=== PATIENT | female | born 1960 | race African-American/Black ===

== ENCOUNTER 2017-01-07 05:44 | Day surgery (SDC) | payer OTHER ==
[2017-01-05 14:04] LABS: BASOPHILS 0.7 % (0-2); EOSINOPHILS 10.2 % (0-7); HEMATOCRIT 36.6 % (36.0-48.0); HEMOGLOBIN 11.8 g/dL (12-16); LYMPHOCYTES 47.2 % (15-50); MCH 31.4 pg (26.0-34.0); MCHC 32.2 g/dL (31.0-37.0); MCV 97.3 fL (80.0-100.0); MONOCYTES 7.9 % (2-11); PLATELET COUNT 184 10x3/uL (130-400); RBC 3.76 10x6/uL (4.00-5.40); RDW 14.1 % (11.5-14.5); WBC 4.4 10x3/uL (4.8-10.8)
[2017-01-05 14:34] LABS: CALC OSMOLALITY 292 mosm/kg (275-300); CALCIUM 8.6 mg/dL (8.5-10.1); CARBON DIOXIDE 31.5 mmol/L (21.0-32.0); CHLORIDE - SERUM 109 mmol/L (98-107); CREATININE - SERUM 0.8 mg/dL (0.6-1.3); GLUCOSE 112 mg/dL (74-106); POTASSIUM - SERUM 4.8 mmol/L (3.5-5.1); SODIUM 146 mmol/L (136-145); UREA NITROGEN 16 mg/dL (7-18); eGFR NON AFRICAN AMERICAN 79 mL/min (90-120)
[~2017-01-07] VITALS: Ht 172.7 cm; Wt 163.3 kg
--- NOTE | ~2017-01-07 | OP ---
PATIENT NAME: DON CARPENTER MEDICAL RECORD: [id number] :62 LOCATION:D.[facility] ADMISSION DATE: SURGEON: MELISSA GAGE MD DATE OF OPERATION: 01/07/2017 PREOPERATIVE DIAGNOSES: 1. Endometrial thickening. 2. Endometrial polyp. POSTOPERATIVE DIAGNOSES: 1. Endometrial thickening. 2. Endometrial polyp. PROCEDURE: Hysteroscopy, D&C. SURGEON: Melissa Gage MD ESTIMATED BLOOD LOSS: Minimal. INTRAVENOUS FLUIDS: Per anesthesia records. HYSTEROSCOPIC FLUID LOSS: Approximately 100 cc of 0.9 normal saline. COMPLICATIONS: None apparent. SPECIMENS: Scant endometrial curettings. DESCRIPTION OF PROCEDURE: The patient was taken to the operating room where general anesthesia was achieved without difficulty. The patient prepped and draped in normal sterile fashion in the dorsal lithotomy position in the [facility] due to the patient's size. At this point, the vagina had been prepped and the bladder was drained of approximately 100 cc of clear urine using a red rubber catheter. At this point, a Graves speculum was placed into the vagina and the very small cervix was identified and grasped on its anterior lip with a single tooth tenaculum. Very careful dilation was performed for approximately 6 mm, at which point the hysteroscope was introduced into the uterus. The patient was noted a very long and somewhat stenotic cervix. Visualization was made into the endometrial cavity which revealed a relatively atrophic-appearing endometrium with a lower uterine segment flat polypoid-appearing lesion. At this point, a Kevorkian curette was used to perform D&C with attention played to the area of the suspected polyp. Due to the patient's stenotic cervix, we were unable to place a regular curette. Following D&C, the tenaculum was removed. The patient tolerated the procedure well and was transferred to postanesthesia recovery stable without incident. TRANSINT:[id number] Voice Confirmation ID: [id number] DOCUMENT ID: [id number] OPERATIVE REPORT [id number] DON CARPENTER MELISSA GAGE MD CC: [id number] DICTATION DATE: 01/08/17 1417 PLASTICS FABRICATOR AND ASSEMBLER: 01/09/17 0205 [facility] 01/07/17 [address] [place] [address]
[~2017-01-07 05:44] MED LIST: BREO ELLIPTA 11 EACH; BREO ELLIPTA 11 EACH INH; COMBIVENT RESPIM4 GM INH; CRESTOR20 MG PO; CYMBALTA30 MG PO; EPITOL200 MG PO; GLUCOPHAGE500 MG PO; HYDROCHLOROTHIA50 MG PO; HYDROCODONE-APA1 TAB PO; IBUPROFEN800 MG PO; KLOR-CON 1010 MEQ PO; LASIX40 MG PO; LEVOXYL112 MC1 PO; LIPITOR80 MG PO; LISINOPRIL2.5 MG PO; PEPCID20 MG PO; PHENOBARBITAL PO; PHENOBARBITAL97.2 MG PO; SINGULAIR10 MG PO
[2017-01-07 05:54] LABS: HCG URINE NEGATIVE (NEGATIVE)
[2017-01-07 05:58] VITALS: BP 112/63; Ht 172.7 cm; Wt 163.3 kg
[2017-01-07 07:15] LABS: POTASSIUM - SERUM 3.6 mmol/L (3.5-5.1)
--- NOTE | 2017-01-07 13:26 | NUR ---
1150--PT VOIDS, IV DC'D. KRISTOPHER HENRIQUEZ 1200--DISCHARGE INSTRUCTIONS GIVEN, PT VERBALIZES UNDERSTANDING. PT OFF UNIT VIA WC. KRISTOPHER HENRIQUEZ
== END 2017-01-07 12:05 | disposition home or self-care (01) ==
LOC: D.OPS 05:44 → D.PAN 07:30 → D.OPS 12:05
PROVIDERS: Anesthesiology; Obstetrics & Gynecology
DX: R93.8 Abnormal findings on diagnostic imaging of other specified body structures (principal); N84.0 Polyp of corpus uteri; G40.909 Epilepsy, unspecified, not intractable, without status epilepticus; E11.9 Type 2 diabetes mellitus without complications; I10 Essential (primary) hypertension; E78.5 Hyperlipidemia, unspecified; G47.30 Sleep apnea, unspecified; J42 Unspecified chronic bronchitis; Z99.81 Dependence on supplemental oxygen; Z79.84 Long term (current) use of oral hypoglycemic drugs; Z79.1 Long term (current) use of non-steroidal anti-inflammatories (NSAID); Z79.899 Other long term (current) drug therapy; Z91.010 Allergy to peanuts; Z91.013 Allergy to seafood; Z91.018 Allergy to other foods

== ENCOUNTER → 2017-02-24 09:58 | Day surgery (SDC) | payer OTHER ==
[~2017-02-24] VITALS: Ht 172.7 cm; Wt 163.3 kg
[2017-02-24 11:38] VITALS: BP 150/78; Ht 172.7 cm; Wt 163.3 kg
[2017-02-24 11:39] LABS: HEMATOCRIT 37.3 % (36.0-48.0); HEMOGLOBIN 12.6 g/dL (12-16); MCH 32.4 pg (26.0-34.0); MCHC 33.8 g/dL (31.0-37.0); MCV 95.9 fL (80.0-100.0); MEAN PLATELET VOLUME 10.7 fL (7.4-10.4); RBC 3.89 10x6/uL (4.00-5.40); RDW 12.6 % (11.5-14.5); WBC 3.8 10x3/uL (4.8-10.8)
[2017-02-24 11:43] LABS: CALC OSMOLALITY 279 mosm/kg (275-300); CALCIUM 8.7 mg/dL (8.5-10.1); CARBON DIOXIDE 25.9 mmol/L (21.0-32.0); CHLORIDE - SERUM 106 mmol/L (98-107); CREATININE - SERUM 0.8 mg/dL (0.6-1.3); GLUCOSE 120 mg/dL (74-106); POTASSIUM - SERUM 3.9 mmol/L (3.5-5.1); SODIUM 141 mmol/L (136-145); UREA NITROGEN 8 mg/dL (7-18); eGFR NON AFRICAN AMERICAN 79 mL/min (90-120)
--- NOTE | 2017-02-24 16:05 | NUR ---
1500 PT ESCORTED OUT BY VOLUNTEER AND ACCOMPANIED BY HER DAUGHTER
== END | disposition home or self-care (01) ==
LOC: D.OPS 09:45
PROVIDERS: Surgery
DX: Z12.11 Encounter for screening for malignant neoplasm of colon (principal); K64.8 Other hemorrhoids; J45.909 Unspecified asthma, uncomplicated; I10 Essential (primary) hypertension; E11.9 Type 2 diabetes mellitus without complications; E03.9 Hypothyroidism, unspecified; J44.9 Chronic obstructive pulmonary disease, unspecified; G47.30 Sleep apnea, unspecified; Z01.812 Encounter for preprocedural laboratory examination; Z91.010 Allergy to peanuts; Z91.013 Allergy to seafood; Z91.018 Allergy to other foods

== ENCOUNTER → 2017-03-24 10:41 | Outpatient (CLI) | payer OTHER ==
[2017-02-24 11:38] VITALS: BMI 54.8
== END | disposition home or self-care (01) ==
LOC: D.US 10:41
DX: R60.0 Localized edema (principal)

== ENCOUNTER → 2017-05-28 08:02 | Outpatient (CLI) | payer OTHER ==
[2017-02-24 11:38] VITALS: BMI 54.8
== END | disposition home or self-care (01) ==
LOC: D.RT 08:00
DX: J45.909 Unspecified asthma, uncomplicated (principal)

== ENCOUNTER → 2018-07-12 09:34 | Outpatient (CLI) | payer OTHER ==
[2017-02-24 11:38] VITALS: BMI 54.8
== END | disposition home or self-care (01) ==
LOC: D.RAD 09:00
DX: J45.909 Unspecified asthma, uncomplicated (principal)

== ENCOUNTER → 2018-09-29 14:10 | Outpatient (CLI) | payer OTHER ==
[2017-02-24 11:38] VITALS: BMI 54.8
== END | disposition home or self-care (01) ==
LOC: D.MRI 14:10
DX: M62.81 Muscle weakness (generalized) (principal)

== ENCOUNTER 2020-02-23 05:54 | Inpatient (IN) | payer OTHER ==
[~2020-02-23] VITALS: Ht 172.7 cm; Wt 154.2 kg
[~2020-02-23 05:54] MED LIST changes: +ELIQUIS5 MG PO; +GLUCOTROL 5 MG T5 MG PO; -PHENOBARBITAL PO; +PHENOBARBITAL64.8 MG PO; +TOPROL XL50 MG PO
[2020-02-23 06:29] LABS: CALC OSMOLALITY 281 mosm/kg (275-300); CALCIUM 8.5 mg/dL (8.5-10.1); CARBON DIOXIDE 29.1 mmol/L (21.0-32.0); CHLORIDE - SERUM 105 mmol/L (98-107); CREATININE - SERUM 0.6 mg/dL (0.6-1.3); GLUCOSE 157 mg/dL (74-106); POTASSIUM - SERUM 4.1 mmol/L (3.5-5.1); SODIUM 140 mmol/L (136-145); UREA NITROGEN 13 mg/dL (7-18); eGFR NON AFRICAN AMERICAN > 90 mL/min (90-120)
[2020-02-23 06:30] LABS: BASOPHILS 0.2 % (0-2); EOSINOPHILS 3.4 % (0-7); HEMATOCRIT 40.5 % (36.0-48.0); HEMOGLOBIN 13.1 g/dL (12-16); MCH 30.5 pg (26.0-34.0); MCHC 32.3 g/dL (31.0-37.0); MCV 94.2 fL (80.0-100.0); MEAN PLATELET VOLUME 9.7 fL (7.4-10.4); MONOCYTES 5.5 % (2-11); NEUTROPHILS 46.9 % (40-80); PLATELET COUNT 255 10x3/uL (130-400); RDW 12.7 % (11.5-14.5)
[2020-02-23 07:47] VITALS: BP 125/78; BMI 53.0
--- NOTE | 2020-02-23 10:49 | NUR ---
10CC OF RED DRAINAGE REMOVED FROM SAULO DRAIN @8523
--- NOTE | 2020-02-23 17:52 | NUR ---
[address] GABRIEL VIA PHONE REGARDING PATIENTS WEAKNESS AND LACK OF IMMOBILTUY. PT LIVES ALONE AND DAUGHTER HAS NO OTHER HELP. PER DR. HARDEN, DR. ROTHMAN NOTIFIED. ORDER NOTED TO ADMIT PATIENT AND LOW VOLTAGE TECHNICIAN FROM PRACTICE WILL EVALUATE PATIENT. PATIENT AND DAUGHTER NOTIFIED
[2020-02-23 19:20] LABS: BASOPHILS 0.2 % (0-2); HEMATOCRIT 39.4 % (36.0-48.0); HEMOGLOBIN 12.8 g/dL (12-16); IMMATURE GRANULOCYTES 0.3 % (0-5); LYMPHOCYTES 26.7 % (15-50); MCH 30.9 pg (26.0-34.0); MCHC 32.5 g/dL (31.0-37.0); MCV 95.2 fL (80.0-100.0); MEAN PLATELET VOLUME 9.7 fL (7.4-10.4); MONOCYTES 8.1 % (2-11); NEUTROPHILS 61.7 % (40-80); PLATELET COUNT 215 10x3/uL (130-400); RBC 4.14 10x6/uL (4.00-5.40); RDW 12.7 % (11.5-14.5)
[2020-02-23 19:31] LABS: WBC 6.3 10x3/uL (4.8-10.8)
[2020-02-23 19:47] LABS: ALKALINE PHOSPHATASE 107 U/L (30-120); ALT (SGPT) 140 U/L (10-68); BILIRUBIN - TOTAL 0.31 mg/dL (0.2-1.3); CALC OSMOLALITY 277 mosm/kg (275-300); CALCIUM 8.3 mg/dL (8.5-10.1); CHLORIDE - SERUM 104 mmol/L (98-107); CREATININE - SERUM 0.6 mg/dL (0.6-1.3); GLUCOSE 115 mg/dL (74-106); POTASSIUM - SERUM 4.2 mmol/L (3.5-5.1); PROTEIN - SERUM 6.3 g/dL (6.4-8.2); SODIUM 139 mmol/L (136-145); UREA NITROGEN 10 mg/dL (7-18); eGFR NON AFRICAN AMERICAN > 90 mL/min (90-120)
--- NOTE | 2020-02-23 20:14 | NUR ---
182 TRANSFERRED TO FLOOR AFTER REPORT CALLED TO RN. PT STABLE AND REPORTS A DECREASE IN PAIN TO 7. RECEIVING UNIT AWARE THAT HIGH SCHOOL COORDINATOR WILL SEE PT TO WRITE ORDERS, MEAL NEEDED AND ASSISTANCE NEEDED WITH ALL MOBILITY. PT VOIDED 1804 CLEAR YELLOW URINE. R THIGH DRESSING WITH 3 ELIN OF DIME TO QUARTER SIZED SEROSAINGUINOUS DRAINAGE, UNCHANGED FROM PREVIOUS. 45 CC OF SANGUINOUS DRAINAGE EMPTIED FROM SAULO.
[2020-02-23 22:16] LABS: APTT 27.8 SECONDS (22.8-39.4); INR 1.06 (0.85-1.17); PROTIME 13.8 SECONDS (11.6-15.0)
[2020-02-23 22:42] LABS: MAGNESIUM - SERUM 1.8 mg/dL (1.8-2.4)
[2020-02-23 22:46] LABS: CKMB 187.3 U/L (0.0-3.6)
[2020-02-23 22:48] LABS: CREATINE KINASE 7159 UL (21-215); TROPONIN-I < 0.017 ng/mL (0.000-0.060)
[2020-02-24 00:38] VITALS: BMI 51.8
[2020-02-24 07:19] LABS: HEMATOCRIT 37.2 % (36.0-48.0); HEMOGLOBIN 12.4 g/dL (12-16); LYMPHOCYTES 28.1 % (15-50); MCH 31.2 pg (26.0-34.0); MCHC 33.3 g/dL (31.0-37.0); MCV 93.7 fL (80.0-100.0); MEAN PLATELET VOLUME 10.3 fL (7.4-10.4); NEUTROPHILS 62.8 % (40-80); PLATELET COUNT 237 10x3/uL (130-400); RBC 3.97 10x6/uL (4.00-5.40); RDW 12.2 % (11.5-14.5); WBC 5.6 10x3/uL (4.8-10.8)
[2020-02-24 07:41] LABS: ALBUMIN 2.7 g/dL (3.4-5.0); ALKALINE PHOSPHATASE 105 U/L (30-120); ALT (SGPT) 119 U/L (10-68); BILIRUBIN - TOTAL 0.54 mg/dL (0.2-1.3); CALC OSMOLALITY 271 mosm/kg (275-300); CALCIUM 7.9 mg/dL (8.5-10.1); CARBON DIOXIDE 28.5 mmol/L (21.0-32.0); CHLORIDE - SERUM 101 mmol/L (98-107); CKMB 77.7 U/L (0.0-3.6); CREATINE KINASE 4140 UL (21-215); CREATININE - SERUM 0.5 mg/dL (0.6-1.3); GLUCOSE 142 mg/dL (74-106); MAGNESIUM - SERUM 1.7 mg/dL (1.8-2.4); POTASSIUM - SERUM 3.9 mmol/L (3.5-5.1); PROTEIN - SERUM 6.4 g/dL (6.4-8.2); SODIUM 136 mmol/L (136-145); TROPONIN-I < 0.017 ng/mL (0.000-0.060); UREA NITROGEN 7 mg/dL (7-18); eGFR NON AFRICAN AMERICAN > 90 mL/min (90-120)
[2020-02-24 08:51] VITALS: BP 135/73
--- NOTE | 2020-02-24 09:54 | NUR ---
SHE IS OFF AND ON THE BED MOCK. THE RIGHT HIP HAS DRESSING AND A SAULO WITH CLEAN, DRY, DRESSING. SHE HAS PROBLEMS MOVING HER RIGHT LEG. THE LEFT LEG IS SWOLLEN. THE CALL LIGHT IS WITHIN REACH.
[2020-02-24 11:02] LABS: CKMB 73.9 U/L (0.0-3.6); TROPONIN-I < 0.017 ng/mL (0.000-0.060)
[2020-02-24 11:04] LABS: CREATINE KINASE 4142 UL (21-215)
[2020-02-24 14:02] VITALS: BP 111/72
[2020-02-24 17:09] VITALS: BP 122/65
[2020-02-24 20:00] VITALS: BP 119/73
[2020-02-25 04:00] VITALS: BP 117/69
--- NOTE | 2020-02-25 04:00 | NUR ---
I have reviewed this patient and I concur with the Shift Assessment completed by the Licensed Practical Nurse today this shift.
[2020-02-25 05:38] LABS: BASOPHILS 0.4 % (0-2); EOSINOPHILS 3.1 % (0-7); HEMATOCRIT 37.7 % (36.0-48.0); HEMOGLOBIN 12.3 g/dL (12-16); IMMATURE GRANULOCYTES 0.2 % (0-5); LYMPHOCYTES 34.1 % (15-50); MCH 30.9 pg (26.0-34.0); MCHC 32.6 g/dL (31.0-37.0); MCV 94.7 fL (80.0-100.0); MONOCYTES 8.4 % (2-11); NEUTROPHILS 53.8 % (40-80); PLATELET COUNT 235 10x3/uL (130-400); RBC 3.98 10x6/uL (4.00-5.40); RDW 12.8 % (11.5-14.5); WBC 5.5 10x3/uL (4.8-10.8)
[2020-02-25 06:16] LABS: ALBUMIN 2.6 g/dL (3.4-5.0); ALKALINE PHOSPHATASE 98 U/L (30-120); ALT (SGPT) 101 U/L (10-68); BILIRUBIN - TOTAL 0.32 mg/dL (0.2-1.3); CALC OSMOLALITY 277 mosm/kg (275-300); CALCIUM 8.3 mg/dL (8.5-10.1); CARBON DIOXIDE 30.9 mmol/L (21.0-32.0); CHLORIDE - SERUM 103 mmol/L (98-107); CKMB 71.9 U/L (0.0-3.6); CREATINE KINASE 4025 UL (21-215); CREATININE - SERUM 0.6 mg/dL (0.6-1.3); GLUCOSE 126 mg/dL (74-106); MAGNESIUM - SERUM 1.8 mg/dL (1.8-2.4); POTASSIUM - SERUM 3.7 mmol/L (3.5-5.1); PROTEIN - SERUM 6.4 g/dL (6.4-8.2); SODIUM 139 mmol/L (136-145); UREA NITROGEN 8 mg/dL (7-18); eGFR NON AFRICAN AMERICAN > 90 mL/min (90-120)
--- NOTE | 2020-02-25 08:27 | NUR ---
PT RESTING IN BED WITH EYES CLOSED, EASILY AROUSED TO SPEECH. ALERT AND ORIENTED. NO S/S OF DISTRESS AT THIS TIME, DENIES NEEDS, WILL CONT TO MONITOR.
[2020-02-25 08:59] VITALS: BP 122/71
--- NOTE | 2020-02-25 11:54 | NUR ---
REHAB PRESCREENING Rehab referral received and chart reviewed. This patient is a good candidate for acute inpatient rehab. She has [employer] as her insurance provider which requires a prior authorization. PT evaluation is complete OT evaluation is pending. Rehab will begin prior authorization when OT evaluation is completed. Thank you for this referral! Palak Moffett, METAL HARDENER Rehab PD
[2020-02-25 12:52] VITALS: BP 119/82
[2020-02-25 17:04] VITALS: BP 116/70
[2020-02-25 20:00] VITALS: BP 126/69
[2020-02-26 04:00] VITALS: BP 131/79
[2020-02-26 06:28] LABS: BASOPHILS 0.2 % (0-2); EOSINOPHILS 4.6 % (0-7); HEMATOCRIT 38.5 % (36.0-48.0); HEMOGLOBIN 12.6 g/dL (12-16); IMMATURE GRANULOCYTES 0.2 % (0-5); LYMPHOCYTES 40.6 % (15-50); MCH 30.9 pg (26.0-34.0); MCHC 32.7 g/dL (31.0-37.0); MCV 94.4 fL (80.0-100.0); MONOCYTES 10.1 % (2-11); NEUTROPHILS 44.3 % (40-80); PLATELET COUNT 239 10x3/uL (130-400); RBC 4.08 10x6/uL (4.00-5.40); RDW 12.6 % (11.5-14.5); WBC 5.2 10x3/uL (4.8-10.8)
[2020-02-26 06:54] LABS: ALBUMIN 2.7 g/dL (3.4-5.0); ALKALINE PHOSPHATASE 100 U/L (30-120); ALT (SGPT) 97 U/L (10-68); BILIRUBIN - TOTAL 0.28 mg/dL (0.2-1.3); CALCIUM 8.6 mg/dL (8.5-10.1); CARBON DIOXIDE 32.8 mmol/L (21.0-32.0); CHLORIDE - SERUM 103 mmol/L (98-107); CKMB 70.6 U/L (0.0-3.6); CREATININE - SERUM 0.6 mg/dL (0.6-1.3); GLUCOSE 130 mg/dL (74-106); MAGNESIUM - SERUM 1.8 mg/dL (1.8-2.4); POTASSIUM - SERUM 4.1 mmol/L (3.5-5.1); PROTEIN - SERUM 6.7 g/dL (6.4-8.2); SODIUM 139 mmol/L (136-145); eGFR NON AFRICAN AMERICAN > 90 mL/min (90-120)
[2020-02-26 07:10] LABS: CALC OSMOLALITY 278 mosm/kg (275-300); CREATINE KINASE 3638 UL (21-215); UREA NITROGEN 11 mg/dL (7-18)
[2020-02-26 09:05] VITALS: BP 128/77
--- NOTE | 2020-02-26 09:30 | NUR ---
PT A&O, SITTING UP IN BED. DENIES PAIN. RIGHT THIGH MUSCLE BX, DSG C/D/I. NO DRAINAGE IN SAULO DRAIN. PLACED SCDS ON PT. PUREWICK IN PLACE AND PATENT, 200 ML CLEAR, YELLOW URINE. EDUCATED PT ON CL AND ASKING FOR ASSISTANCE, PT VERBALIZED UNDERSTANDING. PT DENIES FURTHER NEEDS. BED LOW, RAILS X2. CL IN REACH.
--- NOTE | 2020-02-26 12:30 | NUR ---
PT C/O PUREWICK NOT PLACED CORRECTLY. RE POSITIONED PT AND CHANGED BED, REPLACED PUREWICK AND POSITIONED CORRECTLY. PT DENIES FURTHER NEEDS. CL IN REACH. BED LOW, RAILS X2. WILL CONTINUE TO MONITOR.
[2020-02-26 13:06] VITALS: BP 100/55
[2020-02-26 18:04] VITALS: BP 133/86
[2020-02-26 20:00] VITALS: BP 119/82
--- NOTE | 2020-02-26 20:00 | NUR ---
ASSESSMENT PER FLOW SHEET, VS OBTAINER PER MABEL STEELE, PUREWICK IN PLACE DRAINING TO SUCTION, PT REPORTS FLATUS AND SMALL BM, TELEMETRY IN PLACE, SCD'S ON AND WORKING PROPERLY, DENIES NEEDS OR PAIN AT THIS TIME, BED IN LOW POSITION, SIDE RAILS X 2, CALL LIGHT IN REACH
--- NOTE | 2020-02-26 20:58 | NUR ---
PT AWAKE, WATCHING TV, OBTAINED FSBS, ADM 2100 MEDS PO PER MD ORDERS, SEE EMAR, PT REFUSES INSULIN, SEE EMAR, PT REQUESTED AND SERVED DIET [place], DENIES FURTHER NEEDS, BED IN LOW POSITION, SIDE RAILS X 2, CALL LIGHT IN REACH
--- NOTE | 2020-02-26 22:23 | NUR ---
PT AROUSES TO OPENING OF DOOR, DENIES NEEDS OR PAIN AT THIS TIME
[2020-02-27] VITALS: BP 142/85
--- NOTE | 2020-02-27 | NUR ---
PT AWAKE, WATCHING TV, VS OBTAINED, DENIES NEEDS OR PAIN AT THIS TIME
--- NOTE | 2020-02-27 02:28 | NUR ---
PT AWAKE, WATCHING TV, DENIES NEEDS OR PAIN AT THIS TIME, BED IN LOW POSITION, SIDE RAILS X 2, CALL LIGHT IN REACH
[2020-02-27 04:00] VITALS: BP 125/81
--- NOTE | 2020-02-27 04:39 | NUR ---
PT AROUSES TO OPENING OF DOOR, CHANGED PUREWICK CONTAINER, 700 MLS OF DARK URINE NOTED, EMPTIED SAULO DRAIN, PT DENIES NEEDS OR PAIN AT THIS TIME, BED IN LOW POSITION, SIDE RAILS X 2, CALL LIGHT IN REACH
--- NOTE | 2020-02-27 05:38 | NUR ---
PT RESTING WITH EYES CLOSED, AROUSES TO SOFT VERBAL STIMULATION, ADM 0600 MED PER MD ORDERS, SEE EMAR, INFORMED PT THAT I WILL NOT DO A FINGER STICK THIS MORNING SINCE SHE HAD BLOOD DRAWN, PT VERBALIZES UNDERSTANDING, DENIES NEEDS OR PAIN AT THIS TIME
[2020-02-27 05:59] LABS: ALBUMIN 2.8 g/dL (3.4-5.0); ALKALINE PHOSPHATASE 106 U/L (30-120); ALT (SGPT) 112 U/L (10-68); BILIRUBIN - TOTAL 0.32 mg/dL (0.2-1.3); CALC OSMOLALITY 272 mosm/kg (275-300); CALCIUM 8.6 mg/dL (8.5-10.1); CARBON DIOXIDE 30.9 mmol/L (21.0-32.0); CHLORIDE - SERUM 99 mmol/L (98-107); CKMB 82.5 U/L (0.0-3.6); CREATININE - SERUM 0.6 mg/dL (0.6-1.3); GLUCOSE 131 mg/dL (74-106); MAGNESIUM - SERUM 1.7 mg/dL (1.8-2.4); PHOSPHOROUS 3.6 mg/dL (2.5-4.9); POTASSIUM - SERUM 3.7 mmol/L (3.5-5.1); SODIUM 136 mmol/L (136-145); THYROID STIMULATING HORMONE 1.54 uIU/mL (0.36-3.74); UREA NITROGEN 11 mg/dL (7-18); eGFR NON AFRICAN AMERICAN > 90 mL/min (90-120)
[2020-02-27 06:10] LABS: CREATINE KINASE 3674 UL (21-215)
[2020-02-27 06:28] LABS: HEMATOCRIT 39.8 % (36.0-48.0); HEMOGLOBIN 13.4 g/dL (12-16); LYMPHOCYTES 41.7 % (15-50); MCH 31.3 pg (26.0-34.0); MCHC 33.7 g/dL (31.0-37.0); MEAN PLATELET VOLUME 10.3 fL (7.4-10.4); NEUTROPHILS 46.2 % (40-80); PLATELET COUNT 252 10x3/uL (130-400); RBC 4.28 10x6/uL (4.00-5.40); RDW 12.2 % (11.5-14.5); WBC 5.4 10x3/uL (4.8-10.8)
--- NOTE | 2020-02-27 07:30 | NUR ---
PT SITTING IN BED A&O X4. DSG ON R THIGH, C/D/I, SAULO DRAIN PATENT. PT ON TELEMETRY, CONTROLLED AFIB 74 HR. PT HAS PUREWICK IN PLACE TO SUCTION, PATENT, 200ML CLR, YELLOW URINE. EDUCATED PT ON CL AND PT VERBALIZED UNDERSTANDING. BED LOW, RAILS X2. CL IN REACH. WILL CONTINUE TO MONITOR.
--- NOTE | 2020-02-27 08:25 | NUR ---
PT LAYING IN BED A&O X4. PT CRYING, SHE STATES THAT SHE IS HAVING TROUBLE HAVING A BM, PT NOT ABLE TO AMBULATE ONTO BEDSIDE COMMODE, SHE STATES SHE WILL GET "STUCK" ON IT. HELPED PT ONTO BEDPAN AND ENCOURAGED HER.
[2020-02-27 09:35] VITALS: BP 111/80
[2020-02-27 10:12] LABS: HEPATITIS C ANTIBODY 0.3 S/CO RAT (0.0-0.9)
--- NOTE | 2020-02-27 12:11 | NUR ---
PT SITING UP IN BED. PHYSICAN REMOVED DRESSING ON RIGHT THIGH. STERISTRIPS INTACT, NO DRAINAGE. SAULO DRAIN IN PLACE, PATENT. PT DENIES FURTHER NEEDS. BED LOW, CL IN REACH. WILL CONTINUE TO MONITOR.
--- NOTE | 2020-02-27 12:59 | NUR ---
OT NOTE: ASSISTED PT WITH BED MOB WITH MOD/MIN ASSIST; MOD ASSIST TO SCOOT TO EOB; CONT TO REQUIRE ASSIST WITH MOVING R UE DUE TO PAIN. SET UP FOR FEEDING AND SIMPLE GROOMING BUT EXT ASSIST FOR TOILET HYGIENE. SIT TO STAND WITH MIN/MOD ASSIST; ABLE TO AMB A FEW FEET WITH B CANES AND MIN ASSIST; MAX ASSIST FOR SIT TO SUPINE AND SCOOTING UP IN BED. MAX ASSIST TO REPOSITION FOR COMFORT. ROSALINO ORELLANA, OTR/L [phone]
[2020-02-27 13:17] VITALS: BP 130/86
[2020-02-27 14:52] VITALS: Ht 172.7 cm; Wt 154.2 kg
[2020-02-27 17:47] VITALS: BP 122/58
--- NOTE | 2020-02-27 18:40 | NUR ---
SAULO DRAIN DC AT THIS TIME WITH 30 ML NOTED TO BULB. C/L IN REACH AT BEDSIDE.
[2020-02-27 20:00] VITALS: BP 152/80
[2020-02-28 04:00] VITALS: BP 110/78
--- NOTE | 2020-02-28 06:00 | NUR ---
I have reviewed this patient and I concur with the Shift Assessment completed by the Licensed Practical Nurse today this shift.
[2020-02-28 07:45] LABS: HEMATOCRIT 39.7 % (36.0-48.0); HEMOGLOBIN 13.3 g/dL (12-16); LYMPHOCYTES 40.9 % (15-50); MCH 31.1 pg (26.0-34.0); MCHC 33.5 g/dL (31.0-37.0); MEAN PLATELET VOLUME 9.8 fL (7.4-10.4); NEUTROPHILS 47.9 % (40-80); PLATELET COUNT 276 10x3/uL (130-400); RBC 4.27 10x6/uL (4.00-5.40); RDW 12.1 % (11.5-14.5); WBC 4.8 10x3/uL (4.8-10.8)
[2020-02-28 08:13] LABS: ALBUMIN 2.7 g/dL (3.4-5.0); ALKALINE PHOSPHATASE 111 U/L (30-120); ALT (SGPT) 115 U/L (10-68); BILIRUBIN - TOTAL 0.32 mg/dL (0.2-1.3); C-REACTIVE PROTEIN 5.4 mg/dL (0.0-0.9); CALC OSMOLALITY 271 mosm/kg (275-300); CALCIUM 8.2 mg/dL (8.5-10.1); CARBON DIOXIDE 31.1 mmol/L (21.0-32.0); CHLORIDE - SERUM 101 mmol/L (98-107); CREATININE - SERUM 0.6 mg/dL (0.6-1.3); GLUCOSE 134 mg/dL (74-106); LDH 498 U/L (81-234); MAGNESIUM - SERUM 1.7 mg/dL (1.8-2.4); PHOSPHOROUS 3.6 mg/dL (2.5-4.9); POTASSIUM - SERUM 3.9 mmol/L (3.5-5.1); PROTEIN - SERUM 6.5 g/dL (6.4-8.2); SODIUM 135 mmol/L (136-145); UREA NITROGEN 13 mg/dL (7-18); eGFR NON AFRICAN AMERICAN > 90 mL/min (90-120)
[2020-02-28 08:14] LABS: CREATINE KINASE 3681 UL (21-215)
[2020-02-28 08:51] LABS: ERYTHROCYTE SEDIMENTATION RATE 26 mm/hr (0-30)
[2020-02-28 09:07] VITALS: BP 114/80
--- NOTE | 2020-02-28 09:21 | NUR ---
OT NOTE: (DOS 02/27/2020) PT COMPLETED BUE AROM TOLERATED SECONDARY TO SHOULER PAIN. PT COMPLETED SIDE ROLLING TO L SIDE WITH SBA. PT USED HANDLE OF CANE TO POSITION R FOOT. PT COMPLETED FACE HYGIENE WITH SETUP. [phone] THANK YOU,ANTONIETTA PATTON
--- NOTE | 2020-02-28 13:05 | NUR ---
I have reviewed this patient and I concur with the Shift Assessment completed by the Licensed Practical Nurse today this shift.
--- NOTE | 2020-02-28 14:41 | NUR ---
OT NOTE: REQUIRED ASSIST FROM MANE TO COMPLETE TMT TODAY. PT WAS LIEING ON HER SIDE..VERY LETHARGIC. MAX ASSIST FOR SUPINE TO SIT; SIT TO STAND WITH MOD/MAX ASSIST.. PT REPORTED THAT SHE FELT DIZZY WHILE STANDING. PT PULLING ON THERAPIST SHE WAS NOT ABLE TO USE HER CANES TODAY. PT HAD LIQUID BM AND REQUIRED MAX ASSIST FOR PERINEAL CARE; MAX ASSIST FOR CLEANING BACK AND LEGS; ABLE TO WASH FACE AND HANDS WITH SET UP. CALLED IN NURSING WHO HAS NOT HAD THIS PT BEFORE SO SHE COULD NOT COMPARE HER TO YESTERDAY, BUT STATED THAT SHE WOULD CHECK HER BLOOD SUGAR; MAX ASSIST X 2 TO GET PT POSITIONED IN BED ROSALINO ORELLANA, OTR/L [phone]
--- NOTE | 2020-02-28 16:01 | NUR ---
OT NOTE: (AM) PT LETHARGIC THIS MORINING. PT REQUIRED EXTENSIVE ASSIST. PT COMPLETED SUPINE TO SIT WITH MAX A X2. PT COMPLETED SIT TO STAND WITH MAX/MOD A X2. PT REQUIRED TOTAL A WITH LB HYGIENE TASKS. NOTIFIED NURSING. (PM) PT COMPLETED BUE AROM EXERCISES . PT COMPLETED REPOSITIONING IN BED WITH MOD A AND USE OF SIDE RAIL. PT COMPLETED FACE AND HAND HYGIENE WITH SETUP. PT MORE ALERT THIS PM. [phone] THANK YOU, ANTONIETTA PATTON
[2020-02-28 16:45] VITALS: BP 104/59
--- NOTE | 2020-02-28 17:57 | NUR ---
A&O RESTING IN BED WITH EYES OPEN. NO C/O PAIN. NO S/S OF ACUTE DISTRESS NOTED. DENIES ANY NEEDS AT THIS TIME. CALL LIGHT IN REACH. WILL CONTINUE TO MONITOR.
[2020-02-28 20:00] VITALS: BP 115/72
[2020-02-29 04:00] VITALS: BP 103/65
--- NOTE | 2020-02-29 06:43 | NUR ---
I have reviewed this patient and I concur with the Shift Assessment completed by the Licensed Practical Nurse today this shift.
[2020-02-29 06:45] LABS: ALBUMIN 2.6 g/dL (3.4-5.0); ALKALINE PHOSPHATASE 106 U/L (30-120); ALT (SGPT) 113 U/L (10-68); AMYLASE - SERUM 46 U/L (25-115); BILIRUBIN - TOTAL 0.29 mg/dL (0.2-1.3); CALC OSMOLALITY 274 mosm/kg (275-300); CALCIUM 8.2 mg/dL (8.5-10.1); CARBON DIOXIDE 29.8 mmol/L (21.0-32.0); CHLORIDE - SERUM 102 mmol/L (98-107); CKMB 81.1 U/L (0.0-3.6); CREATININE - SERUM 0.7 mg/dL (0.6-1.3); GLUCOSE 138 mg/dL (74-106); LDH 480 U/L (81-234); LIPASE 100 U/L (73-393); MAGNESIUM - SERUM 1.8 mg/dL (1.8-2.4); PHOSPHOROUS 3.4 mg/dL (2.5-4.9); POTASSIUM - SERUM 3.6 mmol/L (3.5-5.1); PROTEIN - SERUM 6.8 g/dL (6.4-8.2); SODIUM 136 mmol/L (136-145); UREA NITROGEN 15 mg/dL (7-18); eGFR NON AFRICAN AMERICAN > 90 mL/min (90-120)
[2020-02-29 06:50] LABS: CREATINE KINASE 3542 UL (21-215); HEMATOCRIT 39.2 % (36.0-48.0); LYMPHOCYTES 43.3 % (15-50); MCH 30.9 pg (26.0-34.0); MCHC 33.2 g/dL (31.0-37.0); MCV 93.1 fL (80.0-100.0); MEAN PLATELET VOLUME 9.8 fL (7.4-10.4); NEUTROPHILS 46.2 % (40-80); PLATELET COUNT 287 10x3/uL (130-400); RBC 4.21 10x6/uL (4.00-5.40); RDW 12.1 % (11.5-14.5); WBC 4.8 10x3/uL (4.8-10.8)
--- NOTE | 2020-02-29 08:00 | NUR ---
PT RESTING IN BED ON LEFT SIDE. AWAKE, ALERT AND ORIENTED. DOES NOT COMMUNICATE MUCH WITH STAFF, USES MOSTLY YES AND NO ANSWERS. DENIES PAIN AT THIS TIME. PUREWICK IN PLACE. DENIES FURTHER NEEDS AT THIS TIME. CL WITHIN REACH. ENCOURAGED TO CALL WITH NEEDS. CONTINUE POC
[2020-02-29 09:05] LABS: ERYTHROCYTE SEDIMENTATION RATE 27 mm/hr (0-30)
--- NOTE | 2020-02-29 09:45 | NUR ---
Rehab Note- Spoke with Anai newell/ Jackson/Karlene stated that the Auth is still pending for an inpatient acute rehab stay. Will continue to await determination. Thank you for this referral! Geovanna Jarvis RN Clinical Liaison, [facility] Rehab
[2020-02-29 10:31] VITALS: BP 114/69
--- NOTE | 2020-02-29 12:00 | NUR ---
OT NOTE: PT DOING MUCH BETTER THAN YESTERDAY AND REPORTS THAT SHE FEELS BETTER. PRACTICED SEVERAL TRIALS ON BED MOB INCLUDING ROLLING AND SUPINE TO SIT.. PT WAS FINALLY ABLE TO MOVE B LES OFF OF EOB WITHOUT ASSIST, AND ONLY MIN ASSIST FOR PUSHING UP TO SITTING POSITION. SITTING BALANCE ON EOB IS GOOD ON EOB. PRACTICED SIT TO STAND X 3 TRIALS WITH MOD ASSIST. ONCE PT IS UP TO STANDING POSITION, SHE IS ABLE TO USE B CANES TO AMB A FEW FT IN ROOM (APPROX 10-12 FT).. REQUIRED MOD/MAX ASSIST TO GET BACK TO BED AND POSITION UP IN BED. REQUIRES EXT ASSIST WITH TOILET HYGIENE AND LE DRESSING, BUT ABLE TO LUKASZ SLIP ON SHOES BY USING CANE TO PUSH THEM ON FEET. PT IS STILL WEAK, BUT NOT SO SURE SHES NOT CLOSE TO PRIOR LEVEL. ROSALINO ORELLANA, OTR/L [phone]
[2020-02-29 13:20] VITALS: BP 117/72
[2020-02-29 14:06] LABS: BILIRUBIN NEGATIVE (NEGATIVE); GLUCOSE NEGATIVE (NEGATIVE); KETONE NEGATIVE (NEGATIVE); NITRITE NEGATIVE (NEGATIVE); UROBILINOGEN NORMAL (NORMAL)
--- NOTE | 2020-02-29 15:50 | NUR ---
Rehab Note- Received call from November with Jackson/Karlene with auth approval. Notified DANYELL Alston. THank you for this referral! Geovanna Jarvis RN Clinical Liaison, [facility] Rehab
[2020-02-29] MEDS ORDERED: CARNITOR 11 GM/10 ML IV (17:50)
--- NOTE | 2020-02-29 19:27 | NUR ---
OT NOTE: PT COMPLETED BUE AROM EXERCISES TOLERATED. PT COMPLETED FACE HYGIENE WITH SETUP. [phone] THANK YOU,ANTONIETTA PATTON
[2020-02-29] MEDS ORDERED: PHENOBARBITAL64.8 MG PO (21:12)
--- NOTE | 2020-03-05 21:23 | OP ---
PATIENT NAME: DON CARPENTER MEDICAL RECORD: [id number] :62 LOCATION:D.MS [id number] ADMISSION DATE:02/23/20 SURGEON: RACQUEL GABRIEL MD DATE OF OPERATION: 02/23/2020 PREOPERATIVE DIAGNOSES: 1. Weakness, right greater than left. 2. Rule out myopathy. POSTOPERATIVE DIAGNOSES: 1. Weakness, right greater than left. 2. Rule out myopathy. PROCEDURE: Right quadriceps muscle biopsy. SURGEON: Racquel Gabriel MD BATH MIX OPERATOR: None. BLOOD LOSS: Less than 50 cc. ANESTHESIA: General. COMPLICATIONS: None. DRAINS: Times one 10-Belarusian round fully fluted closed suction drainage system. The risks, possible complications and alternatives to the procedure were explained to the patient. She elects to proceed. Discussion specifically included, but was not limited to, bleeding requiring an emergency reoperation, infection and worsening myopathy. OPERATIVE COURSE: The patient was conveyed the operating room electively on 02/23/2020. General anesthesia was induced by the anesthesia staff. The right thigh was sterilely prepped and draped. An axial incision was accomplished on the lateral aspect of the right thigh. Sharp dissection was carried down through skin and subcutaneous tissues to the fascia of the thigh. I incised the thigh fascia, which was likely the fascia of the vastus lateralis. I then sharply excised a rectangle of the fascia. I lifted up the fascia with a pair of muscle biopsy forceps and then, using Andrews scissors, I excised the muscle along with the overlying fascia. This was sent to pathology fresh for studies that will be done at [facility]. The fascia was closed with multiple interrupted horizontal mattress #1 Vicryls as well as a running #1 Vicryl. I irrigated with normal saline and aspirated. A 10-Belarusian round Renard drain was brought out through a stab incision proximally. The drain was sutured to skin with a 2-0 nylon. The drain was shortened. It was placed in the incision. The subdermis was approximated with interrupted 3-0 Vicryls. The skin was approximated with a running intracuticular 3-0 Vicryl. A sterile dressing was applied. The patient was then extubated and conveyed to post-anesthesia care unit where OPERATIVE REPORT [id number] DON CARPENTER she was in stable condition. She will be dismissed home on [place] as well as [place]. I will see her in the office in several weeks. She can follow up with my nurse in the office, next , for drain removal. TRANSINT:[id number] Voice Confirmation ID: [id number] DOCUMENT ID: [id number] 02/26/2020 Edited for tapeman error, dmm. RACQUEL GABRIEL MD at 2123 CC: ANJELICA LOVE MD, TATY WOODY MD, DEMETRIA RAWLS and [facility] MARK [id number] DICTATION DATE: 02/23/20 1030 TRANSFER AND LINE UP WORKER: 02/23/20 1250 DIS IN 02/29/20 [facility] [address] [place] [address]
== END 2020-02-29 18:49 | DRG 40 ==
LOC: D.OPS 05:54 → D.MS 05:54 → D.PAN 08:00 → D.OPS 08:00 → D.MS 16:31 → D.OPS 18:20 → D.MS 02-29 18:49
PROVIDERS: Emergency Medicine; Family Medicine; Internal Medicine Nephrology; Surgery; ADMIT Family Medicine Adult Medicine; ATTEND Family Medicine Adult Medicine
PROC: 0KBQ0ZX Excision of Right Upper Leg Muscle, Open Approach, Diagnostic (ICD-10-PCS; principal; 2020-02-23 08:00)
DX: G72.89 Other specified myopathies (principal); R53.2 Functional quadriplegia; I48.20 Chronic atrial fibrillation, unspecified; J96.12 Chronic respiratory failure with hypercapnia; J96.11 Chronic respiratory failure with hypoxia; N95.0 Postmenopausal bleeding; I10 Essential (primary) hypertension; E78.5 Hyperlipidemia, unspecified; E11.65 Type 2 diabetes mellitus with hyperglycemia; G40.909 Epilepsy, unspecified, not intractable, without status epilepticus; J42 Unspecified chronic bronchitis; E66.01 Morbid (severe) obesity due to excess calories

== ENCOUNTER 2020-02-29 18:53 | Inpatient (IN) | payer OTHER ==
[~2020-02-29] VITALS: Ht 172.7 cm; Wt 154.2 kg
[~2020-02-29 18:53] MED LIST changes: +CARNITOR 11 GM/10 ML IV
[2020-02-29 19:00] VITALS: BP 134/74
--- NOTE | 2020-02-29 19:30 | NUR ---
RECEIVED PT LYING IN BED WATCHING TV. ALERT AND ORIENTED X4. POSTERIOR SIDE OF RIGHT UPPER LEG INCISION WITH STERI STRIPS INTACT, OLD DRAIN SITE DRESSING INTACT. DENIES ANY NEEDS OR PAIN. ORIENTATED TO ROOM, BATHROOM, FUNCTIONS OF REMOTE, AND UNIT. IV LEFT FOREARM PATENT, NO REDNESS OR SWELLING. DRESSING INTACT. CALL LIGHT AND WATER WITHIN REACH. FALL PRECAUTIONS IN PLACE. CPOC
[2020-02-29] MEDS ORDERED: PHENOBARBITAL64.8 MG PO (21:12)
[2020-03-01 01:02] VITALS: BP 135/74; BMI 51.8
--- NOTE | 2020-03-01 02:15 | NUR ---
PT LYING IN BED SUPINE EYES CLOSED RESTING QUIETLY. HOB ELEVATED. RR EVEN AND UNLABORED. CALL LIGHT WITHIN REACH. FALL PRECAUTIONS IN PLACE. CPOC
--- NOTE | 2020-03-01 04:44 | NUR ---
PT LYING IN BED EYES CLOSED RESTING COMFORTABLY. RR EVEN AND UNLABORED. CALL LIGHT WITHIN REACH. FALL PRECAUTIONS IN PLACE. CPOC
--- NOTE | 2020-03-01 05:25 | NUR ---
ASSISTED PT TO RESTROOM WITH MOD ASSIST.
--- NOTE | 2020-03-01 05:41 | NUR ---
ASSISTED PT OFF TOILET WITH ASSISTANCE FROM MARTINEZ OCHOA. PT IS ABLE TO WALK WITH USE OF 2 CANES ONCE UP FROM TOILET WITH SBA. NO OTHER NEEDS VOICED. DENIES ANY PAIN. CALL LIGHT AND WATER WITHIN REACH. FALL PRECAUTIONS IN PLACE. CPOC
--- NOTE | 2020-03-01 07:34 | NUR ---
PT ASLEEP AROUSES EASILY TO VOICE, NO NEEDS NOTED, FALL PRECAUTIONS IN PLACE, FLUIDS/CALL LIGHT WITHIN REACH
[2020-03-01 07:52] LABS: CALC OSMOLALITY 275 mosm/kg (275-300); CALCIUM 8.2 mg/dL (8.5-10.1); CARBON DIOXIDE 29.6 mmol/L (21.0-32.0); CHLORIDE - SERUM 101 mmol/L (98-107); CREATININE - SERUM 0.7 mg/dL (0.6-1.3); GLUCOSE 150 mg/dL (74-106); MAGNESIUM - SERUM 1.8 mg/dL (1.8-2.4); PHOSPHOROUS 3.5 mg/dL (2.5-4.9); POTASSIUM - SERUM 3.6 mmol/L (3.5-5.1); SODIUM 136 mmol/L (136-145); UREA NITROGEN 16 mg/dL (7-18); eGFR NON AFRICAN AMERICAN > 90 mL/min (90-120)
[2020-03-01 08:30] LABS: HEMOGLOBIN 13.1 g/dL (12-16); LYMPHOCYTES 38.1 % (15-50); MCH 30.5 pg (26.0-34.0); MCHC 32.8 g/dL (31.0-37.0); MEAN PLATELET VOLUME 9.8 fL (7.4-10.4); NEUTROPHILS 51.4 % (40-80); PLATELET COUNT 285 10x3/uL (130-400); RDW 12.2 % (11.5-14.5)
--- NOTE | 2020-03-01 13:45 | NUR ---
PATIENT ADMITTED TO REHAB FROM ACUTE FLOOR. DR. RAWLS IS HER PCP. DISCHARGE PLANS ARE FOR PATIENT TO RETURN. WILL CONTINUE TO FOLLOW WITH PATIENT.
[2020-03-01 15:29] VITALS: BP 105/62
[2020-03-01 16:48] VITALS: Ht 172.7 cm; Wt 154.2 kg
--- NOTE | 2020-03-01 20:00 | NUR ---
PATIENT RECEIVED SITTING UP IN LOW BED. ASSESSMENT & VITAL SIGNS DONE. C/O PAIN TO LEFT UPPER BUTTOCKS. PAIN OCCURS DURING MOVEMENT. CALL LIGHT WITHIN REACH. WILL CONTINUE TO MONITOR.
[2020-03-01 20:08] VITALS: BP 109/80
--- NOTE | 2020-03-01 20:15 | NUR ---
PATIENT LIGHT ON. PATIENT RETURNED FROM BATHROOM. VOID ONLY. PATIENT ASSIST WITH LEGS INTO LOW BED. CALL LIGHT WITHIN REACH. WILL CONTINUE TO MONITOR.
--- NOTE | 2020-03-01 22:10 | NUR ---
PATIENT DRAIN DRESSING REMOVED. 1 CM DEEP 2 CM CIRCUMFERENCE. NO DRAINAGE. NEW BANDAGE APPLIED. CALL LIGHT WITHIN REACH. WILL CONTINUE TO MONITOR.
--- NOTE | 2020-03-01 22:39 | NUR ---
PATIENT TOILETED. VOID ONLY. PATIENT USED ROLLING WALKER IN & OUT OF BED. PATIENT ASSIST WITH LEGS ONTO BED. BED LOW. CALL LIGHT WITHIN REACH. WILL CONTINUE TO MONITOR.
--- NOTE | 2020-03-02 01:53 | NUR ---
PATIENT TOILETED. VOID ONLY. MAX ASSIST LIFTING LEGS ONTO LOW BED. CALL LIGHT WITHIN REACH. WILL CONTINUE TO MONITOR.
--- NOTE | 2020-03-02 03:46 | NUR ---
PATIENT EYES CLOSED. RESPIRATIONS 18 & EVEN. BED LOW. WALKER & CALL LIGHT WITHIN REACH. WILL CONTINUE TO MONITOR.
--- NOTE | 2020-03-02 07:23 | NUR ---
PT ASLEEP, AROUSES EASILY TO VOICE, NO NEEDS NOTED, FALL PRECAUTIONS IN PLACE, FLUIDS/CALL LIGHT WITHIN REACH
[2020-03-02 10:16] VITALS: BP 124/73
[2020-03-02 19:40] VITALS: BP 116/70
--- NOTE | 2020-03-02 19:45 | NUR ---
PATIENT RECEIVED SITTING UP IN BED. ASSESSMENT & VITAL SIGNS DONE. NO C/O PAIN OR DISTRESS. BED LOW. CALL LIGHT WITHIN REACH. WILL CONTINUE TO MONITOR.
--- NOTE | 2020-03-02 22:50 | NUR ---
PATIENT USED CALL LIGHT FOR ASSIST TO BATHROOM. PATIENT NO ASSIST OUT OF BED OR STANDING. PATIENT AMBULATED WITH ROLLING WALKER TO BATHROOM. VOID ONLY. NO ASSIST OFF TOILET RISER. PATIENT ADJUSTED BED LEVEL & SAT DOWN. ASSIST WITH LIFTING LEGS BACK IN LOW BED. CALL LIGHT WITHIN REACH. WILL CONTINUE TO MONITOR.
--- NOTE | 2020-03-03 00:05 | NUR ---
I have reviewed this patient and I concur with the Shift Assessment completed by the Licensed Practical Nurse today this shift.
--- NOTE | 2020-03-03 05:58 | NUR ---
PATIENT TOILETED. VOID ONLY. MINIMAL ASSIST WITH IN & OUT OF BED. LOW BED. CALL LIGHT WITHIN REACH. WILL CONTINUE TO MONITOR.
[2020-03-03 07:41] VITALS: BP 110/73
--- NOTE | 2020-03-03 08:43 | NUR ---
AM MEDS GIVEN AT THIS TIME. PT WANTS TO GET A BED BATH AFTER LUNCH, DENIES ANY NEEDS AT THIS TIME. CALL LIGHT IN REACH, NAD NOTED, WILL CONTINUE TO MONITOR.
--- NOTE | 2020-03-03 10:34 | NUR ---
PT RESTING COMFORTABLY WITH EYES CLOSED, NAD NOTED, CALL LIGHT IN REACH.
--- NOTE | 2020-03-03 14:40 | NUR ---
SHOWER AND COMPLETE LINEN CHANGE DONE AT THIS TIME.
[2020-03-03 19:24] VITALS: BP 104/67
--- NOTE | 2020-03-03 19:30 | NUR ---
PATIENT RECEIVED SITTING UP IN BED WATCHING TV. ASSESMENT & VITAL SIGNS DONE. BED LOW. CALL LIGHT WITHIN REACH. WILL CONTINUE TO MONITOR.
--- NOTE | 2020-03-04 03:01 | NUR ---
I have reviewed this patient and I concur with the Shift Assessment completed by the Licensed Practical Nurse today this shift.
[2020-03-04 05:47] LABS: BASOPHILS 0.3 % (0-2); EOSINOPHILS 3.2 % (0-7); HEMATOCRIT 39.5 % (36.0-48.0); HEMOGLOBIN 12.9 g/dL (12-16); IMMATURE GRANULOCYTES 0.2 % (0-5); LYMPHOCYTES 49.5 % (15-50); MCH 30.9 pg (26.0-34.0); MCHC 32.7 g/dL (31.0-37.0); MCV 94.5 fL (80.0-100.0); MEAN PLATELET VOLUME 9.7 fL (7.4-10.4); MONOCYTES 6.4 % (2-11); NEUTROPHILS 40.4 % (40-80); RBC 4.18 10x6/uL (4.00-5.40); RDW 12.7 % (11.5-14.5); WBC 6.2 10x3/uL (4.8-10.8)
[2020-03-04 05:53] LABS: PLATELET COUNT 347 10x3/uL (130-400)
[2020-03-04 05:58] LABS: CALC OSMOLALITY 278 mosm/kg (275-300); CALCIUM 8.3 mg/dL (8.5-10.1); CARBON DIOXIDE 30.6 mmol/L (21.0-32.0); CHLORIDE - SERUM 103 mmol/L (98-107); CREATININE - SERUM 0.7 mg/dL (0.6-1.3); GLUCOSE 139 mg/dL (74-106); PHENOBARBITAL 24.3 ug/mL (15.0-40.0); SODIUM 139 mmol/L (136-145); UREA NITROGEN 11 mg/dL (7-18); eGFR NON AFRICAN AMERICAN > 90 mL/min (90-120)
--- NOTE | 2020-03-04 07:48 | NUR ---
PT RESTING IN BED WITH EYES OPEN CALL LIGHT IN REACH WILL MONITER
--- NOTE | 2020-03-04 11:19 | NUR ---
Nutrition Follow-up: Diet: Diabetic PO intake: 100% x last 8 meals Last BM: 03/02/20. Wt: 340# (03/01/20) Meds noted: phenobarbitol, lasix, glipizide, micro-K. Labs noted: Glu 139(H) Skin: open area under breast Recommend continue current diet. RD following.
[2020-03-04 14:53] VITALS: BP 133/67
--- NOTE | 2020-03-04 16:52 | RHP ---
PATIENT: DON CARPENTER MEDICAL RECORD: [id number] ACCOUNT: [id number] LOCATION:[facility]1116 : 62 ADMISSION DATE: 02/29/20 REHABILITATION HISTORY AND PHYSICAL EXAMINATION POST ADMISSION PHYSICIAN EXAMINATION ADMITTING DIAGNOSIS: Disuse myopathy. HISTORY OF PRESENT ILLNESS: The patient is a 59-year-old morbidly obese patient who presents secondary to myositis, rhabdo and transaminitis. She was admitted for a right quadriceps muscle biopsy on 02/22, Dr. Deng performed this due to weakness. She had right greater than left to rule out myopathy and myositis. She was very weak and after surgery could not ambulate. She has got a history of seizure disorder, epilepsy, diabetes, hypertension, hyperlipidemia, bronchitis, chronic atrial fib and chronic hypoxia. The patient was noted to be very weak. She has got some lymphedema. Bilateral lower extremities are seema weak that she was barely able to wiggle her toes. Nephrology was consulted secondary to an elevated LDH, CPK of 3681 and a CRP of 5.4, most results are still pending at this time. Previously, she was living alone, was independent with ADLs and mobility prior to this, using a cane. Currently, she has had prolonged immobility, progressive generalized weakness, especially of her lower extremities and she has decreased tolerance to PT. She is very fatigued, has limited flexion and extension. She has got limited proximal muscle strength and she is mod to max assist for ADLs, mod to max assist for sit to stand and bed to chair. She wants to return home with her daughter. COMORBIDITIES: Include atrial fib, arthritis, decreased mobility, decrease in visual functioning, essential hypertension, fatigue, hyperglycemia and incontinence. She has also got chronic hypoxemia. She has got hypercapnic respiratory failure, transaminitis, diabetes, hyperglycemia, elevations of her CPK, CRP, LDH, hyperlipidemia, hypothyroidism, chronic bronchitis, obesity, spinal stenosis and osteoarthritis. PAST MEDICAL HISTORY: Significant for seizure disorder, diabetes, she has got a history of hyperlipidemia, atrial fib, chronic bronchitis, O2 dependence, morbid obesity, osteoarthritis, spinal stenosis. PAST SURGICAL HISTORY: Includes a tubal ligation, she has had a cyst removed from her vaginal region. She has got gallbladder surgery, times 3. She has had a total thyroidectomy and hysteroscopy. ALLERGIES: PEANUTS, KIWI, NOA AND SHELLFISH. CURRENT MEDICATIONS: Include Calmoseptine to apply b.i.d., she is on phenobarbital 64.8 mg in the morning, metoprolol 50 mg daily, she is on Carnitor injection at 1000 mg, she will get an injection for 4 doses, furosemide 40 mg daily, she is on glipizide 5 mg prior to meals, she is on Perforomist 20 mcg b.i.d., budesonide 0.5 mg b.i.d., Synthroid 112 mcg daily, she is on a phenobarbital 129.6 mg at bedtime, she is on potassium 10 mEq b.i.d., Singulair 10 mg at bedtime, Pepcid 20 mg b.i.d., Tegretol 600 mg b.i.d., Eliquis 5 mg b.i.d., DuoNeb updrafts. HABITS: No alcohol or tobacco use. FAMILY HISTORY: Noncontributory. HISTORY AND PHYSICAL [id number] DON CARPENTER SOCIAL HISTORY: The patient hopes to return back home and get back to her prior level of functioning. REVIEW OF SYSTEMS: GENERAL: Does complain of weakness and fatigue. HEENT: Denies cold, cough, or congestion. CARDIOVASCULAR: Denies any chest pain. PHYSICAL EXAMINATION: VITAL SIGNS: Stable, afebrile. GENERAL: A morbidly obese female who is in no acute distress, alert upon exam. HEENT: Normal, atraumatic. Mucosa moist. NECK: Supple. No lymphadenopathy. LUNGS: Clear in upper sexton. HEART: Irregular rate and rhythm. ABDOMEN: Soft, benign, obese, nontender and nondistended. EXTREMITIES: No clubbing, cyanosis or edema. NEUROLOGIC: She does have noted decreased strength in her lower extremities, left greater than right. LABORATORY DATA: White count is 5.0, H&H of 13 and 40, and platelet count is 285. Sodium 136, potassium 3.6, BUN and creatinine of 16 and 0.6 and blood sugar is noted to be 150. 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 The patient has potential to make improvement. We instituted the following multiple disciplinary therapies including, but not limited to physical, occupational, respiratory, speech therapy and orthotics. The patient has potential to make improvement and will need to stay here in the rehab to do so. ASSESSMENT: 1. Admit to [facility] for the following disciplines: A. Physical therapy to improve gait, all transfer skills and bed mobility to a modified independent level. B. Occupational therapy to improve activities of daily living. C. Case management to help with discharge planning and placement options. D. Nutrition to assist with nutritional needs. E. Rehabilitation nursing to assist in monitoring the patient's underlying medical conditions and to assist with any type of bowel or bladder management. 2. The patient's current medication and medical care will be continued. 3. The patient will be placed on standard fall precautions. 4. The patient's estimated length of stay is approximately 7-10 days. 5. We will discuss this patient during care team staff meeting this week. Continue on home medications where appropriate. We will continue on her Eliquis for DVT prophylaxis and also atrial fibrillation. We will wait on pending results from her muscle biopsy and I will see again in the a.m. TRANSINT:[id number] Voice Confirmation ID: [id number] DOCUMENT ID: [id number] CHRISTINE notes whether there has been none or any medical/functional change since admission: - No change since prescreen. HISTORY AND PHYSICAL [id number] DON CARPENTER attests patient continues to be appropriate for IRF: - Continues to be appropriate. ISAURA NAIK MD at 1652 CC: [id number] DICTATION DATE: 03/01/20919 TURNSTILE COLLECTOR: 03/01/20 1118 ADM IN [facility] [address] [id number]
--- NOTE | 2020-03-04 19:10 | NUR ---
PT UP IN SHOWER, COMPLETE BED CHANGE REQUIRED, RARE INCONTINENT EPISODE,
--- NOTE | 2020-03-05 03:17 | NUR ---
PT ASLEEP NO NEEDS NOTED, FLUIDS/CALL LIGHT WITHIN REACH
[2020-03-05 04:31] VITALS: BP 111/61
--- NOTE | 2020-03-05 08:00 | NUR ---
PT RESTING IN BED WITH EYES OPEN CALL LIGHT IN REACH WILL MONITER
[2020-03-05 08:22] VITALS: BP 123/76
--- NOTE | 2020-03-05 11:00 | NUR ---
I have reviewed this patient and I concur with the Shift Assessment completed by the Licensed Practical Nurse today this shift.
--- NOTE | 2020-03-05 17:50 | NUR ---
PT RESTING IN BED WITH EYES OPEN CALL LIGHT IN REACH WILL MONITER
--- NOTE | 2020-03-05 20:32 | NUR ---
PT IN BED WATCHING STORAGE WARS, NO NEEDS NOTED, UP AT EDDIE, FLUIDS/CALL LIGHT WITHIN REACH
[2020-03-06 01:37] VITALS: BP 100/64
--- NOTE | 2020-03-06 07:30 | NUR ---
A/A/0X4. DENIES ANY PAIN OR DISCOMFORT AND VOICES NO REQUESTS. RESP EVEN AND UNLABORED WITH NO DISTRESS NOTED ON RA. BREATH SOUNDS ARE DIMINISHED BILATERALLY BUT CLEAR. SIDERAILS UP X 2, CALL LIGHT AND FLUIDS IN REACH, BED IN LOW LOCKED POSITION.
[2020-03-06 08:39] LABS: BASOPHILS 0.5 % (0-2); EOSINOPHILS 5.3 % (0-7); HEMATOCRIT 37.6 % (36.0-48.0); HEMOGLOBIN 12.1 g/dL (12-16); IMMATURE GRANULOCYTES 0.5 % (0-5); LYMPHOCYTES 42.7 % (15-50); MCH 30.8 pg (26.0-34.0); MCHC 32.2 g/dL (31.0-37.0); MCV 95.7 fL (80.0-100.0); RBC 3.93 10x6/uL (4.00-5.40); RDW 12.7 % (11.5-14.5); WBC 4.2 10x3/uL (4.8-10.8)
[2020-03-06 08:42] LABS: PLATELET COUNT 244 10x3/uL (130-400)
[2020-03-06 09:12] LABS: CALC OSMOLALITY 273 mosm/kg (275-300); CALCIUM 8.5 mg/dL (8.5-10.1); CARBON DIOXIDE 29.2 mmol/L (21.0-32.0); CHLORIDE - SERUM 102 mmol/L (98-107); CREATININE - SERUM 0.5 mg/dL (0.6-1.3); GLUCOSE 134 mg/dL (74-106); POTASSIUM - SERUM 4.2 mmol/L (3.5-5.1); SODIUM 136 mmol/L (136-145); UREA NITROGEN 12 mg/dL (7-18); eGFR NON AFRICAN AMERICAN > 90 mL/min (90-120)
--- NOTE | 2020-03-06 10:40 | NUR ---
Nutrition Follow-up: Diet: Diabetic PO intake: 100% Last BM: 03/05/20. WT: 340# (03/01/20) Meds noted: phenobarbital, lasix, glipizide, micro-K. Labs noted: Glu 134(H) Skin: open area under L breast Recommend continue current diet. RD following.
[2020-03-06 10:45] VITALS: BP 129/85
--- NOTE | 2020-03-06 14:01 | NUR ---
CARE TEAM MEETING: PATIENT IS DOING WELL IN THERAPY.TENATIVE DISCHARGE DATE 03/14/20. WILL CONTINUE TO FOLLOW WITH PATIENT.
--- NOTE | 2020-03-06 17:22 | NUR ---
PT HAS BEEN UP AD EDDIE TO BATHROOM TODAY. NO C/O ANY PAIN OR DISCOMFORT AND NO REQUESTS VOICED. RESTING QUIETLY IN BED WATCHING TV.
--- NOTE | 2020-03-06 19:10 | NUR ---
PT IN BED, FAMILY AT BEDSIDE, NO NEEDS NOTED, UP AT EDDIE, FLUIDS/CALL LIGHT WITHIN REACH, BM TODAY
[2020-03-07 00:49] VITALS: BP 110/74
--- NOTE | 2020-03-07 07:08 | NUR ---
REMOVED PT IV, CATHETER TIP INTACT
[2020-03-07 07:30] VITALS: BP 115/69
--- NOTE | 2020-03-07 07:30 | NUR ---
RECEIVED RESTING QUIETLY IN BED WITH EYES CLOSED,AROUSES EASILY.DENIES PAIN AND NEEDS AT PRESENT TIME.SKIN FOLD BENEATH LEFT BREAST RED WITH SMALL OPEN AREA,CALMOSEPTINE UTILIZED.WILL CONTINUE WITH CURRENT PLAN OF CARE.CL IN EASY REACH,BED IN LOW POSITION.
--- NOTE | 2020-03-07 19:15 | NUR ---
PT SITTING UP IN BED WITH TV ON WORKING PUZZLE, NO NEEDS NOTED, 2 ON FALL SCALE NO ALARMS NECESSARY, FLUIDS/CALL LIGHT WITHIN REACH
[2020-03-07 21:17] VITALS: BP 114/64
--- NOTE | 2020-03-08 03:51 | NUR ---
PT ASLEEP, AROUSES EASILY TO VOICE, RESPIRATIONS EVEN AND UNLABORED, NO NEEDS NOTED, PT UP AT EDDIE, FLUIDS/CALL LIGHT WITHIN REACH
--- NOTE | 2020-03-08 07:20 | NUR ---
RESTING POSITIONED ON BACK WITH EYES CLOSED, RESP EVEN AND UNLABORED ON RA WITH NO DISTRESS NOTED. SIDERAILS UP X 2, CALL LIGHT AND FLUIDS IN REACH, BED IN LOW, LOCKED POSITION. NO APPARENT NEEDS AT THIS TIME.
[2020-03-08 11:26] VITALS: BP 108/52
--- NOTE | 2020-03-08 19:35 | NUR ---
PATIENT RECEIVED SITTING UP IN BED. ASSESSMENT & VITAL SIGNS DONE. MENU FILLED OUT. BED LOW. CALL LIGHT WITHIN REACH. WILL CONTINUE TO MONITOR.
[2020-03-08 20:08] VITALS: BP 118/67
--- NOTE | 2020-03-09 03:16 | NUR ---
I have reviewed this patient and I concur with the Shift Assessment completed by the Licensed Practical Nurse today this shift.
--- NOTE | 2020-03-09 04:30 | NUR ---
PATIENT EYES CLOSED. RESPIRATIONS 18 & EVEN. BED LOW. CALL LIGHT WITHIN REACH. WILL CONTINUE TO MONITOR.
--- NOTE | 2020-03-09 08:00 | NUR ---
PT RESTING IN BED WITH EYES OPEN CALL LIGHT IN REACH WILL MONITER
--- NOTE | 2020-03-09 10:00 | NUR ---
I have reviewed this patient and I concur with the Shift Assessment completed by the Licensed Practical Nurse today this shift.
--- NOTE | 2020-03-09 18:29 | NUR ---
PT RESTING IN BED WITH EYES OPEN CALL LIGHT IN REACH WILL MONITER
--- NOTE | 2020-03-09 18:30 | NUR ---
PT RESTING IN BED WATCHING TV CALL LIGHT IN REACH NO PROBLEMS WILL MONITER
--- NOTE | 2020-03-09 20:10 | NUR ---
PATIENT RECEIVED SITTING UP IN BED. ASSESSMENT & VITAL SIGNS DONE. NO C/O PAIN OR DISTRESS. BED LOW. CALL LIGHT WITHIN REACH. WILL CONTINUE TO MONITOR.
[2020-03-09 20:34] VITALS: BP 134/73
--- NOTE | 2020-03-10 01:33 | NUR ---
I have reviewed this patient and I concur with the Shift Assessment completed by the Licensed Practical Nurse today this shift.
[2020-03-10 08:21] VITALS: BP 114/74
--- NOTE | 2020-03-10 11:26 | NUR ---
PT RESTING IN BED WITH EYES OPEN CALL LIGHT IN REACH WILL MONITER
--- NOTE | 2020-03-10 12:00 | NUR ---
I have reviewed this patient and I concur with the Shift Assessment completed by the Licensed Practical Nurse today this shift.
--- NOTE | 2020-03-10 17:58 | NUR ---
PT RESTING IN BED WITH EYES OPEN CALL LIGHT IN REACH WILL MONITER
[2020-03-10 19:00] VITALS: BP 127/68
--- NOTE | 2020-03-10 19:32 | NUR ---
PATIENT RECEIVED SITTING UP IN BED. ASSESSMENT & VITAL SIGNS DONE. NO C/O PAIN OR DISTRESS. BED LOW. CALL LIGHT WITHIN REACH. WILL CONTINUE TO MONITOR.
--- NOTE | 2020-03-10 21:10 | NUR ---
PATIENT FOUND LYING ON HER BACK CROSSWAYS IN BED. PATIENT CRYING COULD NOT GET UP IN REST OF BED. THIS NURSE & CHARGE NURSE COMFORTED PATIENT. 2 PEOPLE ASSIST WITH LEGS INTO BED. PATIENT CALM. CALL LIGHT WITHIN REACH. WILL CONTINUE TO MONITOR.
--- NOTE | 2020-03-11 05:25 | NUR ---
I have reviewed this patient and I concur with the Shift Assessment completed by the Licensed Practical Nurse today this shift.
--- NOTE | 2020-03-11 07:30 | NUR ---
A/A/0X4. DENIES ANY PAIN OR PROBLEMS AT THIS TIME AND NO REQUESTS VOICED. SIDERAILS UP X 2, CALL LIGHT AND FLUIDS IN REACH, BED IN LOW LOCKED POSITION. NO APAPRENT PROBLEMS OR NEEDS.
[2020-03-11 07:52] VITALS: BP 109/68
--- NOTE | 2020-03-11 12:36 | NUR ---
I have reviewed this patient and I concur with the Shift Assessment completed by the Licensed Practical Nurse today this shift.
--- NOTE | 2020-03-11 13:29 | NUR ---
Nutrition Follow-up: Diet: Diabetic PO intake: 100% x all meals. She reports that her appetite is "okay", she denies having any needs from dietary at this time. Last BM: 03/10/20. Wt: 340# (03/01/20) Meds noted: phenobarbital, lasix, glipizide, micro-K. Labs noted: Glu 134(H) Skin: small open area under L breast Recommend continue current diet. RD following.
--- NOTE | 2020-03-11 19:57 | NUR ---
UP TO TOILET, NO NEEDS NOTED, FLUIDS/CALL LIGHT WITHIN REACH, PT UP AT EDDIE
[2020-03-12 03:19] VITALS: BP 123/71
--- NOTE | 2020-03-12 04:06 | NUR ---
PT ASLEEP AROUSES EASILY TO VOICE, NO NEEDS NOTED, FLUIDS/CALL LIGHT WITHIN REACH
[2020-03-12 07:41] VITALS: BP 116/68
--- NOTE | 2020-03-12 08:00 | NUR ---
PT RESTING IN BED WITH EYES OPEN CALL LIGHT IN REACH WILL MONITER
--- NOTE | 2020-03-12 18:47 | NUR ---
PT RESTING IN BED WITH EYES OPEN CALL LIGHT IN REACH WILL MONITER
[2020-03-12 21:24] VITALS: BP 124/69
[2020-03-13 06:47] LABS: BASOPHILS 0.4 % (0-2); HEMATOCRIT 36.2 % (36.0-48.0); HEMOGLOBIN 11.9 g/dL (12-16); IMMATURE GRANULOCYTES 0.2 % (0-5); LYMPHOCYTES 44.6 % (15-50); MCH 31.1 pg (26.0-34.0); MCHC 32.9 g/dL (31.0-37.0); MCV 94.5 fL (80.0-100.0); MEAN PLATELET VOLUME 9.8 fL (7.4-10.4); MONOCYTES 10.3 % (2-11); NEUTROPHILS 40.5 % (40-80); PLATELET COUNT 283 10x3/uL (130-400); RBC 3.83 10x6/uL (4.00-5.40); RDW 12.8 % (11.5-14.5); WBC 4.6 10x3/uL (4.8-10.8)
[2020-03-13 07:02] LABS: CALC OSMOLALITY 280 mosm/kg (275-300); CALCIUM 8.5 mg/dL (8.5-10.1); CARBON DIOXIDE 31.1 mmol/L (21.0-32.0); CHLORIDE - SERUM 105 mmol/L (98-107); CREATININE - SERUM 0.5 mg/dL (0.6-1.3); GLUCOSE 123 mg/dL (74-106); POTASSIUM - SERUM 3.7 mmol/L (3.5-5.1); SODIUM 141 mmol/L (136-145); UREA NITROGEN 11 mg/dL (7-18); eGFR NON AFRICAN AMERICAN > 90 mL/min (90-120)
--- NOTE | 2020-03-13 07:58 | NUR ---
SHIFT ASSMT COMPLETED
[2020-03-13 08:24] VITALS: BP 112/75
--- NOTE | 2020-03-13 14:51 | NUR ---
CARE TEAM MEETING: PATIENT HAS PROGRESSED WELL AND HER TENATIVE DISCHARGE DATE IS 03/15/20. WILL CONTINUE TO FOLLOW WITH PATIENT.
[2020-03-13 20:07] VITALS: BP 120/76
--- NOTE | 2020-03-13 20:39 | NUR ---
PT SITTING UP IN BED, TV ON, PLEASANT, NO IMMEDIATE NEEDS NOTED, FALL PRECAUTIONS IN PLACE, FLUIDS/CALL LIGHT WITHIN REACH
--- NOTE | 2020-03-14 04:58 | NUR ---
PT ASLEEP AROUSES EASILY TO VOICE, RESPIRATIONS EVEN, NO NEEDS NOTED, FALL PRECAUTIONS IN PLACE, FLUIDS/CALL LIGHT WITHIN REACH
[2020-03-14 08:00] VITALS: BP 114/57
--- NOTE | 2020-03-14 08:00 | NUR ---
SHIFT ASSMT COMPLETED.
--- NOTE | 2020-03-14 19:58 | NUR ---
PT IN BED WATCHING TV, RESPIRATIONS EVEN, NO NEEDS NOTED, FALL PRECAUTIONS IN PLACE, FLUIDS/CALL LIGHT WITHIN REACH
[2020-03-14 21:19] VITALS: BP 113/66
[2020-03-15 07:00] LABS: CALC OSMOLALITY 282 mosm/kg (275-300); CALCIUM 8.4 mg/dL (8.5-10.1); CARBON DIOXIDE 32.9 mmol/L (21.0-32.0); CHLORIDE - SERUM 107 mmol/L (98-107); CREATININE - SERUM 0.5 mg/dL (0.6-1.3); GLUCOSE 126 mg/dL (74-106); POTASSIUM - SERUM 3.6 mmol/L (3.5-5.1); SODIUM 141 mmol/L (136-145); UREA NITROGEN 13 mg/dL (7-18); eGFR NON AFRICAN AMERICAN > 90 mL/min (90-120)
[2020-03-15 07:34] LABS: BASOPHILS 0.4 % (0-2); EOSINOPHILS 4.5 % (0-7); HEMATOCRIT 35.5 % (36.0-48.0); HEMOGLOBIN 11.5 g/dL (12-16); IMMATURE GRANULOCYTES 0.2 % (0-5); LYMPHOCYTES 43.3 % (15-50); MCH 30.8 pg (26.0-34.0); MCHC 32.4 g/dL (31.0-37.0); MCV 95.2 fL (80.0-100.0); MEAN PLATELET VOLUME 10.2 fL (7.4-10.4); MONOCYTES 8.2 % (2-11); NEUTROPHILS 43.4 % (40-80); PLATELET COUNT 279 10x3/uL (130-400); RBC 3.73 10x6/uL (4.00-5.40); WBC 4.6 10x3/uL (4.8-10.8)
--- NOTE | 2020-03-15 07:45 | NUR ---
RESTING WITH EYES CLOSED AND RESPONDED TO NAME, ORIENTED X 4. DENIES ANY PAIN AND NO REQUESTS VOICED AT THIS TIME. PT IS UP AD EDDIE, SIDERAILS UP X 1, CALL LIGHT AND FLUIDS IN REACH, BED IN LOW LOCKED POSITION. NO APPARENT NEEDS AT THIS TIME.
[2020-03-15] MEDS ORDERED: HYDROCODON-ACE1 EA10 PO (09:01)
--- NOTE | 2020-03-15 09:34 | NUR ---
PATIENT DISCHARGING HOME TODAY WITH FAMILY. [facility] WILL PROVIDE THERAPY AT HOME. NO NEW DME NEEDED AT THIS TIME. DR. RAWLS 03/20/20 @ 2:15, DR. LANTIGUA 03/29/20 @ 2:00, HARVEY MILLER 03/25/20 @ 2:15, DR. ARRIAGA 05/23/20 @ 10:30. JAYSON SIGNED, IMM SERVED AND EXPLAINED, ONE GIVEN TO PATIENT AND ONE FILED IN CHART. DSICHARGE INSTRUCTIONS FAXED TO PCP, HOME HEALTH,TO PATIENT INSURANCE [employer] , AUTH. # [id number] AND REVIEWED WITH PATIENT PER PRIMARY NURSE.
--- NOTE | 2020-03-15 10:40 | NUR ---
WAS UNAWARE THAT PATIENT HAD A MANAGE CARE INSURANCE, UPDATES FAXED TODAY WITH DISCHARGE CLINICALS TO [employer] , AUTH # [id number] WITH CONFORMATION RECIEVED OF FAX.
--- NOTE | 2020-03-15 12:59 | NUR ---
DISCHARGE INSTRUCTIONS REVIEWED WITH PT AND VERBALIZES UNDERSTANDING WITH NO QUESTIONS. ALL PERSONAL BELONGINGS IN ROOM HAD NOTHING LOCKED IN SAFE.
--- NOTE | 2020-03-15 13:04 | NUR ---
Nutrition Follow-up: Diet: Diabetic PO intake: 100% x all meals Last BM: 03/12/20. Wt: 340# (03/01/20) Meds noted: phenobarbital, lasix, glipizide, micro-K. Labs noted: Glu 126(H) Skin: small open area under left breast Recommend continue current diet. RD following.
--- NOTE | 2020-03-15 13:45 | NUR ---
PT LEFT FLOOR VIA W/C WITH ALL PERSONAL BELONGINGS. LEFT FACILITLY VIA PRIVATE VEHICLE WITH FAMILY MEMBER.
[2020-03-15 17:28] VITALS: BP 129/88
== END 2020-03-15 13:45 | disposition home health service (06) | DRG 92 ==
LOC: D.REHAB 18:53
PROVIDERS: ADMIT Emergency Medicine; ATTEND Emergency Medicine
DX: G72.89 Other specified myopathies (principal); J96.12 Chronic respiratory failure with hypercapnia; J96.11 Chronic respiratory failure with hypoxia; I48.20 Chronic atrial fibrillation, unspecified; M19.90 Unspecified osteoarthritis, unspecified site; I10 Essential (primary) hypertension; R53.83 Other fatigue; E11.65 Type 2 diabetes mellitus with hyperglycemia; E78.5 Hyperlipidemia, unspecified; E03.9 Hypothyroidism, unspecified; J42 Unspecified chronic bronchitis; E66.01 Morbid (severe) obesity due to excess calories; R32 Unspecified urinary incontinence; G40.909 Epilepsy, unspecified, not intractable, without status epilepticus; G47.33 Obstructive sleep apnea (adult) (pediatric)

== ENCOUNTER → 2020-03-25 10:39 | Outpatient (CLI) | payer OTHER ==
[2020-03-01 16:48] VITALS: BMI 51.7
[~2020-03-25 10:39] MED LIST changes: +HYDROCODON-ACE1 EA10 PO
== END | disposition home or self-care (01) ==
LOC: D.US 10:30
PROVIDERS: ATTEND Emergency Medicine
DX: N95.0 Postmenopausal bleeding (principal)

== ENCOUNTER 2020-03-25 16:31 | Emergency (ER) | payer OTHER ==
[~2020-03-25] VITALS: Ht 172.7 cm; Wt 154.5 kg
[2020-03-25 16:35] VITALS: Ht 172.7 cm; Wt 154.5 kg
[2020-03-25] MEDS ORDERED: HYDROCODON-ACE1 EA10 PO (19:03)
[2020-03-25 20:44] VITALS: BP 160/92
== END 2020-03-25 20:44 | disposition home or self-care (01) ==
LOC: D.ER 16:31
DX: S39.012A Strain of muscle, fascia and tendon of lower back, initial encounter (principal); W05.0XXA Fall from non-moving wheelchair, initial encounter; Y93.9 Activity, unspecified; Y92.9 Unspecified place or not applicable; E11.9 Type 2 diabetes mellitus without complications; I10 Essential (primary) hypertension; E78.5 Hyperlipidemia, unspecified; J45.909 Unspecified asthma, uncomplicated; Z99.81 Dependence on supplemental oxygen; K21.9 Gastro-esophageal reflux disease without esophagitis; Z79.84 Long term (current) use of oral hypoglycemic drugs

== ENCOUNTER 2020-04-02 04:56 | Inpatient (IN) | payer OTHER ==
[~2020-04-02] VITALS: Ht 172.7 cm; Wt 158.8 kg
[2020-04-02] VITALS (8 sets, daily range): BP systolic 95–117; BP diastolic 53–74; BMI 53.3
--- NOTE | 2020-04-02 05:41 | NUR ---
NO CODE SEPSIS PER EDP.
[2020-04-02 06:14] LABS: BASOPHILS 0.1 % (0-2); EOSINOPHILS 0.5 % (0-7); HEMATOCRIT 38.1 % (36.0-48.0); HEMOGLOBIN 12.1 g/dL (12-16); IMMATURE GRANULOCYTES 0.2 % (0-5); LYMPHOCYTES 8.5 % (15-50); MCH 30.3 pg (26.0-34.0); MCHC 31.8 g/dL (31.0-37.0); MCV 95.3 fL (80.0-100.0); MEAN PLATELET VOLUME 10.2 fL (7.4-10.4); MONOCYTES 7.9 % (2-11); NEUTROPHILS 82.8 % (40-80); PLATELET COUNT 245 10x3/uL (130-400); RDW 13.4 % (11.5-14.5); WBC 8.5 10x3/uL (4.8-10.8)
[2020-04-02 06:16] LABS: BILIRUBIN NEGATIVE (NEGATIVE); GLUCOSE 50 mg/dL (NEGATIVE); KETONE MODERATE mg/dL (NEGATIVE); NITRITE NEGATIVE (NEGATIVE); UROBILINOGEN NORMAL (NORMAL)
[2020-04-02 06:17] LABS: EPITHELIAL CELLS 0-5 /hpf (0-5); RED CELLS - URINE 0-5 /hpf (0-5); WHITE CELLS - URINE 0-5 /hpf (NEGATIVE)
[2020-04-02 06:18] LABS: BACTERIA MODERATE /hpf (NEGATIVE); GRANULAR CAST 0-5 /lpf (NONE SEEN)
[2020-04-02 06:20] LABS: CALC OSMOLALITY 280 mosm/kg (275-300); CHLORIDE - SERUM 103 mmol/L (98-107); CREATININE - SERUM 0.8 mg/dL (0.6-1.3); POTASSIUM - SERUM 3.8 mmol/L (3.5-5.1); SODIUM 138 mmol/L (136-145); UREA NITROGEN 11 mg/dL (7-18); eGFR NON AFRICAN AMERICAN 78 mL/min (90-120)
[2020-04-02 06:21] LABS: APTT 32.3 SECONDS (22.8-39.4); GLUCOSE 202 mg/dL (74-106)
[2020-04-02 06:22] LABS: D-DIMER-QUANTITATIVE 0.98 ug/mLFEU (0.20-0.54); INR 1.25 (0.85-1.17); PROTIME 15.6 SECONDS (11.6-15.0)
[2020-04-02 06:34] LABS: ALKALINE PHOSPHATASE 87 U/L (30-120); ALT (SGPT) 145 U/L (10-68); BILIRUBIN - TOTAL 0.54 mg/dL (0.2-1.3); MAGNESIUM - SERUM 1.9 mg/dL (1.8-2.4); PRO BNP 1984 pg/mL (0-125); PROTEIN - SERUM 7.2 g/dL (6.4-8.2); THYROID STIMULATING HORMONE 0.43 uIU/mL (0.36-3.74)
[2020-04-02 06:36] LABS: LIPASE 39 U/L (73-393); TROPONIN-I < 0.017 ng/mL (0.000-0.060)
[2020-04-02 07:01] LABS: C-REACTIVE PROTEIN 23.3 mg/dL (0.0-0.9)
[2020-04-02 07:41] LABS: CARBAMAZEPINE (TEGRETOL) 6.4 ug/mL (4.0-12.0); PHENOBARBITAL 26.7 ug/mL (15.0-40.0); THYROID STIMULATING HORMONE 0.39 uIU/mL (0.36-3.74)
--- NOTE | 2020-04-02 16:08 | NUR ---
PATIENT ADMITTED TO ROOM 2207. ADMISSION COMPLETE. BED ALARM ON. CALL MANTILLA AND PERSONAL ITEMS IN REACH. WILL CONTINUE TO MONITOR.
[2020-04-03 04:00] VITALS: BP 99/55
[2020-04-03 06:11] LABS: BASOPHILS 0.2 % (0-2); EOSINOPHILS 5.3 % (0-7); HEMATOCRIT 34.7 % (36.0-48.0); HEMOGLOBIN 10.9 g/dL (12-16); IMMATURE GRANULOCYTES 0.2 % (0-5); LYMPHOCYTES 23.6 % (15-50); MCH 30.1 pg (26.0-34.0); MCHC 31.4 g/dL (31.0-37.0); MCV 95.9 fL (80.0-100.0); MEAN PLATELET VOLUME 10.8 fL (7.4-10.4); MONOCYTES 5.3 % (2-11); NEUTROPHILS 65.4 % (40-80); PLATELET COUNT 227 10x3/uL (130-400); RBC 3.62 10x6/uL (4.00-5.40); RDW 13.5 % (11.5-14.5)
[2020-04-03 06:46] LABS: WBC 6.3 10x3/uL (4.8-10.8)
[2020-04-03 06:48] LABS: CALCIUM 7.7 mg/dL (8.5-10.1); CARBON DIOXIDE 29.5 mmol/L (21.0-32.0); CHLORIDE - SERUM 107 mmol/L (98-107); CHOL - HDL RATIO 5.5 ratio (2.3-4.1); CHOLESTEROL, TOTAL 207 mg/dL (0-200); HDL CHOLESTEROL 38 mg/dL (32-96); LDL CHOLESTEROL 130 mg/dL (0-100); LDL-HDL RATIO 3.4 ratio (1.5-3.5); PHOSPHOROUS 2.5 mg/dL (2.5-4.9); POTASSIUM - SERUM 3.3 mmol/L (3.5-5.1); SODIUM 141 mmol/L (136-145); T4 THYROXIN - FREE 0.73 ng/dL (0.76-1.46); THYROID STIMULATING HORMONE 1.28 uIU/mL (0.36-3.74); TRIGLYCERIDE 195 mg/dL (30-200); UREA NITROGEN 9 mg/dL (7-18)
[2020-04-03 06:55] LABS: CALC OSMOLALITY 280 mosm/kg (275-300); CREATININE - SERUM 0.5 mg/dL (0.6-1.3); GLUCOSE 115 mg/dL (74-106); eGFR NON AFRICAN AMERICAN > 90 mL/min (90-120)
--- NOTE | 2020-04-03 07:45 | NUR ---
PT RESTING IN BED WATCHING TV. RESP EVEN AND UNLABORED. OCCASIONAL COUGH NOTED WITH WHITE THICK SPUTUM NOTED. IV TO LEFT AC WITH NS @ 50ML/HR INFUSING VIA PUMP. SITE WITHOUT REDNESS OR EDEMA. DENIES PAIN AT THIS TIME. CL WITHIN REACH. ENCOURAGED TO CALL WITH NEEDS. CONTINUE POC
[2020-04-03 08:46] VITALS: BP 91/50
--- NOTE | 2020-04-03 10:22 | NUR ---
Rehab Note- Acute Inpatient Rehab prescreen order received. The patient has [employer] insurance and will require a PreAuth. She has a pending PT Eval and will also need an OT Eval for PreAuth process. Will follow at this time. Thank you for this referral! Geovanna Jarvis RN Clinical Liaison, [facility] Rehab
[2020-04-03 10:56] VITALS: Ht 172.7 cm; Wt 158.8 kg
[2020-04-03 12:17] VITALS: BP 92/35
[2020-04-03 16:53] VITALS: BP 82/39
[2020-04-03 20:00] VITALS: BP 102/66
--- NOTE | 2020-04-04 02:19 | NUR ---
RESTING IN BED WITH NO S/S OF DISTRESS. NO NEEDS AT THIS TIME
[2020-04-04 04:00] VITALS: BP 93/57
[2020-04-04 06:52] LABS: CALC OSMOLALITY 277 mosm/kg (275-300); CALCIUM 7.6 mg/dL (8.5-10.1); CHLORIDE - SERUM 107 mmol/L (98-107); CREATININE - SERUM 0.6 mg/dL (0.6-1.3); GLUCOSE 127 mg/dL (74-106); PHOSPHOROUS 2.7 mg/dL (2.5-4.9); POTASSIUM - SERUM 3.7 mmol/L (3.5-5.1); SODIUM 139 mmol/L (136-145); eGFR NON AFRICAN AMERICAN > 90 mL/min (90-120)
[2020-04-04 06:55] LABS: UREA NITROGEN 6 mg/dL (7-18)
[2020-04-04 07:02] LABS: BASOPHILS 0.2 % (0-2); EOSINOPHILS 6.9 % (0-7); HEMATOCRIT 31.2 % (36.0-48.0); HEMOGLOBIN 9.9 g/dL (12-16); LYMPHOCYTES 27.6 % (15-50); MCH 30.6 pg (26.0-34.0); MCHC 31.7 g/dL (31.0-37.0); MCV 96.3 fL (80.0-100.0); MEAN PLATELET VOLUME 10.5 fL (7.4-10.4); MONOCYTES 5.7 % (2-11); NEUTROPHILS 59.6 % (40-80); PLATELET COUNT 244 10x3/uL (130-400); RBC 3.24 10x6/uL (4.00-5.40); RDW 13.6 % (11.5-14.5); WBC 5.2 10x3/uL (4.8-10.8)
--- NOTE | 2020-04-04 07:30 | NUR ---
PT RESTING WITH EYES CLOSED. AWAKENS UPON STAFF ENTERING ROOM. RESP EVEN AND UNLABORED. O2 @ 2L NC IN PLACE. DENIES PAIN AT THIS TIME. IV TO RIGHT FOREARM WITH NS @ 50ML/HR INFUSING VIA PUMP. SITE WITHOUT REDNESS OR EDEMA. PT ASSISTED WITH BED MOCK AT THIS TIME. PROVIDED ROMIE CARE. DENIES FURTHER NEEDS AT THIS TIME. CL WITHIN REACH. ENCOURAGED TO CALL WITH NEEDS. CONTINUE POC
[2020-04-04 09:48] VITALS: BP 98/65
[2020-04-04 12:58] VITALS: BP 112/59
[2020-04-04 17:23] VITALS: BP 102/63
[2020-04-04 20:00] VITALS: BP 120/62
[2020-04-05] VITALS: BP 123/64
[2020-04-05 04:00] VITALS: BP 110/58
[2020-04-05 04:40] LABS: BASOPHILS 0.2 % (0-2); EOSINOPHILS 6.2 % (0-7); HEMATOCRIT 31.9 % (36.0-48.0); HEMOGLOBIN 10.1 g/dL (12-16); IMMATURE GRANULOCYTES 0.2 % (0-5); LYMPHOCYTES 26.7 % (15-50); MCH 30.5 pg (26.0-34.0); MCHC 31.7 g/dL (31.0-37.0); MCV 96.4 fL (80.0-100.0); MEAN PLATELET VOLUME 9.8 fL (7.4-10.4); MONOCYTES 5.3 % (2-11); NEUTROPHILS 61.4 % (40-80); PLATELET COUNT 259 10x3/uL (130-400); RBC 3.31 10x6/uL (4.00-5.40); RDW 13.3 % (11.5-14.5); WBC 5.7 10x3/uL (4.8-10.8)
[2020-04-05 05:08] LABS: CALC OSMOLALITY 278 mosm/kg (275-300); CALCIUM 7.7 mg/dL (8.5-10.1); CHLORIDE - SERUM 106 mmol/L (98-107); CREATININE - SERUM 0.5 mg/dL (0.6-1.3); GLUCOSE 114 mg/dL (74-106); MAGNESIUM - SERUM 1.8 mg/dL (1.8-2.4); PHOSPHOROUS 2.9 mg/dL (2.5-4.9); POTASSIUM - SERUM 3.6 mmol/L (3.5-5.1); SODIUM 141 mmol/L (136-145); UREA NITROGEN 5 mg/dL (7-18); eGFR NON AFRICAN AMERICAN > 90 mL/min (90-120)
--- NOTE | 2020-04-05 06:45 | NUR ---
RESTING IN BED WITH EYES CLOSED. RESPIRATIONS EVEN AND UNLABORED. NO S/S OF ACUTE DISTRESS NOTED. SCDS ON. ON 2L O2, NC. ON TELEMETRY 92 CONTROLLED AFIB. IV TO RIGHT FOREARM, NS INFUSING @ 50ML/HR. SITE PATENT WITHOUT REDNESS OR SWELLING. CALL LIGHT IN REACH. CHRIS ALARM ON. WILL CONTINUE TO MONITOR.
--- NOTE | 2020-04-05 08:19 | EC ---
PATIENT:DON CARPENTER DATE OF SERVICE: 04/02/20 SEX: F MEDICAL RECORD: [id number] DATE OF : 62 LOCATION:D.MS [place] AGE OF PATIENT: 60 ADMISSION DATE: 04/02/20 REFERRING PHYSICIAN: INTERPRETING PHYSICIAN: SUJATA THOMAS MD ECHOCARDIOGRAM REPORT ECHO CHARGES 4 ECHO COMPLETE Date: 04/03/20 CLINICAL DIAGNOSIS: ELEVATED BNP, AFIB ECHOCARDIOGRAPHIC MEASUREMENTS (adult normal given) AC root (d.<3.7cm) 2.5 cm LV Septum d (<1.2 cm> 1.2 cm Valve Excursion 1.8 cm LV Septum (systole) 1.5 cm Left Atria (s.<4.0cm> 3.7 cm LVPW d(<1.2cm) 0.8 cm RV (d.<2.3cm) 3.6 cm LVPW (sytole) 1.1 cm LV diastole(<5.6CM) 6.5 cm MV E-F(>70mm/sec) cm LV systole 5.0 cm LVOT Diameter 1.9 cm MV exc.(>10mm) cm Est.ejection fraction (50-75%) % DOPPLER: LVIT cm/sec A 32 cm/sec E 93 cm/sec LA cm/sec RVSP 18.4 mmHg LVOT 102 cm/sec AOP1/2T m/s Asc. Ao 137 cm/sec RVOT 76 cm/sec RA cm/sec PA 78 cm/sec AV Gradient Peak 7.5 mmHg AV Mean 5.3 mmHg AV Area 2.1 cm MV Gradient Peak 4.7 mmHg MV Mean 1.8 mmHg MV Area cm COMMENTS: Registered Nurse Renal: Ajith CHACON Principal Java Developer: 3 Dr. Rodrigez TAPE# PACS Pericardial Effusion N DATE OF SERVICE: No LVH. LV internal dimension is normal. Wall motion is normal. EF is greater than or equal to 55%. Aortic valve is tricuspid. No evidence of stenosis by Doppler interrogation. The left atrium is normal. Mitral valve shows no prolapse. Trivial MR. Right-sided chambers are grossly normal. Trivial TR. TRANSINT:[id number] Voice Confirmation ID: [id number] DOCUMENT ID: [id number] ECHOCARDIOGRAM REPORT [id number] JAYDENDON SUJATA KHAN MD at 0819 CC: [id number] DICTATION DATE: 04/04/20 1308 HOSPICE/HOME HEALTH AIDE: 04/04/20 1353 ADM IN [facility] [address] [id number]
[2020-04-05 09:17] VITALS: BP 120/63
[2020-04-05 12:53] VITALS: BP 95/55
--- NOTE | 2020-04-05 14:01 | NUR ---
PATIENT IN BED TALKING ON THE CELL PHONE. DENIES PAIN OR NEEDS.
--- NOTE | 2020-04-05 14:57 | NUR ---
Rehab Note- Called [employer] insurance and her Acute Rehab PreAuth is still pending at this time. Will continue to follow at this time and await a determination from insurance. Thank you for this referral! Geovanna Jarvis RN CLinical Liaison, [facility] Rehab
[2020-04-05 17:11] VITALS: BP 106/61
--- NOTE | 2020-04-05 18:11 | NUR ---
SITTING UP IN BED EATING SUPPER. NO C/O PAIN. NO S/S OF ACUTE DISTRESS NOTED. DENIES ANY NEEDS AT THIS TIME. CALL LIGHT IN REACH. WILL CONTINUE TO MONITOR.
--- NOTE | 2020-04-06 03:00 | NUR ---
I have reviewed this patient and I concur with the Shift Assessment completed by the Licensed Practical Nurse today this shift.
[2020-04-06 04:00] VITALS: BP 117/61
[2020-04-06 06:22] LABS: BASOPHILS 0.2 % (0-2); EOSINOPHILS 7.1 % (0-7); HEMATOCRIT 32.3 % (36.0-48.0); HEMOGLOBIN 10.1 g/dL (12-16); IMMATURE GRANULOCYTES 0.3 % (0-5); LYMPHOCYTES 20.6 % (15-50); MCH 30.5 pg (26.0-34.0); MCHC 31.3 g/dL (31.0-37.0); MCV 97.6 fL (80.0-100.0); MEAN PLATELET VOLUME 9.6 fL (7.4-10.4); MONOCYTES 4.5 % (2-11); NEUTROPHILS 67.3 % (40-80); PLATELET COUNT 295 10x3/uL (130-400); RBC 3.31 10x6/uL (4.00-5.40); RDW 13.4 % (11.5-14.5); WBC 6.6 10x3/uL (4.8-10.8)
[2020-04-06 06:54] LABS: CALC OSMOLALITY 275 mosm/kg (275-300); CALCIUM 7.6 mg/dL (8.5-10.1); CARBON DIOXIDE 29.6 mmol/L (21.0-32.0); CHLORIDE - SERUM 105 mmol/L (98-107); CREATININE - SERUM 0.4 mg/dL (0.6-1.3); GLUCOSE 111 mg/dL (74-106); MAGNESIUM - SERUM 1.9 mg/dL (1.8-2.4); PHOSPHOROUS 2.8 mg/dL (2.5-4.9); POTASSIUM - SERUM 3.7 mmol/L (3.5-5.1); SODIUM 139 mmol/L (136-145); UREA NITROGEN 4 mg/dL (7-18); eGFR NON AFRICAN AMERICAN > 90 mL/min (90-120)
[2020-04-06 09:30] VITALS: BP 100/61
--- NOTE | 2020-04-06 10:43 | NUR ---
I have reviewed this patient and I concur with the Shift Assessment completed by the Licensed Practical Nurse today this shift.
[2020-04-06 16:23] VITALS: BP 107/61
[2020-04-06 20:00] VITALS: BP 109/59
[2020-04-07 00:10] VITALS: BP 110/61
--- NOTE | 2020-04-07 02:38 | NUR ---
I have reviewed this patient and I concur with the Shift Assessment completed by the Licensed Practical Nurse today this shift.
[2020-04-07 04:30] VITALS: BP 97/60
[2020-04-07 06:18] LABS: BASOPHILS 0.2 % (0-2); EOSINOPHILS 6.8 % (0-7); HEMATOCRIT 31.7 % (36.0-48.0); IMMATURE GRANULOCYTES 0.6 % (0-5); LYMPHOCYTES 21.8 % (15-50); MCH 30.3 pg (26.0-34.0); MCHC 31.5 g/dL (31.0-37.0); MCV 96.1 fL (80.0-100.0); MEAN PLATELET VOLUME 9.7 fL (7.4-10.4); MONOCYTES 6.2 % (2-11); NEUTROPHILS 64.4 % (40-80); PLATELET COUNT 327 10x3/uL (130-400); RDW 13.1 % (11.5-14.5); WBC 6.5 10x3/uL (4.8-10.8)
[2020-04-07 06:33] LABS: CALC OSMOLALITY 280 mosm/kg (275-300); CALCIUM 7.8 mg/dL (8.5-10.1); CARBON DIOXIDE 32.7 mmol/L (21.0-32.0); CHLORIDE - SERUM 106 mmol/L (98-107); CREATININE - SERUM 0.4 mg/dL (0.6-1.3); GLUCOSE 124 mg/dL (74-106); MAGNESIUM - SERUM 1.7 mg/dL (1.8-2.4); PHOSPHOROUS 2.8 mg/dL (2.5-4.9); POTASSIUM - SERUM 3.8 mmol/L (3.5-5.1); SODIUM 142 mmol/L (136-145); UREA NITROGEN 4 mg/dL (7-18); eGFR NON AFRICAN AMERICAN > 90 mL/min (90-120)
--- NOTE | 2020-04-07 07:58 | NUR ---
RESTING IN BED, EYES CLOSED, NO DISTRESS NOTED, CONT TO MONITOR
[2020-04-07 09:49] VITALS: BP 99/65
[2020-04-07 12:15] VITALS: BP 115/71
[2020-04-07 17:21] VITALS: BP 114/44
--- NOTE | 2020-04-07 18:32 | NUR ---
PT STATES THAT NO ONE FROM THERAPY CAME TO SEE HER TODAY, PT USING BEDPAN, CONT TO MONITOR
[2020-04-07 20:00] VITALS: BP 115/62
[2020-04-08 00:05] VITALS: BP 122/64
--- NOTE | 2020-04-08 05:08 | NUR ---
I have reviewed this patient and I concur with the Shift Assessment completed by the Licensed Practical Nurse today this shift.
[2020-04-08 05:22] LABS: BASOPHILS 0.2 % (0-2); EOSINOPHILS 6.8 % (0-7); HEMATOCRIT 31.9 % (36.0-48.0); IMMATURE GRANULOCYTES 0.5 % (0-5); LYMPHOCYTES 22.1 % (15-50); MCH 30.3 pg (26.0-34.0); MCHC 31.3 g/dL (31.0-37.0); MCV 96.7 fL (80.0-100.0); MEAN PLATELET VOLUME 9.4 fL (7.4-10.4); MONOCYTES 8.5 % (2-11); NEUTROPHILS 61.9 % (40-80); PLATELET COUNT 366 10x3/uL (130-400); RDW 13.1 % (11.5-14.5); WBC 5.9 10x3/uL (4.8-10.8)
[2020-04-08 05:56] LABS: ALBUMIN 2.1 g/dL (3.4-5.0); ALKALINE PHOSPHATASE 80 U/L (30-120); ALT (SGPT) 83 U/L (10-68); BILIRUBIN - TOTAL 0.14 mg/dL (0.2-1.3); CALC OSMOLALITY 275 mosm/kg (275-300); CALCIUM 7.9 mg/dL (8.5-10.1); CARBON DIOXIDE 32.4 mmol/L (21.0-32.0); CHLORIDE - SERUM 105 mmol/L (98-107); CREATININE - SERUM 0.5 mg/dL (0.6-1.3); GLUCOSE 120 mg/dL (74-106); POTASSIUM - SERUM 3.3 mmol/L (3.5-5.1); PROTEIN - SERUM 6.2 g/dL (6.4-8.2); SODIUM 139 mmol/L (136-145); UREA NITROGEN 5 mg/dL (7-18); eGFR NON AFRICAN AMERICAN > 90 mL/min (90-120)
--- NOTE | 2020-04-08 07:30 | NUR ---
AWAKE AND ALERT. ORIENTED X3. NO C/O AT THIS TIME. PATIENT IS VERY WITHDRAWN AT THIS TIME. LUNGS ARE CLEAR BILATERALLY, NO COUGH NOTED. PATIENT REPORTED AN OCCASSIONAL PRODUCTIVE COUGH. WILL MONITOR. SKIN IS INTACT WITHOUT REDNESS. IV TO RIGHT FOREARM IS PATENT WITHOUT REDNESS AT INSERTION SITE. DENIES NEEDS.
[2020-04-08 08:44] VITALS: BP 108/69
--- NOTE | 2020-04-08 10:00 | NUR ---
ATE ALL OF BREAKFAST. TOOK AM MEDS WITHOUT DIFFICULTY. DENIES NEEDS.
--- NOTE | 2020-04-08 10:30 | NUR ---
REQUESTED AND GIVEN ONE HYDROCODONE PO FOR C/O BACK PAIN LEVEL 7. WILL MONITOR.
--- NOTE | 2020-04-08 12:30 | NUR ---
ATE MOST OF LUNCH TRAY. DENIES NEEDS. PAIN IMPROVED AFTER HYDROCODONE. REFUSED OFFER OF BATH AT THIS TIME. MUCH MORE OPEN AND INVOLVED WITH STAFF AT THIS TIME.
--- NOTE | 2020-04-08 12:49 | MORECARE ---
CASE MANAGEMENT DISCHARGE SUMMARY PATIENT: DON CARPENTER BERTA UNIT: [id number] ADM DATE: 04/02/20 AGE: 60 : 62 SEX: F ROOM/BED: D.2207 AUTHOR: JIA GONZALEZ PHYSICIAN: REFERRING PHYSICIAN: JOSÉ ROTHMAN MD DATE OF SERVICE: 04/08/20 Discharge Plan Patient Name: DON CARPENTER [facility] [facility] 1960 Planned Disposition: Inpatient Rehab Anticipated Discharge Date: Discharge Date: Expected LOS: Initial Reviewer: [email or web address] Initial Review Date: 04/02/2020 Generated: 04/08/20 1:49 pm DCPIA - Discharge Planning Initial Assessment Updated by [email or web address]: Janelle Shelton on 04/08/20 12:48 pm * Is the patient Alert and Oriented? Yes * How many steps to enter\exit or inside your home? * PCP DEMETRIA RAWLS * [facility] * Preadmission Environment Home Alone * ADLs Independent * Equipment Cane Glucometer Rolling Walker * List name and contact numbers for known caregivers / representatives who currently or will assist patient after discharge: SHANICE Jean-BaptisteDAUGHTER [phone] * Verbal permission to speak to the caregivers and representatives has been obtained from the patient. N/A * Community resources currently utilized Home Health * Please name any agencies selected above. [facility] * Additional services required to return to the preadmission environment? Yes * Can the patient safely return to the preadmission environment? Yes * Has this patient been hospitalized within the prior 30 days at any hospital? No Patient Name: DON CARPENTER Page [id number] at 1249 All edits/amendments must be made on the electronic document DICTATION DATE: 04/08/20 1249 PATIENT COMPANION: NIKOS 04/08/20 1249 RPT#: [id number] DC DATE: STATUS: ADM IN [facility] [address] [place] [address] END OF REPORT
--- NOTE | 2020-04-08 12:56 | MORECARE ---
CASE MANAGEMENT DISCHARGE SUMMARY PATIENT: DON CARPENTER UNIT: [id number] ADM DATE: 04/02/20 AGE: 60 : 62 SEX: F ROOM/BED: D.2207 AUTHOR: JIA GONZALEZ PHYSICIAN: REFERRING PHYSICIAN: JOSÉ ROTHMAN MD DATE OF SERVICE: 04/08/20 Discharge Plan Patient Name: DON CARPENTER Facility: [facility]:[place] : 1960 Planned Disposition: Inpatient Rehab Anticipated Discharge Date: Discharge Date: Expected LOS: Initial Reviewer: [email or web address] Initial Review Date: 04/02/2020 Generated: 04/08/20 1:55 pm Comments DCP- Discharge Planning Updated by [email or web address]: Janelle Shelton on 04/08/20 11:[address] Patient Name: DON CARPENTER Admission Status: ER Accout number: [id number] Admission Date: 04-02-2020 : 1960 Admission Diagnosis:HYPERTENSIVE HEART DISEASE WITH HEART FAILURE Attending: JOSÉ FRAZIER Current LOS: 6 Anticipated DC Date: Planned Disposition: Inpatient Rehab Primary Insurance: [employer] Discharge Planning Comments: CM met with patient to complete initial dc planning assessment. CM educated patient on the CM role and verbal consent given by patient to complete assessment. Patient lives at home by herself where she states she is independent with her care. At discharge patient plans to return home after inpatient rehab at [facility] and feels this is a safe discharge. CM discussed availability of home health, rehab services, and medical equipment. She will be discharging to inpatient rehab at [facility] today. She stated that she would call her daughter and let her know. ARLENE signed . She is current with [facility] . She has a walker, cane and glucometer at home. One of her daughters will be her non cdl driver home when she is ready to be discharged. Patient denied known discharge needs at this time. CM will continue to follow and will assist as needed with dc plans/needs. Underground Bolting Machine Operator: Janelle Shelton DCPIA - Discharge Planning Initial Assessment Updated by [email or web address]: Janelle Shelton on 04/08/20 12:48 pm * Is the patient Alert and Oriented? Yes * How many steps to enter\exit or inside your home? * PCP DEMETRIA RAWLS * [facility] * Preadmission Environment Home Alone * ADLs Independent * Equipment Cane Glucometer Rolling Walker * List name and contact numbers for known caregivers / representatives who currently or will assist patient after discharge: SHANICE MARTINES [phone] * Verbal permission to speak to the caregivers and representatives has been obtained from the patient. N/A * Community resources currently utilized Home Health * Please name any agencies selected above. [facility] * Additional services required to return to the preadmission environment? Yes * Can the patient safely return to the preadmission environment? Yes * Has this patient been hospitalized within the prior 30 days at any hospital? No Coverage Notice Reviewer: [id number] Florentin Shelton Notice Issued Date-Time: 04/08/2020 12:45 Notice Type: Patient Choice Letter Notice Delivered To: Patient Relationship to Patient: Public Health Social Worker Name: Delivery Method: HAND - Hand Delivered Shara Days: Prior Verbal Notification: Recipient Understood Notice: Yes Recipient Signature: Yes Med Rec Note Co-signed by Attending: Coverage Notice Comment: arlene for inpatient rehab and care [facility] Last DP export: 04/08/20 11:49 a Patient Name: DON CARPENTER Page [phone] at 1256 All edits/amendments must be made on the electronic document DICTATION DATE: 04/08/20 1255 PEN OR PENCIL ASSEMBLY MACHINE OPERATOR: NIKOS 04/08/20 1255 RPT#: [id number] DC DATE: STATUS: ADM IN [facility] [address] [place] [address] END OF REPORT
[2020-04-08 13:30] VITALS: BP 108/42
[2020-04-08] MEDS ORDERED: ZITHROMAX 500M500 MG IV (13:53)
--- NOTE | 2020-04-08 14:35 | NUR ---
RESTING QUIETLY IN BED AT THIS TIME. WORKED WITH PT BUT REPORTED SHE FELT VERY WEAK WHILE WALKING.
--- NOTE | 2020-04-08 14:56 | NUR ---
Rehab Note- Received call from Luis Alberto with [employer] stating that she would be sending a fax with an Auth approval for an inpatient acute rehab stay. Notified DANYELL Alston. Thank you for this referral! Geovanna Jarvis RN Clinical Liaison, [facility] Rehab
--- NOTE | 2020-04-08 15:30 | NUR ---
REPORT CALLED TO MARGARITO MUNOZ RN ON REHAB. ALL QUESTIONS ANSWERED. DISCHARGE INSTRUCTIONS GIVEN BOTH VERBALLY AND WRITTEN. ALL QUESTIONS ANSWERED. PATIENT VERBALIZED UNDERSTANDING OF SAME. IV TO RIGHT FOREARM D/C WITH CATHETER INTACT. WAITING ON TRANSPORT TO TRANSFER TO REHAB.
[2020-04-08 17:37] VITALS: BP 110/44
--- NOTE | 2020-04-08 18:05 | NUR ---
DISCHARGED TO REHAB VIA BED TO ROOM 1114B. ALL BELONGINGS WITH PATIENT.
--- NOTE | 2020-04-09 08:45 | MORECARE ---
CASE MANAGEMENT DISCHARGE SUMMARY PATIENT: DON CARPENTER UNIT: [id number] ADM DATE: 04/02/20 AGE: 60 : 62 SEX: F ROOM/BED: D.2207 AUTHOR: JIA GONZALEZ PHYSICIAN: REFERRING PHYSICIAN: JOSÉ ROTHMAN MD DATE OF SERVICE: 04/09/20 Discharge Plan Patient Name: DON CARPENTER Facility: [facility]:[place] : 1960 Planned Disposition: Inpatient Rehab Anticipated Discharge Date: Discharge Date: 04/08/2020 Expected LOS: Initial Reviewer: [email or web address] Initial Review Date: 04/02/2020 Generated: 04/09/20 9:45 am Comments DCP- Discharge Planning Updated by [email or web address]: Janelle Shelton on 04/08/20 11:[address] Patient Name: DON CARPENTER Admission Status: ER Accout number: [id number] Admission Date: 04-02-2020 : 1960 Admission Diagnosis:HYPERTENSIVE HEART DISEASE WITH HEART FAILURE Attending: JOSÉ FRAZIER Current LOS: 6 Anticipated DC Date: Planned Disposition: Inpatient Rehab Primary Insurance: [employer]gar[employer] INS EXCHANGE Discharge Planning Comments: CM met with patient to complete initial dc planning assessment. CM educated patient on the CM role and verbal consent given by patient to complete assessment. Patient lives at home by herself where she states she is independent with her care. At discharge patient plans to return home after inpatient rehab at [facility] and feels this is a safe discharge. CM discussed availability of home health, rehab services, and medical equipment. She will be discharging to inpatient rehab at [facility] today. She stated that she would call her daughter and let her know. ARLENE signed . She is current with [facility] . She has a walker, cane and glucometer at home. One of her daughters will be her route sales delivery driver home when she is ready to be discharged. Patient denied known discharge needs at this time. CM will continue to follow and will assist as needed with dc plans/needs. Integrated Pest Management Technician: Janelle Shelton DCPIA - Discharge Planning Initial Assessment Updated by [id number]: Janelle Shelton on 04/08/20 12:48 pm * Is the patient Alert and Oriented? Yes * How many steps to enter\exit or inside your home? * PCP DEMETRIA RAWLS * [facility] * Preadmission Environment Home Alone * ADLs Independent * Equipment Cane Glucometer Rolling Walker * List name and contact numbers for known caregivers / representatives who currently or will assist patient after discharge: SHANICE MARTINES [phone] * Verbal permission to speak to the caregivers and representatives has been obtained from the patient. N/A * Community resources currently utilized Home Health * Please name any agencies selected above. [facility] * Additional services required to return to the preadmission environment? Yes * Can the patient safely return to the preadmission environment? Yes * Has this patient been hospitalized within the prior 30 days at any hospital? No Coverage Notice Reviewer: [id number] Florentin Shelton Notice Issued Date-Time: 04/08/2020 12:45 Notice Type: Patient Choice Letter Notice Delivered To: Patient Relationship to Patient: Hvac Project Manager Name: Delivery Method: HAND - Hand Delivered Shara Days: Prior Verbal Notification: Recipient Understood Notice: Yes Recipient Signature: Yes Med Rec Note Co-signed by Attending: Coverage Notice Comment: arlene for inpatient rehab and [facility] Last DP export: 04/08/20 11:56 a Patient Name: DON CARPENTER Page [id number] at 0845 All edits/amendments must be made on the electronic document DICTATION DATE: 04/09/20 0845 SSIS ARCHITECT: NIKOS 04/09/2045 RPT#: [id number] DC DATE:04/08/20 STATUS: DIS IN [facility] [address] [place] [address] END OF REPORT
--- NOTE | 2020-04-09 09:05 | NUR ---
OT NOTE: (DOS 04/08/20) PT COMPLETED SIDE ROLLING WITH MAX A. PT COMPLETED SUPINE TO SIT WITH MAX A. PT COMPLETED SIT TO STAND WITH MAX A. PT REQUIRED TOTAL A WITH LUKASZ SOCKS. [id number] THANK YOU,ANTONIETTA PATTON
== END 2020-04-08 18:06 | DRG 292 ==
LOC: D.ER 04:56 → D.MS 14:56
PROVIDERS: Family Medicine; ADMIT Family Medicine Adult Medicine; ATTEND Family Medicine Adult Medicine
DX: I11.0 Hypertensive heart disease with heart failure (principal); I48.20 Chronic atrial fibrillation, unspecified; Z68.43 Body mass index [BMI] 50.0-59.9, adult; G72.81 Critical illness myopathy; J96.11 Chronic respiratory failure with hypoxia; I50.9 Heart failure, unspecified; G40.909 Epilepsy, unspecified, not intractable, without status epilepticus; E11.65 Type 2 diabetes mellitus with hyperglycemia; E78.5 Hyperlipidemia, unspecified; J45.909 Unspecified asthma, uncomplicated; E03.9 Hypothyroidism, unspecified; D50.9 Iron deficiency anemia, unspecified; K21.9 Gastro-esophageal reflux disease without esophagitis; E66.01 Morbid (severe) obesity due to excess calories; W19.XXXA Unspecified fall, initial encounter; R50.9 Fever, unspecified; F32.9 Major depressive disorder, single episode, unspecified; M19.90 Unspecified osteoarthritis, unspecified site; M48.00 Spinal stenosis, site unspecified; G47.33 Obstructive sleep apnea (adult) (pediatric); R00.0 Tachycardia, unspecified

== ENCOUNTER 2020-04-08 20:04 | Inpatient (IN) | payer OTHER ==
[~2020-04-08] VITALS: Ht 172.7 cm; Wt 158.8 kg
--- NOTE | 2020-04-08 19:00 | NUR ---
RECEIVED SHIFT REPORT AND THAT PT WAS RECEIVED AT 1800
--- NOTE | 2020-04-08 19:15 | NUR ---
ADMISSION ASSESSMENT AND HISTORY INITIATED, PT PLACED ON BEDPAN, VOIDED 100 MLS OF CLEAR YELLOW URINE WITH NO DIFFICULTY, REMOVED FROM BEDPAN, ROMIE CARE DONE WITH WET WARM WIPES, THIS RN AND MARCO WISE RN DID COMPLETE SKIN ASSESSMENTPT, PT REPORTS PAIN IN LEFT LEG, INFORMED PT I WILL ADM PAIN MED WHEN MEDS ARE PLACED IN COMPUTER AND VERIFIED PER PHARMACY, PT VERBALIZES UNDERSTANDING
--- NOTE | 2020-04-08 19:45 | NUR ---
ADMISSION ASSESSMENT COMPLETED, FALL PRECAUTIONS IN PLACE
[~2020-04-08 20:04] MED LIST changes: +ZITHROMAX 500M500 MG IV
--- NOTE | 2020-04-08 21:23 | NUR ---
PT AWAKE, ADM 2100 MEDS AND PAIN MED PER MD ORDERS, SEE EMAR, WITH FRESH H20, PT DENIES FURTHER NEEDS, FALL PRECAUTIONS IN PLACE
[2020-04-08 22:14] VITALS: BP 154/58; BMI 53.3
--- NOTE | 2020-04-08 22:30 | NUR ---
PT AWAKE, PT DENIES PAIN, STATES "I WILL HAVE TO USE THE BR AT 11:00", INST PT TO USE CALL LIGHT WHEN READY FOR THE BEDPAN, PT VERBALIZES UNDERSTANDING, DENIES FURTHER NEEDS
--- NOTE | 2020-04-08 23:00 | NUR ---
PT PETROLEUM PLANT OPERATOR LIGHT, THIS RN AND MARCO WISE, MARTINEZ TO ROOM, PLACED PT ON BEDPAN, PT VOIDED WITH NO DIFFICULTY, PT REMOVED FROM BEDPAN, ROMIE CARE DONE WITH WET WARM WIPE, PT DENIES FURTHER NEEDS, FALL PRECAUTIONS IN PLACE
--- NOTE | 2020-04-09 00:28 | NUR ---
PT RESTING WITH EYES CLOSED, RESP QUIET, NO DISTRESS NOTED, LEFT UNDISTURBED AT THIS TIME, FALL PRECAUTIONS IN PLACED
--- NOTE | 2020-04-09 02:16 | NUR ---
PT RESTING WITH EYES CLOSED, RESP QUIET, NO DISTRESS NOTED, LEFT UNDISTURBED AT THIS TIME, FALL PRECAUTIONS IN PLACED
--- NOTE | 2020-04-09 03:55 | NUR ---
PT NATIONAL ACCOUNT DIRECTOR LIGHT, PT PLACED ON BEDPAN, VOIDED WITH NO DIFFICULTY, PT REMOVED FROM BEDPAN, ROMIE CARE DONE WITH WET WARM WIPES, WHITE CHUX CHANGED, DRAW SHEET PLACED, PT DENEIS FURTHER NEEDS, FALL PRECAUTIONS IN PLACE
--- NOTE | 2020-04-09 04:15 | NUR ---
PT RESTING WITH EYES CLOSED, RESP QUIET, NO DISTRESS NOTED, LEFT UNDISTURBED AT THIS TIME, FALL PRECAUTIONS IN PLACED
--- NOTE | 2020-04-09 05:54 | NUR ---
PT RESTING WITH EYES CLOSED, AROUSES TO SOFT VERBAL STIMULATION, ADM 0600 MED PER MD ORDERS, SEE EMAR, WITH FRESH H20, TRASH REMOVED, PT DENIES NEEDS OR PAIN, FALL PRECAUTIONS IN PLACE
[2020-04-09 06:53] LABS: CALC OSMOLALITY 278 mosm/kg (275-300); CALCIUM 8.3 mg/dL (8.5-10.1); CARBON DIOXIDE 33.8 mmol/L (21.0-32.0); CHLORIDE - SERUM 106 mmol/L (98-107); CREATININE - SERUM 0.5 mg/dL (0.6-1.3); GLUCOSE 123 mg/dL (74-106); SODIUM 141 mmol/L (136-145); UREA NITROGEN 4 mg/dL (7-18); eGFR NON AFRICAN AMERICAN > 90 mL/min (90-120)
[2020-04-09 06:59] LABS: POTASSIUM - SERUM 3.8 mmol/L (3.5-5.1)
[2020-04-09 07:04] LABS: BASOPHILS 0.2 % (0-2); HEMOGLOBIN 10.3 g/dL (12-16); IMMATURE GRANULOCYTES 0.7 % (0-5); MCH 30.1 pg (26.0-34.0); MCHC 31.2 g/dL (31.0-37.0); MCV 96.5 fL (80.0-100.0); MEAN PLATELET VOLUME 9.3 fL (7.4-10.4); MONOCYTES 9.3 % (2-11); NEUTROPHILS 50.8 % (40-80); PLATELET COUNT 390 10x3/uL (130-400); RBC 3.42 10x6/uL (4.00-5.40)
[2020-04-09 07:05] LABS: WBC 4.3 10x3/uL (4.8-10.8)
[2020-04-09 08:00] VITALS: BP 108/60
--- NOTE | 2020-04-09 12:27 | NUR ---
LAYING DOWN IN BED. AFFECT IS FLAT. IS GROSSLY OBESE AND IT TOOK X4 STAFF TO GET PT BACK IN BED.
--- NOTE | 2020-04-09 12:35 | NUR ---
PATIENT ADMITTED TO REHAB FROM ACUTE FLOOR. HER PCP IS DR. LOPEZ. DME AT HOME IS A WALKER AND A CANE. SHE IS A CLIENT OF [facility]. DISCHARGE PLANS ARE FOR HER TO RETURN TO HER HOME. WILL CONTINUE TO FOLLOW WITH PATIENT.
[2020-04-09 13:44] VITALS: Ht 172.7 cm; Wt 158.8 kg
--- NOTE | 2020-04-09 16:19 | NUR ---
CONTINENT OF URINE AND ASKS FOR BED MOCK. CAN ROLL SIDE TO SIDE WITH MOD ASST. DOES NOT ANSWER QUESTIONS WHEN ASKED BY NURSE. MAKES GLANCING EYE CONTACT. AFFECT IF FLAT.
--- NOTE | 2020-04-09 19:55 | NUR ---
RECIEVED UP IN BED WITH EYES OPEN AND TV ON. ALERT AND ORIETNED X4. REMAINS BEDFAST. PLACED ON BEDPAN. RT LOWER EXTREMITY HAS 4+ EDEMA. LT FOOT GENERALIZED SWELLING. DENIES ANY OTHER NEEDS AT THIS TIME.
[2020-04-09 20:28] VITALS: BP 134/74
--- NOTE | 2020-04-10 03:54 | NUR ---
ASSISTED ON AND OFF BED MOCK SEVERAL TIMES THIS SHIFT. ABLE TO ASSIST WITH TURNING AND ATTEMPTS TO PULL HERSELF UP IN THE BED.
[2020-04-10 08:00] VITALS: BP 104/60
--- NOTE | 2020-04-10 08:00 | NUR ---
SHIFT ASSMT COMPLETED.BILAT LE'S REMAIN EDEMATOUS;PITTING PLUS 4.BREAKFAST GIVEN.CL IN REACH.
--- NOTE | 2020-04-10 12:00 | NUR ---
EATING LUNCH.CL IN REACH.
--- NOTE | 2020-04-10 13:22 | NUR ---
CARE TEAM MEETING: PATIENT IS NEW TO UNIT AND WILL BE RA AT NEXT MEETING. WILL CONTINUE TO FOLLOW WITH PATIENT.
--- NOTE | 2020-04-10 18:47 | NUR ---
RECEIVED BEDSIDE REPORT. PT SITTING UP IN BED AWAKE. ALERT AND ORIENTED X4. DENIES ANY NEEDS OR PAIN. NO SIGNS OF ACUTE DISTRESS NOTED. CALL LIGHT AND WATER WITHIN REACH. FALL PRECAUTIONS IN PLACE. CPOC
[2020-04-10 21:51] VITALS: BP 120/56
--- NOTE | 2020-04-10 23:38 | NUR ---
PT LYING IN BED EYES CLOSED RESTING. RR EVEN AND UNLABORED. CALL LIGHT WITHIN REACH. FALL PRECAUTIONS IN PLACE. CPOC
--- NOTE | 2020-04-11 01:00 | NUR ---
ASSISTED PT ON BEDPAN. 300ML CLEAR YELLOW URNINE. NO OTHER NEEDS VOICED. CALL LIGHT WITHIN REACH. WILL CONTINUE TO MONITOR
--- NOTE | 2020-04-11 05:19 | NUR ---
PT LYING IN BED EYES CLOSED RESTING. EASILY AROUSED WITH STIMULI. EARLY AM MEDS ADMININSTERED. PT DENIES ANY OTHER NEEDS OR PAIN. NO SIGNS OF ACUTE CHANGES IN CONDITION THIS SHIFT. CALL LIGHT AND WATER WITHIN REACH. FALL PRECAUTIONS IN PLACE. CPOC
[2020-04-11 08:00] VITALS: BP 102/56
--- NOTE | 2020-04-11 08:00 | NUR ---
SHIFT ASSMT COMPLETED.BREAKFAST GIVEN.CL IN REACH.
--- NOTE | 2020-04-11 08:45 | NUR ---
BEDPAN GIVEN.VOIDED AND BM NOTED.CLEANED AND POS UP IN BED.
--- NOTE | 2020-04-11 11:00 | NUR ---
BEDPAN USED.CLEANED AND TURNED OVER TO THERAPY.
--- NOTE | 2020-04-11 12:00 | NUR ---
EATING LUNCH.UP IN CHAIR AT BEDSIDE.
[2020-04-11 20:48] VITALS: BP 136/70
[2020-04-12 07:53] LABS: BASOPHILS 0.4 % (0-2); EOSINOPHILS 5.8 % (0-7); HEMATOCRIT 34.9 % (36.0-48.0); HEMOGLOBIN 11.2 g/dL (12-16); IMMATURE GRANULOCYTES 0.5 % (0-5); LYMPHOCYTES 35.4 % (15-50); MCH 30.4 pg (26.0-34.0); MCHC 32.1 g/dL (31.0-37.0); MCV 94.6 fL (80.0-100.0); MEAN PLATELET VOLUME 9.1 fL (7.4-10.4); MONOCYTES 7.2 % (2-11); NEUTROPHILS 50.7 % (40-80); PLATELET COUNT 394 10x3/uL (130-400); RBC 3.69 10x6/uL (4.00-5.40); RDW 13.3 % (11.5-14.5); WBC 5.7 10x3/uL (4.8-10.8)
[2020-04-12 08:00] VITALS: BP 114/62
[2020-04-12 08:00] LABS: CALC OSMOLALITY 272 mosm/kg (275-300); CALCIUM 8.3 mg/dL (8.5-10.1); CARBON DIOXIDE 32.4 mmol/L (21.0-32.0); CHLORIDE - SERUM 102 mmol/L (98-107); CREATININE - SERUM 0.6 mg/dL (0.6-1.3); GLUCOSE 139 mg/dL (74-106); POTASSIUM - SERUM 3.9 mmol/L (3.5-5.1); SODIUM 137 mmol/L (136-145); UREA NITROGEN 5 mg/dL (7-18); eGFR NON AFRICAN AMERICAN > 90 mL/min (90-120)
--- NOTE | 2020-04-12 09:23 | NUR ---
CLINICAL UPDATES FAXED TO DAMARIS/FARHAN AUTH. # [id number], FAXED TO , WITH FAX CONFORMATION RECIEVED
--- NOTE | 2020-04-12 10:02 | NUR ---
LAYING IN BED WATCHING TV. REQUIRES MAX ASST TO ROLL OVER. CONTINENT OF URINE. NO SKIN BREAKDOWN NOTED. FLAT AFFECT. DOES NOT ANSWER ALL QUESTIONS WHEN ASKED. FOLLOWS COMMANDS.
--- NOTE | 2020-04-12 14:49 | NUR ---
CONTINENT OF URINE. USES BEDPAN FOR ELIMINATION NEEDS. DOES NOT DO PROM IN BED OR ROLE AND REPOSITION FOR STRENGTHENING. SHE IS STILL QUIET AND SPEAKS MINIMAL WORDS.
--- NOTE | 2020-04-12 19:45 | NUR ---
PATIENT RECEIVED SITTING UP IN BED. ASSESSMENT & VITAL SIGNS DONE. NO C/O PAIN OR DISTRESS. BED LOW. CALL LIGHT WITHIN REACH. WILL CONTINUE TO MONITOR.
--- NOTE | 2020-04-12 20:00 | NUR ---
PATIENT PERIAREA & BUTTOCKS CLEANED & WIPED DRY AFTER VOID IN BEDPAN & BED. BED LOW. CALL LIGHT WITHIN REACH. WILL CONTINUE TO MONITOR.
[2020-04-12 20:17] VITALS: BP 135/76
--- NOTE | 2020-04-12 20:30 | NUR ---
PATIENT USED CALL LIGHT FOR BED MOCK. VOID ONLY. PADS CHANGED D/T SPILLAGE OUT OF BED MOCK. PATIENT PERIAREA & BUTTOCKS CLEANED. BED LOW. CALL LIGHT WITHIN REACH. WILL CONTINUE TO MONITOR.
--- NOTE | 2020-04-12 21:30 | NUR ---
PATIENT USED CALL LIGHT FOR BEDPAN. VOID ONLY. PATIENT PERIAREA & BUTTOCKS CLEANED & DRIED PER REQUEST. NO OPEN AREAS NOTED. BED LOW. CALL LIGHT WITHIN REACH. WILL CONTINUE TO MONITOR.
--- NOTE | 2020-04-13 02:36 | NUR ---
I have reviewed this patient and I concur with the Shift Assessment completed by the Licensed Practical Nurse today this shift.
--- NOTE | 2020-04-13 02:45 | NUR ---
PATIENT USED CALL LIGHT FOR BED MOCK. MINIMAL ASSIST WITH ROLLING OVER. VOID ONLY. PATIENT PERIAREA & BUTTOCKS WIPED & DRIED. NEW PAD UNDER PATIENT. VOID OUT OF BED MOCK ONTO PAD. BED LOW. CALL LIGHT WITHIN REACH. WILL CONTINUE TO MONITOR.
[2020-04-13 08:00] VITALS: BP 121/65
--- NOTE | 2020-04-13 12:03 | NUR ---
HAS BEEN UP WORKING WITH THERAPY. IS ABLE TO WALK AND USE BATHROOM BY SELF. SHE PUT ON HER CLOTHES WITH NO ASS. THERAPY PROGRESSED HER TO "NO BED PANS". SHE IS ABLE TO SIT ON SIDE OF BED BY SELF AND USE WALKER TO AMBULATE TO BATHROOM, TOILET SELF AND CLEAN ROMIE AREA.
--- NOTE | 2020-04-13 19:40 | NUR ---
PATIENT RECEIVED SITTING UP IN BED. ASSESSMENT & VITAL SIGNS DONE. NO C/O PAIN OR DISTRESS. BED LOW. CALL LIGHT WITHIN REACH. WILL CONTINUE TO MONITOR.
[2020-04-13 20:40] VITALS: BP 131/56
--- NOTE | 2020-04-14 05:00 | NUR ---
PATIENT USED CALL LIGHT FOR ASSIST. PATIENT ASSIST SITTING UP. PATIENT STANDBY USING ROLLING WALKER TO BATHROOM. PATIENT HAD VOID ONLY. RETURNED TO LOW BED. CALL LIGHT WITHIN REACH. WILL CONTINUE TO MONITOR.
--- NOTE | 2020-04-14 05:23 | NUR ---
I have reviewed this patient and I concur with the Shift Assessment completed by the Licensed Practical Nurse today this shift.
[2020-04-14 08:00] VITALS: BP 106/60
--- NOTE | 2020-04-14 12:14 | NUR ---
GETTING UP WITH OUT ASST TO GO TO BATHROOM. USES WALKER FOR AMBULATION ASST. CAN GET LEGS UP IN BED BY SELF USING HER CANE. AFFECT FLAT. REFUSES TO TALK TO STAFF OR ANSWER QUESTIONS. MINIMAL EYE CONTACT. CALL LIGHT IN REACH
--- NOTE | 2020-04-14 17:51 | NUR ---
SITTING UP IN BED FOR SUPPER. HAS ONLY ASKED FOR HELP ONCE TODAY GETTING LLE IN BED. CALL LIGHT IN REACH
[2020-04-14 20:00] VITALS: BP 112/56
--- NOTE | 2020-04-14 20:00 | NUR ---
PATIENT RECEIVED SITTING UP IN BED WATCHING TV. ASSESSMENT & VITAL SIGNS DONE. NO C/O PAIN OR DISTRESS AT THIS TIME. BED LOW. WALKER AT BEDSIDE. WILL CONTINUE TO MONITOR.
--- NOTE | 2020-04-15 02:15 | NUR ---
PATIENT USED CALL LIGHT FOR ASSIST. PATIENT GETTING UP TO COMMODE HAD INCONTINENCE OF URINE ON PAPAER PADS. THIS NURSE CHANGED PADS. STRAIGHTENED LINENS. BED LOW. PATIENT USED ROLLING WALKER IN & OUT OF BATHROOM. WASHED HANDS & RETURNED TO BED. PATIENT CALL LIGHT WITHIN REACH. WILL CONTINUE TO MONITOR.
--- NOTE | 2020-04-15 02:56 | NUR ---
I have reviewed this patient and I concur with the Shift Assessment completed by the Licensed Practical Nurse today this shift.
--- NOTE | 2020-04-15 05:28 | NUR ---
PATIENT GIVEN MEDICATIONS & TOILETED. VOID ONLY. RETURNED TO LOW BED. CALL LIGHT WITHIN REACH. WILL CONTINUE TO MONITOR.
[2020-04-15 07:25] LABS: CALC OSMOLALITY 277 mosm/kg (275-300); CALCIUM 8.1 mg/dL (8.5-10.1); CARBON DIOXIDE 29.7 mmol/L (21.0-32.0); CHLORIDE - SERUM 104 mmol/L (98-107); CREATININE - SERUM 0.6 mg/dL (0.6-1.3); GLUCOSE 138 mg/dL (74-106); SODIUM 139 mmol/L (136-145); UREA NITROGEN 8 mg/dL (7-18); eGFR NON AFRICAN AMERICAN > 90 mL/min (90-120)
[2020-04-15 07:38] LABS: BASOPHILS 0.4 % (0-2); EOSINOPHILS 5.1 % (0-7); HEMATOCRIT 33.7 % (36.0-48.0); HEMOGLOBIN 10.8 g/dL (12-16); IMMATURE GRANULOCYTES 0.7 % (0-5); LYMPHOCYTES 35.6 % (15-50); MCH 30.5 pg (26.0-34.0); MCV 95.2 fL (80.0-100.0); MEAN PLATELET VOLUME 9.3 fL (7.4-10.4); MONOCYTES 8.7 % (2-11); NEUTROPHILS 49.5 % (40-80); PLATELET COUNT 337 10x3/uL (130-400); RBC 3.54 10x6/uL (4.00-5.40); RDW 13.3 % (11.5-14.5); WBC 4.5 10x3/uL (4.8-10.8)
[2020-04-15 08:32] VITALS: BP 110/56
--- NOTE | 2020-04-15 09:44 | RHP ---
PATIENT: DON CARPENTER MEDICAL RECORD: [id number] ACCOUNT: [id number] LOCATION:[facility]1116 : 62 ADMISSION DATE: 04/08/20 REHABILITATION HISTORY AND PHYSICAL EXAMINATION POST ADMISSION PHYSICIAN EXAMINATION ADMITTING DIAGNOSIS: Nontraumatic brain injury. HISTORY OF PRESENT ILLNESS: The patient is a 60-year-old morbidly obese female, who presented to Emergency Room after multiple falls and progressive weakness. She has been having some intermittent fever and chills. She reported that she lives alone, but she does have a sister that checks on her. She was febrile when she presented to the ER. She was also tachycardic. She was noted to also have chronic AFib. 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 The patient has been given steroids during her stay. The patient has been receiving PT and OT and monitored closely. She is currently on supplemental O2. She is on IV antibiotics. She is being monitored for seizure disorder. She is on Tegretol and phenobarbital, we are monitoring her blood sugars closely. We are watching her respiratory status and she is getting respiratory treatment therapies. She has got decreased range of motion, decreased strength, gait disturbance, limited safety awareness, inability to care for herself and self-care deficits. These are all barriers to her discharge home. Lives at home alone, was independent with ADLs and mobility prior to this. She has a daughter and a sister that live nearby that check on her frequently. She is currently set up for max assist for ADLs, mod to max assist for mobility. She was recently in our acute independent rehab and did well prior to her discharge home. She plans to return home and hopefully get back to her prior level of functioning if possible. COMORBIDITIES: Include hypertension, critical illness myopathy, chronic anticoagulation, seizure disorder, hypothyroidism, has a history of iron deficient anemia, reflux, morbid obesity, chronic atrial fib, functional quadriplegia, hyperlipidemia, spinal stenosis, chronic bronchitis, chronic hypoxic respiratory failure. PAST MEDICAL HISTORY: Significant for neuropathy, seizures, diabetes, thyroid problems, atrial fib, dyslipidemia, reflux, arthritis and depression. PAST SURGICAL HISTORY: Includes gallbladder, and thyroidectomy. ALLERGIES: PEANUTS, KIWI, NOA, SHELLFISH DERIVED PRODUCTS. CURRENT MEDICATIONS: She will be on Zithromax for another 3 doses. She is on phenobarbital 64.8 mg daily. She is on Perforomist 20 mcg b.i.d., budesonide 0.5 mg b.i.d., DuoNeb updrafts as needed, Synthroid 112 mcg daily, Nystatin powder to apply t.i.d., Singulair 10 mg at bedtime, [place] 10/325 one tab q.4 hours p.r.n., Pepcid 20 mg b.i.d., Tegretol 600 mg b.i.d. and Eliquis 5 mg b.i.d. HABITS: No alcohol or tobacco use. FAMILY HISTORY: Noncontributory. SOCIAL HISTORY: The patient hopes to return back home and get back to her prior level of function. Once again, she has strong family support with her sister HISTORY AND PHYSICAL [id number] CARPENTERDON HAMPTON and also her daughter. REVIEW OF SYSTEMS: GENERAL: Does complain of weakness and fatigue. HEENT: Denies cold, cough, or congestion. CARDIOVASCULAR: Denies any chest pain. PHYSICAL EXAMINATION: VITAL SIGNS: Stable, afebrile. GENERAL: A morbidly obese female, in no distress upon exam. HEENT: Normocephalic and atraumatic. Mucosa moist. NECK: Supple. No lymphadenopathy. LUNGS: Clear in upper sexton. No wheeze or rales. HEART: Regular rate and rhythm. No murmurs, rubs, or gallops. ABDOMEN: Soft, benign, and nondistended. Positive bowel sounds times 4. EXTREMITIES: No clubbing, cyanosis or edema. NEUROLOGIC: She does have noted diffuse weakness. LABORATORY DATA: White count is 4.3, H&H of 10 and 33 and platelet count was noted to be 390. Her chemistry showed a sodium of 141, potassium 3.8, BUN and creatinine of 40 and 0.5, and blood sugar was noted to be 123. ASSESSMENT: This is a 60-year-old female patient admitted to rehab with a working diagnosis of nontraumatic brain injury, but also related to myopathy from recent muscular weakness and atrophy. The patient has potential to make improvement. We instituted the following multidisciplinary therapies including but not limited to physical, occupational, respiratory, speech, nutritional services, prosthetics and orthotics. Given her complex medical condition and risks for more complications, rehabilitation services cannot be provided at a low level of care such as penitentiary study. PLAN: 1. Admit to [facility] for inpatient therapy to include the following disciplines; A. Physical therapy to improve gait, all transfer skills and bed mobility to a modified independent level. B. Occupational therapy to improve activities of daily living. C. Case management to help with discharge planning and placement options. D. Nutrition to assist with nutritional needs. E. Rehabilitation nursing to assist in monitoring the patient's underlying medical conditions and to assist with any type of bowel or bladder management. 2. The patient's current medications and medical care will be continued. 3. The patient will be placed on standard fall precautions. 4. The patient's estimated length of stay is approximately 7-10 days. 5. We will discuss the patient during care team staff meeting this week. TRANSINT:[id number] Voice Confirmation ID: [id number] DOCUMENT ID: [id number] CHRISTINE notes whether there has been none or any medical/functional change since admission: - No change since preadmission screen. CHRISTINE attests patient continues to be appropriate for IRF: HISTORY AND PHYSICAL [id number] DON CARPENTER - Continues to be appropriate. ISAURA NAIK MD at 0944 CC: [id number] DICTATION DATE: 04/10/20821 REFINERY PROCESS ENGINEER: 04/10/20 0943 ADM IN [place] [address] [place] [address]
--- NOTE | 2020-04-15 10:36 | NUR ---
NURSE SKY REPORTS PT SUDDENLY A MAX ASST X2 AND COULD NOT DO ANYTHING FOR HERSELF. SHE WAS UP WALKING AROUND THIS MORNING BY HERSELF TILL AIDE SET UP SHOWER FOR HER.....
--- NOTE | 2020-04-15 16:22 | NUR ---
Nutrition follow-up: Diet: Diabetic PO intake: 75-100% x last 8 meals Last BM: 04/15/20 x 2. Wt: 350# (04/09/20) Meds noted: lasix, k-dur, phenobarbital. Labs noted: Glu 138(H) Recommend continue current diet. RD following.
--- NOTE | 2020-04-15 19:45 | NUR ---
PT IN BED WATCHING TV, NO IMMEDIATE NEEDS NOTED, RESPIRATIONS EVEN UNLABORED, FALL PRECAUTIONS IN PLACE, FLUIDS/CALL LIGHT WITHIN REACH
[2020-04-15 21:14] VITALS: BP 140/75
--- NOTE | 2020-04-16 03:32 | NUR ---
PT ASLEEP,AROUSES EASILY TO VOICE, RESPIRATIONS EVEN/UNLABORED, NO IMMEDIATE NEEDS NOTED, FALL PRECAUTIONS IN PLACE, FLUIDS/CALL LIGHT WITHIN REACH
--- NOTE | 2020-04-16 08:00 | NUR ---
SHIFT ASSMT COMPLETED.CL IN REACH
[2020-04-16 08:04] VITALS: BP 116/70
--- NOTE | 2020-04-16 20:00 | NUR ---
PT IN BED WATCHING TV, NO NEEDS NOTED, RESPIRATIONS EVEN/UNLABORED, FALL PRECAUTIONS IN PLACE, FLUIDS/CALL LIGHT WITHIN REACH
[2020-04-16 20:02] VITALS: BP 120/70
--- NOTE | 2020-04-17 04:16 | NUR ---
PT ASLEEP AROUSES EASILY TO VOICE, NO NEEDS NOTED, RESPIRATIONS EVEN/UNLABORED, FALL PRECAUTIONS IN PLACE, FLUIDS/CALL LIGHT WITHIN REACH
[2020-04-17 06:38] LABS: BASOPHILS 0.7 % (0-2); EOSINOPHILS 5.4 % (0-7); HEMATOCRIT 34.2 % (36.0-48.0); IMMATURE GRANULOCYTES 0.3 % (0-5); MCH 30.6 pg (26.0-34.0); MCHC 32.2 g/dL (31.0-37.0); MEAN PLATELET VOLUME 9.4 fL (7.4-10.4); MONOCYTES 17.2 % (2-11); NEUTROPHILS 49.4 % (40-80); PLATELET COUNT 312 10x3/uL (130-400); RDW 13.5 % (11.5-14.5)
[2020-04-17 07:51] LABS: CALC OSMOLALITY 275 mosm/kg (275-300); CALCIUM 7.8 mg/dL (8.5-10.1); CARBON DIOXIDE 28.1 mmol/L (21.0-32.0); CHLORIDE - SERUM 103 mmol/L (98-107); CREATININE - SERUM 0.5 mg/dL (0.6-1.3); GLUCOSE 137 mg/dL (74-106); PHENOBARBITAL 13.5 ug/mL (15.0-40.0); POTASSIUM - SERUM 4.3 mmol/L (3.5-5.1); SODIUM 138 mmol/L (136-145); UREA NITROGEN 6 mg/dL (7-18); eGFR NON AFRICAN AMERICAN > 90 mL/min (90-120)
[2020-04-17 08:00] VITALS: BP 120/63
--- NOTE | 2020-04-17 10:05 | NUR ---
CLINICAL UPDATES FAXED TO FARHAN AT , AUTH. # [id number], WITH CONFORMATION OF FAX RECIEVED. TEAM RECCOMENDS PATIENT DC TO SNF. WILL CONTINUE TO FOLLOW WITH PATIENT.
[2020-04-17 11:00] VITALS: BP 116/74
--- NOTE | 2020-04-17 13:58 | NUR ---
CARE TEAM MEETING: PATIENT IS SLOWLY PROGRESSING. TENATIVE DC DATE IS 04/19/20. PATIENT DECLINES GOING TO SNF. WILL CONTIUE TO FOLLOW WITH PATIENT.
--- NOTE | 2020-04-17 19:30 | NUR ---
PT IN BED, WATCHING TV, RESPIRATIONS EVEN/UNLABORED, NO IMMEDIATE NEEDS NOTED, FALL PRECAUTIONS IN PLACE, FLUIDS/CALL LIGHT WITHIN REACH
[2020-04-17 21:41] VITALS: BP 128/73
--- NOTE | 2020-04-18 06:35 | NUR ---
PT HAD SEVERAL INCONTINENT EPISODES THIS SHIFT STATES DUE TO GO HOME Wednesday04/19/20 AND WANTS TO STOP LASIX TODAY 04/18/20 DOESN'T WANT TO HAVE AN ACCIDENT ON THE WAY HOME
[2020-04-18 07:44] VITALS: BP 116/72
--- NOTE | 2020-04-18 12:34 | NUR ---
HAS BEEN SITTING UP IN WC. STILL REFUSES TO TALK AND INTERACT WITH MOST OF STAFF. SHE WANTS HER LEGS LIFTED UP IN THE BED SOMETIMES BUT OFTEN USES HER WALKING CANE TO LIFT THEM UP IN BED. HER AFFECT IS FLAT.
--- NOTE | 2020-04-18 13:45 | NUR ---
Nutrition Follow-up: Diet: Diabetic PO intake: 75-100% x last 8 meals recorded. She states that her appetite is down currently. She did not eat much of her lunch tray. Stated that she was tired, sick to her stomach and in pain causing her appetite to be down. She denies needs from dietary at this time. Last BM: 04/15/20 x 2. Wt: 350# (04/09/20) Meds noted: lasix, k-dur, phenobarbital. Labs noted: Glu 137(H) Recommend: -Continue current diet -If PO intake trends down will consider adding Glucerna oral nutrition supplement -Encouraged PO intake -RD following
--- NOTE | 2020-04-18 19:59 | NUR ---
PT UP TO TOILET, NEEDED HELP TO PUT FEET INTO BED, FLUIDS/CALL LIGHT WITHIN REACH, RESPIRATIONS SHORT OF BREATH UPON EXERTION
[2020-04-19 07:25] LABS: HEMATOCRIT 33.8 % (36.0-48.0); HEMOGLOBIN 11.1 g/dL (12-16); MCH 31.1 pg (26.0-34.0); MCHC 32.8 g/dL (31.0-37.0); MCV 94.7 fL (80.0-100.0); MEAN PLATELET VOLUME 9.7 fL (7.4-10.4); PLATELET COUNT 292 10x3/uL (130-400); RBC 3.57 10x6/uL (4.00-5.40); RDW 13.4 % (11.5-14.5); WBC 2.4 10x3/uL (4.8-10.8)
[2020-04-19 07:37] LABS: CALC OSMOLALITY 266 mosm/kg (275-300); CALCIUM 7.7 mg/dL (8.5-10.1); CARBON DIOXIDE 26.5 mmol/L (21.0-32.0); CHLORIDE - SERUM 101 mmol/L (98-107); CREATININE - SERUM 0.5 mg/dL (0.6-1.3); GLUCOSE 123 mg/dL (74-106); POTASSIUM - SERUM 3.9 mmol/L (3.5-5.1); SODIUM 134 mmol/L (136-145); eGFR NON AFRICAN AMERICAN > 90 mL/min (90-120)
[2020-04-19 07:39] LABS: UREA NITROGEN 8 mg/dL (7-18)
[2020-04-19 08:29] VITALS: BP 112/65
[2020-04-19] MEDS ORDERED: FUROSEMIDE20 MG PO (10:48)
[2020-04-19] MEDS ORDERED: HYDROCODON-ACE1 EA10 PO (10:48)
[2020-04-19] MEDS ORDERED: K-DUR20 MEQ PO (10:49)
[2020-04-19 11:58] LABS: ANISOCYTOSIS OCC; EOSINOPHILS 1 % (0-7); LYMPHOCYTES 53 % (15-50); MONOCYTES 15 % (2-11); NEUTROPHILS 30 % (40-80); PLATELET ESTIMATE NORMAL
--- NOTE | 2020-04-19 13:30 | NUR ---
DC HOME WITH FAMILY. REVIEWED MEDS AND FOLLOW UP APPTS WITH PT. SHE DECLINED TO HAVE ANY MEDS CALLED IN. SCRIPT FOR PAIN MEDS GIVEN TO PT.
--- NOTE | 2020-04-19 14:22 | NUR ---
PATIENT DISCHARGING HOME TODAY WITH FAMILY. [facility] WILL RESUME THERAPY AT HOME. NO NEW DME NEEDED. JAYSON SIGNED, IMM SERVED AND EXPLAINED, ONE GIVEN TO PATIENT AND ONE FILED IN CHART.DR. RAWLS 05/06/20 @ 2:00, DR. AMBROSIO 05/06/20 @ 9:00. NO COMPARE DATA REVIEWED PER PATIENT REQUEST. DC INSTRUCTIONS [facility] AUTH. # [id number], WITH FAX CONFORMATION RECIEVED AND REVIEWED WITH PATIENT PER PRIMARY NURSE.
== END 2020-04-19 16:17 | disposition home health service (06) | DRG 91 ==
LOC: D.REHAB 20:04
PROVIDERS: ADMIT Emergency Medicine; ATTEND Emergency Medicine
DX: G72.81 Critical illness myopathy (principal); R53.2 Functional quadriplegia; I62.9 Nontraumatic intracranial hemorrhage, unspecified; I48.20 Chronic atrial fibrillation, unspecified; J96.11 Chronic respiratory failure with hypoxia; I10 Essential (primary) hypertension; Z79.01 Long term (current) use of anticoagulants; G40.909 Epilepsy, unspecified, not intractable, without status epilepticus; E03.9 Hypothyroidism, unspecified; K21.9 Gastro-esophageal reflux disease without esophagitis; E66.01 Morbid (severe) obesity due to excess calories; E78.5 Hyperlipidemia, unspecified; M48.00 Spinal stenosis, site unspecified; J42 Unspecified chronic bronchitis; I95.9 Hypotension, unspecified; R50.9 Fever, unspecified; E11.65 Type 2 diabetes mellitus with hyperglycemia; J45.909 Unspecified asthma, uncomplicated; D50.9 Iron deficiency anemia, unspecified; G47.33 Obstructive sleep apnea (adult) (pediatric); M19.90 Unspecified osteoarthritis, unspecified site

== ENCOUNTER 2020-04-19 16:30 | Inpatient (IN) | payer OTHER ==
[~2020-04-19] VITALS: Ht 172.7 cm; Wt 149.0 kg
[~2020-04-19 16:30] MED LIST changes: +FUROSEMIDE20 MG PO; +K-DUR20 MEQ PO
[2020-04-19 17:30] VITALS: BP 125/80
[2020-04-19 18:00] VITALS: BP 119/76
[2020-04-19 19:00] VITALS: BP 125/73
[2020-04-19 19:45] VITALS: BP 126/72
[2020-04-20 00:38] VITALS: BP 134/74; BMI 50.0
[2020-04-20 04:39] VITALS: BP 95/56
[2020-04-20 05:40] LABS: BASOPHILS 0.9 % (0-2); EOSINOPHILS 0 % (0-7); HEMATOCRIT 34.3 % (36.0-48.0); LYMPHOCYTES 61.8 % (15-50); MCH 30.6 pg (26.0-34.0); MCHC 32.1 g/dL (31.0-37.0); MCV 95.5 fL (80.0-100.0); MEAN PLATELET VOLUME 9.6 fL (7.4-10.4); NEUTROPHILS 25.3 % (40-80); PLATELET COUNT 266 10x3/uL (130-400); RBC 3.59 10x6/uL (4.00-5.40); RDW 13.5 % (11.5-14.5); WBC 2.3 10x3/uL (4.8-10.8)
[2020-04-20 06:01] LABS: CALC OSMOLALITY 269 mosm/kg (275-300); CALCIUM 7.6 mg/dL (8.5-10.1); CARBON DIOXIDE 26.4 mmol/L (21.0-32.0); CHLORIDE - SERUM 103 mmol/L (98-107); CREATININE - SERUM 0.5 mg/dL (0.6-1.3); GLUCOSE 135 mg/dL (74-106); MAGNESIUM - SERUM 1.7 mg/dL (1.8-2.4); PHOSPHOROUS 3.2 mg/dL (2.5-4.9); POTASSIUM - SERUM 4.1 mmol/L (3.5-5.1); SODIUM 135 mmol/L (136-145); UREA NITROGEN 8 mg/dL (7-18); eGFR NON AFRICAN AMERICAN > 90 mL/min (90-120)
[2020-04-20 08:36] VITALS: BP 83/51
--- NOTE | 2020-04-20 10:16 | NUR ---
PT AWAKE AND ORIETEND. CLEANED UP IN BED. NO COMPLAINTS OR CONCERNS. TOOK ALL MEDICAITONS WITHOUT COMPLCIATIONS. CL IN REACH, SRX2.
[2020-04-20 12:00] VITALS: BP 89/61
[2020-04-20 16:35] VITALS: BP 100/69
[2020-04-20 17:36] LABS: BILIRUBIN NEGATIVE (NEGATIVE); KETONE NEGATIVE (NEGATIVE); NITRITE POSITIVE (NEGATIVE); UROBILINOGEN NORMAL (NORMAL)
[2020-04-20 17:37] LABS: BACTERIA MANY /hpf (NONE SEEN); EPITHELIAL CELLS 25-50 /hpf (0-5); WHITE CELLS - URINE 0-5 /hpf (0-5)
--- NOTE | 2020-04-20 19:31 | NUR ---
I have reviewed this patient and I concur with the Shift Assessment completed by the Licensed Practical Nurse today this shift.
[2020-04-20 22:13] VITALS: BP 109/62
[2020-04-21 01:53] VITALS: BP 118/61
[2020-04-21 04:37] VITALS: BP 104/55
--- NOTE | 2020-04-21 07:20 | NUR ---
RECIEVE REPORT. RESTING IN BED WITH EYES CLOSED. NO SIGNS OF DISTRESS. CONTINUE PLAN OF CARE AND SAFETY PRECAUTIONS.
[2020-04-21 08:36] VITALS: BP 116/59
[2020-04-21 10:18] LABS: HEMATOCRIT 35.7 % (36.0-48.0); HEMOGLOBIN 11.5 g/dL (12-16); MCH 30.7 pg (26.0-34.0); MCHC 32.2 g/dL (31.0-37.0); MCV 95.2 fL (80.0-100.0); MEAN PLATELET VOLUME 9.3 fL (7.4-10.4); PLATELET COUNT 241 10x3/uL (130-400); RBC 3.75 10x6/uL (4.00-5.40); RDW 13.2 % (11.5-14.5); WBC 2.2 10x3/uL (4.8-10.8)
[2020-04-21 10:31] LABS: CALC OSMOLALITY 269 mosm/kg (275-300); CALCIUM 7.7 mg/dL (8.5-10.1); CARBON DIOXIDE 29.6 mmol/L (21.0-32.0); CHLORIDE - SERUM 102 mmol/L (98-107); CREATININE - SERUM 0.5 mg/dL (0.6-1.3); GLUCOSE 133 mg/dL (74-106); MAGNESIUM - SERUM 1.5 mg/dL (1.8-2.4); POTASSIUM - SERUM 4.1 mmol/L (3.5-5.1); SODIUM 135 mmol/L (136-145); UREA NITROGEN 7 mg/dL (7-18); eGFR NON AFRICAN AMERICAN > 90 mL/min (90-120)
[2020-04-21 10:41] LABS: LYMPHOCYTES 63 % (15-50); MONOCYTES 1 % (2-11); NEUTROPHILS 34 % (40-80); PLATELET ESTIMATE NORMAL
[2020-04-21 12:04] VITALS: BP 103/61
[2020-04-21 14:19] LABS: % SATURATION 19 % (15-55); IRON 33 ug/dl (35-150); TOTAL IRON BIND CAPACITY 168 ug/dl (260-445); UNSAT IRON BIND CAPACITY 135 ug/dl (150-375)
[2020-04-21 17:13] VITALS: BP 110/65
[2020-04-21 21:30] VITALS: BP 107/65
[2020-04-22 00:53] VITALS: BP 100/58
[2020-04-22 04:30] VITALS: BP 110/62
--- NOTE | 2020-04-22 07:20 | NUR ---
RECIEVE REPORT. ALERT AND ORIENTED X4. LAYING IN BED. IV INFUSING ORDERED. DENIES SOB OR PAIN. NO SIGNS OF DISTRESS. CONTINUE PLAN OF CARE AND SAFETY PRECAUTIONS.
[2020-04-22 07:26] LABS: D-DIMER-QUANTITATIVE 0.78 ug/mLFEU (0.20-0.54)
[2020-04-22 07:34] LABS: C-REACTIVE PROTEIN 3.9 mg/dL (0.0-0.9); CALC OSMOLALITY 271 mosm/kg (275-300); CALCIUM 7.7 mg/dL (8.5-10.1); CARBON DIOXIDE 29.8 mmol/L (21.0-32.0); CHLORIDE - SERUM 102 mmol/L (98-107); CREATININE - SERUM 0.4 mg/dL (0.6-1.3); GLUCOSE 99 mg/dL (74-106); MAGNESIUM - SERUM 1.7 mg/dL (1.8-2.4); PHOSPHOROUS 2.8 mg/dL (2.5-4.9); POTASSIUM - SERUM 4.3 mmol/L (3.5-5.1); SODIUM 137 mmol/L (136-145); UREA NITROGEN 7 mg/dL (7-18); eGFR NON AFRICAN AMERICAN > 90 mL/min (90-120)
[2020-04-22 07:35] LABS: LDH 642 U/L (81-234)
[2020-04-22 07:40] LABS: HEMATOCRIT 34.8 % (36.0-48.0); HEMOGLOBIN 11.3 g/dL (12-16); MCH 30.5 pg (26.0-34.0); MCHC 32.5 g/dL (31.0-37.0); MCV 93.8 fL (80.0-100.0); MEAN PLATELET VOLUME 9.5 fL (7.4-10.4); PLATELET COUNT 242 10x3/uL (130-400); RBC 3.71 10x6/uL (4.00-5.40); WBC 2.1 10x3/uL (4.8-10.8)
[2020-04-22 08:45] VITALS: BP 124/59
[2020-04-22 08:54] LABS: LYMPHOCYTES 48 % (15-50); MONOCYTES 1 % (2-11); NEUTROPHILS 50 % (40-80); PLATELET ESTIMATE NORMAL
[2020-04-22 12:33] VITALS: BP 108/62
[2020-04-22 14:58] VITALS: BP 104/60
--- NOTE | 2020-04-22 16:20 | NUR ---
ALERT AND ORIENTED X4. LAYING IN BED WATCHING TV. HAS LOOSE BM. LINEN CHANGED. PURWIC CHANGED. DENIES ANY OTHER NEEDS AT THIS TIME. CONTINUE PLAN OF CARE AND SAFETY PRECAUTIONS.
[2020-04-22 21:29] VITALS: BP 113/67
[2020-04-23 04:00] VITALS: BP 120/77
[2020-04-23 06:33] LABS: BASOPHILS 0.4 % (0-2); EOSINOPHILS 0.4 % (0-7); HEMATOCRIT 35.7 % (36.0-48.0); HEMOGLOBIN 11.6 g/dL (12-16); IMMATURE GRANULOCYTES 0.4 % (0-5); LYMPHOCYTES 59.3 % (15-50); MCH 30.4 pg (26.0-34.0); MCHC 32.5 g/dL (31.0-37.0); MCV 93.5 fL (80.0-100.0); MEAN PLATELET VOLUME 10.2 fL (7.4-10.4); MONOCYTES 10.4 % (2-11); NEUTROPHILS 29.1 % (40-80); PLATELET COUNT 242 10x3/uL (130-400); RBC 3.82 10x6/uL (4.00-5.40); RDW 12.9 % (11.5-14.5); WBC 2.3 10x3/uL (4.8-10.8)
[2020-04-23 07:19] LABS: CALC OSMOLALITY 274 mosm/kg (275-300); CALCIUM 7.4 mg/dL (8.5-10.1); CARBON DIOXIDE 26.8 mmol/L (21.0-32.0); CHLORIDE - SERUM 104 mmol/L (98-107); CREATININE - SERUM 0.5 mg/dL (0.6-1.3); GLUCOSE 105 mg/dL (74-106); MAGNESIUM - SERUM 1.7 mg/dL (1.8-2.4); PHOSPHOROUS 2.9 mg/dL (2.5-4.9); POTASSIUM - SERUM 4.4 mmol/L (3.5-5.1); SODIUM 138 mmol/L (136-145); eGFR NON AFRICAN AMERICAN > 90 mL/min (90-120)
[2020-04-23 07:20] LABS: UREA NITROGEN 9 mg/dL (7-18)
[2020-04-23 08:39] VITALS: BP 131/73
--- NOTE | 2020-04-23 10:11 | NUR ---
Rehab Note- Acute Inpatient Rehab prescreen order received. THe patient just recently discharged from our acute rehab unit with completing her stay, suggest possible SNF placement for extended therapy. Thank you for this referral! Geovanna Jarvis RN Clinical Liaison, [facility] Rehab
[2020-04-23 12:18] VITALS: BP 107/64
--- NOTE | 2020-04-23 14:30 | MORECARE ---
CASE MANAGEMENT DISCHARGE SUMMARY PATIENT: DON CARPENTER BERTA UNIT: [id number] ADM DATE: 04/19/20 AGE: 60 : 62 SEX: F ROOM/BED: D.2107 AUTHOR: JIA GONZALEZ PHYSICIAN: REFERRING PHYSICIAN: LUIS PIERCE MD DATE OF SERVICE: 04/23/20 Discharge Plan Patient Name: DON CARPENTER [facility] [facility] 1960 Planned Disposition: [facility] Facility Anticipated Discharge Date: Discharge Date: Expected LOS: Initial Reviewer: [email or web address] Initial Review Date: 04/23/2020 Generated: 04/23/20 3:30 pm External Providers External Provider: [facility] Next Contact Date: Service Request Date: Service Type: Resolution: Reviewer: Comments: Patient Name: DON CARPENTER Page [id number] at 1430 All edits/amendments must be made on the electronic document DICTATION DATE: 04/23/20 1430 ART HISTORY PROFESSOR: NIKOS 04/23/20 1430 RPT#: [id number] DC DATE: STATUS: ADM IN [facility] [address] [place] [address] END OF REPORT
--- NOTE | 2020-04-23 14:39 | MORECARE ---
CASE MANAGEMENT DISCHARGE SUMMARY PATIENT: DON CARPENTER BERTA UNIT: [id number] ADM DATE: 04/19/20 AGE: 60 : 62 SEX: F ROOM/BED: D.2102 AUTHOR: JIA GONZALEZ PHYSICIAN: REFERRING PHYSICIAN: LUIS PIERCE MD DATE OF SERVICE: 04/23/20 Discharge Plan Patient Name: DON CARPENTER [facility] [facility] 1960 Planned Disposition: Group Home Facility Anticipated Discharge Date: Discharge Date: Expected LOS: Initial Reviewer: [email or web address] Initial Review Date: 04/23/2020 Generated: 04/23/20 3:38 pm DCPIA - Discharge Planning Initial Assessment Updated by [email or web address]: Miladys Will on 04/23/20 2:32 pm * Is the patient Alert and Oriented? Yes * PCP Dr. Leal * Pharmacy [facility] * Preadmission Environment Home Alone * ADLs Partial Dependent * Partial ADLs (Assistance needed) Ambulation * Equipment Cane Glucometer Walker * List name and contact numbers for known caregivers / representatives who currently or will assist patient after discharge: Jenny Carpenter - [phone] * Verbal permission to speak to the caregivers and representatives has been obtained from the patient. Yes * Community resources currently utilized Home Health * Please name any agencies selected above. [facility] * Additional services required to return to the preadmission environment? Yes * Can the patient safely return to the preadmission environment? No * Has this patient been hospitalized within the prior 30 days at any hospital? Yes Last DP export: 04/23/20 1:30 pm Patient Name: DON CARPENTER Page [phone] at 1439 All edits/amendments must be made on the electronic document DICTATION DATE: 04/23/20 1439 CLIENT SUPPORT MANAGER: NIKOS 04/23/20 1439 RPT#: [id number] DC DATE: STATUS: ADM IN [facility] [address] [place] [address] END OF REPORT
--- NOTE | 2020-04-23 15:02 | MORECARE ---
CASE MANAGEMENT DISCHARGE SUMMARY PATIENT: DON CARPENTER UNIT: [id number] ADM DATE: 04/19/20 AGE: 60 : 62 SEX: F ROOM/BED: D.2107 AUTHOR: LISA,DOC PHYSICIAN: REFERRING PHYSICIAN: LUIS PIERCE MD DATE OF SERVICE: 04/23/20 Discharge Plan Patient Name: DON CARPENTER Facility: [facility]:[place] : 1960 Planned Disposition: Custodial Facility Anticipated Discharge Date: Discharge Date: Expected LOS: Initial Reviewer: [email or web address] Initial Review Date: 04/23/2020 Generated: 04/23/20 4:01 pm Comments DCP- Discharge Planning Updated by [email or web address]: Miladys Will on 04/23/20 1:[address] Patient Name: DON CARPENTER Admission Status: ER Accout number: [id number] Admission Date: 04-19-2020 : 1960 Admission Diagnosis:ADULT FAILURE TO THRIVE Attending: LUIS STANTON Current LOS: 4 Anticipated DC Date: Planned Disposition: Custodial Facility Primary Insurance: [employer] INS EXCHANGE Discharge Planning Comments: CM called patient (per Covid positive protocol) to discuss discharge needs. I informed her that I spoke with Geovanna in inpatient rehab ad she had completed the end of her inpatient rehab and suggests a skilled facility if needed. She states that she feels she does need a skilled facility at this time. States when she got home, she could not even get out of the car due to weakness. States she lives alone and would need to be able to care for herself. I discussed all the skilled facilities with her and she states she will go to which ever one will take a covid positive patient. I spoke with Brittney Aviles, liaison for [facility] and [place] and she states that her facilities will not take a covid positive patient. The only one she has is [facility] . I spoke with Claribel and she states that [facility] in [place] will accept Covid positive patients. She will check with [facility]. I faxed her a face sheet so they can run insurance. CM will continue to follow and assist with discharge planning/needs. Nuisance Animal Damage Control Agent: Miladys Will DCPIA - Discharge Planning Initial Assessment Updated by [email or web address]: Miladys Will on 04/23/20 2:32 pm * Is the patient Alert and Oriented? Yes * PCP Dr. Leal * Pharmacy [facility] * Preadmission Environment Home Alone * ADLs Partial Dependent * Partial ADLs (Assistance needed) Ambulation * Equipment Cane Glucometer Walker * List name and contact numbers for known caregivers / representatives who currently or will assist patient after discharge: Jenny Bassem - [phone] * Verbal permission to speak to the caregivers and representatives has been obtained from the patient. Yes * Community resources currently utilized Home Health * Please name any agencies selected above. Care 4 [facility] * Additional services required to return to the preadmission environment? Yes * Can the patient safely return to the preadmission environment? No * Has this patient been hospitalized within the prior 30 days at any hospital? Yes Last DP export: 04/23/20 1:39 pm Patient Name: DON CARPENTER Page [id number] at 1502 All edits/amendments must be made on the electronic document DICTATION DATE: 04/23/20 1501 EQUIPMENT OPERATOR/LABORER: NIKOS 04/23/20 1501 RPT#: [id number] CO DATE: STATUS: ADM IN [facility] [address] [place] [address] END OF REPORT
[2020-04-23 17:23] VITALS: BP 140/79
[2020-04-23 19:23] VITALS: BP 136/71
--- NOTE | 2020-04-23 20:32 | NUR ---
RECIEVED UP IN BED WITH EYES OPEN AND TV ON. ALERT AND ORIETNED X4. REMAINS BEDFAST. IV TO LT HAND WITH NS INFUSING AT 50CC HR. PUREWICK IN PLACE. REMAINS IN ISOLATION R/T COVID +.
[2020-04-23 23:30] VITALS: BP 133/72
[2020-04-24 05:10] VITALS: BP 123/70
[2020-04-24 06:01] VITALS: BP 123/70
[2020-04-24 06:03] VITALS: BP 123/70
[2020-04-24 07:01] LABS: BASOPHILS 1.8 % (0-2); EOSINOPHILS 3.9 % (0-7); HEMATOCRIT 37.8 % (36.0-48.0); HEMOGLOBIN 12.3 g/dL (12-16); IMMATURE GRANULOCYTES 1.1 % (0-5); LYMPHOCYTES 39.5 % (15-50); MCH 30.5 pg (26.0-34.0); MCHC 32.5 g/dL (31.0-37.0); MCV 93.8 fL (80.0-100.0); MEAN PLATELET VOLUME 9.5 fL (7.4-10.4); MONOCYTES 8.9 % (2-11); NEUTROPHILS 44.8 % (40-80); RBC 4.03 10x6/uL (4.00-5.40); RDW 13.1 % (11.5-14.5); WBC 2.8 10x3/uL (4.8-10.8)
[2020-04-24 07:02] VITALS: BP 103/45
[2020-04-24 07:05] LABS: PLATELET COUNT 123 10x3/uL (130-400)
[2020-04-24 07:28] LABS: CALC OSMOLALITY 262 mosm/kg (275-300); CALCIUM 7.8 mg/dL (8.5-10.1); CARBON DIOXIDE 23.7 mmol/L (21.0-32.0); CHLORIDE - SERUM 99 mmol/L (98-107); CREATININE - SERUM 0.5 mg/dL (0.6-1.3); GLUCOSE 140 mg/dL (74-106); MAGNESIUM - SERUM 1.7 mg/dL (1.8-2.4); PHOSPHOROUS 2.8 mg/dL (2.5-4.9); POTASSIUM - SERUM 4.6 mmol/L (3.5-5.1); SODIUM 131 mmol/L (136-145); UREA NITROGEN 6 mg/dL (7-18); eGFR NON AFRICAN AMERICAN > 90 mL/min (90-120)
--- NOTE | 2020-04-24 08:05 | MORECARE ---
CASE MANAGEMENT DISCHARGE SUMMARY PATIENT: DON CARPENTER UNIT: [id number] ADM DATE: 04/19/20 AGE: 60 : 62 SEX: F ROOM/BED: D.2130 AUTHOR: LISA,DOC PHYSICIAN: REFERRING PHYSICIAN: LUIS PIERCE MD DATE OF SERVICE: 04/24/20 Discharge Plan Patient Name: DON CARPENTER Facility: [facility]:[place] : 1960 Planned Disposition: Residential Facility Anticipated Discharge Date: Discharge Date: Expected LOS: Initial Reviewer: [email or web address] Initial Review Date: 04/23/2020 Generated: 04/24/20 9:04 am Comments DCP- Discharge Planning Updated by [email or web address]: Miladys Will on 04/24/20 6:[address] I received a call from [place] with [facility]. Holden states that patient's insurance is [employer] and they are not in network with any of their facilities. CM will continue to attempt to find a SNF in network. DCP- Discharge Planning Updated by [email or web address]: Miladys Will on 04/23/20 1:[address] Patient Name: DON CARPENTER Admission Status: ER Accout number: [id number] Admission Date: 04-19-2020 : 1960 Admission Diagnosis:ADULT FAILURE TO THRIVE Attending: LUIS STANTON Current LOS: 4 Anticipated DC Date: Planned Disposition: Residential Facility Primary Insurance: [employer] [facility] INS EXCHANGE Discharge Planning Comments: CM called patient (per Covid positive protocol) to discuss discharge needs. I informed her that I spoke with Geovanna in inpatient rehab ad she had completed the end of her inpatient rehab and suggests a skilled facility if needed. She states that she feels she does need a skilled facility at this time. States when she got home, she could not even get out of the car due to weakness. States she lives alone and would need to be able to care for herself. I discussed all the skilled facilities with her and she states she will go to which ever one will take a covid positive patient. I spoke with Brittney Aviles, liaison for [facility] and [place] and she states that her facilities will not take a covid positive patient. The only one she has is [facility] . I spoke with Claribel and she states that [facility] in [place] will accept Covid positive patients. She will check with [facility]. I faxed her a face sheet so they can run insurance. CM will continue to follow and assist with discharge planning/needs. Live Hanger: Miladys Will DCPIA - Discharge Planning Initial Assessment Updated by [email or web address]: Miladys Will on 04/23/20 2:32 pm * Is the patient Alert and Oriented? Yes * PCP Dr. Leal * Pharmacy [facility] * Preadmission Environment Home Alone * ADLs Partial Dependent * Partial ADLs (Assistance needed) Ambulation * Equipment Cane Glucometer Walker * List name and contact numbers for known caregivers / representatives who currently or will assist patient after discharge: Jenny Carpenter - [phone] * Verbal permission to speak to the caregivers and representatives has been obtained from the patient. Yes * Community resources currently utilized Home Health * Please name any agencies selected above. Care 4 [facility] * Additional services required to return to the preadmission environment? Yes * Can the patient safely return to the preadmission environment? No * Has this patient been hospitalized within the prior 30 days at any hospital? Yes Last DP export: 04/23/20 2:01 pm Patient Name: DON CARPENTER Page 30176 at 0805 All edits/amendments must be made on the electronic document DICTATION DATE: 04/24/20804 READING SPECIALIST: NIKOS 04/24/20804 RPT#: [id number] DC DATE: STATUS: ADM IN [facility] [address] [facility] [place] [address] END OF REPORT
[2020-04-24 11:11] VITALS: BP 136/77
[2020-04-24 11:42] LABS: BILIRUBIN NEGATIVE (NEGATIVE); KETONE NEGATIVE (NEGATIVE); NITRITE NEGATIVE (NEGATIVE); UROBILINOGEN NORMAL (NORMAL)
[2020-04-24 11:56] LABS: BACTERIA FEW /hpf (NONE SEEN); EPITHELIAL CELLS 0-5 /hpf (0-5); WHITE CELLS - URINE NSEEN /hpf (0-5)
--- NOTE | 2020-04-24 13:05 | MORECARE ---
CASE MANAGEMENT DISCHARGE SUMMARY PATIENT: DON CARPENTER UNIT: [id number] ADM DATE: 04/19/20 AGE: 60 : 62 SEX: F ROOM/BED: D.2130 AUTHOR: LISA,DOC PHYSICIAN: REFERRING PHYSICIAN: LUIS PIERCE MD DATE OF SERVICE: 04/24/20 Discharge Plan Patient Name: DON CARPENTER Facility: [facility]:[place] : 1960 Planned Disposition: Fpc Facility Anticipated Discharge Date: Discharge Date: Expected LOS: Initial Reviewer: [email or web address] Initial Review Date: 04/23/2020 Generated: 04/24/20 2:05 pm Comments DCP- Discharge Planning Updated by [id number]: Renee Fajardo on 04/24/20 12:[address] CM contacted Jonas Calvillo, with [facility]. Faxed required information and gave verbal report. Awaiting CB. DCP- Discharge Planning Updated by [email or web address]: Miladys Will on 04/24/20 6:[address] I received a call from [place] with [facility]. [place] states that patient's insurance is [employer] and they are not in network with any of their facilities. CM will continue to attempt to find a SNF in network. DCP- Discharge Planning Updated by [email or web address]: Miladys Will on 04/23/20 1:[address] Patient Name: DON CARPENTER Admission Status: ER Accout number: [id number] Admission Date: 04-19-2020 : 1960 Admission Diagnosis:ADULT FAILURE TO THRIVE Attending: LUIS STANTON Current LOS: 4 Anticipated DC Date: Planned Disposition: Fpc Facility Primary Insurance: [employer] INS EXCHANGE Discharge Planning Comments: CM called patient (per Covid positive protocol) to discuss discharge needs. I informed her that I spoke with Geovanna in inpatient rehab ad she had completed the end of her inpatient rehab and suggests a skilled facility if needed. She states that she feels she does need a skilled facility at this time. States when she got home, she could not even get out of the car due to weakness. States she lives alone and would need to be able to care for herself. I discussed all the skilled facilities with her and she states she will go to which ever one will take a covid positive patient. I spoke with Brittney Aviles, liaison for [facility] and [facility] and [place] and she states that her facilities will not take a covid positive patient. The only one she has is [facility] . I spoke with [place] and she states that [facility] in [place] will accept Covid positive patients. She will check with [facility]. I faxed her a face sheet so they can run insurance. CM will continue to follow and assist with discharge planning/needs. Law Clerk: Miladys Will DCPIA - Discharge Planning Initial Assessment Updated by [email or web address]: Miladys Will on 04/23/20 2:32 pm * Is the patient Alert and Oriented? Yes * PCP Dr. Leal * Pharmacy [facility] * Preadmission Environment Home Alone * ADLs Partial Dependent * Partial ADLs (Assistance needed) Ambulation * Equipment Cane Glucometer Walker * List name and contact numbers for known caregivers / representatives who currently or will assist patient after discharge: Jenny Carpenter - [phone] * Verbal permission to speak to the caregivers and representatives has been obtained from the patient. Yes * Community resources currently utilized Home Health * Please name any agencies selected above. Care 4 [facility] * Additional services required to return to the preadmission environment? Yes * Can the patient safely return to the preadmission environment? No * Has this patient been hospitalized within the prior 30 days at any hospital? Yes Last DP export: 04/24/20 7:05 am Patient Name: DON CARPENTER Page 27725 at 1305 All edits/amendments must be made on the electronic document DICTATION DATE: 04/24/20 1305 ANIMAL PATHOLOGY TEACHER: NIKOS 04/24/20 1305 RPT#: [id number] [place] DATE: STATUS: ADM IN [facility] [address] [place] [address] END OF REPORT
[2020-04-24 13:13] VITALS: Ht 172.7 cm; Wt 149.0 kg
--- NOTE | 2020-04-24 13:22 | MORECARE ---
CASE MANAGEMENT DISCHARGE SUMMARY PATIENT: DON CARPENTER UNIT: [id number] ADM DATE: 04/19/20 AGE: 60 : 62 SEX: F ROOM/BED: D.2130 AUTHOR: LISA,DOC PHYSICIAN: REFERRING PHYSICIAN: LUIS PIERCE MD DATE OF SERVICE: 04/24/20 Discharge Plan Patient Name: DON CARPENTER Facility: [facility]:[place] : 1960 Planned Disposition: Custodial Facility Anticipated Discharge Date: Discharge Date: Expected LOS: Initial Reviewer: [email or web address] Initial Review Date: 04/23/2020 Generated: 04/24/20 2:22 pm Comments DCP- Discharge Planning Updated by [email or web address]: Renee Fajardo on 04/24/20 12:[address] CM contacted Jonas Calvillo, with [facility]. Faxed required information and gave verbal report. Awaiting CB. DCP- Discharge Planning Updated by [email or web address]: Miladys Will on 04/24/20 6:[address] I received a call from [place] with [facility]. [place] states that patient's insurance is [employer] and they are not in network with any of their facilities. CM will continue to attempt to find a SNF in network. DCP- Discharge Planning Updated by [id number]: Miladys Will on 04/23/20 1:[address] Patient Name: DON CARPENTER Admission Status: ER Accout number: [id number] Admission Date: 04-19-2020 : 1960 Admission Diagnosis:ADULT FAILURE TO THRIVE Attending: LUIS STANTON Current LOS: 4 Anticipated DC Date: Planned Disposition: Custodial Facility Primary Insurance: N[employer]YS [employer] INS EXCHANGE Discharge Planning Comments: CM called patient (per Covid positive protocol) to discuss discharge needs. I informed her that I spoke with Geovanna in inpatient rehab ad she had completed the end of her inpatient rehab and suggests a skilled facility if needed. She states that she feels she does need a skilled facility at this time. States when she got home, she could not even get out of the car due to weakness. States she lives alone and would need to be able to care for herself. I discussed all the skilled facilities with her and she states she will go to which ever one will take a covid positive patient. I spoke with Brittney Aviles, liaison for [facility] and [place] and she states that her facilities will not take a covid positive patient. The only one she has is [facility] . I spoke with Claribel and she states that [facility] in [place] will accept Covid positive patients. She will check with [facility]. I faxed her a face sheet so they can run insurance. CM will continue to follow and assist with discharge planning/needs. Engine House Helper: Miladys Will DCPIA - Discharge Planning Initial Assessment Updated by [email or web address]: Miladys Will on 04/23/20 2:32 pm * Is the patient Alert and Oriented? Yes * PCP Dr. Leal * Pharmacy [facility] * Preadmission Environment Home Alone * ADLs Partial Dependent * Partial ADLs (Assistance needed) Ambulation * Equipment Cane Glucometer Walker * List name and contact numbers for known caregivers / representatives who currently or will assist patient after discharge: Jenny Carpenter - [phone] * Verbal permission to speak to the caregivers and representatives has been obtained from the patient. Yes * Community resources currently utilized Home Health * Please name any agencies selected above. Care 4 [facility] * Additional services required to return to the preadmission environment? Yes * Can the patient safely return to the preadmission environment? No * Has this patient been hospitalized within the prior 30 days at any hospital? Yes External Providers External Provider: [facility] and [facility] Next Contact Date: Service Request Date: Service Type: Resolution: Reviewer: Comments: Last DP export: 04/24/20 12:05 pm Patient Name: DON CARPENTER Page 97500 at 1322 All edits/amendments must be made on the electronic document DICTATION DATE: 04/24/20 1322 CENTERLESS GRINDER TENDER: NIKOS 04/24/20 1322 RPT#: [id number] DC DATE: STATUS: ADM IN [facility] [address] [place] [address] END OF REPORT
[2020-04-24 16:10] VITALS: BP 89/62
--- NOTE | 2020-04-24 20:17 | NUR ---
RECIEVED UP IN BED WITH EYES OPENA ND TV ON. ALERT AND ORIENTED X4. BEDFAST AT THIS TIME. IV TO LT FA SL AT THIS TIME. O2@ [address] PUREWICK IN PL[address]. DENIES ANY NEEDS AT THIS TIME.
--- NOTE | 2020-04-25 07:15 | NUR ---
RECEIVE BEDSIDE SHIFT REPORT. RESTING IN BED WITH EYES CLOSED. TV ON. NO SIGNS OF DISTRESS. WILL CONTINUE PLAN OF CARE AND SAFETY PRECAUTIONS.
[2020-04-25 07:40] VITALS: BP 113/71
[2020-04-25 10:31] VITALS: BP 97/59
--- NOTE | 2020-04-25 13:58 | NUR ---
NOTIFIED MELODIE AZEVEDO OF LAB CALLING FOR CRITICAL LAB BLOOD CULTURE GRAM POSITIVE FOR [place] IN [place].
[2020-04-25 16:04] VITALS: BP 104/59
--- NOTE | 2020-04-26 04:27 | NUR ---
I have reviewed this patient and I concur with the Shift Assessment completed by the Licensed Practical Nurse today this shift.
[2020-04-26 08:33] VITALS: BP 118/68
--- NOTE | 2020-04-26 12:51 | MORECARE ---
CASE MANAGEMENT DISCHARGE SUMMARY PATIENT: DON CARPENTER UNIT: [id number] ADM DATE: 04/19/20 AGE: 60 : 62 SEX: F ROOM/BED: D.2130 AUTHOR: LISA,DOC PHYSICIAN: REFERRING PHYSICIAN: LUIS PIERCE MD DATE OF SERVICE: 04/26/20 Discharge Plan Patient Name: DON CARPENTER Facility: [facility]:[place] : 1960 Planned Disposition: Half-Way Facility Anticipated Discharge Date: Discharge Date: Expected LOS: Initial Reviewer: [email or web address] Initial Review Date: 04/23/2020 Generated: 04/26/20 1:50 pm Comments DCP- Discharge Planning Updated by [email or web address]: Renee Fajardo on 04/26/20 11:[address] 1200: CB from [facility], unable to accept today, will re-evaluate 04/29. CM contacted [facility], with [facility]. Faxed required information and gave verbal report. Awaiting CB. DCP- Discharge Planning Updated by [email or web address]: Miladys Will on 04/24/20 6:[address] I received a call from [place] with [facility]. [place] states that patient's insurance is [employer] and they are not in network with any of their facilities. CM will continue to attempt to find a SNF in network. DCP- Discharge Planning Updated by [email or web address]: Miladys Will on 04/23/20 1:[address] Patient Name: DON CARPENTER Admission Status: ER Accout number: [id number] Admission Date: 04-19-2020 : 1960 Admission Diagnosis:ADULT FAILURE TO THRIVE Attending: LUIS STANTON Current LOS: 4 Anticipated DC Date: Planned Disposition: Half-Way Facility Primary Insurance: [employer] EXCHANGE Discharge Planning Comments: CM called patient (per Covid positive protocol) to discuss discharge needs. I informed her that I spoke with Geovanna in inpatient rehab ad she had completed the end of her inpatient rehab and suggests a skilled facility if needed. She states that she feels she does need a skilled facility at this time. States when she got home, she could not even get out of the car due to weakness. States she lives alone and would need to be able to care for herself. I discussed all the skilled facilities with her and she states she will go to which ever one will take a covid positive patient. I spoke with Brittney Aviles, liaison for [place] [place] and she states that her facilities will not take a covid positive patient. The only one she has is [facility] . I spoke with Clar[place] and she states that [facility] in [place] will accept Covid positive patients. She will check with [facility]. I faxed her a face sheet so they can run insurance. CM will continue to follow and assist with discharge planning/needs. Area Mechanic: Miladysvicente Will DCPIA - Discharge Planning Initial Assessment Updated by [id number]: Miladys Will on 04/23/20 2:32 pm * Is the patient Alert and Oriented? Yes * PCP Dr. Leal * Pharmacy [facility] * Preadmission Environment Home Alone * ADLs Partial Dependent * Partial ADLs (Assistance needed) Ambulation * Equipment Cane Glucometer Walker * List name and contact numbers for known caregivers / representatives who currently or will assist patient after discharge: Jenny Carpenter - [phone] * Verbal permission to speak to the caregivers and representatives has been obtained from the patient. Yes * Community resources currently utilized Home Health * Please name any agencies selected above. Care [facility] * Additional services required to return to the preadmission environment? Yes * Can the patient safely return to the preadmission environment? No * Has this patient been hospitalized within the prior 30 days at any hospital? Yes Last DP export: 04/24/20 12:22 pm Patient Name: DON CARPENTER Page [id number] at 1251 All edits/amendments must be made on the electronic document DICTATION DATE: 04/26/201249 COMMUNICATION COORDINATOR: NIKOS 04/26/201249 RPT#: [id number] DC DATE: STATUS: ADM IN [facility] [address] [place] [address] END OF REPORT
--- NOTE | 2020-04-26 14:30 | NUR ---
Nutrition Follow-up: Diet: Diabetic PO intake: 100% x last 3 meals Last BM: 04/25/20 x 2. Wt: 328.4# (04/24/20) Meds and labs reviewed Recommend continue current diet. RD following.
--- NOTE | 2020-04-26 16:45 | NUR ---
SPOKE WITH ABOUT THE REMDESIVIR WHO GAVE VERBAL ORDERS TO HOLD THE MEDICATION UNTIL WE HAVE RECEIVED A POSITIVE RESULT ON THE COVID TEST. PHARMACY NOTIFIED. MED PUT ON HOLD. WILL CTM.
[2020-04-26 17:20] LABS: CALC OSMOLALITY 270 mosm/kg (275-300); CALCIUM 8.3 mg/dL (8.5-10.1); CARBON DIOXIDE 26.7 mmol/L (21.0-32.0); CHLORIDE - SERUM 104 mmol/L (98-107); CREATININE - SERUM 0.3 mg/dL (0.6-1.3); GLUCOSE 125 mg/dL (74-106); SODIUM 136 mmol/L (136-145); UREA NITROGEN 8 mg/dL (7-18); eGFR NON AFRICAN AMERICAN > 90 mL/min (90-120)
[2020-04-26 17:26] LABS: POTASSIUM - SERUM 5.8 mmol/L (3.5-5.1)
[2020-04-26 20:20] VITALS: BP 118/65
[2020-04-27 00:50] VITALS: BP 113/72
[2020-04-27 04:37] VITALS: BP 134/89
--- NOTE | 2020-04-27 07:00 | NUR ---
RECIEVED REPORT. ASSUMED CARE OF PATIENT. PATIENT REMAINS IN DROPLET ISOLATION FOR COVID19.
[2020-04-27 09:13] LABS: HEMATOCRIT 37.4 % (36.0-48.0); HEMOGLOBIN 12.2 g/dL (12-16); MCH 30.4 pg (26.0-34.0); MCHC 32.6 g/dL (31.0-37.0); MCV 93.3 fL (80.0-100.0); MEAN PLATELET VOLUME 9.3 fL (7.4-10.4); PLATELET COUNT 331 10x3/uL (130-400); RBC 4.01 10x6/uL (4.00-5.40); RDW 12.9 % (11.5-14.5); WBC 3.3 10x3/uL (4.8-10.8)
[2020-04-27 09:17] LABS: CALC OSMOLALITY 270 mosm/kg (275-300); CALCIUM 8.5 mg/dL (8.5-10.1); CARBON DIOXIDE 27.5 mmol/L (21.0-32.0); CHLORIDE - SERUM 102 mmol/L (98-107); GLUCOSE 113 mg/dL (74-106); SODIUM 136 mmol/L (136-145); UREA NITROGEN 7 mg/dL (7-18)
[2020-04-27 09:19] LABS: CREATININE - SERUM 0.4 mg/dL (0.6-1.3); POTASSIUM - SERUM 3.7 mmol/L (3.5-5.1); eGFR NON AFRICAN AMERICAN > 90 mL/min (90-120)
[2020-04-27 09:53] LABS: EOSINOPHILS 1 % (0-7); LYMPHOCYTES 54 % (15-50); MONOCYTES 2 % (2-11); NEUTROPHILS 43 % (40-80)
[2020-04-27 09:58] LABS: PLATELET ESTIMATE NORMAL
--- NOTE | 2020-04-27 10:00 | NUR ---
REMAINS IN DROPLET ISOLATION. CARES RENDERED. ASSISTED TO PULL PATIENT UP IN BED. PUREWICK REPLACED. PATIENT RESTING WITH EYES OPEN, NO DISTRESS, ATTENTION TOWARD TELEVISION AT THIS TIME. DENIES ANY FURTHER NEEDS.
[2020-04-27 10:02] VITALS: BP 130/79
--- NOTE | 2020-04-27 11:48 | NUR ---
FSBS 123. NO INSULIN PER SLIDING SCALE. 22 GAUGE IV PLACED TO LEFT LATERAL AC AREA X 1 STICK. GOOD BLOOD RETURN, EASY FLUSH. TOLERATED IV PLACEMENT WELL. TAPED, DATED, AND SECURED. 22 REMOVED FROM LEFT FA, CATHETER TIP INTACT. NO BLEEDING FROM SITE. TOELRATED IV REMOVAL WELL. 2X2 GAUZE APPLIED AND SECURED WITH TAPE.
[2020-04-27 14:20] VITALS: BP 136/65
--- NOTE | 2020-04-27 16:28 | NUR ---
FSBS 139. NO INSULIN PER SLIDING SCALE.
[2020-04-27 17:06] VITALS: BP 147/71
[2020-04-27 20:00] VITALS: BP 121/60
--- NOTE | 2020-04-27 20:20 | NUR ---
ASSESSMENT COMPLETED AT 2000 HRS. VSS. ALERT AND ORIENTED TO PERSON, PLACE AND TIME. BLANCAS. LUNGS DIMINISHED IN BASES BILAT. ABD SOFT WITH ACTIVE BS NOTED. PUREWICK IN PLACE DRAINING YELLOW URINE. IV TO LAC AREA SL. 1+ PEDAL EDEMA. PALPABLE PERIPHERAL PULSES. DENIES ANY DISCOMFORT. SR UP X2,CALL LIGHT WITHIN REACH.
--- NOTE | 2020-04-27 21:55 | NUR ---
PM FSBS 120. NO COVERAGE NEEDED. PT HAD MODERATE BM VIA BEDPAN. PT CLEANED. PM MEDS GIVEN. SR UP X2, CALL LIGHT WITHIN REACH.
--- NOTE | 2020-04-27 23:46 | NUR ---
VSS. PT DENIES ANY DISCOMFORT. SR UP X2,CALL LIGHT WITHIN REACH.
[2020-04-28 00:02] VITALS: BP 124/69
--- NOTE | 2020-04-28 02:12 | NUR ---
CAMERA MONITOR BROUGHT IN ROOM. RATIONALE EXPLAINED TO PT. PT REFUSED CAMERA MONITOR. PT DNEIS ANY DISCOMFORT. SR UP X2,CALL LIGHT WITHIN REACH.
[2020-04-28 04:20] VITALS: BP 114/73
--- NOTE | 2020-04-28 04:40 | NUR ---
PT RESTING WITH EYES CLOSED. RESP EVEN AND REGULAR. SR UP X2,CALL LIG WITHIN REACH.
--- NOTE | 2020-04-28 06:28 | NUR ---
VSS THROUGHOUT NIGHT. PT RESTED WELL DURING SHIFT. NEW PUREWICK APPLIED. SR UP X2, CALL LIGHT WITHIN REACH.
--- NOTE | 2020-04-28 07:00 | NUR ---
RECEIVED REPORT. ASSUMED CARE OF PATIENT. PATIENT REMAINS IN DROPLET ISOLATION FOR COVID 19.
[2020-04-28 08:19] VITALS: BP 109/66
[2020-04-28 09:14] LABS: BASOPHILS 1.5 % (0-2); EOSINOPHILS 2.8 % (0-7); HEMATOCRIT 37.1 % (36.0-48.0); IMMATURE GRANULOCYTES 0.6 % (0-5); LYMPHOCYTES 42.9 % (15-50); MCH 30.1 pg (26.0-34.0); MCHC 32.3 g/dL (31.0-37.0); MEAN PLATELET VOLUME 8.9 fL (7.4-10.4); MONOCYTES 13.8 % (2-11); NEUTROPHILS 38.4 % (40-80); PLATELET COUNT 343 10x3/uL (130-400); RBC 3.99 10x6/uL (4.00-5.40); WBC 4.6 10x3/uL (4.8-10.8)
[2020-04-28 09:32] LABS: CALC OSMOLALITY 271 mosm/kg (275-300); CALCIUM 8.5 mg/dL (8.5-10.1); CARBON DIOXIDE 29.1 mmol/L (21.0-32.0); CHLORIDE - SERUM 104 mmol/L (98-107); CREATININE - SERUM 0.5 mg/dL (0.6-1.3); GLUCOSE 135 mg/dL (74-106); POTASSIUM - SERUM 3.8 mmol/L (3.5-5.1); SODIUM 136 mmol/L (136-145); UREA NITROGEN 7 mg/dL (7-18); eGFR NON AFRICAN AMERICAN > 90 mL/min (90-120)
--- NOTE | 2020-04-28 11:47 | NUR ---
FSBS 140. NO INSULIN PER SLIDING SCALE.
--- NOTE | 2020-04-28 16:47 | NUR ---
FSBS 138. NO INSULIN PER SLIDING SCALE.
--- NOTE | 2020-04-28 19:30 | NUR ---
RECEIVED REPORT, WILL ASSUME CARE OF PT, COVID+, RA, IV-LFA-SL, HAS A PUREWICK IN PLACE, DENIES ANY NEEDS AT THIS TIME, BED IS LOW, SRX2, CALL LIGHT IN REACH, WILL CONTINUE PLAN OF CARE
[2020-04-28 20:00] VITALS: BP 120/70
[2020-04-29 04:00] VITALS: BP 116/52
[2020-04-29 08:47] VITALS: BP 112/74
--- NOTE | 2020-04-29 11:34 | NUR ---
PHYSCIAL THERAPY NOTIFIED OF CONSULT ON THE . REASSURED THEM THAT THE PT NEEDS TO BE SEEN R/T HAVING BEEN BED CONFINED FOR THE PAST 10 DAYS. WAS TOLD THAT THEY WOULD SEE PATIENT. WILL CTM.
[2020-04-29 11:50] VITALS: BP 119/66
--- NOTE | 2020-04-29 13:22 | MORECARE ---
CASE MANAGEMENT DISCHARGE SUMMARY PATIENT: DON CAPRENTER UNIT: [id number] ADM DATE: 04/19/20 AGE: 60 : 62 SEX: F ROOM/BED: D.2130 AUTHOR: LISA,DOC PHYSICIAN: REFERRING PHYSICIAN: LUIS PIERCE MD DATE OF SERVICE: 04/29/20 Discharge Plan Patient Name: DON CARPENTER Facility: [facility]:[place] : 1960 Planned Disposition: Shelter Facility Anticipated Discharge Date: Discharge Date: Expected LOS: Initial Reviewer: [email or web address] Initial Review Date: 04/23/2020 Generated: 04/29/20 2:22 pm Comments DCP- Discharge Planning Updated by [email or web address]: Kinsey Coley on 04/29/20 12:[address] CM SPOKE WITH FACUNDO FROM [facility] [phone] ABOUT REFERRAL AND FAXED CLINICALS. FACUNDO STATED HE WOULD PROVIDE DETERMINIATION BY TOMORROW KINSEY COLEY DCP- Discharge Planning Updated by [email or web address]: Renee Fajardo on 04/26/20 11:[address] 1200: CB from [facility], unable to accept today, will re-evaluate 04/29. CM contacted [facility], with [facility] SNF. Faxed required information and gave verbal report. Awaiting CB. DCP- Discharge Planning Updated by [email or web address]: Miladys Will on 04/24/20 6:[address] I received a call from [place] with [facility]. Camarillo states that patient's insurance is [employer] and they are not in network with any of their facilities. CM will continue to attempt to find a SNF in network. DCP- Discharge Planning Updated by [email or web address]: Miladys Will on 04/23/20 1:[address] Patient Name: DON CARPENTER Admission Status: ER Accout number: [id number] Admission Date: 04-19-2020 : 1960 Admission Diagnosis:ADULT FAILURE TO THRIVE Attending: LUIS STANTON Current LOS: 4 Anticipated DC Date: Planned Disposition: Shelter Facility Primary Insurance: [employer] INS EXCHANGE Discharge Planning Comments: CM called patient (per Covid positive protocol) to discuss discharge needs. I informed her that I spoke with Geovanna in inpatient rehab ad she had completed the end of her inpatient rehab and suggests a skilled facility if needed. She states that she feels she does need a skilled facility at this time. States when she got home, she could not even get out of the car due to weakness. States she lives alone and would need to be able to care for herself. I discussed all the skilled facilities with her and she states she will go to which ever one will take a covid positive patient. I spoke with Brittney Aviles, liaison for [place] and [place] and she states that her facilities will not take a covid positive patient. The only one she has is [facility] I spoke with Claribel and she states that [facility] in [place] will accept Covid positive patients. She will check with [facility]. I faxed her a face sheet so they can run insurance. CM will continue to follow and assist with discharge planning/needs. Fast Food Worker: Milad[facility] Will [facility] - Discharge Planning Initial Assessment Updated by [email or web address]: Miladys Will on 04/23/20 2:32 pm * Is the patient Alert and Oriented? Yes * PCP Dr. Leal * Pharmacy [facility] * Preadmission Environment Home Alone * ADLs Partial Dependent * Partial ADLs (Assistance needed) Ambulation * Equipment Cane Glucometer Walker * List name and contact numbers for known caregivers / representatives who currently or will assist patient after discharge: Jenny Carpenter - [phone] * Verbal permission to speak to the caregivers and representatives has been obtained from the patient. Yes * Community resources currently utilized Home Health * Please name any agencies selected above. Care 4 [facility] * Additional services required to return to the preadmission environment? Yes * Can the patient safely return to the preadmission environment? No * Has this patient been hospitalized within the prior 30 days at any hospital? Yes External Providers External Provider: [facility] Next Contact Date: Service Request Date: Service Type: Resolution: Reviewer: Comments: Last DP export: 04/26/20 11:51 a Patient Name: DNO CARPENTER Page 35447 at 1322 All edits/amendments must be made on the electronic document DICTATION DATE: 04/29/20 1322 BAG HANGER: NIKOS 04/29/20 1322 RPT#: [id number] DC DATE: STATUS: ADM IN [facility] [address] [place] [address] END OF REPORT
[2020-04-29 15:44] VITALS: BP 137/69
--- NOTE | 2020-04-29 19:30 | NUR ---
RECEIVED REPORT, WILL ASSUME CARE OF PT,ASSIST PT OFF BEDBED, HELP TO REPOSITON PT, IV-LFA-SL, PT HAS A PURE WICK, COVID +, DENIES ANY NEEDS AT THIS TIME, BED IS LOW, SRX2, CALL LIGHT IN REACH, WILL CONTINUE PLAN OF CARE
[2020-04-29 20:00] VITALS: BP 101/57
[2020-04-30 04:00] VITALS: BP 119/82
[2020-04-30 06:13] LABS: BASOPHILS 0.5 % (0-2); EOSINOPHILS 2.3 % (0-7); HEMATOCRIT 38.3 % (36.0-48.0); HEMOGLOBIN 12.3 g/dL (12-16); IMMATURE GRANULOCYTES 1.4 % (0-5); MCH 29.9 pg (26.0-34.0); MCHC 32.1 g/dL (31.0-37.0); MCV 93.2 fL (80.0-100.0); MEAN PLATELET VOLUME 9.1 fL (7.4-10.4); MONOCYTES 13.3 % (2-11); NEUTROPHILS 34.5 % (40-80); PLATELET COUNT 407 10x3/uL (130-400); RBC 4.11 10x6/uL (4.00-5.40); WBC 4.4 10x3/uL (4.8-10.8)
[2020-04-30 06:31] LABS: ALBUMIN 2.6 g/dL (3.4-5.0); ALKALINE PHOSPHATASE 94 U/L (30-120); ALT (SGPT) 118 U/L (10-68); BILIRUBIN - TOTAL 0.25 mg/dL (0.2-1.3); CALC OSMOLALITY 271 mosm/kg (275-300); CALCIUM 8.6 mg/dL (8.5-10.1); CARBON DIOXIDE 26.3 mmol/L (21.0-32.0); CHLORIDE - SERUM 103 mmol/L (98-107); CREATININE - SERUM 0.6 mg/dL (0.6-1.3); GLUCOSE 120 mg/dL (74-106); POTASSIUM - SERUM 4.1 mmol/L (3.5-5.1); PROTEIN - SERUM 7.5 g/dL (6.4-8.2); SODIUM 136 mmol/L (136-145); UREA NITROGEN 10 mg/dL (7-18); eGFR NON AFRICAN AMERICAN > 90 mL/min (90-120)
--- NOTE | 2020-04-30 07:00 | NUR ---
RECEIVED REPORT. ASSUMED CARE OF PATIENT. PATIENT REMAINS IN DROPLET ISOLATION FOF COVID19.
[2020-04-30 07:30] VITALS: BP 107/61
--- NOTE | 2020-04-30 11:32 | NUR ---
FSBS 144. NO INSULIN PER SLIDING SCALE. TRAPEZE PLACED TO BED AT THIS TIME.
--- NOTE | 2020-04-30 11:35 | MORECARE ---
CASE MANAGEMENT DISCHARGE SUMMARY PATIENT: DON CARPENTER UNIT: [id number] ADM DATE: 04/19/20 AGE: 60 : 62 SEX: F ROOM/BED: D.2130 AUTHOR: LISA,DOC PHYSICIAN: REFERRING PHYSICIAN: LUIS PIERCE MD DATE OF SERVICE: 04/30/20 Discharge Plan Patient Name: DON CARPENTER Facility: [facility]:[place] : 1960 Planned Disposition: Custodial Facility Anticipated Discharge Date: Discharge Date: Expected LOS: Initial Reviewer: [email or web address] Initial Review Date: 04/23/2020 Generated: 04/30/20 12:35 pm Comments DCP- Discharge Planning Updated by [email or web address]: Kinsey Coley on 04/30/20 10:[address] Cm called Jamari at [facility] for determination. Jamari states they are unable to accept covid positives, and they can not provide care with the patient's weight requirements. Kinsey Coley MSN,RN,CM DCP- Discharge Planning Updated by [id number]: Kinsey Coley on 04/29/20 12:[address] CM SPOKE WITH JAMARI FROM [place] [phone] ABOUT REFERRAL AND FAXED CLINICALS. JAMARI STATED HE WOULD PROVIDE DETERMINIATION BY TOMORROW KINSEY COLEY DCP- Discharge Planning Updated by [email or web address]: Renee Fajardo on 04/26/20 11:[address] 1200: [facility], will re-evaluate 04/29. CM contacted [facility], with [facility]. Faxed required information and gave verbal report. Awaiting CB. DCP- Discharge Planning Updated by [email or web address]: Miladys Will on 04/24/20 6:[address] I received a call from Claribel with [facility]. Claribel states that patient's insurance is [employer] and they are not in network with any of their facilities. CM will continue to attempt to find a SNF in network. DCP- Discharge Planning Updated by [email or web address]: Miladys Will on 04/23/20 1:[address] Patient Name: DON CARPENTER Admission Status: ER Accout number: [id number] Admission Date: 04-19-2020 : 1960 Admission Diagnosis:ADULT FAILURE TO THRIVE Attending: LUIS STANTON Current LOS: 4 Anticipated DC Date: Planned Disposition: Custodial Facility Primary Insurance: [employer] [facility] INS EXCHANGE Discharge Planning Comments: CM called patient (per Covid positive protocol) to discuss discharge needs. I informed her that I spoke with Geovanna in inpatient rehab ad she had completed the end of her inpatient rehab and suggests a skilled facility if needed. She states that she feels she does need a skilled facility at this time. States when she got home, she could not even get out of the car due to weakness. States she lives alone and would need to be able to care for herself. I discussed all the skilled facilities with her and she states she will go to which ever one will take a covid positive patient. I spoke with Brittney Aviles, liaison for [facility] and [facility] and [place] and she states that her facilities will not take a covid positive patient. The only one she has is [facility] [place] I spoke with Claribel and she states that [facility] in [place] will accept Covid positive patients. She will check with [facility]. I faxed her a face sheet so they can run insurance. CM will continue to follow and assist with discharge planning/needs. Securities Compliance Examiner: Miladys Will DCPIA - Discharge Planning Initial Assessment Updated by [email or web address]: Miladys Will on 04/23/20 2:32 pm * Is the patient Alert and Oriented? Yes * PCP Dr. Leal * Pharmacy [facility] * Preadmission Environment Home Alone * ADLs Partial Dependent * Partial ADLs (Assistance needed) Ambulation * Equipment Cane Glucometer Walker * List name and contact numbers for known caregivers / representatives who currently or will assist patient after discharge: Jenny Bassem - [phone] * Verbal permission to speak to the caregivers and representatives has been obtained from the patient. Yes * Community resources currently utilized Home Health * Please name any agencies selected above. Care 4 [facility] * Additional services required to return to the preadmission environment? Yes * Can the patient safely return to the preadmission environment? No * Has this patient been hospitalized within the prior 30 days at any hospital? Yes Last DP export: 04/29/20 12:22 p Patient Name: DON CARPENTER Page 14102 at 1135 All edits/amendments must be made on the electronic document DICTATION DATE: 04/30/20 113 MILK DRIVER: NIKOS 04/30/201134 RPT#: [id number] DC DATE: STATUS: ADM IN [facility] [address] [place] [address] END OF REPORT
--- NOTE | 2020-04-30 13:21 | NUR ---
Nutrition Follow-up: Pt in droplet isolation; covid-19+. Chart reviewed. Eating well. Awaiting placement. Diet: Diabetic PO intake: 75-100% Wt: 328.4# (04/24) Labs noted: Glu 120, Alb 2.6 Meds noted: zinc sulfate, vitamin D, vitamin C, Florajen, KDur, Pepcid -Monitor wt; noted daily wts ordered. -RD following.
--- NOTE | 2020-04-30 13:48 | MORECARE ---
CASE MANAGEMENT DISCHARGE SUMMARY PATIENT: DON CARPENTER UNIT: [id number] ADM DATE: 04/19/20 AGE: 60 : 62 SEX: F ROOM/BED: D.2130 AUTHOR: LISA,DOC PHYSICIAN: REFERRING PHYSICIAN: LUIS PIERCE MD DATE OF SERVICE: 04/30/20 Discharge Plan Patient Name: DON CARPENTER Facility: [facility]:[place] : 1960 Planned Disposition: Jail Facility Anticipated Discharge Date: Discharge Date: Expected LOS: Initial Reviewer: [email or web address] Initial Review Date: 04/23/2020 Generated: 04/30/20 2:47 pm Comments DCP- Discharge Planning Updated by [id number]: Kinsey Coley on 04/30/20 10:[address] Cm called Jamari at [facility] for determination. Jamari states they are unable to accept covid positives, and they can not provide care with the patient's weight requirements. Kinsey Coley MSN,RN,CM DCP- Discharge Planning Updated by [id number]: Kinsey Coley on 04/29/20 12:[address] CM SPOKE WITH JAMARI FROM [place] [phone] ABOUT REFERRAL AND FAXED CLINICALS. JAMARI STATED HE WOULD PROVIDE DETERMINIATION BY TOMORROW KINSEY COLEY DCP- Discharge Planning Updated by [email or web address]: Renee Fajardo on 04/26/20 11:[address] 1200: [facility], will re-evaluate 04/29. CM contacted [facility], with [facility] SNF. Faxed required information and gave verbal report. Awaiting CB. DCP- Discharge Planning Updated by [id number]: Miladys Will on 04/24/20 6:[address] I received a call from Claribel with [facility]. Claribel states that patient's insurance is [employer] and they are not in network with any of their facilities. CM will continue to attempt to find a SNF in network. DCP- Discharge Planning Updated by [email or web address]: Miladys Will on 04/23/20 1:[address] Patient Name: DON CARPENTER Admission Status: ER Accout number: [id number] Admission Date: 04-19-2020 : 1960 Admission Diagnosis:ADULT FAILURE TO THRIVE Attending: LUIS STANTON Current LOS: 4 Anticipated DC Date: Planned Disposition: Jail Facility Primary Insurance: [employer] [facility] INS EXCHANGE Discharge Planning Comments: CM called patient (per Covid positive protocol) to discuss discharge needs. I informed her that I spoke with Geovanna in inpatient rehab ad she had completed the end of her inpatient rehab and suggests a skilled facility if needed. She states that she feels she does need a skilled facility at this time. States when she got home, she could not even get out of the car due to weakness. States she lives alone and would need to be able to care for herself. I discussed all the skilled facilities with her and she states she will go to which ever one will take a covid positive patient. I spoke with Brittney Aviles, liaison for [facility] and [place] and she states that her facilities will not take a covid positive patient. The only one she has is [facility] in . I spoke with Claribel and she states that [facility] in [place] will accept Covid positive patients. She will check with [facility]. I faxed her a face sheet so they can run insurance. CM will continue to follow and assist with discharge planning/needs. Polarity Tester: Miladys Will DCPIA - Discharge Planning Initial Assessment Updated by [id number]: Miladys Will on 04/23/20 2:32 pm * Is the patient Alert and Oriented? Yes * PCP Dr. Leal * Pharmacy [facility] * Preadmission Environment Home Alone * ADLs Partial Dependent * Partial ADLs (Assistance needed) Ambulation * Equipment Cane Glucometer Walker * List name and contact numbers for known caregivers / representatives who currently or will assist patient after discharge: Jenny Bassem - [phone] * Verbal permission to speak to the caregivers and representatives has been obtained from the patient. Yes * Community resources currently utilized Home Health * Please name any agencies selected above. Care [address] [facility] * Additional services required to return to the preadmission environment? Yes * Can the patient safely return to the preadmission environment? No * Has this patient been hospitalized within the prior 30 days at any hospital? Yes Last DP export: 04/30/20 10:35 a Patient Name: DON CARPENTER Page 08376 at 1348 All edits/amendments must be made on the electronic document DICTATION DATE: 04/30/201347 PAYROLL ACCOUNTING MANAGER: NIKOS 04/30/208 RPT#: [id number] DC DATE: STATUS: ADM IN [facility] [address] [place] [address] END OF REPORT
--- NOTE | 2020-04-30 13:59 | MORECARE ---
CASE MANAGEMENT DISCHARGE SUMMARY PATIENT: DON CARPENTER UNIT: [id number] ADM DATE: 04/19/20 AGE: 60 : 62 SEX: F ROOM/BED: D.2130 AUTHOR: LISA,DOC PHYSICIAN: REFERRING PHYSICIAN: LUIS PIERCE MD DATE OF SERVICE: 04/30/20 Discharge Plan Patient Name: DON CARPENTER Facility: [facility]:[place] : 1960 Planned Disposition: Snf Facility Anticipated Discharge Date: Discharge Date: Expected LOS: Initial Reviewer: [email or web address] Initial Review Date: 04/23/2020 Generated: 04/30/20 2:58 pm Comments DCP- Discharge Planning Updated by [email or web address]: Kinsey Coley on 04/30/20 12:[address] Spoke to Claribel who states the insurance is out of network with her facilities. Spoke to Brittney who stated she will review the clinicals and get back with CM with determination. Kinsey Coley MSN,RN,CM DCP- Discharge Planning Updated by [id number]: Kinsey Coley on 04/30/20 10:[address] Cm called Jamari at [facility] for determination. Jamari states they are unable to accept covid positives, and they can not provide care with the patient's weight requirements. Kinsey STERLING,RN,CM DCP- Discharge Planning Updated by [id number]: Kinsey Coley on 04/29/20 12:[address] CM SPOKE WITH JAMARI FROM [place] [phone] ABOUT REFERRAL AND FAXED CLINICALS. JAMARI STATED HE WOULD PROVIDE DETERMINIATION BY TOMORROW KINSEY COLEY DCP- Discharge Planning Updated by [id number]: Renee Fajardo on 04/26/20 11:[address] 1200: CB from [facility] [place], unable to accept today, will re-evaluate 04/29. CM contacted Jonas [facility], with [facility] SNF. Faxed required information and gave verbal report. Awaiting CB. DCP- Discharge Planning Updated by [email or web address]: Miladys Will on 04/24/20 6:[address] I received a call from Claribel with [facility] [employer]. Claribel states that patient's insurance is [employer] and they are not in network with any of their facilities. CM will continue to attempt to find a SNF in network. DCP- Discharge Planning Updated by [id number]: Miladys Will on 04/23/20 1:[address] Patient Name: DON CARPENTER Admission Status: ER Accout number: [id number] Admission Date: 04-19-2020 : 1960 Admission Diagnosis:ADULT FAILURE TO THRIVE Attending: LUIS STANTON Current LOS: 4 Anticipated DC Date: Planned Disposition: Snf Facility Primary Insurance: [employer] [facility] [employer] [facility]CH[facility] Discharge Planning Comments: CM called patient (per Covid positive protocol) to discuss discharge needs. I informed her that I spoke with Geovanna in inpatient rehab ad she had completed the end of her inpatient rehab and suggests a skilled facility if needed. She states that she feels she does need a skilled facility at this time. States when she got home, she could not even get out of the car due to weakness. States she lives alone and would need to be able to care for herself. I discussed all the skilled facilities with her and she states she will go to which ever one will take a covid positive patient. I spoke with Brittney Aviles, liaison for [facility] [place] and she states that her facilities will not take a covid positive patient. The only one she has is [facility] . I spoke with Claribel and she states that [facility] in [place] will accept Covid positive patients. She will check with [facility]. I faxed her a face sheet so they can run insurance. CM will continue to follow and assist with discharge planning/needs. Supervisor Machine Setter: Miladys Will DCPIA - Discharge Planning Initial Assessment Updated by [id number]: Miladys Will on 04/23/20 2:32 pm * Is the patient Alert and Oriented? Yes * PCP Dr. Leal * Pharmacy [facility] * Preadmission Environment Home Alone * ADLs Partial Dependent * Partial ADLs (Assistance needed) Ambulation * Equipment Cane Glucometer Walker * List name and contact numbers for known caregivers / representatives who currently or will assist patient after discharge: Jenny Carpenter - [phone] * Verbal permission to speak to the caregivers and representatives has been obtained from the patient. Yes * Community resources currently utilized Home Health * Please name any agencies selected above. Care [facility] * Additional services required to return to the preadmission environment? Yes * Can the patient safely return to the preadmission environment? No * Has this patient been hospitalized within the prior 30 days at any hospital? Yes External Providers External Provider: [facility] Next Contact Date: Service Request Date: Service Type: Resolution: Reviewer: Comments: Last DP export: 04/30/20 12:48 p Patient Name: DON CARPENTER Page 40868 at 1359 All edits/amendments must be made on the electronic document DICTATION DATE: 04/30/201357 CIRCULAR SAW FILER: NIKOS 04/30/201357 RPT#: [id number] DC DATE: STATUS: ADM IN [facility] [address] [place] [address] END OF REPORT
--- NOTE | 2020-04-30 16:43 | NUR ---
FSBS 159. PATIENT REFUSED ANY INSULIN SHE SAYS SHE DOES NOT TAKE ANY INSULIN AT HOME.
--- NOTE | 2020-04-30 19:00 | NUR ---
REPORT RECEIVED, WILL CONTINUE POC. PATIENT IS AAOX4, LYING IN SEMI-FOWLERS POSITION. NO S/S OF DISTRESS OBSERVED, RR EVEN AND UNLABORED ON ROOM AIR. PIV TO LT FA, SL. PUREWICK IN PLACE, DARK URINE NOTED IN CANISTER. PATIENT DENIES NEEDS AT THIS TIME. CL IN REACH, BED LOCKED AND LOWERED. COVID-19 PRECAUTIONS MAINTAINED. WILL CTM.
[2020-04-30 20:00] VITALS: BP 116/77
--- NOTE | 2020-04-30 20:30 | NUR ---
ADMINISTERED HS MED WITHOUT DIFFICULTY. FSBS 136, NO COVERAGE NEED PER SLIDING SCALE. PLACED PATIENT ON BEDPAN. MED SOFT BM NOTED. PERICARE PROVIDED. PUREWICK PLACE BACK IN PROPER POSITION. ICE WATER PROVIDED. PATIENT DENIES FURTHER NEEDS AT THIS TIME.
[2020-05-01 04:00] VITALS: BP 104/67
[2020-05-01 07:15] LABS: BASOPHILS 0.4 % (0-2); EOSINOPHILS 1.8 % (0-7); HEMATOCRIT 36.6 % (36.0-48.0); HEMOGLOBIN 11.8 g/dL (12-16); IMMATURE GRANULOCYTES 0.6 % (0-5); LYMPHOCYTES 45.7 % (15-50); MCHC 32.2 g/dL (31.0-37.0); MCV 93.1 fL (80.0-100.0); MEAN PLATELET VOLUME 9.1 fL (7.4-10.4); NEUTROPHILS 38.5 % (40-80); PLATELET COUNT 421 10x3/uL (130-400); RBC 3.93 10x6/uL (4.00-5.40); RDW 13.1 % (11.5-14.5); WBC 4.9 10x3/uL (4.8-10.8)
[2020-05-01 07:39] LABS: ALBUMIN 2.5 g/dL (3.4-5.0); ALKALINE PHOSPHATASE 84 U/L (30-120); ALT (SGPT) 113 U/L (10-68); BILIRUBIN - TOTAL 0.26 mg/dL (0.2-1.3); CALC OSMOLALITY 269 mosm/kg (275-300); CALCIUM 8.3 mg/dL (8.5-10.1); CARBON DIOXIDE 25.6 mmol/L (21.0-32.0); CHLORIDE - SERUM 104 mmol/L (98-107); GLUCOSE 115 mg/dL (74-106); POTASSIUM - SERUM 4.1 mmol/L (3.5-5.1); SODIUM 135 mmol/L (136-145); UREA NITROGEN 10 mg/dL (7-18)
[2020-05-01 07:40] LABS: CREATININE - SERUM 0.4 mg/dL (0.6-1.3); eGFR NON AFRICAN AMERICAN > 90 mL/min (90-120)
[2020-05-01 10:30] VITALS: BP 113/69
--- NOTE | 2020-05-01 13:29 | MORECARE ---
CASE MANAGEMENT DISCHARGE SUMMARY PATIENT: DON CARPENTER UNIT: [id number] ADM DATE: 04/19/20 AGE: 60 : 62 SEX: F ROOM/BED: D.2130 AUTHOR: LISA,DOC PHYSICIAN: REFERRING PHYSICIAN: LUIS PIERCE MD DATE OF SERVICE: 05/01/20 Discharge Plan Patient Name: DON CARPENTER Facility: [facility]:[place] : 1960 Planned Disposition: Shelter Facility Anticipated Discharge Date: Discharge Date: Expected LOS: Initial Reviewer: [email or web address] Initial Review Date: 04/23/2020 Generated: 05/01/20 2:29 pm Comments DCP- Discharge Planning Updated by [email or web address]: Kinsey Coley on 04/30/20 12:[address] Spoke to Claribel who states the insurance is out of network with her facilities. Spoke to Brittney who stated she will review the clinicals and get back with CM with determination. Kinsey Coley MSN,RN,CM DCP- Discharge Planning Updated by [id number]: Kinsey Coley on 04/30/20 10:[address] Cm called Jamari at [place] for determination. Jamari states they are unable to accept covid positives, and they can not provide care with the patient's weight requirements. Kinsey STERLING,RN,CM DCP- Discharge Planning Updated by [id number]: Kinsey Coley on 04/29/20 12:[address] CM SPOKE WITH JAMARI FROM [place] [phone] ABOUT REFERRAL AND FAXED CLINICALS. JAMARI STATED HE WOULD PROVIDE DETERMINIATION BY TOMORROW KINSEY COLEY DCP- Discharge Planning Updated by [id number]: Renee Fajardo on 04/26/20 11:[address] 1200: CB from [facility], unable to accept today, will re-evaluate 04/29. CM contacted Jonas Calvillo, with [facility] SNF. Faxed required information and gave verbal report. Awaiting CB. DCP- Discharge Planning Updated by [email or web address]: Miladys Will on 04/24/20 6:[address] I received a call from Claribel with [facility]. Claribel states that patient's insurance is [employer] and they are not in network with any of their facilities. CM will continue to attempt to find a SNF in network. DCP- Discharge Planning Updated by [id number]: Miladys Will on 04/23/20 1:[address] Patient Name: DON CARPENTER Admission Status: ER Accout number: [id number] Admission Date: 04-19-2020 : 1960 Admission Diagnosis:ADULT FAILURE TO THRIVE Attending: LUIS STANTON Current LOS: 4 Anticipated DC Date: Planned Disposition: Shelter Facility Primary Insurance: [employer] [facility] INS EXCHANGE Discharge Planning Comments: CM called patient (per Covid positive protocol) to discuss discharge needs. I informed her that I spoke with Geovanna in inpatient rehab ad she had completed the end of her inpatient rehab and suggests a skilled facility if needed. She states that she feels she does need a skilled facility at this time. States when she got home, she could not even get out of the car due to weakness. States she lives alone and would need to be able to care for herself. I discussed all the skilled facilities with her and she states she will go to which ever one will take a covid positive patient. I spoke with Brittney Aviles, liaison for [facility] [place] and she states that her facilities will not take a covid positive patient. The only one she has is [facility] in . I spoke with Claribel and she states that [facility] in [place] will accept Covid positive patients. She will check with [facility]. I faxed her a face sheet so they can run insurance. CM will continue to follow and assist with discharge planning/needs. Warehouse Insulation Worker: Miladys Will DCPIA - Discharge Planning Initial Assessment Updated by [email or web address]: Miladys Will on 04/23/20 2:32 pm * Is the patient Alert and Oriented? Yes * PCP Dr. Leal * Pharmacy [facility] * Preadmission Environment Home Alone * ADLs Partial Dependent * Partial ADLs (Assistance needed) Ambulation * Equipment Cane Glucometer Walker * List name and contact numbers for known caregivers / representatives who currently or will assist patient after discharge: Jenny Carpenter - [phone] * Verbal permission to speak to the caregivers and representatives has been obtained from the patient. Yes * Community resources currently utilized Home Health * Please name any agencies selected above. [facility] * Additional services required to return to the preadmission environment? Yes * Can the patient safely return to the preadmission environment? No * Has this patient been hospitalized within the prior 30 days at any hospital? Yes External Providers External Provider: OTHER-OTHER Next Contact Date: Service Request Date: Service Type: Resolution: Reviewer: Comments: Last DP export: 04/30/20 12:59 p Patient Name: DON CARPENTER Page 80594 at 1329 All edits/amendments must be made on the electronic document DICTATION DATE: 05/01/20 132 SOUND INSTALLATION WORKER: NIKOS 05/01/20 1329 RPT#: [id number] DC DATE: STATUS: ADM IN [facility] [address] [place] [address] END OF REPORT
--- NOTE | 2020-05-01 14:49 | MORECARE ---
CASE MANAGEMENT DISCHARGE SUMMARY PATIENT: DON CARPENTER UNIT: [id number] ADM DATE: 04/19/20 AGE: 60 : 62 SEX: F ROOM/BED: D.2130 AUTHOR: LISA,DOC PHYSICIAN: REFERRING PHYSICIAN: LUIS PIERCE MD DATE OF SERVICE: 05/01/20 Discharge Plan Patient Name: DON CARPENTER Facility: [facility]:[place] : 1960 Planned Disposition: Chcf Facility Anticipated Discharge Date: Discharge Date: Expected LOS: Initial Reviewer: [email or web address] Initial Review Date: 04/23/2020 Generated: 05/01/20 3:49 pm Comments DCP- Discharge Planning Updated by [email or web address]: Renee Fajardo on 05/01/20 1:[address] CM contacted Brittney and faxed required information for SNF placement [facility]. CM revisited patient via phone, she is tearful and worried about the possibility of cancer. She states she occasionally has vaginal bleeding and was to be scheduled for OP surgery, by Dr. Gage. Patient is in agreement for a SNF stay, followed by returning home with [facility]. CM encouraged patient to be OOB at least three times/day and walk in her room. Patent states she used a RW at home. CM requested a RW be brought to her room by PT. Instructed patient to wait on her nurse, to be in the room before she attempts to use it. CM notified Roma Kirkpatrick APN, of patient's emotional state. Attempted to contact patient's daughter, Jenny Burns ([phone]), but VM was full and no answer. Patient is concerned about her home and car and has no one to check on it. CM will continue to follow. DCP- Discharge Planning Updated by [id number]: Kinsey Coley on 04/30/20 12:[address] Spoke to Claribel who states the insurance is out of network with her facilities. Spoke to Brittney who stated she will review the clinicals and get back with CM with determination. Kinsey Coley MSN,RN,CM DCP- Discharge Planning Updated by [id number]: Kinsey Coley on 04/30/20 10:[address] Cm called Jamari at [place] for determination. Jamari states they are unable to accept covid positives, and they can not provide care with the patient's weight requirements. Kinsey Coley MSN,RN,CM DCP- Discharge Planning Updated by [email or web address]: Kinsey Coley on 04/29/20 12:[address] CM SPOKE WITH JAMARI FROM [place] [phone] ABOUT REFERRAL AND FAXED CLINICALS. JAMARI STATED HE WOULD PROVIDE DETERMINIATION BY TOMORROW KINSEY COLEY DCP- Discharge Planning Updated by [email or web address]: Renee Fajardo on 04/26/20 11:[address] 1200: [facility], unable to accept today, will re-evaluate 04/29. CM contacted Jonas Calvillo, with [facility] SNF. Faxed required information and gave verbal report. Awaiting CB. DCP- Discharge Planning Updated by [email or web address]: Miladys Will on 04/24/20 6:[address] I received a call from Victoria with [facility]. Victoria states that patient's insurance is [employer] and they are not in network with any of their facilities. CM will continue to attempt to find a SNF in network. DCP- Discharge Planning Updated by [email or web address]: Miladys Suman on 04/23/20 1:[address] Patient Name: DON CARPENTER Admission Status: ER Accout number: [id number] Admission Date: 04-19-2020 : 1960 Admission Diagnosis:ADULT FAILURE TO THRIVE Attending: LUIS STANTON Current LOS: 4 Anticipated DC Date: Planned Disposition: Chcf Facility Primary Insurance: [employer] [facility] INS EXCHANGE Discharge Planning Comments: CM called patient (per Covid positive protocol) to discuss discharge needs. I informed her that I spoke with Geovanna in inpatient rehab ad she had completed the end of her inpatient rehab and suggests a skilled facility if needed. She states that she feels she does need a skilled facility at this time. States when she got home, she could not even get out of the car due to weakness. States she lives alone and would need to be able to care for herself. I discussed all the skilled facilities with her and she states she will go to which ever one will take a covid positive patient. I spoke with Brittney Aviles, liaison for [facility] and [facility] and [place] and she states that her facilities will not take a covid positive patient. The only one she has is [facility] in . I spoke with Victoria and she states that [facility] in [place] will accept Covid positive patients. She will check with [facility]. I faxed her a face sheet so they can run insurance. CM will continue to follow and assist with discharge planning/needs. Special Effects Makeup Artist: Miladys Will DCPIA - Discharge Planning Initial Assessment Updated by [email or web address]: Miladys Will on 04/23/20 2:32 pm * Is the patient Alert and Oriented? Yes * PCP Dr. Leal * Pharmacy [facility] * Preadmission Environment Home Alone * ADLs Partial Dependent * Partial ADLs (Assistance needed) Ambulation * Equipment Cane Glucometer Walker * List name and contact numbers for known caregivers / representatives who currently or will assist patient after discharge: Jenny Bassem - [phone] * Verbal permission to speak to the caregivers and representatives has been obtained from the patient. Yes * Community resources currently utilized Home Health * Please name any agencies selected above. [facility] * Additional services required to return to the preadmission environment? Yes * Can the patient safely return to the preadmission environment? No * Has this patient been hospitalized within the prior 30 days at any hospital? Yes Last DP export: 05/01/20 12:30 p Patient Name: DON CARPENTER Page 48963 at 1449 All edits/amendments must be made on the electronic document DICTATION DATE: 05/01/20 1449 AIRCRAFT PNEUDRAULICS REPAIRER: NIKOS 05/01/20 1449 RPT#: [id number] [place] DATE: STATUS: ADM IN [facility] [address] [place] [address] END OF REPORT
[2020-05-01 22:36] VITALS: BP 120/62
[2020-05-02 06:45] LABS: BASOPHILS 0.4 % (0-2); EOSINOPHILS 2.6 % (0-7); HEMATOCRIT 37.2 % (36.0-48.0); HEMOGLOBIN 12.1 g/dL (12-16); IMMATURE GRANULOCYTES 0.7 % (0-5); LYMPHOCYTES 44.1 % (15-50); MCH 30.2 pg (26.0-34.0); MCHC 32.5 g/dL (31.0-37.0); MCV 92.8 fL (80.0-100.0); MONOCYTES 11.8 % (2-11); NEUTROPHILS 40.4 % (40-80); PLATELET COUNT 428 10x3/uL (130-400); RBC 4.01 10x6/uL (4.00-5.40); RDW 13.2 % (11.5-14.5); WBC 5.4 10x3/uL (4.8-10.8)
[2020-05-02 06:56] LABS: ALBUMIN 2.7 g/dL (3.4-5.0); ALKALINE PHOSPHATASE 85 U/L (30-120); ALT (SGPT) 117 U/L (10-68); BILIRUBIN - TOTAL 0.24 mg/dL (0.2-1.3); CALC OSMOLALITY 273 mosm/kg (275-300); CALCIUM 8.7 mg/dL (8.5-10.1); CARBON DIOXIDE 25.8 mmol/L (21.0-32.0); CHLORIDE - SERUM 104 mmol/L (98-107); CREATININE - SERUM 0.5 mg/dL (0.6-1.3); GLUCOSE 116 mg/dL (74-106); POTASSIUM - SERUM 4.2 mmol/L (3.5-5.1); PROTEIN - SERUM 7.2 g/dL (6.4-8.2); SODIUM 137 mmol/L (136-145); UREA NITROGEN 10 mg/dL (7-18); eGFR NON AFRICAN AMERICAN > 90 mL/min (90-120)
[2020-05-02 15:45] VITALS: BP 106/72
--- NOTE | 2020-05-02 16:37 | MORECARE ---
CASE MANAGEMENT DISCHARGE SUMMARY PATIENT: DON CARPENTER UNIT: [id number] ADM DATE: 04/19/20 AGE: 60 : 62 SEX: F ROOM/BED: D.2130 AUTHOR: LISA,DOC PHYSICIAN: REFERRING PHYSICIAN: LUIS PIERCE MD DATE OF SERVICE: 05/02/20 Discharge Plan Patient Name: DON CARPENTER Facility: [facility]:[place] : 1960 Planned Disposition: Snf Facility Anticipated Discharge Date: Discharge Date: Expected LOS: Initial Reviewer: [email or web address] Initial Review Date: 04/23/2020 Generated: 05/02/20 5:37 pm Comments DCP- Discharge Planning Updated by [id number]: Renee Fajardo on 05/02/20 3:[address] Per Brittney, none of her facilities can accept patient due to her weight and COVID diagnosis. CM will attempt to place again, tomorrow. DCP- Discharge Planning Updated by [email or web address]: Renee Fajardo on 05/01/20 1:[address] CM contacted Brittney and faxed required information for SNF placement [facility]. CM revisited patient via phone, she is tearful and worried about the possibility of cancer. She states she occasionally has vaginal bleeding and was to be scheduled for OP surgery, by Dr. Gage. Patient is in agreement for a SNF stay, followed by returning home with [facility]. CM encouraged patient to be OOB at least three times/day and walk in her room. Patent states she used a RW at home. CM requested a RW be brought to her room by PT. Instructed patient to wait on her nurse, to be in the room before she attempts to use it. CM notified Roma Kirkpatrick APN, of patient's emotional state. Attempted to contact patient's daughter, Jenny Burns ([phone]), but VM was full and no answer. Patient is concerned about her home and car and has no one to check on it. CM will continue to follow. DCP- Discharge Planning Updated by [id number]: Kinsey Coley on 04/30/20 12:[address] Spoke to Claribel who states the insurance is out of network with her facilities. Spoke to Brittney who stated she will review the clinicals and get back with CM with determination. Kinsey Coley MSN,RN,CM DCP- Discharge Planning Updated by [id number]: Kinsey Coley on 04/30/20 10:[address] Cm called Jamari at [place] for determination. Jamari states they are unable to accept covid positives, and they can not provide care with the patient's weight requirements. Kinsey STERLING,RN,CM DCP- Discharge Planning Updated by [email or web address]: Kinsey Coley on 04/29/20 12:[address] CM SPOKE WITH JAMARI FROM [place] [phone] ABOUT REFERRAL AND FAXED CLINICALS. JAMARI STATED HE WOULD PROVIDE DETERMINIATION BY TOMORROW KINSEY COLEY DCP- Discharge Planning Updated by [id number]: Renee Fajardo on 04/26/20 11:[address] 1200: CB from [facility], unable to accept today, will re-evaluate 04/29. CM contacted [facility], with [facility] SNF. Faxed required information and gave verbal report. Awaiting CB. DCP- Discharge Planning Updated by [id number]: Miladys Will on 04/24/20 6:[address] I received a call from Claribel with [facility]. Claribel states that patient's insurance is [employer] and they are not in network with any of their facilities. CM will continue to attempt to find a SNF in network. DCP- Discharge Planning Updated by [id number]: Miladys Will on 04/23/20 1:[address] Patient Name: DON CARPENTER Admission Status: ER Accout number: [id number] Admission Date: 04-19-2020 : 1960 Admission Diagnosis:ADULT FAILURE TO THRIVE Attending: LUIS STANTON Current LOS: 4 Anticipated DC Date: Planned Disposition: Snf Facility Primary Insurance: NOVASYS [facility] INS EXCHANGE Discharge Planning Comments: CM called patient (per Covid positive protocol) to discuss discharge needs. I informed her that I spoke with Geovanna in inpatient rehab ad she had completed the end of her inpatient rehab and suggests a skilled facility if needed. She states that she feels she does need a skilled facility at this time. States when she got home, she could not even get out of the car due to weakness. States she lives alone and would need to be able to care for herself. I discussed all the skilled facilities with her and she states she will go to which ever one will take a covid positive patient. I spoke with Brittney Aviles, liaison for [place] [place] and she states that her facilities will not take a covid positive patient. The only one she has is [facility] in . I spoke with Claribel and she states that [facility] in [place] will accept Covid positive patients. She will check with [facility]. I faxed her a face sheet so they can run insurance. CM will continue to follow and assist with discharge planning/needs. Dance Artist: Miladys Will DCPIA - Discharge Planning Initial Assessment Updated by [email or web address]: Miladys Will on 04/23/20 2:32 pm * Is the patient Alert and Oriented? Yes * PCP Dr. Leal * Pharmacy [facility] * Preadmission Environment Home Alone * ADLs Partial Dependent * Partial ADLs (Assistance needed) Ambulation * Equipment Cane Glucometer Walker * List name and contact numbers for known caregivers / representatives who currently or will assist patient after discharge: Jenny Carpenter - [phone] * Verbal permission to speak to the caregivers and representatives has been obtained from the patient. Yes * Community resources currently utilized Home Health * Please name any agencies selected above. [facility] * Additional services required to return to the preadmission environment? Yes * Can the patient safely return to the preadmission environment? No * Has this patient been hospitalized within the prior 30 days at any hospital? Yes Last DP export: 05/01/20 1:49 p Patient Name: DON CARPENTER Page 70106 at 1637 All edits/amendments must be made on the electronic document DICTATION DATE: 05/02/201636 INVOICE CHECKER: NIKOS 05/02/201636 RPT#: [id number] DC DATE: STATUS: ADM IN [facility] [address] [place] [address] END OF REPORT
--- NOTE | 2020-05-02 16:46 | MORECARE ---
CASE MANAGEMENT DISCHARGE SUMMARY PATIENT: DON CARPENTER UNIT: [id number] ADM DATE: 04/19/20 AGE: 60 : 62 SEX: F ROOM/BED: D.2130 AUTHOR: LISA,DOC PHYSICIAN: REFERRING PHYSICIAN: LUIS PIERCE MD DATE OF SERVICE: 05/02/20 Discharge Plan Patient Name: DON CARPENTER Facility: [facility]:[place] : 1960 Planned Disposition: Longterm Facility Anticipated Discharge Date: Discharge Date: Expected LOS: Initial Reviewer: [email or web address] Initial Review Date: 04/23/2020 Generated: 05/02/20 5:46 pm Comments DCP- Discharge Planning Updated by [id number]: Renee Fajardo on 05/02/20 3:[address] Per Brittney, none of her facilities can accept patient due to her weight and COVID diagnosis. CM will attempt to place again, tomorrow. DCP- Discharge Planning Updated by [email or web address]: Renee Fajardo on 05/01/20 1:[address] CM contacted Brittney and faxed required information for SNF placement [facility]. CM revisited patient via phone, she is tearful and worried about the possibility of cancer. She states she occasionally has vaginal bleeding and was to be scheduled for OP surgery, by Dr. Gage. Patient is in agreement for a SNF stay, followed by returning home with [facility]. CM encouraged patient to be OOB at least three times/day and walk in her room. Patent states she used a RW at home. CM requested a RW be brought to her room by PT. Instructed patient to wait on her nurse, to be in the room before she attempts to use it. CM notified Roma Kirkpatrick APN, of patient's emotional state. Attempted to contact patient's daughter, Jenny Burns ([phone]), but VM was full and no answer. Patient is concerned about her home and car and has no one to check on it. CM will continue to follow. DCP- Discharge Planning Updated by [id number]: Kinsey Coley on 04/30/20 12:[address] Spoke to Claribel who states the insurance is out of network with her facilities. Spoke to Brittney who stated she will review the clinicals and get back with CM with determination. Kinsey Coley MSN,RN,CM DCP- Discharge Planning Updated by [id number]: Kinsey Coley on 04/30/20 10:[address] Cm called Jamari at [place] for determination. Jamari states they are unable to accept covid positives, and they can not provide care with the patient's weight requirements. Kinsey STERLING,RN,CM DCP- Discharge Planning Updated by [id number]: Kinsey Coley on 04/29/20 12:[address] CM SPOKE WITH JAMARI FROM [place] [phone] ABOUT REFERRAL AND FAXED CLINICALS. JAMARI STATED HE WOULD PROVIDE DETERMINIATION BY TOMORROW KINSEY COLEY DCP- Discharge Planning Updated by [email or web address]: Renee Fajardo on 04/26/20 11:[address] 1200: CB from [facility], unable to accept today, will re-evaluate 04/29. CM contacted [facility], with [facility] SNF. Faxed required information and gave verbal report. Awaiting CB. DCP- Discharge Planning Updated by [id number]: Miladys Will on 04/24/20 6:[address] I received a call from Claribel with [facility]. Claribel states that patient's insurance is [employer] and they are not in network with any of their facilities. CM will continue to attempt to find a SNF in network. DCP- Discharge Planning Updated by [id number]: Miladys Will on 04/23/20 1:[address] Patient Name: DON CARPENTER Admission Status: ER Accout number: [id number] Admission Date: 04-19-2020 : 1960 Admission Diagnosis:ADULT FAILURE TO THRIVE Attending: LUIS STANTON Current LOS: 4 Anticipated DC Date: Planned Disposition: Longterm Facility Primary Insurance: NOVASYS [facility] INS EXCHANGE Discharge Planning Comments: CM called patient (per Covid positive protocol) to discuss discharge needs. I informed her that I spoke with Geovanna in inpatient rehab ad she had completed the end of her inpatient rehab and suggests a skilled facility if needed. She states that she feels she does need a skilled facility at this time. States when she got home, she could not even get out of the car due to weakness. States she lives alone and would need to be able to care for herself. I discussed all the skilled facilities with her and she states she will go to which ever one will take a covid positive patient. I spoke with Brittney Aviles, liaison for [place] [place] and she states that her facilities will not take a covid positive patient. The only one she has is [facility] . I spoke with Claribel and she states that [facility] in [place] will accept Covid positive patients. She will check with [facility]. I faxed her a face sheet so they can run insurance. CM will continue to follow and assist with discharge planning/needs. Stull Hewer: Miladys Will DCPIA - Discharge Planning Initial Assessment Updated by [id number]: Miladys Will on 04/23/20 2:32 pm * Is the patient Alert and Oriented? Yes * PCP Dr. Leal * Pharmacy [facility] * Preadmission Environment Home Alone * ADLs Partial Dependent * Partial ADLs (Assistance needed) Ambulation * Equipment Cane Glucometer Walker * List name and contact numbers for known caregivers / representatives who currently or will assist patient after discharge: Jenny Carpenter - [phone] * Verbal permission to speak to the caregivers and representatives has been obtained from the patient. Yes * Community resources currently utilized Home Health * Please name any agencies selected above. [facility] * Additional services required to return to the preadmission environment? Yes * Can the patient safely return to the preadmission environment? No * Has this patient been hospitalized within the prior 30 days at any hospital? Yes Last DP export: 05/02/20 3:37 p Patient Name: DON CARPENTER Page 27935 at 1646 All edits/amendments must be made on the electronic document DICTATION DATE: 05/02/201645 EROSION CONTROL COORDINATOR: NIKOS 05/02/201645 RPT#: [id number] DC DATE: STATUS: ADM IN [facility] [address] [place] [address] END OF REPORT
[2020-05-02 18:06] VITALS: BP 116/69
--- NOTE | 2020-05-02 19:00 | NUR ---
REPORT RECEIVED, WILL CONTINUE POC. PATIENT IS AAXO4, LYING IN SEMI-FOWLERS POSITION. NO S/S OF DISTRESS OBSERVED, RR EVEN AND UNLABORED ON ROOM AIR. PATIENT DENIES NEEDS AT THIS TIME. CL IN REACH, BED LOCKED AND LOWERED. COVID DROPLET PRECAUTIONS MAINTAINED. WILL CTM.
[2020-05-02 21:21] VITALS: BP 116/61
[2020-05-03] VITALS: BP 116/66
[2020-05-03 04:00] VITALS: BP 117/76
--- NOTE | 2020-05-03 07:54 | NUR ---
LYING IN BED AWAKE, ALERT, ASSISTED PT TO BEDPAN/REQUEST--DENIES ANY FURTHER NEEDS AT THIS TIME. NO DISTRESS NOTED.
[2020-05-03 08:11] VITALS: BP 113/70
[2020-05-03 09:51] LABS: BASOPHILS 0.4 % (0-2); EOSINOPHILS 0 % (0-7); HEMATOCRIT 39.2 % (36.0-48.0); HEMOGLOBIN 12.8 g/dL (12-16); IMMATURE GRANULOCYTES 0.7 % (0-5); LYMPHOCYTES 43.5 % (15-50); MCH 30.5 pg (26.0-34.0); MCHC 32.7 g/dL (31.0-37.0); MCV 93.6 fL (80.0-100.0); MEAN PLATELET VOLUME 8.8 fL (7.4-10.4); MONOCYTES 12.4 % (2-11); PLATELET COUNT 410 10x3/uL (130-400); RBC 4.19 10x6/uL (4.00-5.40); RDW 13.2 % (11.5-14.5); WBC 5.4 10x3/uL (4.8-10.8)
[2020-05-03 10:06] LABS: ALBUMIN 2.7 g/dL (3.4-5.0); ALKALINE PHOSPHATASE 93 U/L (30-120); ALT (SGPT) 139 U/L (10-68); BILIRUBIN - TOTAL 0.21 mg/dL (0.2-1.3); CALC OSMOLALITY 276 mosm/kg (275-300); CALCIUM 8.7 mg/dL (8.5-10.1); CARBON DIOXIDE 25.8 mmol/L (21.0-32.0); CHLORIDE - SERUM 103 mmol/L (98-107); CREATININE - SERUM 0.6 mg/dL (0.6-1.3); GLUCOSE 157 mg/dL (74-106); PROTEIN - SERUM 7.4 g/dL (6.4-8.2); SODIUM 137 mmol/L (136-145); UREA NITROGEN 12 mg/dL (7-18); eGFR NON AFRICAN AMERICAN > 90 mL/min (90-120)
[2020-05-03 10:37] VITALS: BP 105/61
--- NOTE | 2020-05-03 13:52 | MORECARE ---
CASE MANAGEMENT DISCHARGE SUMMARY PATIENT: DON CARPENTER UNIT: [id number] ADM DATE: 04/19/20 AGE: 60 : 62 SEX: F ROOM/BED: D.2130 AUTHOR: LISA,DOC PHYSICIAN: REFERRING PHYSICIAN: LUIS PIERCE MD DATE OF SERVICE: 05/03/20 Discharge Plan Patient Name: DON CARPENTER Facility: [facility]:[place] : 1960 Planned Disposition: Usp Facility Anticipated Discharge Date: Discharge Date: Expected LOS: Initial Reviewer: [id number] Initial Review Date: 04/23/2020 Generated: 05/03/20 2:51 pm Comments DCP- Discharge Planning Updated by [id number]: Renee Fajardo on 05/02/20 3:[address] Per Brittney, none of her facilities can accept patient due to her weight and COVID diagnosis. CM will attempt to place again, tomorrow. DCP- Discharge Planning Updated by [id number]: Renee Fajardo on 05/01/20 1:[address] CM contacted Brittney and faxed required information for SNF placement @[facility]. CM revisited patient via phone, she is tearful and worried about the possibility of cancer. She states she occasionally has vaginal bleeding and was to be scheduled for OP surgery, by Dr. Gage. Patient is in agreement for a SNF stay, followed by returning home with [facility]. CM encouraged patient to be OOB at least three times/day and walk in her room. Patent states she used a RW at home. CM requested a RW be brought to her room by PT. Instructed patient to wait on her nurse, to be in the room before she attempts to use it. CM notified Roma Kirkpatrick APN, of patient's emotional state. Attempted to contact patient's daughter, Jenny Burns ([phone]), but VM was full and no answer. Patient is concerned about her home and car and has no one to check on it. CM will continue to follow. DCP- Discharge Planning Updated by [id number]: Kinsey Coley on 04/30/20 12:[address] Spoke to Claribel who states the insurance is out of network with her facilities. Spoke to Brittney who stated she will review the clinicals and get back with CM with determination. Kinsey Coley MSN,RN,CM DCP- Discharge Planning Updated by [email or web address]: Kinsey Coley on 04/30/20 10:[address] Cm called Jamari at [place] for determination. Jamari states they are unable to accept covid positives, and they can not provide care with the patient's weight requirements. Kinsey STERLING,RN,CM DCP- Discharge Planning Updated by [email or web address]: Kinsey Coley on 04/29/20 12:[address] CM SPOKE WITH JAMARI FROM [place] [phone] ABOUT REFERRAL AND FAXED CLINICALS. JAMARI STATED HE WOULD PROVIDE DETERMINIATION BY TOMORROW KINSEY COLEY DCP- Discharge Planning Updated by [email or web address]: Renee Fajardo on 04/26/20 11:[address] 1200: CB from [facility], unable to accept today, will re-evaluate 04/29. CM contacted [facility], with [facility] SNF. Faxed required information and gave verbal report. Awaiting CB. DCP- Discharge Planning Updated by [id number]: Miladys Will on 04/24/20 6:[address] I received a call from Claribel with [facility]. Claribel states that patient's insurance is [employer] and they are not in network with any of their facilities. CM will continue to attempt to find a SNF in network. DCP- Discharge Planning Updated by [id number]: Miladys Will on 04/23/20 1:[address] Patient Name: DON CARPENTER Admission Status: ER Accout number: [id number] Admission Date: 04-19-2020 : 1960 Admission Diagnosis:ADULT FAILURE TO THRIVE Attending: LUIS STANTON Current LOS: 4 Anticipated DC Date: Planned Disposition: [facility]sp Facility Primary Insurance: NOVASYS [facility] INS EXCHANGE Discharge Planning Comments: CM called patient (per Covid positive protocol) to discuss discharge needs. I informed her that I spoke with Geovanna in inpatient rehab ad she had completed the end of her inpatient rehab and suggests a skilled facility if needed. She states that she feels she does need a skilled facility at this time. States when she got home, she could not even get out of the car due to weakness. States she lives alone and would need to be able to care for herself. I discussed all the skilled facilities with her and she states she will go to which ever one will take a covid positive patient. I spoke with Brittney Aviles, liaison for [place], [facility] and [place] and she states that her facilities will not take a covid positive patient. The only one she has is [facility] in . I spoke with Claribel and she states that [facility] in [place] will accept Covid positive patients. She will check with [facility]. I faxed her a face sheet so they can run insurance. CM will continue to follow and assist with discharge planning/needs. Seam Press Operator: Miladys Suman DCPIA - Discharge Planning Initial Assessment Updated by [email or web address]: Miladys Will on 04/23/20 2:32 pm * Is the patient Alert and Oriented? Yes * PCP Dr. Leal * Pharmacy [facility] * Preadmission Environment Home Alone * ADLs Partial Dependent * Partial ADLs (Assistance needed) Ambulation * Equipment Cane Glucometer Walker * List name and contact numbers for known caregivers / representatives who currently or will assist patient after discharge: Jenny Carpenter - [phone] * Verbal permission to speak to the caregivers and representatives has been obtained from the patient. Yes * Community resources currently utilized Home Health * Please name any agencies selected above. Care 4 [facility] * Additional services required to return to the preadmission environment? Yes * Can the patient safely return to the preadmission environment? No * Has this patient been hospitalized within the prior 30 days at any hospital? Yes External Providers External Provider: [facility] Next Contact Date: Service Request Date: Service Type: Resolution: Reviewer: Comments: Last DP export: 05/02/20 3:46 p Patient Name: DON CARPENTER Page [id number] at 1352 All edits/amendments must be made on the electronic document DICTATION DATE: 05/03/20 1351 AEROSPACE MECHANIC: NIKOS 05/03/20 1351 RPT#: [id number] DC DATE: STATUS: ADM IN [facility] [address] [place] [address] END OF REPORT
--- NOTE | 2020-05-03 14:00 | MORECARE ---
CASE MANAGEMENT DISCHARGE SUMMARY PATIENT: DON CARPENTER UNIT: [id number] ADM DATE: 04/19/20 AGE: 60 : 62 SEX: F ROOM/BED: D.2130 AUTHOR: LISA,DOC PHYSICIAN: REFERRING PHYSICIAN: LUIS PIERCE MD DATE OF SERVICE: 05/03/20 Discharge Plan Patient Name: DON CARPENTER Facility: [facility]:[place] : 1960 Planned Disposition: [facility]ci Facility Anticipated Discharge Date: Discharge Date: Expected LOS: Initial Reviewer: [id number] Initial Review Date: 04/23/2020 Generated: 05/03/20 3:00 pm Comments DCP- Discharge Planning Updated by [id number]: Renee Fajardo on 05/02/20 3:[address] Per Brittney, none of her facilities can accept patient due to her weight and COVID diagnosis. CM will attempt to place again, tomorrow. DCP- Discharge Planning Updated by [email or web address]: Renee Fajardo on 05/01/20 1:[address] CM contacted Brittney and faxed required information for SNF placement [facility]. CM revisited patient via phone, she is tearful and worried about the possibility of cancer. She states she occasionally has vaginal bleeding and was to be scheduled for OP surgery, by Dr. Gage. Patient is in agreement for a SNF stay, followed by returning home with [facility]. CM encouraged patient to be OOB at least three times/day and walk in her room. Patent states she used a RW at home. CM requested a RW be brought to her room by PT. Instructed patient to wait on her nurse, to be in the room before she attempts to use it. CM notified Roma Kirkpatrick APN, of patient's emotional state. Attempted to contact patient's daughter, Jenny Burns ([phone]), but VM was full and no answer. Patient is concerned about her home and car and has no one to check on it. CM will continue to follow. DCP- Discharge Planning Updated by [id number]: Kinsey Coley on 04/30/20 12:[address] Spoke to Claribel who states the insurance is out of network with her facilities. Spoke to Brittney who stated she will review the clinicals and get back with CM with determination. Kinsey Coley MSN,RN,CM DCP- Discharge Planning Updated by [id number]: Kinsey Coley on 04/30/20 10:[address] Cm called Jamari at [place] for determination. Jamari states they are unable to accept covid positives, and they can not provide care with the patient's weight requirements. Kinsey STERLING,RN,CM DCP- Discharge Planning Updated by [id number]: Kinsey Coley on 04/29/20 12:[address] CM SPOKE WITH J[place] FROM [place] [phone] ABOUT REFERRAL AND FAXED CLINICALS. JAMARI STATED HE WOULD PROVIDE DETERMINIATION BY TOMORROW KINSEY COLEY DCP- Discharge Planning Updated by [id number]: Renee Fajardo on 04/26/20 11:[address] 1200: CB from [facility], unable to accept today, will re-evaluate 04/29. CM contacted [facility], with [facility] SNF. Faxed required information and gave verbal report. Awaiting CB. DCP- Discharge Planning Updated by [email or web address]: Miladys Will on 04/24/20 6:[address] I received a call from Claribel with [facility]. Claribel states that patient's insurance is [employer] and they are not in network with any of their facilities. CM will continue to attempt to find a SNF in network. DCP- Discharge Planning Updated by [email or web address]: Miladys Will on 04/23/20 1:[address] Patient Name: DON CARPENTER Admission Status: ER Accout number: [id number] Admission Date: 04-19-2020 : 1960 Admission Diagnosis:ADULT FAILURE TO THRIVE Attending: LUIS STANTON Current LOS: 4 Anticipated DC Date: Planned Disposition: [facility]ci Facility Primary Insurance: NOVASYS [facility] INS EXCHANGE Discharge Planning Comments: CM called patient (per Covid positive protocol) to discuss discharge needs. I informed her that I spoke with Geovanna in inpatient rehab ad she had completed the end of her inpatient rehab and suggests a skilled facility if needed. She states that she feels she does need a skilled facility at this time. States when she got home, she could not even get out of the car due to weakness. States she lives alone and would need to be able to care for herself. I discussed all the skilled facilities with her and she states she will go to which ever one will take a covid positive patient. I spoke with Brittney Aviles, liaison for [place] and [place] and she states that her facilities will not take a covid positive patient. The only one she has is [facility] in . I spoke with Claribel and she states that [facility] in [place] will accept Covid positive patients. She will check with [facility]. I faxed her a face sheet so they can run insurance. CM will continue to follow and assist with discharge planning/needs. Flush Tester: Miladys Will DCPIA - Discharge Planning Initial Assessment Updated by [id number]: Miladys Will on 04/23/20 2:32 pm * Is the patient Alert and Oriented? Yes * PCP Dr. Leal * Pharmacy [facility] 7S * Preadmission Environment Home Alone * ADLs Partial Dependent * Partial ADLs (Assistance needed) Ambulation * Equipment Cane Glucometer Walker * List name and contact numbers for known caregivers / representatives who currently or will assist patient after discharge: Jenny Carpenter - [phone] * Verbal permission to speak to the caregivers and representatives has been obtained from the patient. Yes * Community resources currently utilized Home Health * Please name any agencies selected above. [facility] * Additional services required to return to the preadmission environment? Yes * Can the patient safely return to the preadmission environment? No * Has this patient been hospitalized within the prior 30 days at any hospital? Yes Last DP export: 05/03/20 12:52 p Patient Name: DON CARPENTER Page [id number] at 1400 All edits/amendments must be made on the electronic document DICTATION DATE: 05/03/20 1400 DISCHARGE SPECIALIST: NIKOS 05/03/20 1400 RPT#: [id number] DC DATE: STATUS: ADM IN [facility] [address] [place] [address] END OF REPORT
[2020-05-03 20:34] VITALS: BP 113/60
--- NOTE | 2020-05-04 02:31 | NUR ---
PT VOICES NO C/O OR CONCERNS. NO NEEDS EXPRESSED. CALL LIGHT IN REACH. NO S/S OF DISTRESS OBSERVED. WILL CPOC.
[2020-05-04 05:33] VITALS: BP 114/81
[2020-05-04 06:05] LABS: BASOPHILS 0.4 % (0-2); EOSINOPHILS 0 % (0-7); HEMATOCRIT 38.4 % (36.0-48.0); HEMOGLOBIN 12.5 g/dL (12-16); IMMATURE GRANULOCYTES 0.6 % (0-5); LYMPHOCYTES 44.6 % (15-50); MCH 30.4 pg (26.0-34.0); MCHC 32.6 g/dL (31.0-37.0); MCV 93.4 fL (80.0-100.0); MEAN PLATELET VOLUME 8.8 fL (7.4-10.4); MONOCYTES 10.3 % (2-11); NEUTROPHILS 44.1 % (40-80); PLATELET COUNT 385 10x3/uL (130-400); RBC 4.11 10x6/uL (4.00-5.40); RDW 13.1 % (11.5-14.5); WBC 5.4 10x3/uL (4.8-10.8)
[2020-05-04 06:29] LABS: ALBUMIN 2.7 g/dL (3.4-5.0); ALKALINE PHOSPHATASE 89 U/L (30-120); ALT (SGPT) 148 U/L (10-68); BILIRUBIN - TOTAL 0.25 mg/dL (0.2-1.3); CALC OSMOLALITY 272 mosm/kg (275-300); CALCIUM 8.9 mg/dL (8.5-10.1); CARBON DIOXIDE 25.8 mmol/L (21.0-32.0); CHLORIDE - SERUM 103 mmol/L (98-107); CREATININE - SERUM 0.4 mg/dL (0.6-1.3); GLUCOSE 123 mg/dL (74-106); POTASSIUM - SERUM 4.4 mmol/L (3.5-5.1); PROTEIN - SERUM 7.4 g/dL (6.4-8.2); SODIUM 136 mmol/L (136-145); UREA NITROGEN 13 mg/dL (7-18)
[2020-05-04 06:30] LABS: eGFR NON AFRICAN AMERICAN > 90 mL/min (90-120)
--- NOTE | 2020-05-04 08:00 | NUR ---
PT LAYING SUPINE, RR EVEN AND UNLABORED. PLACED ON BEDPAN AND REMOVED. NO BM. DENIES FURTHER NEEDS OR PAIN AT THIS TIME. WATER RECIEVED. CALL LIGHT WTIHIN REACH. BED IN LOWEST POSITION. BREAKFAST TRAY POSITIONED WITHIN REACH. WILL CONTINUE TO MONITOR.
[2020-05-04 08:37] VITALS: BP 111/53
[2020-05-04 11:03] VITALS: BP 101/67
--- NOTE | 2020-05-04 13:37 | NUR ---
I have reviewed this patient and I concur with the Shift Assessment completed by the Licensed Practical Nurse today this shift.
[2020-05-04 16:59] VITALS: BP 119/66
[2020-05-04 20:50] VITALS: BP 124/58
[2020-05-05 04:36] VITALS: BP 116/75
--- NOTE | 2020-05-05 07:20 | NUR ---
RECIEVE REPORT. ALERT AND ORIENTED X4. ASSIST ON BED MOCK PER PATIENT REQUEST. PURWICK SET UP CHANGED. DENIES ANY NEEDS. CONTINUE PLAN OF CARE AND SAFETY PRECAUTIONS.
[2020-05-05 08:46] VITALS: BP 122/68
--- NOTE | 2020-05-05 09:00 | NUR ---
BATH RECIEVED PER REQUEST. PT TAKEN OFF BEDPAN. LARGE BM X1. LINENS CHANGED. PT REPOSITIONED TO COMFORT. CALL LIGHT WITHIN REACH. ROOM DECLUTTERED. ICE WATER RECIEVED. PERSONAL ITEMS WITHIN REACH. STATES SHE "FEELS BETTER".
[2020-05-05 09:39] LABS: BASOPHILS 0.4 % (0-2); EOSINOPHILS 0 % (0-7); HEMATOCRIT 39.4 % (36.0-48.0); HEMOGLOBIN 12.8 g/dL (12-16); IMMATURE GRANULOCYTES 0.2 % (0-5); LYMPHOCYTES 43.3 % (15-50); MCH 30.4 pg (26.0-34.0); MCHC 32.5 g/dL (31.0-37.0); MCV 93.6 fL (80.0-100.0); MEAN PLATELET VOLUME 8.9 fL (7.4-10.4); MONOCYTES 9.9 % (2-11); NEUTROPHILS 46.2 % (40-80); PLATELET COUNT 340 10x3/uL (130-400); RBC 4.21 10x6/uL (4.00-5.40); RDW 13.1 % (11.5-14.5); WBC 5.2 10x3/uL (4.8-10.8)
[2020-05-05 09:57] LABS: ALBUMIN 2.8 g/dL (3.4-5.0); ALKALINE PHOSPHATASE 90 U/L (30-120); ALT (SGPT) 144 U/L (10-68); BILIRUBIN - TOTAL 0.25 mg/dL (0.2-1.3); CALC OSMOLALITY 276 mosm/kg (275-300); CALCIUM 8.9 mg/dL (8.5-10.1); CARBON DIOXIDE 26.3 mmol/L (21.0-32.0); CHLORIDE - SERUM 104 mmol/L (98-107); CREATININE - SERUM 0.5 mg/dL (0.6-1.3); GLUCOSE 151 mg/dL (74-106); PROTEIN - SERUM 7.4 g/dL (6.4-8.2); SODIUM 137 mmol/L (136-145); UREA NITROGEN 12 mg/dL (7-18); eGFR NON AFRICAN AMERICAN > 90 mL/min (90-120)
[2020-05-05 11:14] VITALS: BP 109/66
--- NOTE | 2020-05-05 16:39 | NUR ---
ALERT AND ORIENTED X4. RESTING IN BED. BED BATH AND LINEN CHANGE COMPLETE. DENIES ANY NEEDS AT THIS TIME. CONTINUE PLAN OF CARE AND SAFETY PRECAUTIONS.
[2020-05-05 21:00] VITALS: BP 110/58
[2020-05-06 06:54] LABS: ALBUMIN 2.7 g/dL (3.4-5.0); ALKALINE PHOSPHATASE 84 U/L (30-120); ALT (SGPT) 161 U/L (10-68); BILIRUBIN - TOTAL 0.22 mg/dL (0.2-1.3); CALC OSMOLALITY 276 mosm/kg (275-300); CALCIUM 8.6 mg/dL (8.5-10.1); CHLORIDE - SERUM 105 mmol/L (98-107); CREATININE - SERUM 0.4 mg/dL (0.6-1.3); GLUCOSE 109 mg/dL (74-106); POTASSIUM - SERUM 4.5 mmol/L (3.5-5.1); PROTEIN - SERUM 7.2 g/dL (6.4-8.2); SODIUM 138 mmol/L (136-145); UREA NITROGEN 13 mg/dL (7-18); eGFR NON AFRICAN AMERICAN > 90 mL/min (90-120)
[2020-05-06 07:03] LABS: BASOPHILS 0.4 % (0-2); EOSINOPHILS 1.1 % (0-7); HEMATOCRIT 38.5 % (36.0-48.0); HEMOGLOBIN 12.6 g/dL (12-16); IMMATURE GRANULOCYTES 0.4 % (0-5); LYMPHOCYTES 42.3 % (15-50); MCHC 32.7 g/dL (31.0-37.0); MCV 94.8 fL (80.0-100.0); MEAN PLATELET VOLUME 9.4 fL (7.4-10.4); MONOCYTES 9.3 % (2-11); NEUTROPHILS 46.5 % (40-80); PLATELET COUNT 351 10x3/uL (130-400); RBC 4.06 10x6/uL (4.00-5.40); RDW 13.2 % (11.5-14.5); WBC 5.7 10x3/uL (4.8-10.8)
--- NOTE | 2020-05-06 10:30 | NUR ---
PURE WICK CATHETER CHANGED
[2020-05-06 12:37] VITALS: BP 116/65
[2020-05-06 15:04] VITALS: BP 117/74
--- NOTE | 2020-05-06 15:33 | NUR ---
I have reviewed this patient and I concur with the Shift Assessment completed by the Licensed Practical Nurse today this shift.
--- NOTE | 2020-05-06 17:48 | NUR ---
[T SITTING UP IN BED. EATING DINNER. ON ROOM AIR. ALERT AND ORIENTED. PT STATES SHE HAS NO FURTHER NEEDS AT THSI TIME. I VERBALIZED UNDERSTANDING. BED LOW. CL IN REACH.
--- NOTE | 2020-05-06 19:37 | NUR ---
REPORT RECIEVED AND ROUNDING COMPLETE. PATIENT LAYING IN BED IN LOW FOWLERS AT THIS TIME. PATIENT STATES SHE HAS NO NEEDS AND JUST WISHES FOR A FULL NIGHT OF SLEEP. LEFT PIV THAT IS SALINE LOCKED AT THIS TIME. PUREWICK IN PLACE WITH CLEAR YELLOW FLUID IN CANISTER. PATIENT IS JUST WAITING ON PLACEMENT. CALL LIGHT WITHIN REACH AND BED IN LOWEST LOCKED POSITION. NO DISTRESS NOTED.
--- NOTE | 2020-05-06 19:57 | MORECARE ---
CASE MANAGEMENT DISCHARGE SUMMARY PATIENT: DON CARPENTER UNIT: [id number] ADM DATE: 04/19/20 AGE: 60 : 62 SEX: F ROOM/BED: D.2130 AUTHOR: LISA,DOC PHYSICIAN: REFERRING PHYSICIAN: LUIS PIERCE MD DATE OF SERVICE: 05/06/20 Discharge Plan Patient Name: DON CARPENTER Facility: [facility]:[place] : 1960 Planned Disposition: Penitentiary Facility Anticipated Discharge Date: Discharge Date: Expected LOS: Initial Reviewer: [id number] Initial Review Date: 04/23/2020 Generated: 05/06/20 8:57 pm Comments DCP- Discharge Planning Updated by [id number]: Renee Fajardo on 05/02/20 3:[address] Per Brittney, none of her facilities can accept patient due to her weight and COVID diagnosis. CM will attempt to place again, tomorrow. DCP- Discharge Planning Updated by [id number]: Renee Fajardo on 05/01/20 1:[address] CM contacted Brittney and faxed required information for SNF placement [facility]. CM revisited patient via phone, she is tearful and worried about the possibility of cancer. She states she occasionally has vaginal bleeding and was to be scheduled for OP surgery, by Dr. Gage. Patient is in agreement for a SNF stay, followed by returning home with [facility]. CM encouraged patient to be OOB at least three times/day and walk in her room. Patent states she used a RW at home. CM requested a RW be brought to her room by PT. Instructed patient to wait on her nurse, to be in the room before she attempts to use it. CM notified Roma Kirkpatrick APN, of patient's emotional state. Attempted to contact patient's daughter, Jenny Burns ([phone]), but VM was full and no answer. Patient is concerned about her home and car and has no one to check on it. CM will continue to follow. DCP- Discharge Planning Updated by [id number]: Kinsey Coley on 04/30/20 12:[address] Spoke to Claribel who states the insurance is out of network with her facilities. Spoke to Brittney who stated she will review the clinicals and get back with CM with determination. Kinsey Coley MSN,RN,CM DCP- Discharge Planning Updated by [id number]: Kinsey Coley on 04/30/20 10:[address] Cm called Jamari at [facility] for determination. Jamari states they are unable to accept covid positives, and they can not provide care with the patient's weight requirements. Kinsey STERLING,RN,CM DCP- Discharge Planning Updated by [id number]: Kinsey Coley on 04/29/20 12:[address] CM SPOKE WITH JAMARI FROM [place] [phone] ABOUT REFERRAL AND FAXED CLINICALS. JAMARI STATED HE WOULD PROVIDE DETERMINIATION BY TOMORROW KINSEY COLEY DCP- Discharge Planning Updated by [id number]: Renee Fajardo on 04/26/20 11:[address] 1200: CB from [facility], unable to accept today, will re-evaluate 04/29. CM contacted [facility], with [facility] SNF. Faxed required information and gave verbal report. Awaiting CB. DCP- Discharge Planning Updated by [id number]: Miladys Will on 04/24/20 6:[address] I received a call from Claribel with [facility]. Claribel states that patient's insurance is [employer] and they are not in network with any of their facilities. CM will continue to attempt to find a SNF in network. DCP- Discharge Planning Updated by [id number]: Miladys Will on 04/23/20 1:[address] Patient Name: DON CARPENTER Admission Status: ER Accout number: [id number] Admission Date: 04-19-2020 : 1960 Admission Diagnosis:ADULT FAILURE TO THRIVE Attending: LUIS STANTON Current LOS: 4 Anticipated DC Date: Planned Disposition: Penitentiary Facility Primary Insurance: [employer]OVASYS [facility] INS EXCHANGE Discharge Planning Comments: CM called patient (per Covid positive protocol) to discuss discharge needs. I informed her that I spoke with Geovanna in inpatient rehab ad she had completed the end of her inpatient rehab and suggests a skilled facility if needed. She states that she feels she does need a skilled facility at this time. States when she got home, she could not even get out of the car due to weakness. States she lives alone and would need to be able to care for herself. I discussed all the skilled facilities with her and she states she will go to which ever one will take a covid positive patient. I spoke with Brittney Aviles, liaison for [place], [facility] and [place] and she states that her facilities will not take a covid positive patient. The only one she has is [facility] in . I spoke with Claribel and she states that [facility] in [place] will accept Covid positive patients. She will check with [facility]. I faxed her a face sheet so they can run insurance. CM will continue to follow and assist with discharge planning/needs. Staff Consultant: Miladys Will DCPIA - Discharge Planning Initial Assessment Updated by [id number]: Miladys Will on 04/23/20 2:32 pm * Is the patient Alert and Oriented? Yes * PCP Dr. Leal * Pharmacy [facility] 7S * Preadmission Environment Home Alone * ADLs Partial Dependent * Partial ADLs (Assistance needed) Ambulation * Equipment Cane Glucometer Walker * List name and contact numbers for known caregivers / representatives who currently or will assist patient after discharge: Jenny Carpenter - [phone] * Verbal permission to speak to the caregivers and representatives has been obtained from the patient. Yes * Community resources currently utilized Home Health * Please name any agencies selected above. [facility] * Additional services required to return to the preadmission environment? Yes * Can the patient safely return to the preadmission environment? No * Has this patient been hospitalized within the prior 30 days at any hospital? Yes Last DP export: 05/03/20 1:00 p Patient Name: DON CARPENTER Page 14239 at 1956 All edits/amendments must be made on the electronic document DICTATION DATE: 05/06/201956 FOREST ECOLOGY PROFESSOR: NIKOS 05/06/201956 RPT#: [id number] DC DATE: STATUS: ADM IN [facility] [address] [place] [address] END OF REPORT
[2020-05-06 20:00] VITALS: BP 123/75
--- NOTE | 2020-05-06 20:04 | MORECARE ---
CASE MANAGEMENT DISCHARGE SUMMARY PATIENT: DON CARPENTER UNIT: [id number] ADM DATE: 04/19/20 AGE: 60 : 62 SEX: F ROOM/BED: D.2130 AUTHOR: LISA,DOC PHYSICIAN: REFERRING PHYSICIAN: LUIS PIERCE MD DATE OF SERVICE: 05/06/20 Discharge Plan Patient Name: DON CARPENTER Facility: [facility]:[place] : 1960 Planned Disposition: Residential Facility Anticipated Discharge Date: Discharge Date: Expected LOS: Initial Reviewer: [email or web address] Initial Review Date: 04/23/2020 Generated: 05/06/20 9:03 pm Comments DCP- Discharge Planning Updated by [id number]: Kinsey Coley on 05/06/20 7:[address] Patient Name: DON CARPENTER Encounter No: [id number] : 1960 Primary Insurance: [employer] INS EXCHANGE Anticipated DC Date: Planned Disposition: Residential Facility External Planned Provider: : LATE ENTRY ASSESSMENT COMPLETED 05/03 DCP follow-up note: CM called [facility] at [phone] for resources and left message for return phone call. Will await return call. Called Beulah at [facility] at [phone] that says she has 2 potential facilities that is taking covid patients with a large body habitus. She states she will call back with further information. Case management will follow and assist as needed. Kinsey Coley 05/06/20 Received call from Beulah stating the patients insurance will require a 2700 dollar copay, or she can attempt to apply for long-term Medicaid. CM attempted to call pt room several times but unable to get pt to answer the phone. Jonas from [facility] states he will come by the facility tomorrow with Beulah and assist in placement. DCP- Discharge Planning Updated by [id number]: Renee Fajardo on 05/02/20 3:[address] Per Brittney, none of her facilities can accept patient due to her weight and COVID diagnosis. CM will attempt to place again, tomorrow. DCP- Discharge Planning Updated by [id number]: Renee Fajardo on 05/01/20 1:[address] CM contacted Brittney and faxed required information for SNF placement [facility]. CM revisited patient via phone, she is tearful and worried about the possibility of cancer. She states she occasionally has vaginal bleeding and was to be scheduled for OP surgery, by Dr. Gage. Patient is in agreement for a SNF stay, followed by returning home with [facility]. CM encouraged patient to be OOB at least three times/day and walk in her room. Patent states she used a RW at home. CM requested a RW be brought to her room by PT. Instructed patient to wait on her nurse, to be in the room before she attempts to use it. CM notified Roma Kirkpatrick APN, of patient's emotional state. Attempted to contact patient's daughter, Jenny Burns ([phone]), but VM was full and no answer. Patient is concerned about her home and car and has no one to check on it. CM will continue to follow. DCP- Discharge Planning Updated by [id number]: Kinsey Coley on 04/30/20 12:[address] Spoke to Claribel who states the insurance is out of network with her facilities. Spoke to Brittney who stated she will review the clinicals and get back with CM with determination. Kinsey STERLING,RN,CM DCP- Discharge Planning Updated by [email or web address]: Kinsey Coley on 04/30/20 10:[address] Cm called Jamari at [place] for determination. Jamari states they are unable to accept covid positives, and they can not provide care with the patient's weight requirements. Kinsey STERLING,RN,CM DCP- Discharge Planning Updated by [id number]: Kinsey Coley on 04/29/20 12:[address] CM SPOKE WITH JAMARI FROM [place] [phone] ABOUT REFERRAL AND FAXED CLINICALS. JAMARI STATED HE WOULD PROVIDE DETERMINIATION BY TOMORROW KINSEY COLEY DCP- Discharge Planning Updated by [id number]: Renee Fajardo on 04/26/20 11:[address] 1200: CB from [facility], unable to accept today, will re-evaluate 04/29. CM contacted Jonas Calvillo, with [facility]. Faxed required information and gave verbal report. Awaiting CB. DCP- Discharge Planning Updated by [id number]: Miladys Will on 04/24/20 6:[address] I received a call from Claribel with [facility]. Claribel states that patient's insurance is [employer] and they are not in network with any of their facilities. CM will continue to attempt to find a SNF in network. DCP- Discharge Planning Updated by [id number]: Miladys Will on 04/23/20 1:[address] Patient Name: DON CARPENTER Admission Status: ER Accout number: [id number] Admission Date: 04-19-2020 : 1960 Admission Diagnosis:ADULT FAILURE TO THRIVE Attending: LUIS STANTON Current LOS: 4 Anticipated DC Date: Planned Disposition: Residential Facility Primary Insurance: [employer] [facility] INS EXCHANGE Discharge Planning Comments: CM called patient (per Covid positive protocol) to discuss discharge needs. I informed her that I spoke with Geovanna in inpatient rehab ad she had completed the end of her inpatient rehab and suggests a skilled facility if needed. She states that she feels she does need a skilled facility at this time. States when she got home, she could not even get out of the car due to weakness. States she lives alone and would need to be able to care for herself. I discussed all the skilled facilities with her and she states she will go to which ever one will take a covid positive patient. I spoke with Brittney Aviles, liaison for [facility] and [place] and she states that her facilities will not take a covid positive patient. The only one she has is [facility] in . I spoke with Claribel and she states that [facility] in [place] will accept Covid positive patients. She will check with [facility]. I faxed her a face sheet so they can run insurance. CM will continue to follow and assist with discharge planning/needs. Soap Boiler: Miladys Will DCPIA - Discharge Planning Initial Assessment Updated by [id number]: Miladys Will on 04/23/20 2:32 pm * Is the patient Alert and Oriented? Yes * PCP Dr. Leal * Pharmacy [facility] * Preadmission Environment Home Alone * ADLs Partial Dependent * Partial ADLs (Assistance needed) Ambulation * Equipment Cane Glucometer Walker * List name and contact numbers for known caregivers / representatives who currently or will assist patient after discharge: Jenny Carpenter - [phone] * Verbal permission to speak to the caregivers and representatives has been obtained from the patient. Yes * Community resources currently utilized Home Health * Please name any agencies selected above. [facility] * Additional services required to return to the preadmission environment? Yes * Can the patient safely return to the preadmission environment? No * Has this patient been hospitalized within the prior 30 days at any hospital? Yes Last DP export: 05/06/20 6:57 p Patient Name: DON CARPENTER Page 11705 at 2004 All edits/amendments must be made on the electronic document DICTATION DATE: 05/06/202003 DIRECTOR OF MARKETING COMMUNICATIONS: NIKOS 05/06/202003 RPT#: [id number] DC DATE: STATUS: ADM IN [facility] [address] [place] [address] END OF REPORT
[2020-05-07] VITALS: BP 104/55
[2020-05-07 04:00] VITALS: BP 132/71
[2020-05-07 06:38] LABS: BASOPHILS 0.4 % (0-2); EOSINOPHILS 1.1 % (0-7); HEMATOCRIT 38.7 % (36.0-48.0); HEMOGLOBIN 12.4 g/dL (12-16); LYMPHOCYTES 44.3 % (15-50); MCH 30.3 pg (26.0-34.0); MCV 94.6 fL (80.0-100.0); MEAN PLATELET VOLUME 9.1 fL (7.4-10.4); MONOCYTES 8.9 % (2-11); NEUTROPHILS 45.3 % (40-80); PLATELET COUNT 297 10x3/uL (130-400); RBC 4.09 10x6/uL (4.00-5.40); RDW 13.1 % (11.5-14.5); WBC 5.5 10x3/uL (4.8-10.8)
[2020-05-07 07:01] LABS: ALBUMIN 2.7 g/dL (3.4-5.0); ALKALINE PHOSPHATASE 83 U/L (30-120); ALT (SGPT) 164 U/L (10-68); BILIRUBIN - TOTAL 0.27 mg/dL (0.2-1.3); CALC OSMOLALITY 276 mosm/kg (275-300); CALCIUM 8.7 mg/dL (8.5-10.1); CARBON DIOXIDE 28.2 mmol/L (21.0-32.0); CHLORIDE - SERUM 103 mmol/L (98-107); CREATININE - SERUM 0.5 mg/dL (0.6-1.3); GLUCOSE 118 mg/dL (74-106); POTASSIUM - SERUM 4.3 mmol/L (3.5-5.1); PROTEIN - SERUM 7.1 g/dL (6.4-8.2); SODIUM 138 mmol/L (136-145); UREA NITROGEN 13 mg/dL (7-18); eGFR NON AFRICAN AMERICAN > 90 mL/min (90-120)
[2020-05-07 07:59] VITALS: BP 114/50
--- NOTE | 2020-05-07 09:00 | MORECARE ---
CASE MANAGEMENT DISCHARGE SUMMARY PATIENT: DON CARPENTER UNIT: [id number] ADM DATE: 04/19/20 AGE: 60 : 62 SEX: F ROOM/BED: D.2130 AUTHOR: JIA GONZALEZ PHYSICIAN: REFERRING PHYSICIAN: LUIS PIERCE MD DATE OF SERVICE: 05/07/20 Discharge Plan Patient Name: DON CARPENTER Facility: [facility]:[place] : 1960 Planned Disposition: [facility] Facility Anticipated Discharge Date: Discharge Date: Expected LOS: Initial Reviewer: [id number] Initial Review Date: 04/23/2020 Generated: 05/07/20 9:59 am Comments DCP- Discharge Planning Updated by [id number]: Kinsey Coley on 05/07/20 7:[address] Cm called pt room and spoke with patient about DC plan. CM provided details about copay and termite renewal inspector CYNTHIA. Patient states she knows she can not go home. States her children will not help her. They live out of town and are not able to assist her at home. States she understands she may need to go into long-term care and is in agreement. CM will continue to assist as needed. Kinsey Coley DCP- Discharge Planning Updated by [id number]: Kinsey Coley on 05/06/20 7:[address] Patient Name: DON CARPENTER Encounter No: [id number] : 1960 Primary Insurance: [employer] INS EXCHANGE Anticipated DC Date: Planned Disposition: [facility] Facility External Planned Provider: : LATE ENTRY ASSESSMENT COMPLETED 05/03 DCP follow-up note: CM called [employer] call center at [phone] for resources and left message for return phone call. Will await return call. Called Beulah at [facility] at [phone] that says she has 2 potential facilities that is taking covid patients with a large body habitus. She states she will call back with further information. Case management will follow and assist as needed. Kinsey Coley 05/06/20 Received call from Beulah stating the patients insurance will require a 2700 dollar copay, or she can attempt to apply for long-term Medicaid. CM attempted to call pt room several times but unable to get pt to answer the phone. Jonas from [facility] states he will come by the facility tomorrow with Beulah and assist in placement. DCP- Discharge Planning Updated by [id number]: Renee Clementelroy on 05/02/20 3:[address] Per Brittney, none of her facilities can accept patient due to her weight and COVID diagnosis. CM will attempt to place again, tomorrow. DCP- Discharge Planning Updated by [id number]: Renee Clementelroy on 05/01/20 1:[address] CM contacted Brittney and faxed required information for SNF placement @[facility]. CM revisited patient via phone, she is tearful and worried about the possibility of cancer. She states she occasionally has vaginal bleeding and was to be scheduled for OP surgery, by Dr. Gage. Patient is in agreement for a SNF stay, followed by returning home with [facility]. CM encouraged patient to be OOB at least three times/day and walk in her room. Patent states she used a RW at home. CM requested a RW be brought to her room by PT. Instructed patient to wait on her nurse, to be in the room before she attempts to use it. CM notified oRma Kirkpatrick APN, of patient's emotional state. Attempted to contact patient's daughter, Jenny Burns ([phone]), but VM was full and no answer. Patient is concerned about her home and car and has no one to check on it. CM will continue to follow. DCP- Discharge Planning Updated by [id number]: Kinsey Coley on 04/30/20 12:[address] Spoke to Claribel who states the insurance is out of network with her facilities. Spoke to Brittney who stated she will review the clinicals and get back with CM with determination. Kinsey STERLING,RN,CM DCP- Discharge Planning Updated by [id number]: Kinsey Coley on 04/30/20 10:[address] Cm called Jamari at [place] for determination. Jamari states they are unable to accept covid positives, and they can not provide care with the patient's weight requirements. Kinsey STERLING,RN,CM DCP- Discharge Planning Updated by [id number]: Kinsey Coley on 04/29/20 12:[address] CM SPOKE WITH JAMARI FROM [place] [phone] ABOUT REFERRAL AND FAXED CLINICALS. JAMARI STATED HE WOULD PROVIDE DETERMINIATION BY TOMORROW KINSEY COLEY DCP- Discharge Planning Updated by [id number]: Renee Fajardo on 04/26/20 11:[address] 1200: CB from [facility], unable to accept today, will re-evaluate 04/29. CM contacted Jonas Calvillo, with [facility] SN[facility]. Faxed required information and gave verbal report. Awaiting CB. DCP- Discharge Planning Updated by [email or web address]: Miladys Will on 04/24/20 6:[address] I received a call from Claribel with [facility]. Claribel states that patient's insurance is [employer] and they are not in network with any of their facilities. CM will continue to attempt to find a SNF in network. DCP- Discharge Planning Updated by [id number]: Miladys Suman on 04/23/20 1:[address] Patient Name: DON CARPENTER Admission Status: ER Accout number: [id number] Admission Date: 04-19-2020 : 1960 Admission Diagnosis:ADULT FAILURE TO THRIVE Attending: LUIS STANTON Current LOS: 4 Anticipated DC Date: Planned Disposition: [facility] Primary Insurance: [employer] [facility] INS EXCHANGE Discharge Planning Comments: CM called patient (per Covid positive protocol) to discuss discharge needs. I informed her that I spoke with Geovanna in inpatient rehab ad she had completed the end of her inpatient rehab and suggests a skilled facility if needed. She states that she feels she does need a skilled facility at this time. States when she got home, she could not even get out of the car due to weakness. States she lives alone and would need to be able to care for herself. I discussed all the skilled facilities with her and she states she will go to which ever one will take a covid positive patient. I spoke with Brittney Aviles, liaison for [place], [facility] and [place] and she states that her facilities will not take a covid positive patient. The only one she has is [facility] in . I spoke with Claribel and she states that [facility] in [place] will accept Covid positive patients. She will check with [facility]. I faxed her a face sheet so they can run insurance. CM will continue to follow and assist with discharge planning/needs. Revolving Inventory Clerk: Miladys Will DCPIA - Discharge Planning Initial Assessment Updated by [id number]: Miladys Suman on 04/23/20 2:32 pm * Is the patient Alert and Oriented? Yes * PCP Dr. Leal * Pharmacy [facility] * Preadmission Environment Home Alone * ADLs Partial Dependent * Partial ADLs (Assistance needed) Ambulation * Equipment Cane Glucometer Walker * List name and contact numbers for known caregivers / representatives who currently or will assist patient after discharge: Jenny Bassem - [phone] * Verbal permission to speak to the caregivers and representatives has been obtained from the patient. Yes * Community resources currently utilized Home Health * Please name any agencies selected above. [facility] 4 [facility] * Additional services required to return to the preadmission environment? Yes * Can the patient safely return to the preadmission environment? No * Has this patient been hospitalized within the prior 30 days at any hospital? Yes Last DP export: 05/06/20 7:04 p Patient Name: DON CARPENTER Page 80174 at 0900 All edits/amendments must be made on the electronic document DICTATION DATE: 05/07/20858 POWER BALLAST MACHINE OPERATOR: NIKOS 05/07/20858 RPT#: [id number] DC DATE: STATUS: ADM IN [facility] [address] [place] [address] END OF REPORT
--- NOTE | 2020-05-07 10:32 | NUR ---
I have reviewed this patient and I concur with the Shift Assessment completed by the Licensed Practical Nurse today this shift.
[2020-05-07 11:35] VITALS: BP 106/56
--- NOTE | 2020-05-07 12:53 | MORECARE ---
CASE MANAGEMENT DISCHARGE SUMMARY PATIENT: DON CARPENTER UNIT: [id number] ADM DATE: 04/19/20 AGE: 60 : 62 SEX: F ROOM/BED: D.2130 AUTHOR: JIA GONZALEZ PHYSICIAN: REFERRING PHYSICIAN: LUIS PIERCE MD DATE OF SERVICE: 05/07/20 Discharge Plan Patient Name: DON CARPENTER Facility: [facility]:[place] : 1960 Planned Disposition: Residential Facility Anticipated Discharge Date: Discharge Date: Expected LOS: Initial Reviewer: [email or web address] Initial Review Date: 04/23/2020 Generated: 05/07/20 1:52 pm Comments DCP- Discharge Planning Updated by [email or web address]: Kinsey Coley on 05/07/20 7:[address] Cm called pt room and spoke with patient about DC plan. CM provided details about copay and fci CYNTHIA. Patient states she knows she can not go home. States her children will not help her. They live out of town and are not able to assist her at home. States she understands she may need to go into long-term care and is in agreement. CM will continue to assist as needed. Kinsey Coley DCP- Discharge Planning Updated by [email or web address]: Kinesy Coley on 05/06/20 7:[address] Patient Name: DON CARPENTER Encounter No: [id number] : 1960 Primary Insurance: [employer] INS EXCHANGE Anticipated DC Date: Planned Disposition: Residential Facility External Planned Provider: : LATE ENTRY ASSESSMENT COMPLETED 05/03 DCP follow-up note: CM called [employer] call center at [phone] for resources and left message for return phone call. Will await return call. Called Beulah at [facility] at [phone] that says she has 2 potential facilities that is taking covid patients with a large body habitus. She states she will call back with further information. Case management will follow and assist as needed. Kinsey Coley 05/06/20 Received call from Beulah stating the patients insurance will require a 2700 dollar copay, or she can attempt to apply for long-term Medicaid. CM attempted to call pt room several times but unable to get pt to answer the phone. Jonas from [facility] states he will come by the facility tomorrow with Beulah and assist in placement. DCP- Discharge Planning Updated by [id number]: Renee Clemetnelroy on 05/02/20 3:[address] Per Brittney, none of her facilities can accept patient due to her weight and COVID diagnosis. CM will attempt to place again, tomorrow. DCP- Discharge Planning Updated by [email or web address]: Renee Clementelroy on 05/01/20 1:[address] CM contacted Brittney and faxed required information for SNF placement [facility]. CM revisited patient via phone, she is tearful and worried about the possibility of cancer. She states she occasionally has vaginal bleeding and was to be scheduled for OP surgery, by Dr. Gage. Patient is in agreement for a SNF stay, followed by returning home with [facility]. CM encouraged patient to be OOB at least three times/day and walk in her room. Patent states she used a RW at home. CM requested a RW be brought to her room by PT. Instructed patient to wait on her nurse, to be in the room before she attempts to use it. CM notified Roma Kirkpatrick APN, of patient's emotional state. Attempted to contact patient's daughter, Jenny Burns ([phone]), but VM was full and no answer. Patient is concerned about her home and car and has no one to check on it. CM will continue to follow. DCP- Discharge Planning Updated by [id number]: Kinsey Coley on 04/30/20 12:[address] Spoke to Claribel who states the insurance is out of network with her facilities. Spoke to Brittney who stated she will review the clinicals and get back with CM with determination. Kinsey STERLING,RN,CM DCP- Discharge Planning Updated by [email or web address]: Kinsey Coley on 04/30/20 10:[address] Cm called Jamari at [place] for determination. Jamari states they are unable to accept covid positives, and they can not provide care with the patient's weight requirements. Kinsey STERLING,RN,CM DCP- Discharge Planning Updated by [id number]: Kinsey Coley on 04/29/20 12:[address] CM SPOKE WITH JAMARI FROM [place] [phone] ABOUT REFERRAL AND FAXED CLINICALS. JAMARI STATED HE WOULD PROVIDE DETERMINIATION BY TOMORROW KINSEY COLEY DCP- Discharge Planning Updated by [id number]: Renee Fajardo on 04/26/20 11:[address] 1200: CB from [facility], unable to accept today, will re-evaluate 04/29. CM contacted Jonas Calvillo, with [facility]F. Faxed required information and gave verbal report. Awaiting CB. DCP- Discharge Planning Updated by [id number]: Miladys Will on 04/24/20 6:[address] I received a call from Claribel with [facility]. Claribel states that patient's insurance is [employer] and they are not in network with any of their facilities. CM will continue to attempt to find a SNF in network. DCP- Discharge Planning Updated by [id number]: Miladys Suman on 04/23/20 1:[address] Patient Name: DON CARPENTER Admission Status: ER Accout number: [id number] Admission Date: 04-19-2020 : 1960 Admission Diagnosis:ADULT FAILURE TO THRIVE Attending: LUIS STANTON Current LOS: 4 Anticipated DC Date: Planned Disposition: Residential Facility Primary Insurance: [employer] [facility] INS EXCHANGE Discharge Planning Comments: CM called patient (per Covid positive protocol) to discuss discharge needs. I informed her that I spoke with Geovanna in inpatient rehab ad she had completed the end of her inpatient rehab and suggests a skilled facility if needed. She states that she feels she does need a skilled facility at this time. States when she got home, she could not even get out of the car due to weakness. States she lives alone and would need to be able to care for herself. I discussed all the skilled facilities with her and she states she will go to which ever one will take a covid positive patient. I spoke with Brittney Aviles, liaison for [place], [facility] and [place] and she states that her facilities will not take a covid positive patient. The only one she has is [facility] in . I spoke with Claribel and she states that [facility] in [place] will accept Covid positive patients. She will check with [facility]. I faxed her a face sheet so they can run insurance. CM will continue to follow and assist with discharge planning/needs. Hardwood Flooring Specialist: Miladys Will DCPIA - Discharge Planning Initial Assessment Updated by [id number]: Miladys Dawkinszenaida on 04/23/20 2:32 pm * Is the patient Alert and Oriented? Yes * PCP Dr. Leal * Pharmacy [facility] * Preadmission Environment Home Alone * ADLs Partial Dependent * Partial ADLs (Assistance needed) Ambulation * Equipment Cane Glucometer Walker * List name and contact numbers for known caregivers / representatives who currently or will assist patient after discharge: Jenny Bassem - [phone] * Verbal permission to speak to the caregivers and representatives has been obtained from the patient. Yes * Community resources currently utilized Home Health * Please name any agencies selected above. [facility] * Additional services required to return to the preadmission environment? Yes * Can the patient safely return to the preadmission environment? No * Has this patient been hospitalized within the prior 30 days at any hospital? Yes External Providers External Provider: [facility] Next Contact Date: Service Request Date: Service Type: Resolution: Reviewer: Comments: Last DP export: 05/07/20 8:00 a Patient Name: DON CARPENTER Page 10246 at 1253 All edits/amendments must be made on the electronic document DICTATION DATE: 05/07/20 125 CONSULTING TECHNICAL MANAGER: NIKOS 05/07/20 1252 RPT#: [id number] DC DATE: STATUS: ADM IN [facility] [address] [place] [address] END OF REPORT
--- NOTE | 2020-05-07 14:33 | NUR ---
Nutrition Follow-up: Pt in droplet isolation; covid-19+. Chart reviewed. Awaiting placement. Diet: Diabetic PO intake: 65% avg x 6 meals Wt: 328.4# (04/24) Labs noted: Glu 118, Alb 2.7 Meds noted: Zinc Sulfate, vitamin D, vitamin C, Florajen, KDur, Pepcid -Encourage PO intake and honor food preferences within diet restrictions. -Monitor wt. -RD following.
--- NOTE | 2020-05-07 16:00 | NUR ---
PT PLACED ON BEDPAN AND HAD VERY LARGE BM. PT STATES SHE HAS NO FURTHER NEEDS AT THIS TIME. BED LOW. CL IN REACH. WILL CONTINUE TO MONITOR.
[2020-05-07 16:03] VITALS: BP 122/53
--- NOTE | 2020-05-07 19:45 | NUR ---
REPORT RECIEVED AND ROUNDING COMPLETE. PATIENT LAYING IN BED IN LOW FOWLERS, VERY FLAT AFFECT. PATIENT STATES SHE WAS AWAKE MOST THE NIGHT AND IS LOOKING FORWARD TO A GOOD NIGHT OF SLEEP. NO DISTRESS NOTED. LEFT FOREARM PIV THAT IS SALINE LOCKED AT THIS TIME. PURWICK IN PLACE AND WORKING. NO NEEDS VOICED AT THIS TIME. CALL LIGHT WITHIN REACH AND BED IN LOWEST LOCKED POSITION.
[2020-05-07 20:00] VITALS: BP 117/73
--- NOTE | 2020-05-07 21:49 | MORECARE ---
CASE MANAGEMENT DISCHARGE SUMMARY PATIENT: DON CARPENTER UNIT: [id number] ADM DATE: 04/19/20 AGE: 60 : 62 SEX: F ROOM/BED: D.2130 AUTHOR: JIA GONZALEZ PHYSICIAN: REFERRING PHYSICIAN: LUIS PIERCE MD DATE OF SERVICE: 05/07/20 Discharge Plan Patient Name: DON CARPENTER Facility: [facility]:[place] : 1960 Planned Disposition: [facility] Facility Anticipated Discharge Date: Discharge Date: Expected LOS: Initial Reviewer: [email or web address] Initial Review Date: 04/23/2020 Generated: 05/07/20 10:48 pm Comments DCP- Discharge Planning Updated by [email or web address]: Kinsey Coley on 05/07/20 7:[address] Cm called pt room and spoke with patient about DC plan. CM provided details about copay and long winder tender CYNTHIA. Patient states she knows she can not go home. States her children will not help her. They live out of town and are not able to assist her at home. States she understands she may need to go into long-term care and is in agreement. CM will continue to assist as needed. Kinsey Coley DCP- Discharge Planning Updated by [id number]: Kinsey Coley on 05/06/20 7:[address] Patient Name: DON CARPENTER Encounter No: [id number] : 1960 Primary Insurance: [employer] EXCHANGE Anticipated DC Date: Planned Disposition: Mcc Facility External Planned Provider: : LATE ENTRY ASSESSMENT COMPLETED 05/03 DCP follow-up note: CM called [employer] call center at [phone] for resources and left message for return phone call. Will await return call. Called Beulah at [facility] at [phone] that says she has 2 potential facilities that is taking covid patients with a large body habitus. She states she will call back with further information. Case management will follow and assist as needed. Kinsey Coley 05/06/20 Received call from Beulah stating the patients insurance will require a 2700 dollar copay, or she can attempt to apply for long-term Medicaid. CM attempted to call pt room several times but unable to get pt to answer the phone. Jonas from [facility] states he will come by the facility tomorrow with Beulah and assist in placement. DCP- Discharge Planning Updated by [email or web address]: Renee Clementelroy on 05/02/20 3:[address] Per Brittney, none of her facilities can accept patient due to her weight and COVID diagnosis. CM will attempt to place again, tomorrow. DCP- Discharge Planning Updated by [email or web address]: Renee Clementelroy on 05/01/20 1:[address] CM contacted Brittney and faxed required information for SNF placement @[facility]. CM revisited patient via phone, she is tearful and worried about the possibility of cancer. She states she occasionally has vaginal bleeding and was to be scheduled for OP surgery, by Dr. Gage. Patient is in agreement for a SNF stay, followed by returning home with [facility]. CM encouraged patient to be OOB at least three times/day and walk in her room. Patent states she used a RW at home. CM requested a RW be brought to her room by PT. Instructed patient to wait on her nurse, to be in the room before she attempts to use it. CM notified Roma Kirkpatrick APN, of patient's emotional state. Attempted to contact patient's daughter, Jenny Burns ([phone]), but VM was full and no answer. Patient is concerned about her home and car and has no one to check on it. CM will continue to follow. DCP- Discharge Planning Updated by [id number]: Kinsey Coley on 04/30/20 12:[address] Spoke to Claribel who states the insurance is out of network with her facilities. Spoke to Brittney who stated she will review the clinicals and get back with CM with determination. Kinsey STERLING,RN,CM DCP- Discharge Planning Updated by [id number]: Kinsey Coley on 04/30/20 10:[address] Cm called Jamari at [facility] for determination. Jamari states they are unable to accept covid positives, and they can not provide care with the patient's weight requirements. Kinsey STERLING,RN,CM DCP- Discharge Planning Updated by [id number]: Kinsey Coley on 04/29/20 12:[address] CM SPOKE WITH JAMARI FROM [place] [phone] ABOUT REFERRAL AND FAXED CLINICALS. JAMARI STATED HE WOULD PROVIDE DETERMINIATION BY TOMORROW KINSEY COLEY DCP- Discharge Planning Updated by [email or web address]: Renee Fajardo on 04/26/20 11:[address] 1200: CB from [facility], unable to accept today, will re-evaluate 04/29. CM contacted Jonas Calvillo, with [facility] SNF. Faxed required information and gave verbal report. Awaiting CB. DCP- Discharge Planning Updated by [email or web address]: Miladys Will on 04/24/20 6:[address] I received a call from Claribel with [facility]. Claribel states that patient's insurance is [employer] and they are not in network with any of their facilities. CM will continue to attempt to find a SNF in network. DCP- Discharge Planning Updated by [email or web address]: Miladys Suman on 04/23/20 1:[address] Patient Name: DON CARPENTER Admission Status: ER Accout number: [id number] Admission Date: 04-19-2020 : 1960 Admission Diagnosis:ADULT FAILURE TO THRIVE Attending: LUIS STANTON Current LOS: 4 Anticipated DC Date: Planned Disposition: Mcc Facility Primary Insurance: [employer] [facility] INS EXCHANGE Discharge Planning Comments: CM called patient (per Covid positive protocol) to discuss discharge needs. I informed her that I spoke with Geovanna in inpatient rehab ad she had completed the end of her inpatient rehab and suggests a skilled facility if needed. She states that she feels she does need a skilled facility at this time. States when she got home, she could not even get out of the car due to weakness. States she lives alone and would need to be able to care for herself. I discussed all the skilled facilities with her and she states she will go to which ever one will take a covid positive patient. I spoke with Brittney Aviles, liaison for [facility] and [place] and she states that her facilities will not take a covid positive patient. The only one she has is [facility] in . I spoke with Claribel and she states that [facility] in [place] will accept Covid positive patients. She will check with [facility]. I faxed her a face sheet so they can run insurance. CM will continue to follow and assist with discharge planning/needs. Fish Dressing Machine Feeder: Miladys Will DCPIA - Discharge Planning Initial Assessment Updated by [email or web address]: Miladys Suman on 04/23/20 2:32 pm * Is the patient Alert and Oriented? Yes * PCP Dr. Leal * Pharmacy [facility] * Preadmission Environment Home Alone * ADLs Partial Dependent * Partial ADLs (Assistance needed) Ambulation * Equipment Cane Glucometer Walker * List name and contact numbers for known caregivers / representatives who currently or will assist patient after discharge: Jenny Carpenter - [phone] * Verbal permission to speak to the caregivers and representatives has been obtained from the patient. Yes * Community resources currently utilized Home Health * Please name any agencies selected above. [facility] * Additional services required to return to the preadmission environment? Yes * Can the patient safely return to the preadmission environment? No * Has this patient been hospitalized within the prior 30 days at any hospital? Yes Last DP export: 05/07/20 11:53 a Patient Name: DON CARPENTER Page [id number] at 2149 All edits/amendments must be made on the electronic document DICTATION DATE: 05/07/202147 MAIL CARRIER: NIKOS 05/07/202147 RPT#: [id number] DC DATE: STATUS: ADM IN [facility] [address] [place] [address] END OF REPORT
--- NOTE | 2020-05-07 21:55 | MORECARE ---
CASE MANAGEMENT DISCHARGE SUMMARY PATIENT: DON CARPENTER UNIT: [id number] ADM DATE: 04/19/20 AGE: 60 : 62 SEX: F ROOM/BED: D.4100 AUTHOR: LISADOC PHYSICIAN: REFERRING PHYSICIAN: LUIS PIERCE MD DATE OF SERVICE: 05/07/20 Discharge Plan Patient Name: DON CARPENTER Facility: [facility]:[place] : 1960 Planned Disposition: Snf Facility Anticipated Discharge Date: Discharge Date: Expected LOS: Initial Reviewer: [email or web address] Initial Review Date: 04/23/2020 Generated: 05/07/20 10:54 pm Comments DCP- Discharge Planning Updated by [email or web address]: Kinsey Coley on 05/07/20 8:[address] CM met with Beulah ([phone]) from [facility]. She states the facility will accept the patient and she has auth from insurance pending RASHID. States the facility will right off the deductible so that the patient will have access to rehab services. CM spoke with patient about accepting facilities. The patient wishes to be as close to [facility]. CM stated that the closest accepting facility is [place]. The patient is tearful, but in agreement for the opportunity for rehab. The patient will need to be transported by ambulance with COVID isolation. Kinsey Coley DCP- Discharge Planning Updated by [id number]: Kinsey Coley on 05/07/20 7:[address] Cm called pt room and spoke with patient about DC plan. CM provided details about copay and manager terminal CYNTHIA. Patient states she knows she can not go home. States her children will not help her. They live out of town and are not able to assist her at home. States she understands she may need to go into long-term care and is in agreement. CM will continue to assist as needed. Kinsey Coley DCP- Discharge Planning Updated by [email or web address]: Kinsey Coley on 05/06/20 7:[address] Patient Name: DON CARPENTER Encounter No: [id number] : 1960 Primary Insurance: [employer] INS EXCHANGE Anticipated DC Date: Planned Disposition: Snf Facility External Planned Provider: : LATE ENTRY ASSESSMENT COMPLETED 05/03 DCP follow-up note: CM called [facility] call center at [phone] for resources and left message for return phone call. Will await return call. Called Beulah at [facility] at [phone] that says she has 2 potential facilities that is taking covid patients with a large body habitus. She states she will call back with further information. Case management will follow and assist as needed. Kinsey Coley 05/06/20 Received call from Beulah stating the patients insurance will require a 2700 dollar copay, or she can attempt to apply for long-term Medicaid. CM attempted to call pt room several times but unable to get pt to answer the phone. Jonas from [facility] states he will come by the facility tomorrow with Beulah and assist in placement. DCP- Discharge Planning Updated by [email or web address]: Renee Fajardo on 05/02/20 3:[address] Per Brittney, none of her facilities can accept patient due to her weight and COVID diagnosis. CM will attempt to place again, tomorrow. DCP- Discharge Planning Updated by [email or web address]: Renee Fajardo on 05/01/20 1:[address] CM contacted Brittney and faxed required information for SNF placement @[facility]. CM revisited patient via phone, she is tearful and worried about the possibility of cancer. She states she occasionally has vaginal bleeding and was to be scheduled for OP surgery, by Dr. Gage. Patient is in agreement for a SNF stay, followed by returning home with [facility]. CM encouraged patient to be OOB at least three times/day and walk in her room. Patent states she used a RW at home. CM requested a RW be brought to her room by PT. Instructed patient to wait on her nurse, to be in the room before she attempts to use it. CM notified Roma Kirkpatrick APN, of patient's emotional state. Attempted to contact patient's daughter, Jenny Burns ([phone]), but VM was full and no answer. Patient is concerned about her home and car and has no one to check on it. CM will continue to follow. DCP- Discharge Planning Updated by [email or web address]: Kinsey Coley on 04/30/20 12:[address] Spoke to Claribel who states the insurance is out of network with her facilities. Spoke to Brittney who stated she will review the clinicals and get back with CM with determination. Kinsey Coley MSN,RN,CM DCP- Discharge Planning Updated by [email or web address]: Kinsey Coley on 04/30/20 10:[address] Cm called Jamari at [place] for determination. Jamari states they are unable to accept covid positives, and they can not provide care with the patient's weight requirements. Kinsey STERLING,RN,CM DCP- Discharge Planning Updated by [id number]: Kinsey Coley on 04/29/20 12:[address] CM SPOKE WITH JAMARI FROM [place] [phone] ABOUT REFERRAL AND FAXED CLINICALS. JAMARI STATED HE WOULD PROVIDE DETERMINIATION BY TOMORROW KINSEY COLEY DCP- Discharge Planning Updated by [email or web address]: Renee Fajardo on 04/26/20 11:[address] 1200: CB from [facility], unable to accept today, will re-evaluate 04/29. CM contacted [facility], with [facility] SNF. Faxed required information and gave verbal report. Awaiting CB. DCP- Discharge Planning Updated by [email or web address]: Miladys Will on 04/24/20 6:[address] I received a call from Claribel with [facility]. Claribel states that patient's insurance is [employer] and they are not in network with any of their facilities. CM will continue to attempt to find a SNF in network. DCP- Discharge Planning Updated by [email or web address]: Miladys Will on 04/23/20 1:[address] Patient Name: DON CARPENTER Admission Status: ER Accout number: [id number] Admission Date: 04-19-2020 : 1960 Admission Diagnosis:ADULT FAILURE TO THRIVE Attending: LUIS STANTON Current LOS: 4 Anticipated DC Date: Planned Disposition: Snf Facility Primary Insurance: [employer] INS EXCHANGE Discharge Planning Comments: CM called patient (per Covid positive protocol) to discuss discharge needs. I informed her that I spoke with Geovanna in inpatient rehab ad she had completed the end of her inpatient rehab and suggests a skilled facility if needed. She states that she feels she does need a skilled facility at this time. States when she got home, she could not even get out of the car due to weakness. States she lives alone and would need to be able to care for herself. I discussed all the skilled facilities with her and she states she will go to which ever one will take a covid positive patient. I spoke with Brittney Aviles, liaison for [facility] and [place] and she states that her facilities will not take a covid positive patient. The only one she has is [facility] in . I spoke with Claribel and she states that [facility] in [place] will accept Covid positive patients. She will check with [facility]. I faxed her a face sheet so they can run insurance. CM will continue to follow and assist with discharge planning/needs. Radiological Engineer: Miladys Will [facility] - Discharge Planning Initial Assessment Updated by [email or web address]: Miladys Will on 04/23/20 2:32 pm * Is the patient Alert and Oriented? Yes * PCP Dr. Leal * Pharmacy [facility] * Preadmission Environment Home Alone * ADLs Partial Dependent * Partial ADLs (Assistance needed) Ambulation * Equipment Cane Glucometer Walker * List name and contact numbers for known caregivers / representatives who currently or will assist patient after discharge: Jenny Carpenter - [phone] * Verbal permission to speak to the caregivers and representatives has been obtained from the patient. Yes * Community resources currently utilized Home Health * Please name any agencies selected above. [facility] 4 [facility] * Additional services required to return to the preadmission environment? Yes * Can the patient safely return to the preadmission environment? No * Has this patient been hospitalized within the prior 30 days at any hospital? Yes Last DP export: 05/07/20 8:49 p Patient Name: DON CARPENTER Page [id number] at 4564 All edits/amendments must be made on the electronic document DICTATION DATE: 05/07/202154 RAILROAD OPERATOR: NIKOS 05/07/202154 RPT#: [id number] DC DATE: STATUS: ADM IN [facility] [address] [place] [address] END OF REPORT
[2020-05-08 04:00] VITALS: BP 114/73
[2020-05-08 07:10] LABS: BASOPHILS 0.3 % (0-2); EOSINOPHILS 1.7 % (0-7); HEMATOCRIT 39.1 % (36.0-48.0); HEMOGLOBIN 12.6 g/dL (12-16); IMMATURE GRANULOCYTES 0.2 % (0-5); LYMPHOCYTES 47.8 % (15-50); MCH 30.5 pg (26.0-34.0); MCHC 32.2 g/dL (31.0-37.0); MCV 94.7 fL (80.0-100.0); MEAN PLATELET VOLUME 9.4 fL (7.4-10.4); MONOCYTES 9.2 % (2-11); NEUTROPHILS 40.8 % (40-80); PLATELET COUNT 286 10x3/uL (130-400); RBC 4.13 10x6/uL (4.00-5.40); RDW 13.1 % (11.5-14.5)
--- NOTE | 2020-05-08 07:15 | NUR ---
RECEIVE SHIFT REPORT. RESTING IN BED WITH EYES CLOSED. NO SIGNS OF DISTRESS. ALERT AND ORIENTED X4. WILL CONTINUE PLAN OF CARE AND SAFETY PRECAUTIONS.
[2020-05-08 07:48] LABS: ALBUMIN 2.6 g/dL (3.4-5.0); ALKALINE PHOSPHATASE 85 U/L (30-120); ALT (SGPT) 154 U/L (10-68); BILIRUBIN - TOTAL 0.19 mg/dL (0.2-1.3); CALC OSMOLALITY 276 mosm/kg (275-300); CALCIUM 8.7 mg/dL (8.5-10.1); CARBON DIOXIDE 29.9 mmol/L (21.0-32.0); CHLORIDE - SERUM 104 mmol/L (98-107); CREATININE - SERUM 0.5 mg/dL (0.6-1.3); GLUCOSE 116 mg/dL (74-106); POTASSIUM - SERUM 4.3 mmol/L (3.5-5.1); PROTEIN - SERUM 7.1 g/dL (6.4-8.2); SODIUM 138 mmol/L (136-145); UREA NITROGEN 12 mg/dL (7-18); eGFR NON AFRICAN AMERICAN > 90 mL/min (90-120)
[2020-05-08 08:13] VITALS: BP 105/56
--- NOTE | 2020-05-08 13:45 | MORECARE ---
CASE MANAGEMENT DISCHARGE SUMMARY PATIENT: DON CARPENTER UNIT: [id number] ADM DATE: 04/19/20 AGE: 60 : 62 SEX: F ROOM/BED: D.2251 AUTHOR: LISA,DOC PHYSICIAN: REFERRING PHYSICIAN: LUIS PIERCE MD DATE OF SERVICE: 05/08/20 Discharge Plan Patient Name: DON CARPENTER Facility: [facility]:[place] : 1960 Planned Disposition: Retirement Facility Anticipated Discharge Date: Discharge Date: Expected LOS: Initial Reviewer: [email or web address] Initial Review Date: 04/23/2020 Generated: 05/08/20 2:44 pm Comments DCP- Discharge Planning Updated by [id number]: Miladys Will on 05/08/20 12:[address] Called [facility] and corrected mistake made on initial RASHID and refaxed. CM will continue to follow and assist with discharge planning/needs. DCP- Discharge Planning Updated by [id number]: Kinsey Coley on 05/07/20 8:[address] CM met with Beulah ([phone]) from [facility]. She states the facility will accept the patient and she has auth from insurance pending RASHID. States the facility will right off the deductible so that the patient will have access to rehab services. CM spoke with patient about accepting facilities. The patient [place] [facility] CM stated that the closest accepting facility is [place]. The patient is tearful, but in agreement for the opportunity for rehab. The patient will need to be transported by ambulance with COVID isolation. Kinsey Coley DCP- Discharge Planning Updated by [id number]: Kinsey Coley on 05/07/20 7:[address] Cm called pt room and spoke with patient about DC plan. CM provided details about copay and terminal system operator CYNTHIA. Patient states she knows she can not go home. States her children will not help her. They live out of town and are not able to assist her at home. States she understands she may need to go into long-term care and is in agreement. CM will continue to assist as needed. Kinsey Coley DCP- Discharge Planning Updated by [email or web address]: Kinsey Coley on 05/06/20 7:[address] Patient Name: DON CARPENTER Encounter No: [id number] : 1960 Primary Insurance: [employer] INS EXCHANGE Anticipated DC Date: Planned Disposition: Retirement Facility External Planned Provider: : LATE ENTRY ASSESSMENT COMPLETED 05/03 DCP follow-up note: CM called [facility] call center at [phone] for resources and left message for return phone call. Will await return call. Called Beulah at [facility] at [phone] that says she has 2 potential facilities that is taking covid patients with a large body habitus. She states she will call back with further information. Case management will follow and assist as needed. Kinsey Stillberhane 05/06/20 Received call from Beulah stating the patients insurance will require a 2700 dollar copay, or she can attempt to apply for long-term Medicaid. CM attempted to call pt room several times but unable to get pt to answer the phone. Jonas from [facility] states he will come by the facility tomorrow with Beulah and assist in placement. DCP- Discharge Planning Updated by [id number]: Renee Fajardo on 05/02/20 3:[address] Per Brittney, none of her facilities can accept patient due to her weight and COVID diagnosis. CM will attempt to place again, tomorrow. DCP- Discharge Planning Updated by [id number]: Renee Fajardo on 05/01/20 1:[address] CM contacted Brittney and faxed required information for SNF placement @[facility]. CM revisited patient via phone, she is tearful and worried about the possibility of cancer. She states she occasionally has vaginal bleeding and was to be scheduled for OP surgery, by Dr. Gage. Patient is in agreement for a SNF stay, followed by returning home with [facility]. CM encouraged patient to be OOB at least three times/day and walk in her room. Patent states she used a RW at home. DANYELL requested a RW be brought to her room by PT. Instructed patient to wait on her nurse, to be in the room before she attempts to use it. CM notified Roma Kirkpatrick APN, of patient's emotional state. Attempted to contact patient's daughter, Jenny Burns ([phone]), but VM was full and no answer. Patient is concerned about her home and car and has no one to check on it. CM will continue to follow. DCP- Discharge Planning Updated by [id number]: Kinsey Coley on 04/30/20 12:[address] Spoke to Claribel who states the insurance is out of network with her facilities. Spoke to Brittney who stated she will review the clinicals and get back with CM with determination. Kinsey STERLING,RN,CM DCP- Discharge Planning Updated by [id number]: Kinsey Coley on 04/30/20 10:[address] Cm called Jamari at [facility] [place] [facility] for determination. Jamari states they are unable to accept covid positives, and they can not provide care with the patient's weight requirements. Kinsey STERLING,RN,CM DCP- Discharge Planning Updated by [id number]: Kinsey Coley on 04/29/20 12:[address] CM SPOKE WITH JAMARI FROM [place] [phone] ABOUT REFERRAL AND FAXED CLINICALS. JAMARI STATED HE WOULD PROVIDE DETERMINIATION BY TOMORROW KINSEY COLEY DCP- Discharge Planning Updated by [email or web address]: Renee Fajardo on 04/26/20 11:[address] 1200: CB from [facility], unable to accept today, will re-evaluate 04/29. CM contacted [facility], with [facility] SNF. Faxed required information and gave verbal report. Awaiting CB. DCP- Discharge Planning Updated by [id number]: Miladys Will on 04/24/20 6:[address] I received a call from Claribel with [facility] [place]. Claribel states that patient's insurance is [employer] and they are not in network with any of their facilities. CM will continue to attempt to find a SNF in network. DCP- Discharge Planning Updated by [id number]: Miladys Will on 04/23/20 1:[address] Patient Name: DON CARPENTER Admission Status: ER Accout number: [id number] Admission Date: 04-19-2020 : 1960 Admission Diagnosis:ADULT FAILURE TO THRIVE Attending: LUIS STANTON Current LOS: 4 Anticipated DC Date: Planned Disposition: Retirement Facility Primary Insurance: [employer] [facility] INS EXCHANGE Discharge Planning Comments: CM called patient (per Covid positive protocol) to discuss discharge needs. I informed her that I spoke with Geovanna in inpatient rehab ad she had completed the end of her inpatient rehab and suggests a skilled facility if needed. She states that she feels she does need a skilled facility at this time. States when she got home, she could not even get out of the car due to weakness. States she lives alone and would need to be able to care for herself. I discussed all the skilled facilities with her and she states she will go to which ever one will take a covid positive patient. I spoke with Brittney Aviles, liaison for [place], [facility] and [place] and she states that her facilities will not take a covid positive patient. The only one she has is [facility] in . I spoke with Claribel and she states that [facility] in [place] will accept Covid positive patients. She will check with [facility]. I faxed her a face sheet so they can run insurance. CM will continue to follow and assist with discharge planning/needs. Global Position System Technician: Miladys Will [facility] - Discharge Planning Initial Assessment Updated by [email or web address]: Miladys Will on 04/23/20 2:32 pm * Is the patient Alert and Oriented? Yes * PCP Dr. Leal * Pharmacy [facility] * Preadmission Environment Home Alone * ADLs Partial Dependent * Partial ADLs (Assistance needed) Ambulation * Equipment Cane Glucometer Walker * List name and contact numbers for known caregivers / representatives who currently or will assist patient after discharge: Jenny Bassem - [phone] * Verbal permission to speak to the caregivers and representatives has been obtained from the patient. Yes * Community resources currently utilized Home Health * Please name any agencies selected above. Care 4 [facility] * Additional services required to return to the preadmission environment? Yes * Can the patient safely return to the preadmission environment? No * Has this patient been hospitalized within the prior 30 days at any hospital? Yes Last DP export: 05/07/20 8:55 p Patient Name: DON CARPENTER Page [id number] at 1345 All edits/amendments must be made on the electronic document DICTATION DATE: 05/08/201343 DRAW FURNACE TENDER: NIKOS 05/08/201343 RPT#: [id number] DC DATE: STATUS: ADM IN [facility] [address] [place] [address] END OF REPORT
--- NOTE | 2020-05-08 19:55 | NUR ---
REPORT RECIEVED AND ROUNDING COMPLETE. PATIENT LAYING IN BED IN LOW FOWLERS POSITION. PATIENT ASKED FOR VIVI CRACKERS WITH HER PILLS. ALSO STATES THAT SHE WOULD LIKE HER SUGAR CHECKED THIS EVENING, STATES SHE WILL NEVER TAKE INSULIN NO MATTER WHAT HER SUGAR IS JUST WANTS IT CHECKED. PATIENT HAS A LEFT FOREARM PIV THAT IS SALINE LOCKED AT THIS TIME. WHEN ASKED ABOUT FLUIDS BEING HOOKED UP SHE STATES SHE DOSENT NEED THEM, INFORMED HER THAT THEY WHERE ORDERED BUT SHE SAID SHE DRINKS PLENTY OF WATER. NO NEEDS AT THIS TIME. CALL LIGHT WITHIN REACH AND BED IN LOWEST LOCKED POSITION.
[2020-05-08 20:00] VITALS: BP 104/60
[2020-05-09] VITALS: BP 101/60
[2020-05-09 04:00] VITALS: BP 113/69
[2020-05-09 07:00] VITALS: BP 105/81
[2020-05-09 07:09] LABS: BASOPHILS 0.2 % (0-2); EOSINOPHILS 1.7 % (0-7); HEMATOCRIT 38.6 % (36.0-48.0); HEMOGLOBIN 12.5 g/dL (12-16); IMMATURE GRANULOCYTES 0.2 % (0-5); LYMPHOCYTES 44.7 % (15-50); MCH 30.3 pg (26.0-34.0); MCHC 32.4 g/dL (31.0-37.0); MCV 93.7 fL (80.0-100.0); MEAN PLATELET VOLUME 9.3 fL (7.4-10.4); NEUTROPHILS 44.2 % (40-80); PLATELET COUNT 248 10x3/uL (130-400); RBC 4.12 10x6/uL (4.00-5.40); RDW 13.1 % (11.5-14.5); WBC 5.3 10x3/uL (4.8-10.8)
--- NOTE | 2020-05-09 07:15 | NUR ---
RECEIVE SHIFT REPORT. RESTING IN BED WITH EYES CLOSED. NO SIGNS OF DISTRESS. COVID- [address] WILL CONTINUE PLAN OF CARE.
[2020-05-09 07:49] LABS: ALBUMIN 2.7 g/dL (3.4-5.0); ALKALINE PHOSPHATASE 86 U/L (30-120); ALT (SGPT) 164 U/L (10-68); BILIRUBIN - TOTAL 0.24 mg/dL (0.2-1.3); CALC OSMOLALITY 275 mosm/kg (275-300); CALCIUM 8.8 mg/dL (8.5-10.1); CARBON DIOXIDE 28.6 mmol/L (21.0-32.0); CHLORIDE - SERUM 104 mmol/L (98-107); CREATININE - SERUM 0.5 mg/dL (0.6-1.3); GLUCOSE 117 mg/dL (74-106); POTASSIUM - SERUM 4.2 mmol/L (3.5-5.1); PROTEIN - SERUM 7.2 g/dL (6.4-8.2); SODIUM 137 mmol/L (136-145); UREA NITROGEN 15 mg/dL (7-18); eGFR NON AFRICAN AMERICAN > 90 mL/min (90-120)
[2020-05-09 10:34] VITALS: BP 110/71
--- NOTE | 2020-05-09 13:37 | NUR ---
Nutrition Follow-up: Pt in droplet isolation; covid-19+. Chart reviewed. Awaiting placement. Diet: Diabetic Wt: 328.4# (04/24) Labs noted: Glu 117, Alb 2.7 Meds noted: zinc sulfate, vitamin D, vitamin C, Florajen, KDur, Pepcid -Encourage PO intake and honor food preferences within diet restrictions. -Need new wt if possible; noted daily wts ordered. -RD following.
[2020-05-09 15:16] VITALS: BP 103/68
--- NOTE | 2020-05-09 19:30 | NUR ---
PT IN BED, AAO X 3, RESP EVEN AND UNLABORED, NO DISTRESS NOTED, CL IN REACH, SR UP X 2.
[2020-05-09 22:26] VITALS: BP 108/68
[2020-05-10 02:47] VITALS: BP 108/72
[2020-05-10 05:36] LABS: BASOPHILS 0.3 % (0-2); EOSINOPHILS 0 % (0-7); HEMATOCRIT 37.4 % (36.0-48.0); HEMOGLOBIN 12.1 g/dL (12-16); IMMATURE GRANULOCYTES 0.2 % (0-5); LYMPHOCYTES 41.5 % (15-50); MCH 30.3 pg (26.0-34.0); MCHC 32.4 g/dL (31.0-37.0); MCV 93.5 fL (80.0-100.0); MONOCYTES 8.9 % (2-11); NEUTROPHILS 49.1 % (40-80); PLATELET COUNT 268 10x3/uL (130-400); RDW 13.2 % (11.5-14.5); WBC 5.8 10x3/uL (4.8-10.8)
[2020-05-10 05:51] LABS: CALC OSMOLALITY 273 mosm/kg (275-300); CALCIUM 8.7 mg/dL (8.5-10.1); CARBON DIOXIDE 27.5 mmol/L (21.0-32.0); CHLORIDE - SERUM 104 mmol/L (98-107); CREATININE - SERUM 0.5 mg/dL (0.6-1.3); GLUCOSE 116 mg/dL (74-106); MAGNESIUM - SERUM 1.8 mg/dL (1.8-2.4); SODIUM 136 mmol/L (136-145); UREA NITROGEN 14 mg/dL (7-18); eGFR NON AFRICAN AMERICAN > 90 mL/min (90-120)
[2020-05-10 06:15] VITALS: BP 122/72
--- NOTE | 2020-05-10 07:15 | NUR ---
RECEIVE SHIFT REPORT. RESTING IN BED WITH EYES CLOSED. NO SIGNS OF DISTRESS. WILL CONTINUE PLAN OF CARE AND SAFETY PRECAUTIONS.
--- NOTE | 2020-05-10 08:46 | MORECARE ---
CASE MANAGEMENT DISCHARGE SUMMARY PATIENT: DON CARPENTER UNIT: [id number] ADM DATE: 04/19/20 AGE: 60 : 62 SEX: F ROOM/BED: D.4004 AUTHOR: LISA,DOC PHYSICIAN: REFERRING PHYSICIAN: LUIS PIERCE MD DATE OF SERVICE: 05/10/20 Discharge Plan Patient Name: DON CARPENTER Facility: [facility]:[place] : 1960 Planned Disposition: Custodial Facility Anticipated Discharge Date: Discharge Date: Expected LOS: Initial Reviewer: [id number] Initial Review Date: 04/23/2020 Generated: 05/10/20 9:45 am Comments DCP- Discharge Planning Updated by [email or web address]: Miladys Will on 05/08/20 12:[address] Called [facility] and corrected mistake made on initial RASHID and refaxed. CM will continue to follow and assist with discharge planning/needs. DCP- Discharge Planning Updated by [email or web address]: Kinsey Coley on 05/07/20 8:[address] CM met with Beulah ([phone]) from [facility]. She states the facility will accept the patient and she has auth from insurance pending RASHID. States the facility will right off the deductible so that the patient will have access to rehab services. CM spoke with patient about accepting facilities. The patient wishes to be as close to [facility]. CM stated that the closest accepting facility is [place]. The patient is tearful, but in agreement for the opportunity for rehab. The patient will need to be transported by ambulance with COVID isolation. Kinsey Coley DCP- Discharge Planning Updated by [id number]: Kinsey Coley on 05/07/20 7:[address] Cm called pt room and spoke with patient about DC plan. CM provided details about copay and equipment operator intermodal yard CYNTHIA. Patient states she knows she can not go home. States her children will not help her. They live out of town and are not able to assist her at home. States she understands she may need to go into long-term care and is in agreement. CM will continue to assist as needed. Kinsey Coley DCP- Discharge Planning Updated by [id number]: Kinsey Coley on 05/06/20 7:[address] Patient Name: DON CARPENTER Encounter No: [id number] : 1960 Primary Insurance: [employer] INS EXCHANGE Anticipated DC Date: Planned Disposition: Custodial Facility External Planned Provider: : LATE ENTRY ASSESSMENT COMPLETED 05/03 DCP follow-up note: CM called [facility] call center at [phone] for resources and left message for return phone call. Will await return call. Called Beulah at [facility] at [phone] that says she has 2 potential facilities that is taking covid patients with a large body habitus. She states she will call back with further information. Case management will follow and assist as needed. Kinsey Stillberhane 05/06/20 Received call from Beulah stating the patients insurance will require a 2700 dollar copay, or she can attempt to apply for long-term Medicaid. CM attempted to call pt room several times but unable to get pt to answer the phone. Jonas from [facility] states he will come by the facility tomorrow with Beulah and assist in placement. DCP- Discharge Planning Updated by [id number]: Renee Fajardo on 05/02/20 3:[address] Per Brittney, none of her facilities can accept patient due to her weight and COVID diagnosis. CM will attempt to place again, tomorrow. DCP- Discharge Planning Updated by [email or web address]: Renee Fajardo on 05/01/20 1:[address] CM contacted Brittney and faxed required information for SNF placement @[facility]. CM revisited patient via phone, she is tearful and worried about the possibility of cancer. She states she occasionally has vaginal bleeding and was to be scheduled for OP surgery, by Dr. Gage. Patient is in agreement for a SNF stay, followed by returning home with [facility]. CM encouraged patient to be OOB at least three times/day and walk in her room. Patent states she used a RW at home. DANYELL requested a RW be brought to her room by PT. Instructed patient to wait on her nurse, to be in the room before she attempts to use it. CM notified Roma Kirkpatrick APN, of patient's emotional state. Attempted to contact patient's daughter, Jenny Burns ([phone]), but VM was full and no answer. Patient is concerned about her home and car and has no one to check on it. CM will continue to follow. DCP- Discharge Planning Updated by [email or web address]: Kinsey Coley on 04/30/20 12:[address] Spoke to Claribel who states the insurance is out of network with her facilities. Spoke to Brittney who stated she will review the clinicals and get back with CM with determination. Kinsey STERLING,RN,CM DCP- Discharge Planning Updated by [id number]: Kinsey Coley on 04/30/20 10:[address] Cm called Jamari at [facility] for determination. Jamari states they are unable to accept covid positives, and they can not provide care with the patient's weight requirements. Kinsey STERLING,RN,CM DCP- Discharge Planning Updated by [id number]: Kinsey Coley on 04/29/20 12:[address] CM SPOKE WITH JAMARI FROM [place] [phone] ABOUT REFERRAL AND FAXED CLINICALS. JAMARI STATED HE WOULD PROVIDE DETERMINIATION BY TOMORROW KINSEY COLEY DCP- Discharge Planning Updated by [id number]: Renee Fajardo on 04/26/20 11:[address] 1200: CB from [facility], unable to accept today, will re-evaluate 04/29. CM contacted [facility], with [facility] SNF. Faxed required information and gave verbal report. Awaiting CB. DCP- Discharge Planning Updated by [id number]: Miladys Will on 04/24/20 6:[address] I received a call from Claribel with [facility] [place]. Claribel states that patient's insurance is [employer] and they are not in network with any of their facilities. CM will continue to attempt to find a SNF in network. DCP- Discharge Planning Updated by [id number]: Miladys Will on 04/23/20 1:[address] Patient Name: DON CARPENTER Admission Status: ER Accout number: [id number] Admission Date: 04-19-2020 : 1960 Admission Diagnosis:ADULT FAILURE TO THRIVE Attending: LUIS STANTON Current LOS: 4 Anticipated DC Date: Planned Disposition: Custodial Facility Primary Insurance: [email or web address] [facility] INS EXCHANGE Discharge Planning Comments: CM called patient (per Covid positive protocol) to discuss discharge needs. I informed her that I spoke with Geovanna in inpatient rehab ad she had completed the end of her inpatient rehab and suggests a skilled facility if needed. She states that she feels she does need a skilled facility at this time. States when she got home, she could not even get out of the car due to weakness. States she lives alone and would need to be able to care for herself. I discussed all the skilled facilities with her and she states she will go to which ever one will take a covid positive patient. I spoke with Brittney Aviles, liaison for [place], [facility] and [place] and she states that her facilities will not take a covid positive patient. The only one she has is [facility] in . I spoke with Claribel and she states that [facility] in [place] will accept Covid positive patients. She will check with [facility]. I faxed her a face sheet so they can run insurance. CM will continue to follow and assist with discharge planning/needs. Aspnet Developer: Miladys Will [facility] - Discharge Planning Initial Assessment Updated by [email or web address]: Miladys Will on 04/23/20 2:32 pm * Is the patient Alert and Oriented? Yes * PCP Dr. Leal * Pharmacy [facility] * Preadmission Environment Home Alone * ADLs Partial Dependent * Partial ADLs (Assistance needed) Ambulation * Equipment Cane Glucometer Walker * List name and contact numbers for known caregivers / representatives who currently or will assist patient after discharge: Jenny Carpenter - [phone] * Verbal permission to speak to the caregivers and representatives has been obtained from the patient. Yes * Community resources currently utilized Home Health * Please name any agencies selected above. Care 4 [facility] * Additional services required to return to the preadmission environment? Yes * Can the patient safely return to the preadmission environment? No * Has this patient been hospitalized within the prior 30 days at any hospital? Yes External Providers External Provider: OTHER-OTHER Next Contact Date: Service Request Date: Service Type: Resolution: Reviewer: Comments: Last DP export: 05/08/20 12:45 p Patient Name: DON CARPENTER Page 88417 at 0846 All edits/amendments must be made on the electronic document DICTATION DATE: 05/10/20844 FIRE EXTINGUISHER TECHNICIAN: NIKOS 05/10/20844 RPT#: [id number] DC DATE: STATUS: ADM IN [facility] [address] [place] [address] END OF REPORT
[2020-05-10 12:02] VITALS: BP 111/65
[2020-05-10 15:24] VITALS: BP 107/73
[2020-05-10 19:00] VITALS: BP 114/78
[2020-05-11] VITALS: BP 112/72
[2020-05-11 08:15] VITALS: BP 100/63
[2020-05-11 09:48] LABS: BASOPHILS 0.4 % (0-2); EOSINOPHILS 0 % (0-7); HEMATOCRIT 38.1 % (36.0-48.0); HEMOGLOBIN 12.6 g/dL (12-16); IMMATURE GRANULOCYTES 0.2 % (0-5); LYMPHOCYTES 41.7 % (15-50); MCH 30.9 pg (26.0-34.0); MCHC 33.1 g/dL (31.0-37.0); MCV 93.4 fL (80.0-100.0); MEAN PLATELET VOLUME 9.6 fL (7.4-10.4); MONOCYTES 9.9 % (2-11); NEUTROPHILS 47.8 % (40-80); PLATELET COUNT 219 10x3/uL (130-400); RBC 4.08 10x6/uL (4.00-5.40); RDW 13.2 % (11.5-14.5); WBC 5.6 10x3/uL (4.8-10.8)
[2020-05-11 10:07] LABS: CALC OSMOLALITY 276 mosm/kg (275-300); CALCIUM 8.8 mg/dL (8.5-10.1); CARBON DIOXIDE 28.1 mmol/L (21.0-32.0); CHLORIDE - SERUM 105 mmol/L (98-107); CREATININE - SERUM 0.4 mg/dL (0.6-1.3); GLUCOSE 127 mg/dL (74-106); MAGNESIUM - SERUM 1.7 mg/dL (1.8-2.4); POTASSIUM - SERUM 3.9 mmol/L (3.5-5.1); SODIUM 137 mmol/L (136-145); UREA NITROGEN 14 mg/dL (7-18); eGFR NON AFRICAN AMERICAN > 90 mL/min (90-120)
--- NOTE | 2020-05-11 10:48 | NUR ---
PT AWAKE AND ORIENTED, LYING IN BED ROOM. TOOK MEDICATIONS WIHTOUT COMPLICATIONS. PLACED ON BEDPAN. CL IN REACH, SRX.2
[2020-05-11 12:13] VITALS: BP 115/69
--- NOTE | 2020-05-11 16:02 | NUR ---
ASSESSMENT REVIEWED I AGREE WITH Ayaan WERNER LPN ASSESMENT
[2020-05-11 16:47] VITALS: BP 107/62
[2020-05-11 20:00] VITALS: BP 111/66
[2020-05-12] VITALS: BP 108/57
[2020-05-12 04:00] VITALS: BP 132/72
[2020-05-12 08:49] VITALS: BP 126/67
[2020-05-12 09:03] LABS: BASOPHILS 0.4 % (0-2); EOSINOPHILS 0.9 % (0-7); HEMATOCRIT 38.1 % (36.0-48.0); HEMOGLOBIN 12.3 g/dL (12-16); IMMATURE GRANULOCYTES 0.2 % (0-5); LYMPHOCYTES 46.8 % (15-50); MCH 30.4 pg (26.0-34.0); MCHC 32.3 g/dL (31.0-37.0); MCV 94.3 fL (80.0-100.0); MEAN PLATELET VOLUME 9.8 fL (7.4-10.4); MONOCYTES 9.4 % (2-11); NEUTROPHILS 42.3 % (40-80); PLATELET COUNT 218 10x3/uL (130-400); RBC 4.04 10x6/uL (4.00-5.40); RDW 13.1 % (11.5-14.5); WBC 5.3 10x3/uL (4.8-10.8)
[2020-05-12 09:19] LABS: CALC OSMOLALITY 280 mosm/kg (275-300); CALCIUM 8.7 mg/dL (8.5-10.1); CARBON DIOXIDE 30.3 mmol/L (21.0-32.0); CHLORIDE - SERUM 105 mmol/L (98-107); CREATININE - SERUM 0.4 mg/dL (0.6-1.3); GLUCOSE 128 mg/dL (74-106); MAGNESIUM - SERUM 1.6 mg/dL (1.8-2.4); POTASSIUM - SERUM 4.1 mmol/L (3.5-5.1); SODIUM 140 mmol/L (136-145); UREA NITROGEN 13 mg/dL (7-18); eGFR NON AFRICAN AMERICAN > 90 mL/min (90-120)
[2020-05-12 12:29] VITALS: BP 119/61
--- NOTE | 2020-05-12 14:34 | NUR ---
I have reviewed this patient and I concur with the Shift Assessment completed by the Licensed Practical Nurse today this shift.
--- NOTE | 2020-05-12 18:20 | NUR ---
I have reviewed this patient and I concur with the Shift Assessment completed by the Licensed Practical Nurse today this shift.
--- NOTE | 2020-05-12 18:21 | NUR ---
PT AWAKE AND ORIENTED, LYING IN BED. ONLY TOILETED ONE TIME TODAY. TOOK ALL MEDICATIONS WITHOUT COMPLICATIONS. HOPEFULL TO GO TOMORROW. REFUSED ALL INSULIN PER HER TYPICAL BEHAVIOR. NO COMPLAINTS OR CONCERNS AT THIS TIME. WILL CN.T TO MONITOR CL INR EACH, SRX2.
[2020-05-12 18:56] VITALS: BP 112/49
[2020-05-12 19:08] VITALS: BP 146/61
[2020-05-13 03:54] VITALS: BP 105/58
[2020-05-13 07:17] VITALS: BP 99/67
[2020-05-13 08:09] LABS: BASOPHILS 0.2 % (0-2); EOSINOPHILS 1.8 % (0-7); HEMATOCRIT 36.7 % (36.0-48.0); HEMOGLOBIN 11.9 g/dL (12-16); IMMATURE GRANULOCYTES 0.2 % (0-5); LYMPHOCYTES 49.4 % (15-50); MCH 30.4 pg (26.0-34.0); MCHC 32.4 g/dL (31.0-37.0); MCV 93.9 fL (80.0-100.0); MEAN PLATELET VOLUME 9.5 fL (7.4-10.4); NEUTROPHILS 40.4 % (40-80); PLATELET COUNT 214 10x3/uL (130-400); RBC 3.91 10x6/uL (4.00-5.40); RDW 13.2 % (11.5-14.5); WBC 5.5 10x3/uL (4.8-10.8)
[2020-05-13 08:24] LABS: CALC OSMOLALITY 274 mosm/kg (275-300); CALCIUM 8.7 mg/dL (8.5-10.1); CARBON DIOXIDE 29.2 mmol/L (21.0-32.0); CHLORIDE - SERUM 104 mmol/L (98-107); CREATININE - SERUM 0.4 mg/dL (0.6-1.3); GLUCOSE 116 mg/dL (74-106); MAGNESIUM - SERUM 1.6 mg/dL (1.8-2.4); POTASSIUM - SERUM 4.2 mmol/L (3.5-5.1); SODIUM 137 mmol/L (136-145); UREA NITROGEN 13 mg/dL (7-18); eGFR NON AFRICAN AMERICAN > 90 mL/min (90-120)
--- NOTE | 2020-05-13 10:13 | NUR ---
PT AWAKE AND ORIENTED, LYING IN BED EATING BREAKFAST. NO COMPLAINTS OR CONCERNS AT THIS TIME. WAITING ON INSURANCE APPROVAL FOR REHAB TRANSFER. WILL MONITOR. CL IN REACH, SRX2.
[2020-05-13 12:19] VITALS: BP 129/71
--- NOTE | 2020-05-13 12:47 | NUR ---
PT AWAKE AND ORIENTED, LYING INBED FOR LUNCH. NO COMPLAINTS OR CONCERNS. CL IN REACH,S RX2.
--- NOTE | 2020-05-13 14:58 | MORECARE ---
CASE MANAGEMENT DISCHARGE SUMMARY PATIENT: DON CARPENTER UNIT: [id number] ADM DATE: 04/19/20 AGE: 60 : 62 SEX: F ROOM/BED: D.2130 AUTHOR: LISADOC PHYSICIAN: REFERRING PHYSICIAN: LUIS PIERCE MD DATE OF SERVICE: 05/13/20 Discharge Plan Patient Name: DON CARPENTER Facility: [facility]:[place] : 1960 Planned Disposition: Longterm Facility Anticipated Discharge Date: Discharge Date: Expected LOS: Initial Reviewer: [email or web address] Initial Review Date: 04/23/2020 Generated: 05/13/20 3:57 pm Comments DCP- Discharge Planning Updated by [id number]: Kinsey Coley on 05/13/20 1:[address] Patient Name: DON CARPENTER Admission Status: ER Accout number: [id number] Admission Date: 04-19-2020 : 1960 Admission Diagnosis:ADULT FAILURE TO THRIVE Attending: LUIS STANTON Current LOS: 24 Anticipated DC Date: Planned Disposition: Longterm Facility Primary Insurance: [employer] INS EXCHANGE Discharge Planning Comments: CM called Joyce at [facility] at [phone] about insurance authorization. Joyce states that she called the insurance company and the auth is still pending. States it should be finalized this afternoon or tomorrow. CM will continue to assist in dc planning/needs. Certified First Assistant: Kinsey Coley DCP- Discharge Planning Updated by [id number]: Miladys Will on 05/08/20 12:[address] Called [facility] and corrected mistake made on initial RASHID and refaxed. CM will continue to follow and assist with discharge planning/needs. DCP- Discharge Planning Updated by [email or web address]: Kinsey Coley on 05/07/20 8:[address] CM met with Beulah ([phone]) from [facility]. She states the facility will accept the patient and she has auth from insurance pending RASHID. States the facility will right off the deductible so that the patient will have access to rehab services. CM spoke with patient about accepting facilities. The patient wishes to be as close to [facility]. CM stated that the closest accepting facility is [place]. The patient is tearful, but in agreement for the opportunity for rehab. The patient will need to be transported by ambulance with COVID isolation. Kinsey Coley DCP- Discharge Planning Updated by [id number]: Kinsey Coley on 05/07/20 7:[address] Cm called pt room and spoke with patient about DC plan. CM provided details about copay and intermediate teacher CYNTHIA. Patient states she knows she can not go home. States her children will not help her. They live out of town and are not able to assist her at home. States she understands she may need to go into long-term care and is in agreement. CM will continue to assist as needed. Kinsey Coley DCP- Discharge Planning Updated by [id number]: Kinsey Coley on 05/06/20 7:[address] Patient Name: DON CARPENTER Encounter No: [id number] : 1960 Primary Insurance: [employer] INS EXCHANGE Anticipated DC Date: Planned Disposition: Longterm Facility External Planned Provider: : LATE ENTRY ASSESSMENT COMPLETED 05/03 DCP follow-up note: CM called [facility] call center at [phone] for resources and left message for return phone call. Will await return call. Called Beulah at [facility] at [phone] that says she has 2 potential facilities that is taking covid patients with a large body habitus. She states she will call back with further information. Case management will follow and assist as needed. Kinsey Coley 05/06/20 Received call from Beulah stating the patients insurance will require a 2700 dollar copay, or she can attempt to apply for long-term Medicaid. CM attempted to call pt room several times but unable to get pt to answer the phone. [facility] states he will come by the facility tomorrow with Beulah and assist in placement. DCP- Discharge Planning Updated by [id number]: Renee Fajardo on 05/02/20 3:[address] Per Brittney, none of her facilities can accept patient due to her weight and COVID diagnosis. CM will attempt to place again, tomorrow. DCP- Discharge Planning Updated by [id number]: Renee Fajardo on 05/01/20 1:[address] CM contacted Brittney and faxed required information for SNF placement @[facility]. CM revisited patient via phone, she is tearful and worried about the possibility of cancer. She states she occasionally has vaginal bleeding and was to be scheduled for OP surgery, by Dr. Gage. Patient is in agreement for a SNF stay, followed by returning home with [facility]. CM encouraged patient to be OOB at least three times/day and walk in her room. Patent states she used a RW at home. CM requested a RW be brought to her room by PT. Instructed patient to wait on her nurse, to be in the room before she attempts to use it. CM notified Roma Kirkpatrick APN, of patient's emotional state. Attempted to contact patient's daughter, Jenny Burns ([phone]), but VM was full and no answer. Patient is concerned about her home and car and has no one to check on it. CM will continue to follow. DCP- Discharge Planning Updated by [id number]: Kinsey Coley on 04/30/20 12:[address] Spoke to [place] who states the insurance is out of network with her facilities. Spoke to Brittney who stated she will review the clinicals and get back with CM with determination. Kinsey STERLING,RN,CM DCP- Discharge Planning Updated by [id number]: Kinsey Coley on 04/30/20 10:[address] Cm called Jamari at [facility] for determination. Jamari states they are unable to accept covid positives, and they can not provide care with the patient's weight requirements. Kinsey STERLING,RN,CM DCP- Discharge Planning Updated by [id number]: Kinsey Coley on 04/29/20 12:[address] CM SPOKE WITH JAMARI FROM [facility] [place] [phone] ABOUT REFERRAL AND FAXED CLINICALS. JAMARI STATED HE WOULD PROVIDE DETERMINIATION BY TOMORROW KINSEY COLEY DCP- Discharge Planning Updated by [email or web address]: Renee Fajardo on 04/26/20 11:[address] 1200: CB from Jonas Calvillo [facility], unable to accept today, will re-evaluate 04/29. CM contacted Jonas Calvillo, with [facility] SNF. Faxed required information and gave verbal report. Awaiting CB. DCP- Discharge Planning Updated by [id number]: Miladys Will on 04/24/20 6:[address] I received a call from Claribel with [facility]. Claribel states that patient's insurance is [employer] and they are not in network with any of their facilities. CM will continue to attempt to find a SNF in network. DCP- Discharge Planning Updated by [id number]: Miladys Will on 04/23/20 1:[address] Patient Name: DON CARPENTER Admission Status: ER Accout number: [id number] Admission Date: 04-19-2020 : 1960 Admission Diagnosis:ADULT FAILURE TO THRIVE Attending: LUIS STANTON Current LOS: 4 Anticipated DC Date: Planned Disposition: Longterm Facility Primary Insurance: [facility] INS EXCHANGE Discharge Planning Comments: CM called patient (per Covid positive protocol) to discuss discharge needs. I informed her that I spoke with Geovanna in inpatient rehab ad she had completed the end of her inpatient rehab and suggests a skilled facility if needed. She states that she feels she does need a skilled facility at this time. States when she got home, she could not even get out of the car due to weakness. States she lives alone and would need to be able to care for herself. I discussed all the skilled facilities with her and she states she will go to which ever one will take a covid positive patient. I spoke with Brittney Aviles, liaison for [facility] and [place] and she states that her facilities will not take a covid positive patient. The only one she has is [facility] in . I spoke with Claribel and she states that [facility] in [place] will accept Covid positive patients. She will check with [facility]. I faxed her a face sheet so they can run insurance. CM will continue to follow and assist with discharge planning/needs. Certified First Assistant: Miladys Will DCPIA - Discharge Planning Initial Assessment Updated by [id number]: Miladys Will on 04/23/20 2:32 pm * Is the patient Alert and Oriented? Yes * PCP Dr. Leal * Pharmacy [facility] * Preadmission Environment Home Alone * ADLs Partial Dependent * Partial ADLs (Assistance needed) Ambulation * Equipment Cane Glucometer Walker * List name and contact numbers for known caregivers / representatives who currently or will assist patient after discharge: Jenny Carpenter - [phone] * Verbal permission to speak to the caregivers and representatives has been obtained from the patient. Yes * Community resources currently utilized Home Health * Please name any agencies selected above. Care 4 [facility] * Additional services required to return to the preadmission environment? Yes * Can the patient safely return to the preadmission environment? No * Has this patient been hospitalized within the prior 30 days at any hospital? Yes Last DP export: 05/10/20 7:46 a Patient Name: DON CARPENTER Page [id number] at 1458 All edits/amendments must be made on the electronic document DICTATION DATE: 05/13/201456 HEAD BATCHER: NIKOS 05/13/201456 RPT#: [id number] DC DATE: STATUS: ADM IN [facility] [address] [place] [address] END OF REPORT
--- NOTE | 2020-05-13 18:26 | NUR ---
I have reviewed this patient and I concur with the Shift Assessment completed by the Licensed Practical Nurse today this shift.
--- NOTE | 2020-05-13 19:00 | NUR ---
REPORT RECEIVED, WILL CONTINUE POC. PATIENT IS AAOX4, LYING IN SUPINE POSITION. NO S/S OF DISTRESS OBSERVED, RR EVEN AND UNLABORED ON 2L O2 VIA NC. PATIENT DENIES NEEDS AT THIS TIME. CL IN REACH, BED LOCKED AND LOWERED. COVID 19 PRECAUTIONS MAINTAINED. WILL CTM.
[2020-05-13 20:00] VITALS: BP 113/76
[2020-05-14] VITALS: BP 119/59
[2020-05-14 04:00] VITALS: BP 118/72
--- NOTE | 2020-05-14 05:56 | NUR ---
UNABLE TO OBTAIN AM LABS DUE TO HARD STICK. INFORMED GARETH FROM THE LAB.
[2020-05-14 06:56] LABS: BASOPHILS 0.2 % (0-2); HEMATOCRIT 38.4 % (36.0-48.0); HEMOGLOBIN 12.4 g/dL (12-16); IMMATURE GRANULOCYTES 0.2 % (0-5); LYMPHOCYTES 47.3 % (15-50); MCH 30.3 pg (26.0-34.0); MCHC 32.3 g/dL (31.0-37.0); MCV 93.9 fL (80.0-100.0); MONOCYTES 9.7 % (2-11); NEUTROPHILS 40.6 % (40-80); PLATELET COUNT 244 10x3/uL (130-400); RBC 4.09 10x6/uL (4.00-5.40); RDW 13.1 % (11.5-14.5); WBC 5.6 10x3/uL (4.8-10.8)
[2020-05-14 07:22] LABS: CALC OSMOLALITY 277 mosm/kg (275-300); CALCIUM 8.8 mg/dL (8.5-10.1); CARBON DIOXIDE 29.4 mmol/L (21.0-32.0); CHLORIDE - SERUM 104 mmol/L (98-107); CREATININE - SERUM 0.4 mg/dL (0.6-1.3); GLUCOSE 117 mg/dL (74-106); MAGNESIUM - SERUM 1.6 mg/dL (1.8-2.4); SODIUM 138 mmol/L (136-145); UREA NITROGEN 14 mg/dL (7-18); eGFR NON AFRICAN AMERICAN > 90 mL/min (90-120)
[2020-05-14 08:27] VITALS: BP 125/59
--- NOTE | 2020-05-14 11:04 | NUR ---
Nutrition Follow-up: Pt in droplet isolation; covid-19+. Chart reviewed. Awaiting placement. Diet: Diabetic PO intake: 50-100% Wt: 328.4# (04/24) Labs noted: Glu 117 Meds noted: zinc sulfate, vitamin D, vitamin C, Florajen, KDur, Pepcid, electrolyte protocol -Encourage PO intake and honor food preferences within diet restrictions. -Need new wt if possible; noted daily wts ordered. -RD following.
--- NOTE | 2020-05-14 11:23 | MORECARE ---
CASE MANAGEMENT DISCHARGE SUMMARY PATIENT: DON CARPENTER UNIT: [id number] ADM DATE: 04/19/20 AGE: 60 : 62 SEX: F ROOM/BED: D.2130 AUTHOR: JIA GONZALEZ PHYSICIAN: REFERRING PHYSICIAN: LUIS PIERCE MD DATE OF SERVICE: 05/14/20 Discharge Plan Patient Name: DON CARPENTER Facility: [facility]:[place] : 1960 Planned Disposition: Intermediate Facility Anticipated Discharge Date: Discharge Date: Expected LOS: Initial Reviewer: [id number] Initial Review Date: 04/23/2020 Generated: 05/14/20 12:22 pm Comments DCP- Discharge Planning Updated by [id number]: Kinsey Coley on 05/14/20 10:[address] Patient Name: DON CARPENTER Admission Status: ER Accout number: [id number] Admission Date: 04-19-2020 : 1960 Admission Diagnosis:ADULT FAILURE TO THRIVE Attending: LUIS STANTON Current LOS: 25 Anticipated DC Date: Planned Disposition: Intermediate Facility Primary Insurance: [employer] INS EXCHANGE Discharge Planning Comments: CM called Joyce at [facility] at [phone] to follow up about the pending authorization from insurance. Joyce states that she has not received anything from the insurance company yet. States CM can call back this afternoon. Cm will call back this afternoon to see if authorization has been approved. Kinsey Coley Diesel Automotive Technician: Kinsey Coley DCP- Discharge Planning Updated by [id number]: Kinsey Coley on 05/13/20 1:[address] Patient Name: DON CARPENTER Admission Status: ER Accout number: [id number] Admission Date: 04-19-2020 : 1960 Admission Diagnosis:ADULT FAILURE TO THRIVE Attending: LUIS STANTON Current LOS: 24 Anticipated DC Date: Planned Disposition: Intermediate Facility Primary Insurance: [employer] INS EXCHANGE Discharge Planning Comments: CM called Joyce at [facility] at [phone] about insurance authorization. Joyce states that she called the insurance company and the auth is still pending. States it should be finalized this afternoon or tomorrow. CM will continue to assist in dc planning/needs. Diesel Automotive Technician: Kinsey Coley DCP- Discharge Planning Updated by [id number]: Miladys Dawkinszenaida on 05/08/20 12:[address] Called [facility] and corrected mistake made on initial RASHID and refaxed. CM will continue to follow and assist with discharge planning/needs. DCP- Discharge Planning Updated by [id number]: Kinsey Coley on 05/07/20 8:[address] CM met with Beulah ([phone]) from [facility]. She states the facility will accept the patient and she has auth from insurance pending RASHID. States the facility will right off the deductible so that the patient will have access to rehab services. CM spoke with patient about accepting facilities. The patient wishes to be as close to [facility]. CM stated that the closest accepting facility is [place]. The patient is tearful, but in agreement for the opportunity for rehab. The patient will need to be transported by ambulance with [facility]. Kinsey Coley DCP- Discharge Planning Updated by [id number]: Kinsey Coley on 05/07/20 7:[address] Cm called pt room and spoke with patient about DC plan. CM provided details about copay and salvage determiner CYNTHIA. Patient states she knows she can not go home. States her children will not help her. They live out of town and are not able to assist her at home. States she understands she may need to go into long-term care and is in agreement. CM will continue to assist as needed. Kinsey Coley DCP- Discharge Planning Updated by [id number]: Kinsey Coley on 05/06/20 7:[address] Patient Name: DON CARPENTER Encounter No: [id number] : 1960 Primary Insurance: [employer] INS EXCHANGE Anticipated DC Date: Planned Disposition: Intermediate Facility External Planned Provider: : LATE ENTRY ASSESSMENT COMPLETED 05/03 DCP follow-up note: CM called [facility] call center at [phone] for resources and left message for return phone call. Will await return call. Called Beulah at [facility] at [phone] that says she has 2 potential facilities that is taking covid patients with a large body habitus. She states she will call back with further information. Case management will follow and assist as needed. Kinsey Coley 05/06/20 Received call from Beulah stating the patients insurance will require a 2700 dollar copay, or she can attempt to apply for long-term Medicaid. CM attempted to call pt room several times but unable to get pt to answer the phone. Jonas from [facility] states he will come by the facility tomorrow with Beulah and assist in placement. DCP- Discharge Planning Updated by [id number]: Renee Fajardo on 05/02/20 3:[address] Per Brittney, none of her facilities can accept patient due to her weight and COVID diagnosis. CM will attempt to place again, tomorrow. DCP- Discharge Planning Updated by [id number]: Renee Fajardo on 05/01/20 1:[address] CM contacted Brittney and faxed required information for SNF placement [facility]. CM revisited patient via phone, she is tearful and worried about the possibility of cancer. She states she occasionally has vaginal bleeding and was to be scheduled for OP surgery, by Dr. Gage. Patient is in agreement for a SNF stay, followed by returning home with [facility]. CM encouraged patient to be OOB at least three times/day and walk in her room. Patent states she used a RW at home. CM requested a RW be brought to her room by PT. Instructed patient to wait on her nurse, to be in the room before she attempts to use it. CM notified Roma Kirkpatrick APN, of patient's emotional state. Attempted to contact patient's daughter, Jenny Burns ([phone]), but VM was full and no answer. Patient is concerned about her home and car and has no one to check on it. CM will continue to follow. DCP- Discharge Planning Updated by [id number]: Kinsey Coley on 04/30/20 12:[address] Spoke to Claribel who states the insurance is out of network with her facilities. Spoke to Brittney who stated she will review the clinicals and get back with CM with determination. Kinsey Coley MSN,RN,CM DCP- Discharge Planning Updated by [email or web address]: Kinsey Coley on 04/30/20 10:[address] Cm called Jamari at [facility] for determination. Jamari states they are unable to accept covid positives, and they can not provide care with the patient's weight requirements. Kinsye STERLING,RN,CM DCP- Discharge Planning Updated by [id number]: Kinsey Coley on 04/29/20 12:[address] CM SPOKE WITH JAMARI FROM [facility] [place] [phone] ABOUT REFERRAL AND FAXED CLINICALS. JAMARI STATED HE WOULD PROVIDE DETERMINIATION BY TOMORROW KINSEY COLEY DCP- Discharge Planning Updated by [id number]: Renee Fajardo on 04/26/20 11:[address] 1200: CB from [facility], unable to accept today, will re-evaluate 04/29. CM contacted [facility], with [facility] SNF. Faxed required information and gave verbal report. Awaiting CB. DCP- Discharge Planning Updated by [id number]: Miladys Will on 04/24/20 6:[address] I received a call from Claribel with [facility]. Claribel states that patient's insurance is [employer] and they are not in network with any of their facilities. CM will continue to attempt to find a SNF in network. DCP- Discharge Planning Updated by [email or web address]: Miladys Will on 04/23/20 1:[address] Patient Name: DON CARPENTER Admission Status: ER Accout number: [id number] Admission Date: 04-19-2020 : 1960 Admission Diagnosis:ADULT FAILURE TO THRIVE Attending: LUIS STANTON Current LOS: 4 Anticipated DC Date: Planned Disposition: Intermediate Facility Primary Insurance: [facility] INS EXCHANGE Discharge Planning Comments: CM called patient (per Covid positive protocol) to discuss discharge needs. I informed her that I spoke with Geovanna in inpatient rehab ad she had completed the end of her inpatient rehab and suggests a skilled facility if needed. She states that she feels she does need a skilled facility at this time. States when she got home, she could not even get out of the car due to weakness. States she lives alone and would need to be able to care for herself. I discussed all the skilled facilities with her and she states she will go to which ever one will take a covid positive patient. I spoke with Brittney Aviles, liaison for [place] and [place] and she states that her facilities will not take a covid positive patient. The only one she has is [facility] in . I spoke with Clairbel and she states that [facility] in [place] will accept Covid positive patients. She will check with [facility]. I faxed her a face sheet so they can run insurance. CM will continue to follow and assist with discharge planning/needs. Diesel Automotive Technician: Miladys Will DCPIA - Discharge Planning Initial Assessment Updated by [id number]: Miladys Will on 04/23/20 2:32 pm * Is the patient Alert and Oriented? Yes * PCP Dr. Leal * Pharmacy [facility] * Preadmission Environment Home Alone * ADLs Partial Dependent * Partial ADLs (Assistance needed) Ambulation * Equipment Cane Glucometer Walker * List name and contact numbers for known caregivers / representatives who currently or will assist patient after discharge: Jenny Carpenter - [phone] * Verbal permission to speak to the caregivers and representatives has been obtained from the patient. Yes * Community resources currently utilized Home Health * Please name any agencies selected above. Care 4 [facility] * Additional services required to return to the preadmission environment? Yes * Can the patient safely return to the preadmission environment? No * Has this patient been hospitalized within the prior 30 days at any hospital? Yes Last DP export: 05/13/20 1:58 p Patient Name: DON CARPENTER Page 07441 at 1123 All edits/amendments must be made on the electronic document DICTATION DATE: 05/14/201121 NARCOTICS AND VICE DETECTIVE: NIKOS 05/14/201121 RPT#: [id number] DE DATE: STATUS: ADM IN [facility] [address] [place] [address] END OF REPORT
[2020-05-14 11:55] VITALS: BP 108/69
--- NOTE | 2020-05-14 14:38 | MORECARE ---
CASE MANAGEMENT DISCHARGE SUMMARY PATIENT: DON CARPENTER UNIT: [id number] ADM DATE: 04/19/20 AGE: 60 : 62 SEX: F ROOM/BED: D.2131 AUTHOR: JIA GONZALEZ PHYSICIAN: REFERRING PHYSICIAN: LUIS PIERCE MD DATE OF SERVICE: 05/14/20 Discharge Plan Patient Name: DON CARPENTER Facility: [facility]:[place] : 1960 Planned Disposition: Long Term Facility Anticipated Discharge Date: Discharge Date: Expected LOS: Initial Reviewer: [email or web address] Initial Review Date: 04/23/2020 Generated: 05/14/20 3:37 pm Comments DCP- Discharge Planning Updated by [email or web address]: Kinsey Coley on 05/14/20 1:[address] CM called Joyce at [facility] about authorization form ins. Joyce states she has not received confirmation yet. States she will call them to expedite results. CM will continue to assist in DC planning. Kinsey Coley DCP- Discharge Planning Updated by [id number]: Kinsey Coley on 05/14/20 10:[address] Patient Name: DON CARPENTER Admission Status: ER Accout number: [id number] Admission Date: 04-19-2020 : 1960 Admission Diagnosis:ADULT FAILURE TO THRIVE Attending: LUIS STANTON Current LOS: 25 Anticipated DC Date: Planned Disposition: Long Term Facility Primary Insurance: [facility]CHANGE Discharge Planning Comments: CM called Joyce at [facility] at [phone] to follow up about the pending authorization from insurance. Joyce states that she has not received anything from the insurance company yet. States CM can call back this afternoon. Cm will call back this afternoon to see if authorization has been approved. Kinsey Coley Professional Healthcare Representative: Kinsey Coley DCP- Discharge Planning Updated by [id number]: Kinsey Coley on 05/13/20 1:[address] Patient Name: DON CARPENTER Admission Status: ER Accout number: [id number] Admission Date: 04-19-2020 : 1960 Admission Diagnosis:ADULT FAILURE TO THRIVE Attending: LUIS STANTON Current LOS: 24 Anticipated DC Date: Planned Disposition: Long Term Facility Primary Insurance: [employer] INS EXCHANGE Discharge Planning Comments: CM called Joyce at [facility] at [phone] about insurance authorization. Joyce states that she called the insurance company and the auth is still pending. States it should be finalized this afternoon or tomorrow. CM will continue to assist in dc planning/needs. Professional Healthcare Representative: Kinsey Coley DCP- Discharge Planning Updated by [id number]: Miladys Will on 05/08/20 12:[address] Called [facility] [employer] and corrected mistake made on initial RASHID and refaxed. CM will continue to follow and assist with discharge planning/needs. DCP- Discharge Planning Updated by [email or web address]: Kinsey Coley on 05/07/20 8:[address] CM met with Beulah ([phone]) from [facility]. She states the facility will accept the patient and she has auth from insurance pending RASHID. States the facility will right off the deductible so that the patient will have access to rehab services. CM spoke with patient about accepting facilities. The patient [place] [facility]. CM stated that the closest accepting facility is [place]. The patient is tearful, but in agreement for the opportunity for rehab. The patient will need to be transported by ambulance with COVID isolation. Kinsey Coley DCP- Discharge Planning Updated by [id number]: Kinsey Coley on 05/07/20 7:[address] Cm called pt room and spoke with patient about DC plan. CM provided details about copay and long term care phlebotomist CYNTHIA. Patient states she knows she can not go home. States her children will not help her. They live out of town and are not able to assist her at home. States she understands she may need to go into long-term care and is in agreement. CM will continue to assist as needed. Kinsey Coley DCP- Discharge Planning Updated by [id number]: Kinsey Coley on 05/06/20 7:[address] Patient Name: DON CARPENTER Encounter No: [id number] : 1960 Primary Insurance: [employer] HLTH INS EXCHANGE Anticipated DC Date: Planned Disposition: Long Term Facility External Planned Provider: : LATE ENTRY ASSESSMENT COMPLETED 05/03 DCP follow-up note: DANYELL called [facility] call center at [phone] for resources and left message for return phone call. Will await return call. Called Beulah at [facility] at [phone] that says she has 2 potential facilities that is taking covid patients with a large body habitus. She states she will call back with further information. Case management will follow and assist as needed. Kinsey Coley 05/06/20 Received call from Beulah stating the patients insurance will require a 2700 dollar copay, or she can attempt to apply for long-term Medicaid. DANYELL attempted to call pt room several times but unable to get pt to answer the phone. Jonas from [facility] states he will come by the facility tomorrow with Beulah and assist in placement. DCP- Discharge Planning Updated by [id number]: Renee Fajardo on 05/02/20 3:[address] Per Brittney, none of her facilities can accept patient due to her weight and COVID diagnosis. CM will attempt to place again, tomorrow. DCP- Discharge Planning Updated by [id number]: Renee Fajardo on 05/01/20 1:[address] CM contacted Brittney and faxed required information for SNF placement [facility]. DANYELL revisited patient via phone, she is tearful and worried about the possibility of cancer. She states she occasionally has vaginal bleeding and was to be scheduled for OP surgery, by Dr. Gage. Patient is in agreement for a SNF stay, followed by returning home with [facility]. CM encouraged patient to be OOB at least three times/day and walk in her room. Patent states she used a RW at home. DANYELL requested a RW be brought to her room by PT. Instructed patient to wait on her nurse, to be in the room before she attempts to use it. DANYELL notified Roma Kirkpatrick APN, of patient's emotional state. Attempted to contact patient's daughter, Jenny Burns ([phone]), but VM was full and no answer. Patient is concerned about her home and car and has no one to check on it. CM will continue to follow. DCP- Discharge Planning Updated by [id number]: Kinsey Coley on 04/30/20 12:[address] Spoke to Claribel who states the insurance is out of network with her facilities. Spoke to Brittney who stated she will review the clinicals and get back with CM with determination. Kinsey Coley MSN,RN,CM DCP- Discharge Planning Updated by [id number]: Kinsey Coley on 04/30/20 10:[address] Cm called Jamari at [facility] for determination. Jamari states they are unable to accept covid positives, and they can not provide care with the patient's weight requirements. Kinsey STERLING,RN,CM DCP- Discharge Planning Updated by [id number]: Kinsey Coley on 04/29/20 12:[address] CM SPOKE WITH JAMARI FROM [place] [phone] ABOUT REFERRAL AND FAXED CLINICALS. JAMARI STATED HE WOULD PROVIDE DETERMINIATION BY TOMORROW KINSEY COLEY DCP- Discharge Planning Updated by [id number]: Renee Fajardo on 04/26/20 11:[address] 1200: CB from [facility], unable to accept today, will re-evaluate 04/29. CM contacted [facility], with [facility] SNF. Faxed required information and gave verbal report. Awaiting CB. DCP- Discharge Planning Updated by [id number]: Miladys Will on 04/24/20 6:[address] I received a call from Claribel with [facility]. Claribel states that patient's insurance is [employer] and they are not in network with any of their facilities. CM will continue to attempt to find a SNF in network. DCP- Discharge Planning Updated by [id number]: Miladys Will on 04/23/20 1:[address] Patient Name: DON CARPENTER Admission Status: ER Accout number: [id number] Admission Date: 04-19-2020 : 1960 Admission Diagnosis:ADULT FAILURE TO THRIVE Attending: LUIS STANTON Current LOS: 4 Anticipated DC Date: Planned Disposition: Long Term Facility Primary Insurance: [employer] INS EXCHANGE Discharge Planning Comments: CM called patient (per Covid positive protocol) to discuss discharge needs. I informed her that I spoke with Geovanna in inpatient rehab ad she had completed the end of her inpatient rehab and suggests a skilled facility if needed. She states that she feels she does need a skilled facility at this time. States when she got home, she could not even get out of the car due to weakness. States she lives alone and would need to be able to care for herself. I discussed all the skilled facilities with her and she states she will go to which ever one will take a covid positive patient. I spoke with Brittney Aviles, liaison for [place], [facility] [place] and she states that her facilities will not take a covid positive patient. The only one she has is [facility] in . I spoke with Claribel and she states that [facility] in [place] will accept Covid positive patients. She will check with [facility]. I faxed her a face sheet so they can run insurance. CM will continue to follow and assist with discharge planning/needs. Professional Healthcare Representative: [facility] Initial Assessment Updated by [id number]: Miladys Will on 04/23/20 2:32 pm * Is the patient Alert and Oriented? Yes * PCP Dr. Leal * Pharmacy [facility] * Preadmission Environment Home Alone * ADLs Partial Dependent * Partial ADLs (Assistance needed) Ambulation * Equipment Cane Glucometer Walker * List name and contact numbers for known caregivers / representatives who currently or will assist patient after discharge: Jenny Carpenter - [phone] * Verbal permission to speak to the caregivers and representatives has been obtained from the patient. Yes * Community resources currently utilized Home Health * Please name any agencies selected above. Care 4 [facility] * Additional services required to return to the preadmission environment? Yes * Can the patient safely return to the preadmission environment? No * Has this patient been hospitalized within the prior 30 days at any hospital? Yes Last DP export: 05/14/20 10:23 a Patient Name: DON CARPENTER Page 69230 at 1437 All edits/amendments must be made on the electronic document DICTATION DATE: 05/14/201436 PANELBOARD OPERATOR: DM 05/14/20 143 RPT#: [id number] DC DATE: STATUS: ADM IN [facility] [address] [place] [address] END OF REPORT
[2020-05-14 16:14] VITALS: BP 136/76
--- NOTE | 2020-05-14 18:30 | NUR ---
I have reviewed this patient and I concur with the Shift Assessment completed by the Licensed Practical Nurse today this shift.
--- NOTE | 2020-05-14 19:30 | NUR ---
PT IN BED, AAO X 3, RESP EVEN AND UNLABORED, NO DISTRESS NOTED, CL IN REACH, SR UP X 2.
[2020-05-14 20:00] VITALS: BP 114/67
[2020-05-15] VITALS: BP 98/67
[2020-05-15 04:00] VITALS: BP 107/69
--- NOTE | 2020-05-15 08:10 | NUR ---
REPORT RECIEVED. PT LYING IN BED. RR EVEN AND UNLABORED ON 2L NC. PT HAS A R FA PIV THAT IS SL.BED LOCKED AND IN LOWEST POSITION, CALL LIGHT WITHIN REACH. WILL CTM
[2020-05-15 09:31] VITALS: BP 126/84
[2020-05-15 11:52] LABS: BASOPHILS 0.2 % (0-2); EOSINOPHILS 2.1 % (0-7); HEMATOCRIT 38.3 % (36.0-48.0); HEMOGLOBIN 12.3 g/dL (12-16); IMMATURE GRANULOCYTES 0.2 % (0-5); LYMPHOCYTES 35.7 % (15-50); MCH 30.4 pg (26.0-34.0); MCHC 32.1 g/dL (31.0-37.0); MCV 94.6 fL (80.0-100.0); MEAN PLATELET VOLUME 9.6 fL (7.4-10.4); MONOCYTES 9.9 % (2-11); NEUTROPHILS 51.9 % (40-80); PLATELET COUNT 233 10x3/uL (130-400); RBC 4.05 10x6/uL (4.00-5.40); RDW 13.3 % (11.5-14.5); WBC 5.3 10x3/uL (4.8-10.8)
--- NOTE | 2020-05-15 12:05 | MORECARE ---
CASE MANAGEMENT DISCHARGE SUMMARY PATIENT: DON CARPENTER UNIT: [id number] ADM DATE: 04/19/20 AGE: 60 : 62 SEX: F ROOM/BED: D.2130 AUTHOR: JIA GONZALEZ PHYSICIAN: REFERRING PHYSICIAN: LUIS PIERCE MD DATE OF SERVICE: 05/15/20 Discharge Plan Patient Name: DON CARPENTER Facility: [facility]:[place] : 1960 Planned Disposition: Residential Facility Anticipated Discharge Date: Discharge Date: Expected LOS: Initial Reviewer: [email or web address] Initial Review Date: 04/23/2020 Generated: 05/15/20 1:05 pm Comments DCP- Discharge Planning Updated by [id number]: Renee Fajardo on 05/15/20 11:[address] CM left a message with field service representative of [facility], regarding insurance authorization for admission. CM left contact number. Await CB. DCP- Discharge Planning Updated by [id number]: Kinsey Coley on 05/14/20 1:[address] CM called Joyce at [facility] about authorization form ins. Joyce states she has not received confirmation yet. States she will call them to expedite results. CM will continue to assist in DC planning. Kinsey Coley DCP- Discharge Planning Updated by [id number]: Kinsey Coley on 05/14/20 10:[address] Patient Name: DON CARPENTER Admission Status: ER Accout number: [id number] Admission Date: 04-19-2020 : 1960 Admission Diagnosis:ADULT FAILURE TO THRIVE Attending: LUIS STANTON Current LOS: 25 Anticipated DC Date: Planned Disposition: Residential Facility Primary Insurance: [employer] INS EXCHANGE Discharge Planning Comments: CM called Joyce at [facility] at [phone] to follow up about the pending authorization from insurance. Joyce states that she has not received anything from the insurance company yet. States CM can call back this afternoon. Cm will call back this afternoon to see if authorization has been approved. Kinsey Coley Registered Nurse Cardiac: Kinsey Coley DCP- Discharge Planning Updated by [id number]: Kinsey Coley on 05/13/20 1:[address] Patient Name: DON CARPENTER Admission Status: ER Accout number: [id number] Admission Date: 04-19-2020 : 1960 Admission Diagnosis:ADULT FAILURE TO THRIVE Attending: LUIS STANTON Current LOS: 24 Anticipated DC Date: Planned Disposition: Residential Facility Primary Insurance: [employer] INS EXCHANGE Discharge Planning Comments: CM called Joyce at [facility] at [phone] about insurance authorization. Joyce states that she called the insurance company and the auth is still pending. States it should be finalized this afternoon or tomorrow. CM will continue to assist in dc planning/needs. Registered Nurse Cardiac: Kinsey Coley DCP- Discharge Planning Updated by [id number]: Miladys Will on 05/08/20 12:[address] Called [facility] and corrected mistake made on initial RASHID and refaxed. CM will continue to follow and assist with discharge planning/needs. DCP- Discharge Planning Updated by [id number]: Kinsey Coley on 05/07/20 8:[address] CM met with Beulah ([phone]) from [facility]. She states the facility will accept the patient and she has auth from insurance pending RASHID. States the facility will right off the deductible so that the patient will have access to rehab services. CM spoke with patient about accepting facilities. The patient wishes to be as close to [facility]. CM stated that the closest accepting facility is [place]. The patient is tearful, but in agreement for the opportunity for rehab. The patient will need to be transported by ambulance with COVID isolation. Kinsey Coley DCP- Discharge Planning Updated by [id number]: Kinsey Coley on 05/07/20 7:[address] Cm called pt room and spoke with patient about DC plan. CM provided details about copay and fdc CYNTHIA. Patient states she knows she can not go home. States her children will not help her. They live out of town and are not able to assist her at home. States she understands she may need to go into long-term care and is in agreement. CM will continue to assist as needed. Kinsey Stillberhane DCP- Discharge Planning Updated by [id number]: Kinsey Coley on 05/06/20 7:[address] Patient Name: DON CARPENTER Encounter No: [id number] : 1960 Primary Insurance: [employer] HLTH INS EXCHANGE Anticipated DC Date: Planned Disposition: Residential Facility External Planned Provider: : LATE ENTRY ASSESSMENT COMPLETED 05/03 DCP follow-up note: [facility] at [phone] for resources and left message for return phone call. Will await return call. Called Beulah at [facility] at [phone] that says she has 2 potential facilities that is taking covid patients with a large body habitus. She states she will call back with further information. Case management will follow and assist as needed. Kinsey Raymond 05/06/20 Received call from Beulah stating the patients insurance will require a 2700 dollar copay, or she can attempt to apply for long-term Medicaid. DANYELL attempted to call pt room several times but unable to get pt to answer the phone. Jonas from [facility] states he will come by the facility tomorrow with Beulah and assist in placement. DCP- Discharge Planning Updated by [id number]: Renee Fajardo on 05/02/20 3:[address] Per Brittney, none of her facilities can accept patient due to her weight and COVID diagnosis. CM will attempt to place again, tomorrow. DCP- Discharge Planning Updated by [id number]: Renee Fajardo on 05/01/20 1:[address] CM contacted Brittney and faxed required information for SNF placement [facility]. CM revisited patient via phone, she is tearful and worried about the possibility of cancer. She states she occasionally has vaginal bleeding and was to be scheduled for OP surgery, by Dr. Gage. Patient is in agreement for a SNF stay, followed by returning home with [facility]. CM encouraged patient to be OOB at least three times/day and walk in her room. Patent states she used a RW at home. CM requested a RW be brought to her room by PT. Instructed patient to wait on her nurse, to be in the room before she attempts to use it. CM notified Roma Kirkpatrick APN, of patient's emotional state. Attempted to contact patient's daughter, Jenny Burns ([phone]), but VM was full and no answer. Patient is concerned about her home and car and has no one to check on it. CM will continue to follow. DCP- Discharge Planning Updated by [email or web address]: Kinsey Coley on 04/30/20 12:[address] Spoke to Claribel who states the insurance is out of network with her facilities. Spoke to Brittney who stated she will review the clinicals and get back with CM with determination. Kinsey STERLING,RN,CM DCP- Discharge Planning Updated by [id number]: Kinsey Coley on 04/30/20 10:[address] Cm called Jamari at [facility] for determination. Jamari states they are unable to accept covid positives, and they can not provide care with the patient's weight requirements. Kinsey STERLING,RN,CM DCP- Discharge Planning Updated by [email or web address]: Kinsey Coley on 04/29/20 12:[address] CM SPOKE WITH JAMARI FROM [place] [phone] ABOUT REFERRAL AND FAXED CLINICALS. JAMARI STATED HE WOULD PROVIDE DETERMINIATION BY TOMORROW KINSEY COLEY DCP- Discharge Planning Updated by [id number]: Renee Fajardo on 04/26/20 11:[address] 1200: CB from [facility], unable to accept today, will re-evaluate 04/29. CM contacted [facility], with [facility] SNF. Faxed required information and gave verbal report. Awaiting CB. DCP- Discharge Planning Updated by [email or web address]: Miladys Will on 04/24/20 6:[address] I received a call from Claribel with [facility] [employer] [place]. Claribel states that patient's insurance is [employer] and they are not in network with any of their facilities. CM will continue to attempt to find a SNF in network. DCP- Discharge Planning Updated by [id number]: Miladys Will on 04/23/20 1:[address] Patient Name: DON CARPENTER Admission Status: ER Accout number: [id number] Admission Date: 04-19-2020 : 1960 Admission Diagnosis:ADULT FAILURE TO THRIVE Attending: LUIS STANTON Current LOS: 4 Anticipated DC Date: Planned Disposition: Residential Facility Primary Insurance: [employer] [facility] INS EXCHANGE Discharge Planning Comments: CM called patient (per Covid positive protocol) to discuss discharge needs. I informed her that I spoke with Geovanna in inpatient rehab ad she had completed the end of her inpatient rehab and suggests a skilled facility if needed. She states that she feels she does need a skilled facility at this time. States when she got home, she could not even get out of the car due to weakness. States she lives alone and would need to be able to care for herself. I discussed all the skilled facilities with her and she states she will go to which ever one will take a covid positive patient. I spoke with Brittney Aviles, liaison for [place] and [place] and she states that her facilities will not take a covid positive patient. The only one she has is [facility] in . I spoke with Claribel and she states that [facility] in [place] will accept Covid positive patients. She will check with [facility]. I faxed her a face sheet so they can run insurance. CM will continue to follow and assist with discharge planning/needs. Registered Nurse Cardiac: [facility] Initial Assessment Updated by [id number]: Miladys Will on 04/23/20 2:32 pm * Is the patient Alert and Oriented? Yes * PCP Dr. Leal * Pharmacy [facility] * Preadmission Environment Home Alone * ADLs Partial Dependent * Partial ADLs (Assistance needed) Ambulation * Equipment Cane Glucometer Walker * List name and contact numbers for known caregivers / representatives who currently or will assist patient after discharge: Jenny aCrpenter - [phone] * Verbal permission to speak to the caregivers and representatives has been obtained from the patient. Yes * Community resources currently utilized Home Health * Please name any agencies selected above. Care 4 [facility] * Additional services required to return to the preadmission environment? Yes * Can the patient safely return to the preadmission environment? No * Has this patient been hospitalized within the prior 30 days at any hospital? Yes Last DP export: 05/14/20 1:38 p Patient Name: DON CARPENTER Page 86829 at 1205 All edits/amendments must be made on the electronic document DICTATION DATE: 05/15/20 1205 COMMUNITY ASSOCIATION MANAGER: NIKOS 05/15/20 1205 RPT#: [id number] DC DATE: STATUS: ADM IN [facility] [address] [place] [address] END OF REPORT
[2020-05-15 12:12] LABS: ALBUMIN 2.5 g/dL (3.4-5.0); ALKALINE PHOSPHATASE 84 U/L (30-120); ALT (SGPT) 129 U/L (10-68); CALC OSMOLALITY 280 mosm/kg (275-300); CALCIUM 8.6 mg/dL (8.5-10.1); CARBON DIOXIDE 29.7 mmol/L (21.0-32.0); CHLORIDE - SERUM 105 mmol/L (98-107); CREATININE - SERUM 0.4 mg/dL (0.6-1.3); GLUCOSE 131 mg/dL (74-106); MAGNESIUM - SERUM 1.5 mg/dL (1.8-2.4); POTASSIUM - SERUM 3.8 mmol/L (3.5-5.1); PROTEIN - SERUM 6.9 g/dL (6.4-8.2); SODIUM 139 mmol/L (136-145); UREA NITROGEN 15 mg/dL (7-18); eGFR NON AFRICAN AMERICAN > 90 mL/min (90-120)
[2020-05-15 12:27] VITALS: BP 125/75
--- NOTE | 2020-05-15 15:13 | NUR ---
I have reviewed this patient and I concur with the Shift Assessment completed by the Licensed Practical Nurse today this shift.
--- NOTE | 2020-05-15 16:47 | MORECARE ---
CASE MANAGEMENT DISCHARGE SUMMARY PATIENT: DON CARPENTER UNIT: [id number] ADM DATE: 04/19/20 AGE: 60 : 62 SEX: F ROOM/BED: D.2130 AUTHOR: JIA GONZALEZ PHYSICIAN: REFERRING PHYSICIAN: LUIS PIERCE MD DATE OF SERVICE: 05/15/20 Discharge Plan Patient Name: DON CARPENTER Facility: [facility]:[place] : 1960 Planned Disposition: Shelter Facility Anticipated Discharge Date: Discharge Date: Expected LOS: Initial Reviewer: [email or web address] Initial Review Date: 04/23/2020 Generated: 05/15/20 5:46 pm Comments DCP- Discharge Planning Updated by [id number]: Renee Fajardo on 05/15/20 3:[address] 1430: DANYELL contacted [employer] for progress on authorization and she states their business officer, Joyce is contacting the insurance company every day, in the afternoon. Verified with Trisha that she has the PASSAR information and she said she has it. DANYELL will continue to follow up. DANYELL left a message with auto service representative of [facility], regarding insurance authorization for admission. CM left contact number. Await CB. DCP- Discharge Planning Updated by [id number]: Kinsey Coley on 05/14/20 1:[address] CM called Joyce at [facility] about authorization form ins. Joyce states she has not received confirmation yet. States she will call them to expedite results. DANYELL will continue to assist in DC planning. Kinsey Coley DCP- Discharge Planning Updated by [id number]: Kinsey Coley on 05/14/20 10:[address] Patient Name: DON CARPENTER Admission Status: ER Accout number: [id number] Admission Date: 04-19-2020 : 1960 Admission Diagnosis:ADULT FAILURE TO THRIVE Attending: LUIS STANTNO Current LOS: 25 Anticipated DC Date: Planned Disposition: Shelter Facility Primary Insurance: [employer] INS EXCHANGE Discharge Planning Comments: DANYELL called Joyce at [facility] at [phone] to follow up about the pending authorization from insurance. Joyce states that she has not received anything from the insurance company yet. States CM can call back this afternoon. Cm will call back this afternoon to see if authorization has been approved. Kinsey Coley Supervisor Rolling Room: Kinsey Coley DCP- Discharge Planning Updated by [id number]: Kinsey Coley on 05/13/20 1:[address] Patient Name: DON CARPENTER Admission Status: ER Accout number: [id number] Admission Date: 04-19-2020 : 1960 Admission Diagnosis:ADULT FAILURE TO THRIVE Attending: LUIS STANTON Current LOS: 24 Anticipated DC Date: Planned Disposition: Shelter Facility Primary Insurance: [employer] INS EXCHANGE Discharge Planning Comments: CM called Joyce at [facility] at [phone] about insurance authorization. Joyce states that she called the insurance company and the auth is still pending. States it should be finalized this afternoon or tomorrow. CM will continue to assist in dc planning/needs. Supervisor Rolling Room: Kinsey Coley DCP- Discharge Planning Updated by [id number]: Miladys Will on 05/08/20 12:[address] Called [employer] and corrected mistake made on initial RASHID and refaxed. CM will continue to follow and assist with discharge planning/needs. DCP- Discharge Planning Updated by [email or web address]: Kinsey Coley on 05/07/20 8:[address] CM met with Beulah ([phone]) from [facility]. She states the facility will accept the patient and she has auth from insurance pending RASHID. States the facility will right off the deductible so that the patient will have access to rehab services. CM spoke with patient about accepting facilities. The patient wishes to be as close to [facility]. CM stated that the closest accepting facility is [place]. The patient is tearful, but in agreement for the opportunity for rehab. The patient will need to be transported by ambulance with COVID isolation. Kinsey Coley DCP- Discharge Planning Updated by [id number]: Kinsey Coley on 05/07/20 7:[address] Cm called pt room and spoke with patient about DC plan. CM provided details about copay and extermination supervisor CYNTHIA. Patient states she knows she can not go home. States her children will not help her. They live out of town and are not able to assist her at home. States she understands she may need to go into long-term care and is in agreement. CM will continue to assist as needed. Kinseyhilary Coley DCP- Discharge Planning Updated by [id number]: Kinsey Raymond on 05/06/20 7:[address] Patient Name: DON CARPENTER Encounter No: [id number] : 1960 Primary Insurance: [employer] INS EXCHANGE Anticipated DC Date: Planned Disposition: Shelter Facility External Planned Provider: : LATE ENTRY ASSESSMENT COMPLETED 05/03 DCP follow-up note: CM called [facility] call center at [phone] for resources and left message for return phone call. Will await return call. Called Beulah at [facility] at [phone] that says she has 2 potential facilities that is taking covid patients with a large body habitus. She states she will call back with further information. Case management will follow and assist as needed. Kinsey Raymond 05/06/20 Received call from Beulah stating the patients insurance will require a 2700 dollar copay, or she can attempt to apply for long-term Medicaid. CM attempted to call pt room several times but unable to get pt to answer the phone. Jonas from [facility] states he will come by the facility tomorrow with Beulah and assist in placement. DCP- Discharge Planning Updated by [id number]: Renee Fajardo on 05/02/20 3:[address] Per Brittney, none of her facilities can accept patient due to her weight and COVID diagnosis. CM will attempt to place again, tomorrow. DCP- Discharge Planning Updated by [id number]: Renee Fajardo on 05/01/20 1:[address] CM contacted Brittney and faxed required information for SNF placement @[facility]. DANYELL revisited patient via phone, she is tearful and worried about the possibility of cancer. She states she occasionally has vaginal bleeding and was to be scheduled for OP surgery, by Dr. Gage. Patient is in agreement for a SNF stay, followed by returning home with [facility]. CM encouraged patient to be OOB at least three times/day and walk in her room. Patent states she used a RW at home. CM requested a RW be brought to her room by PT. Instructed patient to wait on her nurse, to be in the room before she attempts to use it. CM notified Roma Kirkpatrick APN, of patient's emotional state. Attempted to contact patient's daughter, Jenny Burns ([phone]), but VM was full and no answer. Patient is concerned about her home and car and has no one to check on it. CM will continue to follow. DCP- Discharge Planning Updated by [id number]: Kinsey Coley on 04/30/20 12:[address] Spoke to Claribel who states the insurance is out of network with her facilities. Spoke to Brittney who stated she will review the clinicals and get back with CM with determination. Kinsey STERLING,RN,CM DCP- Discharge Planning Updated by [id number]: Kinsey Coley on 04/30/20 10:[address] Cm called Jamari at [facility] for determination. Jamari states they are unable to accept covid positives, and they can not provide care with the patient's weight requirements. Kinsey STERLING,RN,CM DCP- Discharge Planning Updated by [id number]: Kinsey Coley on 04/29/20 12:[address] CM SPOKE WITH JAMARI FROM [place] [phone] ABOUT REFERRAL AND FAXED CLINICALS. JAMARI STATED HE WOULD PROVIDE DETERMINIATION BY TOMORROW KINSEY COLEY DCP- Discharge Planning Updated by [email or web address]: Renee Fajardo on 04/26/20 11:[address] 1200: [facility] will re-evaluate 04/29. CM contacted Jonas Calvillo, with [facility]. Faxed required information and gave verbal report. Awaiting CB. DCP- Discharge Planning Updated by [email or web address]: Miladys Will on 04/24/20 6:[address] I received a call from Claribel with [facility]. Claribel states that patient's insurance is [employer] and they are not in network with any of their facilities. CM will continue to attempt to find a SNF in network. DCP- Discharge Planning Updated by [email or web address]: Miladys Will on 04/23/20 1:[address] Patient Name: DON CARPENTER Admission Status: ER Accout number: [id number] Admission Date: 04-19-2020 : 1960 Admission Diagnosis:ADULT FAILURE TO THRIVE Attending: LUIS STANTON Current LOS: 4 Anticipated DC Date: Planned Disposition: Shelter Facility Primary Insurance: [employer] INS EXCHANGE Discharge Planning Comments: CM called patient (per Covid positive protocol) to discuss discharge needs. I informed her that I spoke with Geovanna in inpatient rehab ad she had completed the end of her inpatient rehab and suggests a skilled facility if needed. She states that she feels she does need a skilled facility at this time. States when she got home, she could not even get out of the car due to weakness. States she lives alone and would need to be able to care for herself. I discussed all the skilled facilities with her and she states she will go to which ever one will take a covid positive patient. I spoke with Brittney Aviles, liaison for [place] [place] and she states that her facilities will not take a covid positive patient. The only one she has is [facility] in . I spoke with Claribel and she states that [facility] in [place] will accept Covid positive patients. She will check with [facility]. I faxed her a face sheet so they can run insurance. CM will continue to follow and assist with discharge planning/needs. Supervisor Rolling Room: Miladys Suman DCPIA - Discharge Planning Initial Assessment Updated by [id number]: Miladys Dawkinszenaida on 04/23/20 2:32 pm * Is the patient Alert and Oriented? Yes * PCP Dr. Leal * Pharmacy [facility] * Preadmission Environment Home Alone * ADLs Partial Dependent * Partial ADLs (Assistance needed) Ambulation * Equipment Cane Glucometer Walker * List name and contact numbers for known caregivers / representatives who currently or will assist patient after discharge: Jenny Carpenter - [phone] * Verbal permission to speak to the caregivers and representatives has been obtained from the patient. Yes * Community resources currently utilized Home Health * Please name any agencies selected above. [facility] * Additional services required to return to the preadmission environment? Yes * Can the patient safely return to the preadmission environment? No * Has this patient been hospitalized within the prior 30 days at any hospital? Yes Last DP export: 05/15/20 11:05 a Patient Name: DON CARPENTER Page [id number] at 1647 All edits/amendments must be made on the electronic document DICTATION DATE: 05/15/201646 LANDSCAPE MAINTENANCE INTERNSHIP: NIKOS 05/15/201646 RPT#: [id number] DC DATE: STATUS: ADM IN [facility] [address] [place] [address] END OF REPORT
--- NOTE | 2020-05-15 19:30 | NUR ---
PT IN BED, AAO X 3, RESP EVEN AND UNLABORED, NO DISTRESS NOTED, CL IN REACH,SR UP X 2.
[2020-05-15 20:00] VITALS: BP 112/63
[2020-05-16] VITALS: BP 112/65
--- NOTE | 2020-05-16 03:09 | NUR ---
I have reviewed this patient and I concur with the Shift Assessment completed by the Licensed Practical Nurse today this shift.
[2020-05-16 04:00] VITALS: BP 105/66
[2020-05-16 08:00] VITALS: BP 109/73
[2020-05-16 08:10] VITALS: BP 109/73
--- NOTE | 2020-05-16 09:22 | NUR ---
ASSISTED PT TO BEDPAN. NO BM BUT DID VOID. CLEANED AND POSITIONED FOR BREAKFAST. MEDS GIVEN.
--- NOTE | 2020-05-16 12:46 | MORECARE ---
CASE MANAGEMENT DISCHARGE SUMMARY PATIENT: DON CARPENTER UNIT: [id number] ADM DATE: 04/19/20 AGE: 60 : 62 SEX: F ROOM/BED: D.2130 AUTHOR: JIA GONZALEZ PHYSICIAN: REFERRING PHYSICIAN: LUIS PIERCE MD DATE OF SERVICE: 05/16/20 Discharge Plan Patient Name: DON CARPENTER Facility: [facility]:[place] : 1960 Planned Disposition: [facility] Anticipated Discharge Date: Discharge Date: Expected LOS: Initial Reviewer: [email or web address] Initial Review Date: 04/23/2020 Generated: 05/16/20 1:45 pm Comments DCP- Discharge Planning Updated by [id number]: Kinsey Coley on 05/16/20 11:[address] Patient Name: DON CARPENTER Encounter No: [id number] : 1960 Primary Insurance: [employer] INS EXCHANGE Anticipated DC Date: Planned Disposition: [facility] Facility External Planned Provider: : DCP follow-up note: CM called Beulah Clinical liaison, for [facility]. stated that CM called [facility] to follow up with the auth. Flori from [employer] states that the auth has not been sent for the nurse to review. Stated the auth was sent for the nurse to review today. Hoping to get it expedited today. Beulah states they are holding her bed, and will admit when auth is provided. No changes to plan. Case management will follow and assist as needed. Kinsey Coley MSN,RN,CM DCP- Discharge Planning Updated by [id number]: Renee Fajardo on 05/15/20 3:[address] 1430: CM contacted [employer] for progress on authorization and she states their business officer, Joyce is contacting the insurance company every day, in the afternoon. Verified with Trisha that she has the PASSAR information and she said she has it. CM will continue to follow up. DANYELL left a message with sales representative printing paper of [facility], regarding insurance authorization for admission. CM left contact number. Await CB. DCP- Discharge Planning Updated by [id number]: Kinsey Coley on 05/14/20 1:[address] CM called Joyce at [facility] about authorization form ins. Joyce states she has not received confirmation yet. States she will call them to expedite results. CM will continue to assist in DC planning. Kinsey Coley DCP- Discharge Planning Updated by [id number]: Kinsey Coley on 05/14/20 10:[address] Patient Name: DON CARPENTER Admission Status: ER Accout number: [id number] Admission Date: 04-19-2020 : 1960 Admission Diagnosis:ADULT FAILURE TO THRIVE Attending: LUIS STANTON Current LOS: 25 Anticipated DC Date: Planned Disposition: [facility] Primary Insurance: [employer] INS EXCHANGE Discharge Planning Comments: CM called Joyce at [facility] at [phone] to follow up about the pending authorization from insurance. Joyce states that she has not received anything from the insurance company yet. States CM can call back this afternoon. Cm will call back this afternoon to see if authorization has been approved. Kinsey Coley Driller'S Offsider: Kinsey Coley DCP- Discharge Planning Updated by [id number]: Kinsey Coley on 05/13/20 1:[address] Patient Name: DON CARPENTER Admission Status: ER Accout number: [id number] Admission Date: 04-19-2020 : 1960 Admission Diagnosis:ADULT FAILURE TO THRIVE Attending: LUIS STANTON Current LOS: 24 Anticipated DC Date: Planned Disposition: [facility] Primary Insurance: [employer] INS EXCHANGE Discharge Planning Comments: CM called Joyce at [facility] at [phone] about insurance authorization. Joyce states that she called the insurance company and the auth is still pending. States it should be finalized this afternoon or tomorrow. CM will continue to assist in dc planning/needs. Driller'S Offsider: Kinsey Coley DCP- Discharge Planning Updated by [id number]: Miladys Will on 05/08/20 12:[address] Called [facility] and corrected mistake made on initial RASHID and refaxed. CM will continue to follow and assist with discharge planning/needs. DCP- Discharge Planning Updated by [id number]: Kinsey Cloey on 05/07/20 8:[address] CM met with Beulah ([phone]) from [facility]. She states the facility will accept the patient and she has auth from insurance pending RASHID. States the facility will right off the deductible so that the patient will have access to rehab services. CM spoke with patient about accepting facilities. The patient wishes to be as close to [facility]. CM stated that the closest accepting facility is [place]. The patient is tearful, but in agreement for the opportunity for rehab. The patient will need to be transported by ambulance with COVID isolation. Kinsey Coley DCP- Discharge Planning Updated by [id number]: Kinsey Coley on 05/07/20 7:[address] Cm called pt room and spoke with patient about DC plan. CM provided details about copay and mcc CYNTHIA. Patient states she knows she can not go home. States her children will not help her. They live out of town and are not able to assist her at home. States she understands she may need to go into long-term care and is in agreement. CM will continue to assist as needed. Kinsey Coley DCP- Discharge Planning Updated by [id number]: Kinsey Coley on 05/06/20 7:[address] Patient Name: DON CARPENTER Encounter No: [id number] : 1960 Primary Insurance: [employer] INS EXCHANGE Anticipated DC Date: Planned Disposition: [facility] Facility External Planned Provider: : LATE ENTRY ASSESSMENT COMPLETED 05/03 DCP follow-up note: CM called COVID call center at [phone] for resources and left message for return phone call. Will await return call. Called Beulah at [facility] at [phone] that says she has 2 potential facilities that is taking covid patients with a large body habitus. She states she will call back with further information. Case management will follow and assist as needed. Kinsey Coley 05/06/20 Received call from Beulah stating the patients insurance will require a 2700 dollar copay, or she can attempt to apply for long-term Medicaid. CM attempted to call pt room several times but unable to get pt to answer the phone. Jonas from [facility] states he will come by the facility tomorrow with Beulah and assist in placement. DCP- Discharge Planning Updated by [id number]: Renee Clementelroy on 05/02/20 3:[address] Per Brittney, none of her facilities can accept patient due to her weight and COVID diagnosis. CM will attempt to place again, tomorrow. DCP- Discharge Planning Updated by [id number]: Renee Clementelroy on 05/01/20 1:[address] CM contacted Brittney and faxed required information for SNF placement [facility]. CM revisited patient via phone, she is tearful and worried about the possibility of cancer. She states she occasionally has vaginal bleeding and was to be scheduled for OP surgery, by Dr. Gage. Patient is in agreement for a SNF stay, followed by returning home with [facility]. CM encouraged patient to be OOB at least three times/day and walk in her room. Patent states she used a RW at home. CM requested a RW be brought to her room by PT. Instructed patient to wait on her nurse, to be in the room before she attempts to use it. CM notified Roma Kirkpatrick APN, of patient's emotional state. Attempted to contact patient's daughter, Jenny Burns ([phone]), but VM was full and no answer. Patient is concerned about her home and car and has no one to check on it. CM will continue to follow. DCP- Discharge Planning Updated by [id number]: Kinsey Coley on 04/30/20 12:[address] Spoke to Claribel who states the insurance is out of network with her facilities. Spoke to Brittney who stated she will review the clinicals and get back with CM with determination. Kinsey STERLING,RN,CM DCP- Discharge Planning Updated by [id number]: Kinsey Coley on 04/30/20 10:[address] Cm called Jamari at [facility] [place] for determination. Jamari states they are unable to accept covid positives, and they can not provide care with the patient's weight requirements. Kinsey STERLING,RN,CM DCP- Discharge Planning Updated by [id number]: Kinsey Coley on 04/29/20 12:[address] CM SPOKE WITH JAMARI FROM [place] [phone] ABOUT REFERRAL AND FAXED CLINICALS. JAMARI STATED HE WOULD PROVIDE DETERMINIATION BY TOMORROW KINSEY COLEY DCP- Discharge Planning Updated by [id number]: Renee Fajardo on 04/26/20 11:[address] 1200: CB from [facility], unable to accept today, will re-evaluate 04/29. CM contacted Jonas Calvillo, with [facility]. Faxed required information and gave verbal report. Awaiting CB. DCP- Discharge Planning Updated by [id number]: Miladys Will on 04/24/20 6:[address] I received a call from Claribel with [facility]. Claribel states that patient's insurance is [employer] and they are not in network with any of their facilities. CM will continue to attempt to find a SNF in network. DCP- Discharge Planning Updated by [id number]: Miladys Suman on 04/23/20 1:[address] Patient Name: DON CARPENTER Admission Status: ER Accout number: [id number] Admission Date: 04-19-2020 : 1960 Admission Diagnosis:ADULT FAILURE TO THRIVE Attending: LUIS STANTON Current LOS: 4 Anticipated DC Date: Planned Disposition: [facility] Facility Primary Insurance: [employer] [facility] INS EXCHANGE Discharge Planning Comments: CM called patient (per Covid positive protocol) to discuss discharge needs. I informed her that I spoke with Geovanna in inpatient rehab ad she had completed the end of her inpatient rehab and suggests a skilled facility if needed. She states that she feels she does need a skilled facility at this time. States when she got home, she could not even get out of the car due to weakness. States she lives alone and would need to be able to care for herself. I discussed all the skilled facilities with her and she states she will go to which ever one will take a covid positive patient. I spoke with Brittney Aviles, liaison for [place] and [place] and she states that her facilities will not take a covid positive patient. The only one she has is [facility] in . I spoke with Claribel and she states that [facility] in [place] will accept Covid positive patients. She will check with [facility]. I faxed her a face sheet so they can run insurance. CM will continue to follow and assist with discharge planning/needs. Driller'S Offsider: Miladys Will DCPIA - Discharge Planning Initial Assessment Updated by [id number]: Miladys Suman on 04/23/20 2:32 pm * Is the patient Alert and Oriented? Yes * PCP Dr. Leal * Pharmacy [facility] * Preadmission Environment Home Alone * ADLs Partial Dependent * Partial ADLs (Assistance needed) Ambulation * Equipment Cane Glucometer Walker * List name and contact numbers for known caregivers / representatives who currently or will assist patient after discharge: Jenny Bassem - [phone] * Verbal permission to speak to the caregivers and representatives has been obtained from the patient. Yes * Community resources currently utilized Home Health * Please name any agencies selected above. [facility] * Additional services required to return to the preadmission environment? Yes * Can the patient safely return to the preadmission environment? No * Has this patient been hospitalized within the prior 30 days at any hospital? Yes Last DP export: 05/15/20 3:47 p Patient Name: DON CARPENTER Page 36381 at 1246 All edits/amendments must be made on the electronic document DICTATION DATE: 05/16/201244 SENIOR MAINTENANCE MACHINIST: NIKOS 05/16/201244 RPT#: [id number] DC DATE: STATUS: ADM IN [facility] [address] [place] [address] END OF REPORT
--- NOTE | 2020-05-16 13:13 | NUR ---
Nutrition Follow-up: Pt in droplet isolation; covid-19+. Nursing reports no issues. Ate ~50% of breakfast this AM. Diet: Diabetic Wt: 328.4# (04/24) Labs reviewed Meds noted: Florajen, Pepcid, KDur, zinc sulfate, vit D, vit C, electrolyte protocol -Encourage PO intake and honor food preferences within diet restrictions. -Need new wt if possible; noted daily wts ordered. -RD following.
--- NOTE | 2020-05-16 19:30 | NUR ---
PT IN BED, AAO X 3, RESP EVEN AND UNLABORED, NO DISTRESS NOTED, CL IN REACH, SR UP X 2.
[2020-05-16 20:00] VITALS: BP 115/67
[2020-05-17] VITALS: BP 142/72
--- NOTE | 2020-05-17 00:39 | NUR ---
PT IN BED, AAO X 3, RESP EVEN AND UNLABORED, NO DISTRESS NOTED, CL IN REACH, SR UP X 2.
[2020-05-17 04:00] VITALS: BP 102/68
--- NOTE | 2020-05-17 07:37 | NUR ---
PT RECEIVED AWAKE AND ALERT IN BED. NO COMPLAINTS OR NEEDS AT PRESENT.
--- NOTE | 2020-05-17 10:23 | MORECARE ---
CASE MANAGEMENT DISCHARGE SUMMARY PATIENT: DON CARPENTER UNIT: [id number] ADM DATE: 04/19/20 AGE: 60 : 62 SEX: F ROOM/BED: D.1465 AUTHOR: LISA,DOC PHYSICIAN: REFERRING PHYSICIAN: LUIS PIERCE MD DATE OF SERVICE: 05/17/20 Discharge Plan Patient Name: DON CARPENTER Facility: [facility]:[place] : 1960 Planned Disposition: Custodial Facility Anticipated Discharge Date: Discharge Date: Expected LOS: Initial Reviewer: [email or web address] Initial Review Date: 04/23/2020 Generated: 05/17/20 11:22 am Comments DCP- Discharge Planning Updated by [email or web address]: Kinsey Coley on 05/17/20 9:[address] CM called Joyce at [facility] at [phone] to follow up about the pending authorization from insurance. Joyce states that she has not received anything from the insurance company yet. Joyce states they are filling up, and may not have a bed for much longer. DANYELL states she will speak with the insurance company again to see how to expedite the auth. Kinsey Coley DCP- Discharge Planning Updated by [id number]: Kinsey Coley on 05/16/20 11:[address] Patient Name: DON CARPENTER Encounter No: [id number] : 1960 Primary Insurance: [employer] INS EXCHANGE Anticipated DC Date: Planned Disposition: Custodial Facility External Planned Provider: : DCP follow-up note: CM called Beulah, Clinical liaison, for [facility]. stated that CM called [facility] to follow up with the auth. Flori from [employer] states that the auth has not been sent for the nurse to review. Stated the auth was sent for the nurse to review today. Hoping to get it expedited today. Beulah states they are holding her bed, and will admit when auth is provided. No changes to plan. Case management will follow and assist as needed. Kinsey Coley MSN,RN,CM DCP- Discharge Planning Updated by [id number]: Renee Fajardo on 05/15/20 3:[address] 1430: CM contacted [employer] for progress on authorization and she states their business officer, Joyce is contacting the insurance company every day, in the afternoon. Verified with Trisha that she has the PASSAR information and she said she has it. CM will continue to follow up. DANYELL left a message with exhibit display representative of [facility], regarding insurance authorization for admission. CM left contact number. Await CB. DCP- Discharge Planning Updated by [email or web address]: Kinsey Coley on 05/14/20 1:[address] CM called Joyce at [facility] about authorization form ins. Joyce states she has not received confirmation yet. States she will call them to expedite results. CM will continue to assist in DC planning. Kinsey Coley DCP- Discharge Planning Updated by [email or web address]: Kinsey Coley on 05/14/20 10:[address] Patient Name: DON CARPENTER Admission Status: ER Accout number: [id number] Admission Date: 04-19-2020 : 1960 Admission Diagnosis:ADULT FAILURE TO THRIVE Attending: LUIS STANTON Current LOS: 25 Anticipated DC Date: Planned Disposition: Custodial Facility Primary Insurance: [employer] INS EXCHANGE Discharge Planning Comments: CM called Joyce at [facility] at [phone] to follow up about the pending authorization from insurance. Joyce states that she has not received anything from the insurance company yet. States CM can call back this afternoon. Cm will call back this afternoon to see if authorization has been approved. Kinsey Coley Metal Painter: Kinsey Coley DCP- Discharge Planning Updated by [id number]: Kinsey Coley on 05/13/20 1:[address] Patient Name: DON CARPENTER Admission Status: ER Accout number: [id number] Admission Date: 04-19-2020 : 1960 Admission Diagnosis:ADULT FAILURE TO THRIVE Attending: LUIS STANTON Current LOS: 24 Anticipated DC Date: Planned Disposition: Custodial Facility Primary Insurance: [employer] INS EXCHANGE Discharge Planning Comments: CM called Joyce at [facility] at [phone] about insurance authorization. Joyce states that she called the insurance company and the auth is still pending. States it should be finalized this afternoon or tomorrow. CM will continue to assist in dc planning/needs. Metal Painter: Kinsey Coley DCP- Discharge Planning Updated by [email or web address]: Miladys Will on 05/08/20 12:[address] Called [facility] and corrected mistake made on initial [facility] and refaxed. CM will continue to follow and assist with discharge planning/needs. DCP- Discharge Planning Updated by [id number]: Kinsey Coley on 05/07/20 8:[address] CM met with Beulah ([phone]) from [facility]. She states the facility will accept the patient and she has auth from insurance pending RASHID. States the facility will right off the deductible so that the patient will have access to rehab services. CM spoke with patient about accepting facilities. The patient wishes to be as close to [facility]. CM stated that the closest accepting facility is [place]. The patient is tearful, but in agreement for the opportunity for rehab. The patient will need to be transported by ambulance with [facility] isolation. Kinsey Coley DCP- Discharge Planning Updated by [id number]: Kinsey Coley on 05/07/20 7:[address] Cm called pt room and spoke with patient about DC plan. CM provided details about copay and snf CYNTHIA. Patient states she knows she can not go home. States her children will not help her. They live out of town and are not able to assist her at home. States she understands she may need to go into long-term care and is in agreement. CM will continue to assist as needed. Kinsey Coley DCP- Discharge Planning Updated by [id number]: Kinsey Coley on 05/06/20 7:[address] Patient Name: DON CARPENTER Encounter No: [id number] : 1960 Primary Insurance: [employer] INS EXCHANGE Anticipated DC Date: Planned Disposition: Custodial Facility External Planned Provider: : LATE ENTRY ASSESSMENT COMPLETED 05/03 DCP follow-up note: CM called [facility] call center at [phone] for resources and left message for return phone call. Will await return call. Called Beulah at [facility] at [phone] that says she has 2 potential facilities that is taking covid patients with a large body habitus. She states she will call back with further information. Case management will follow and assist as needed. Kinsey Coley 05/06/20 Received call from Beulah stating the patients insurance will require a 2700 dollar copay, or she can attempt to apply for long-term Medicaid. CM attempted to call pt room several times but unable to get pt to answer the phone. Jonas from [facility] states he will come by the facility tomorrow with Beulah and assist in placement. DCP- Discharge Planning Updated by [id number]: Renee Fajardo on 05/02/20 3:[address] Per Brittney, none of her facilities can accept patient due to her weight and COVID diagnosis. CM will attempt to place again, tomorrow. DCP- Discharge Planning Updated by [id number]: Renee Fajardo on 05/01/20 1:[address] CM contacted Brittney and faxed required information for SNF placement @[facility]. CM revisited patient via phone, she is tearful and worried about the possibility of cancer. She states she occasionally has vaginal bleeding and was to be scheduled for OP surgery, by Dr. Gage. Patient is in agreement for a SNF stay, followed by returning home with [facility]. CM encouraged patient to be OOB at least three times/day and walk in her room. Patent states she used a RW at home. CM requested a RW be brought to her room by PT. Instructed patient to wait on her nurse, to be in the room before she attempts to use it. CM notified Roma Kirkpatrick APN, of patient's emotional state. Attempted to contact patient's daughter, Jenny Burns ([phone]), but VM was full and no answer. Patient is concerned about her home and car and has no one to check on it. CM will continue to follow. DCP- Discharge Planning Updated by [id number]: Kinsey Coley on 04/30/20 12:[address] Spoke to Claribel who states the insurance is out of network with her facilities. Spoke to Brittney who stated she will review the clinicals and get back with CM with determination. Kinsey Coley MSN,RN,CM DCP- Discharge Planning Updated by [email or web address]: Kinsey Coley on 04/30/20 10:[address] Cm called Jamari at [facility] for determination. Jamari states they are unable to accept covid positives, and they can not provide care with the patient's weight requirements. Kinsey STERLING,RN,CM DCP- Discharge Planning Updated by [id number]: Kinsey Coley on 04/29/20 12:[address] CM SPOKE WITH JAMARI FROM [place] [phone] ABOUT REFERRAL AND FAXED CLINICALS. JAMARI STATED HE WOULD PROVIDE DETERMINIATION BY TOMORROW KINSEY COLEY DCP- Discharge Planning Updated by [id number]: Renee Fajardo on 04/26/20 11:[address] 1200: CB from [facility], unable to accept today, will re-evaluate 04/29. CM contacted [facility], with [facility] SNF. Faxed required information and gave verbal report. Awaiting CB. DCP- Discharge Planning Updated by [id number]: Miladys Will on 04/24/20 6:[address] I received a call from Claribel with [facility]. Claribel states that patient's insurance is [employer] and they are not in network with any of their facilities. CM will continue to attempt to find a SNF in network. DCP- Discharge Planning Updated by [id number]: Miladys Will on 04/23/20 1:[address] Patient Name: DON CARPENTER Admission Status: ER Accout number: [id number] Admission Date: 04-19-2020 : 1960 Admission Diagnosis:ADULT FAILURE TO THRIVE Attending: LUIS STANTON Current LOS: 4 Anticipated DC Date: Planned Disposition: Custodial Facility Primary Insurance: [employer] INS EXCHANGE Discharge Planning Comments: CM called patient (per Covid positive protocol) to discuss discharge needs. I informed her that I spoke with Geovanna in inpatient rehab ad she had completed the end of her inpatient rehab and suggests a skilled facility if needed. She states that she feels she does need a skilled facility at this time. States when she got home, she could not even get out of the car due to weakness. States she lives alone and would need to be able to care for herself. I discussed all the skilled facilities with her and she states she will go to which ever one will take a covid positive patient. I spoke with Brittney Aviles, liaison for [facility] [place] and she states that her facilities will not take a covid positive patient. The only one she has is [facility] in . I spoke with Claribel and she states that [facility] in [place] will accept Covid positive patients. She will check with [facility]. I faxed her a face sheet so they can run insurance. CM will continue to follow and assist with discharge planning/needs. Metal Painter: Miladys Will DCPIA - Discharge Planning Initial Assessment Updated by [email or web address]: Miladys Will on 04/23/20 2:32 pm * Is the patient Alert and Oriented? Yes * PCP Dr. Leal * Pharmacy [facility] * Preadmission Environment Home Alone * ADLs Partial Dependent * Partial ADLs (Assistance needed) Ambulation * Equipment Cane Glucometer Walker * List name and contact numbers for known caregivers / representatives who currently or will assist patient after discharge: Jenny Carpenter - [phone] * Verbal permission to speak to the caregivers and representatives has been obtained from the patient. Yes * Community resources currently utilized Home Health * Please name any agencies selected above. [facility] * Additional services required to return to the preadmission environment? Yes * Can the patient safely return to the preadmission environment? No * Has this patient been hospitalized within the prior 30 days at any hospital? Yes Last DP export: 05/16/20 11:46 a Patient Name: DON CARPENTER Page [id number] at 1023 All edits/amendments must be made on the electronic document DICTATION DATE: 05/17/20 1022 SEWER SEPARATION DESIGNER: NIKOS 05/17/20 1022 RPT#: [id number] DC DATE: STATUS: ADM IN [facility] [address] [place] [address] END OF REPORT
--- NOTE | 2020-05-17 13:30 | MORECARE ---
CASE MANAGEMENT DISCHARGE SUMMARY PATIENT: DON CARPENTER UNIT: [id number] ADM DATE: 04/19/20 AGE: 60 : 62 SEX: F ROOM/BED: D.1315 AUTHOR: LISA,DOC PHYSICIAN: REFERRING PHYSICIAN: LUIS PIERCE MD DATE OF SERVICE: 05/17/20 Discharge Plan Patient Name: DON CARPENTER Facility: [facility]:[place] : 1960 Planned Disposition: [facility] Facility Anticipated Discharge Date: Discharge Date: Expected LOS: Initial Reviewer: [id number] Initial Review Date: 04/23/2020 Generated: 05/17/20 2:29 pm Comments DCP- Discharge Planning Updated by [id number]: Kinsey Coley on 05/17/20 12:[address] Cm called [facility] and spoke with Jose who transferred to Ronnie who then transferred the call to Flori. Flori stated the auth is in front of the nurse for review, and should hear back today!!! UBALDO explained that the pt may loose her bed if it is late this afternoon. Stated we have waited over 2 weeks for an auth. Flori relooked at the request and stated the nurse who is taking care of those auth is out today. UBALDO stated that person has the request for over 24 hours and UBALDO would like to speak with someone who can authorize a patient to go to a SNF. UBALDO asked to speak with the supervisors manager analytical. That manager analytical or is in a meeting and would not take the call. Flori states she will route this to her manager analytical. She took my name and number to have her employee communications manager me back today. Stated if I have not heard anything by 1 pm I would call back. UBALDO received a call from Austen at [phone] who states she has just approved the admission into [facility]. Ubaldo called Beulah a [facility] SNF for bed status. Beulah states she does not have a bed available but will facilitate in assisting in fnding one. States [facility] as bed opening. UBALDO called Austen back to update the status of the bed. UBALDO attempted to facilitate on procedure for transferring auth. Austen states to have the referral sent by the facility attention to her. States as soon as she receives it she will begin to work on it CM called Jonas at [facility] ([place], [place]) with the referral. Kinsey Coley DCP- Discharge Planning Updated by [email or web address]: Kinsey Coley on 05/17/20 9:[address] UBALDO called Joyce at [facility] at [phone] to follow up about the pending authorization from insurance. Joyce states that she has not received anything from the insurance company yet. Joyce states they are filling up, and may not have a bed for much longer. UBALDO states she will speak with the insurance company again to see how to expedite the auth. Kinsey Coley DCP- Discharge Planning Updated by [id number]: Kinsey Coley on 05/16/20 11:[address] Patient Name: DON CARPENTER Encounter No: [id number] : 1960 Primary Insurance: [employer] INS EXCHANGE Anticipated DC Date: Planned Disposition: [facility] Facility External Planned Provider: : DCP follow-up note: CM called Beulah Clinical liaison, for [facility]. stated that CM called [facility] to follow up with the auth. Flori from [employer] states that the auth has not been sent for the nurse to review. Stated the auth was sent for the nurse to review today. Hoping to get it expedited today. Beulah states they are holding her bed, and will admit when auth is provided. No changes to plan. Case management will follow and assist as needed. Kinsey Coley MSN,RN,CM DCP- Discharge Planning Updated by [id number]: Renee Fajardo on 05/15/20 3:[address] 1430: UBALDO contacted [employer] [facility] for progress on authorization and she states their business officer, Joyce is contacting the insurance company every day, in the afternoon. Verified with Trisha that she has the PASSAR information and she said she has it. UBALDO will continue to follow up. UBALDO left a message with customer care representative of [facility], regarding insurance authorization for admission. UBALDO left contact number. Await CB. DCP- Discharge Planning Updated by [id number]: Kinsey Coley on 05/14/20 1:[address] CM called Joyce at [facility] about authorization form ins. Joyce states she has not received confirmation yet. States she will call them to expedite results. CM will continue to assist in DC planning. Kinsey Coley DCP- Discharge Planning Updated by [id number]: Kinsey Coley on 05/14/20 10:[address] Patient Name: DON CARPENTER Admission Status: ER Accout number: [id number] Admission Date: 04-19-2020 : 1960 Admission Diagnosis:ADULT FAILURE TO THRIVE Attending: LUIS STANTON Current LOS: 25 Anticipated DC Date: Planned Disposition: Chcf Facility Primary Insurance: [employer] INS EXCHANGE Discharge Planning Comments: CM called Joyce at [facility] at [phone] to follow up about the pending authorization from insurance. Joyce states that she has not received anything from the insurance company yet. States CM can call back this afternoon. Cm will call back this afternoon to see if authorization has been approved. Kinsey Coley Bolt Header: Kinsey Coley DCP- Discharge Planning Updated by [id number]: Kinsey Coley on 05/13/20 1:[address] Patient Name: DON CARPENTER Admission Status: ER Accout number: [id number] Admission Date: 04-19-2020 : 1960 Admission Diagnosis:ADULT FAILURE TO THRIVE Attending: LUIS STANTON Current LOS: 24 Anticipated DC Date: Planned Disposition: [facility] Facility Primary Insurance: [employer] EXCHANGE Discharge Planning Comments: CM called Joyce at [facility] at [phone] about insurance authorization. Joyce states that she called the insurance company and the auth is still pending. States it should be finalized this afternoon or tomorrow. CM will continue to assist in dc planning/needs. Bolt Header: Kinsey Coley DCP- Discharge Planning Updated by [id number]: Miladys Will on 05/08/20 12:[address] Called Rashid schumacher and corrected mistake made on initial RASHID and refaxed. CM will continue to follow and assist with discharge planning/needs. DCP- Discharge Planning Updated by [id number]: Kinsey Coley on 05/07/20 8:[address] CM met with Beulah ([phone]) from [facility]. She states the facility will accept the patient and she has auth from insurance pending RASHID. States the facility will right off the deductible so that the patient will have access to rehab services. CM spoke with patient about accepting facilities. The patient wishes to be as close to [facility]. CM stated that the closest accepting facility is [place]. The patient is tearful, but in agreement for the opportunity for rehab. The patient will need to be transported by ambulance with COVID isolation. Kinsey Coley DCP- Discharge Planning Updated by [id number]: Kinsey Coley on 05/07/20 7:[address] Cm called pt room and spoke with patient about DC plan. CM provided details about copay and detention CYNTHIA. Patient states she knows she can not go home. States her children will not help her. They live out of town and are not able to assist her at home. States she understands she may need to go into long-term care and is in agreement. CM will continue to assist as needed. Kinsey Coley DCP- Discharge Planning Updated by [id number]: Kinsey Coley on 05/06/20 7:[address] Patient Name: DON CARPENTER Encounter No: [id number] : 1960 Primary Insurance: [employer] INS EXCHANGE Anticipated DC Date: Planned Disposition: [facility] Facility External Planned Provider: : LATE ENTRY ASSESSMENT COMPLETED 05/03 DCP follow-up note: CM called COVID call center at [phone] for resources and left message for return phone call. Will await return call. Called Beulah at [facility] at [phone] that says she has 2 potential facilities that is taking covid patients with a large body habitus. She states she will call back with further information. Case management will follow and assist as needed. Kinsey Coley 05/06/20 Received call from Beulah stating the patients insurance will require a 2700 dollar copay, or she can attempt to apply for long-term Medicaid. CM attempted to call pt room several times but unable to get pt to answer the phone. Jonas from [facility] states he will come by the facility tomorrow with Beulah and assist in placement. DCP- Discharge Planning Updated by [id number]: Renee Fajardo on 05/02/20 3:[address] Per Brittney, none of her facilities can accept patient due to her weight and COVID diagnosis. CM will attempt to place again, tomorrow. DCP- Discharge Planning Updated by [email or web address]: Renee Fajardo on 05/01/20 1:[address] CM contacted Brittney and faxed required information for SNF placement [facility]. CM revisited patient via phone, she is tearful and worried about the possibility of cancer. She states she occasionally has vaginal bleeding and was to be scheduled for OP surgery, by Dr. Gage. Patient is in agreement for a SNF stay, followed by returning home with [facility]. CM encouraged patient to be OOB at least three times/day and walk in her room. Patent states she used a RW at home. CM requested a RW be brought to her room by PT. Instructed patient to wait on her nurse, to be in the room before she attempts to use it. CM notified Roma Kirkpatrick APN, of patient's emotional state. Attempted to contact patient's daughter, Jenny Burns ([phone]), but VM was full and no answer. Patient is concerned about her home and car and has no one to check on it. CM will continue to follow. DCP- Discharge Planning Updated by [id number]: Kinsey Coley on 04/30/20 12:[address] Spoke to Claribel who states the insurance is out of network with her facilities. Spoke to Brittney who stated she will review the clinicals and get back with CM with determination. Kinsey STERLING,RN,CM DCP- Discharge Planning Updated by [email or web address]: Kinsey Coley on 04/30/20 10:[address] Cm called Jamari at [facility] for determination. Jamari states they are unable to accept covid positives, and they can not provide care with the patient's weight requirements. Kinsey STERLING,RN,CM DCP- Discharge Planning Updated by [id number]: Kinsey Coley on 04/29/20 12:[address] CM SPOKE WITH JAMARI FROM [phone] ABOUT REFERRAL AND FAXED CLINICALS. JAMARI STATED HE WOULD PROVIDE DETERMINIATION BY TOMORROW KINSEY COLEY DCP- Discharge Planning Updated by [email or web address]: Renee Scotty on 04/26/20 11:[address] 1200: CB from Jonas [facility], [facility], unable to accept today, will re-evaluate 04/29. CM contacted Jonas Calvillo, with [facility] SNF. Faxed required information and gave verbal report. Awaiting CB. DCP- Discharge Planning Updated by [id number]: Miladys Will on 04/24/20 6:[address] I received a call from Claribel with [facility] [employer]. Claribel states that patient's insurance is [employer] and they are not in network with any of their facilities. CM will continue to attempt to find a SNF in network. DCP- Discharge Planning Updated by [id number]: Miladys Dawkinszenaida on 04/23/20 1:[address] Patient Name: DON CARPENTER Admission Status: ER Accout number: [id number] Admission Date: 04-19-2020 : 1960 Admission Diagnosis:ADULT FAILURE TO THRIVE Attending: LUIS STANTON Current LOS: 4 Anticipated DC Date: Planned Disposition: [facility] Facility Primary Insurance: [employer] [facility] INS EXCHANGE Discharge Planning Comments: CM called patient (per Covid positive protocol) to discuss discharge needs. I informed her that I spoke with Geovanna in inpatient rehab ad she had completed the end of her inpatient rehab and suggests a skilled facility if needed. She states that she feels she does need a skilled facility at this time. States when she got home, she could not even get out of the car due to weakness. States she lives alone and would need to be able to care for herself. I discussed all the skilled facilities with her and she states she will go to which ever one will take a covid positive patient. I spoke with Brittney Aviles, liaison for [facility] and [facility] and she states that her facilities will not take a covid positive patient. The only one she has is [facility] . I spoke with Claribel and she states that [facility] in [place] will accept Covid positive patients. She will check with [facility]. I faxed her a face sheet so they can run insurance. CM will continue to follow and assist with discharge planning/needs. Bolt Header: Miladys Will DCPIA - Discharge Planning Initial Assessment Updated by [id number]: Miladys Will on 04/23/20 2:32 pm * Is the patient Alert and Oriented? Yes * PCP Dr. Leal * Pharmacy [facility] * Preadmission Environment Home Alone * ADLs Partial Dependent * Partial ADLs (Assistance needed) Ambulation * Equipment Cane Glucometer Walker * List name and contact numbers for known caregivers / representatives who currently or will assist patient after discharge: Jenny Carpenter - [phone] * Verbal permission to speak to the caregivers and representatives has been obtained from the patient. Yes * Community resources currently utilized Home Health * Please name any agencies selected above. [facility] * Additional services required to return to the preadmission environment? Yes * Can the patient safely return to the preadmission environment? No * Has this patient been hospitalized within the prior 30 days at any hospital? Yes Last DP export: 05/17/20 9:23 a Patient Name: DON CARPENTER Page [id number] at 1330 All edits/amendments must be made on the electronic document DICTATION DATE: 05/17/201329 CUSTOMER MARKETING MANAGER: NIKOS 05/17/201329 RPT#: [id number] DC DATE: STATUS: ADM IN [facility] [address] [place] [address] END OF REPORT
--- NOTE | 2020-05-17 13:38 | MORECARE ---
CASE MANAGEMENT DISCHARGE SUMMARY PATIENT: DON CARPENTER UNIT: [id number] ADM DATE: 04/19/20 AGE: 60 : 62 SEX: F ROOM/BED: D.5590 AUTHOR: LISA,DOC PHYSICIAN: REFERRING PHYSICIAN: LUIS PIERCE MD DATE OF SERVICE: 05/17/20 Discharge Plan Patient Name: DON CARPENTER Facility: [facility]:[place] : 1960 Planned Disposition: Shelter Facility Anticipated Discharge Date: Discharge Date: Expected LOS: Initial Reviewer: [id number] Initial Review Date: 04/23/2020 Generated: 05/17/20 2:37 pm Comments DCP- Discharge Planning Updated by [id number]: Kinsey Coley on 05/17/20 12:[address] Cm called [facility] and spoke with Jose who transferred to Ronnie who then transferred the call to Flori. Flori stated the auth is in front of the nurse for review, and should hear back today!!! UBALDO explained that the pt may loose her bed if it is late this afternoon. Stated we have waited over 2 weeks for an auth. Flori relooked at the request and stated the nurse who is taking care of those auth is out today. UBALDO stated that person has the request for over 24 hours and UBALDO would like to speak with someone who can authorize a patient to go to a SNF. UBALDO asked to speak with the supervisors manager of network. That manager of network or is in a meeting and would not take the call. Flori states she will route this to her manager of network. She took my name and number to have her ramp manager me back today. Stated if I have not heard anything by 1 pm I would call back. UBALDO received a call from Austen at [phone] who states she has just approved the admission into [facility]. Ubaldo called Beulah a [facility] SNF for bed status. Beulah states she does not have a bed available but will facilitate in assisting in fnding one. States [facility] as bed opening. UBALDO called Austen back to update the status of the bed. UBALDO attempted to facilitate on procedure for transferring auth. Austen states to have the referral sent by the facility attention to her. States as soon as she receives it she will begin to work on it CM called Jonas at [facility] with the referral. Kinsey Coley DCP- Discharge Planning Updated by [id number]: Kinsey Coley on 05/17/20 9:[address] UBALDO called Joyce at [facility] at [phone] to follow up about the pending authorization from insurance. Joyce states that she has not received anything from the insurance company yet. Joyce states they are filling up, and may not have a bed for much longer. UBALDO states she will speak with the insurance company again to see how to expedite the auth. Kinsey Coley DCP- Discharge Planning Updated by [id number]: Kinsey Coley on 05/16/20 11:[address] Patient Name: DON CARPENTER Encounter No: [id number] : 1960 Primary Insurance: [employer] INS EXCHANGE Anticipated DC Date: Planned Disposition: Shelter Facility External Planned Provider: : DCP follow-up note: CM called Beulah Clinical liaison, for [facility]. stated that CM called [facility] to follow up with the auth. Flori from [facility] states that the auth has not been sent for the nurse to review. Stated the auth was sent for the nurse to review today. Hoping to get it expedited today. Beulah states they are holding her bed, and will admit when auth is provided. No changes to plan. Case management will follow and assist as needed. Kinsey Coley MSN,RN,CM DCP- Discharge Planning Updated by [id number]: Renee Fajardo on 05/15/20 3:[address] 1430: UBALDO contacted [employer] for progress on authorization and she states their business officer, Joyce is contacting the insurance company every day, in the afternoon. Verified with Trisha that she has the PASSAR information and she said she has it. UBALDO will continue to follow up. UBALDO left a message with outside sales account representative of [facility], regarding insurance authorization for admission. UBALDO left contact number. Await CB. DCP- Discharge Planning Updated by [email or web address]: Kinsey Coley on 05/14/20 1:[address] CM called Joyce at [facility] about authorization form ins. Joyce states she has not received confirmation yet. States she will call them to expedite results. CM will continue to assist in DC planning. Kinsey Coley DCP- Discharge Planning Updated by [id number]: Kinsey Coley on 05/14/20 10:[address] Patient Name: DON CARPENTER Admission Status: ER Accout number: [id number] Admission Date: 04-19-2020 : 1960 Admission Diagnosis:ADULT FAILURE TO THRIVE Attending: LUIS STANTON Current LOS: 25 Anticipated DC Date: Planned Disposition: Shelter Facility Primary Insurance: [employer] EXCHANGE Discharge Planning Comments: CM called Joyce at [facility] at [phone] to follow up about the pending authorization from insurance. Joyce states that she has not received anything from the insurance company yet. States CM can call back this afternoon. Cm will call back this afternoon to see if authorization has been approved. Kinsey Coley Ferryboat Helper: Kinsey Coley DCP- Discharge Planning Updated by [id number]: Kinsey Coley on 05/13/20 1:[address] Patient Name: DON CARPENTER Admission Status: ER Accout number: [id number] Admission Date: 04-19-2020 : 1960 Admission Diagnosis:ADULT FAILURE TO THRIVE Attending: LUIS STANTON Current LOS: 24 Anticipated DC Date: Planned Disposition: Shelter Facility Primary Insurance: [employer] EXCHANGE Discharge Planning Comments: CM called Joyce at [facility] at [phone] about insurance authorization. Joyce states that she called the insurance company and the auth is still pending. States it should be finalized this afternoon or tomorrow. CM will continue to assist in dc planning/needs. Ferryboat Helper: Kinsey Coley DCP- Discharge Planning Updated by [email or web address]: Miladys Will on 05/08/20 12:[address] Called Rashid schumacher and corrected mistake made on initial RASHID and refaxed. CM will continue to follow and assist with discharge planning/needs. DCP- Discharge Planning Updated by [id number]: Kinsey Coley on 05/07/20 8:[address] CM met with Beulah ([phone]) from [facility]. She states the facility will accept the patient and she has auth from insurance pending RASHID. States the facility will right off the deductible so that the patient will have access to rehab services. CM spoke with patient about accepting facilities. The patient wishes [place] be [place] [facility] CM stated that the closest accepting facility is [place]. The patient is tearful, but in agreement for the opportunity for rehab. The patient will need to be transported by ambulance with COVID isolation. Kinsey Coley DCP- Discharge Planning Updated by [email or web address]: Kinsey Coley on 05/07/20 7:[address] Cm called pt room and spoke with patient about DC plan. CM provided details about copay and alf CYNTHIA. Patient states she knows she can not go home. States her children will not help her. They live out of town and are not able to assist her at home. States she understands she may need to go into long-term care and is in agreement. CM will continue to assist as needed. Kinsey Coley DCP- Discharge Planning Updated by [id number]: Kinsey Coley on 05/06/20 7:[address] Patient Name: DON CARPENTER Encounter No: [id number] : 1960 Primary Insurance: [employer] INS EXCHANGE Anticipated DC Date: Planned Disposition: Shelter Facility External Planned Provider: : LATE ENTRY ASSESSMENT COMPLETED 05/03 DCP follow-up note: CM called COVID call center at [phone] for resources and left message for return phone call. Will await return call. Called Beulah at [facility] at [phone] that says she has 2 potential facilities that is taking covid patients with a large body habitus. She states she will call back with further information. Case management will follow and assist as needed. Kinsey Coley 05/06/20 Received call from Beulah stating the patients insurance will require a 2700 dollar copay, or she can attempt to apply for long-term Medicaid. CM attempted to call pt room several times but unable to get pt to answer the phone. Jonas from [facility] states he will come by the facility tomorrow with Beulah and assist in placement. DCP- Discharge Planning Updated by [id number]: Renee Fajardo on 05/02/20 3:[address] Per Brittney, none of her facilities can accept patient due to her weight and COVID diagnosis. CM will attempt to place again, tomorrow. DCP- Discharge Planning Updated by [id number]: Renee Fajardo on 05/01/20 1:[address] CM contacted Brittney and faxed required information for SNF placement [facility]. CM revisited patient via phone, she is tearful and worried about the possibility of cancer. She states she occasionally has vaginal bleeding and was to be scheduled for OP surgery, by Dr. Gage. Patient is in agreement for a SNF stay, followed by returning home with [facility]. CM encouraged patient to be OOB at least three times/day and walk in her room. Patent states she used a RW at home. CM requested a RW be brought to her room by PT. Instructed patient to wait on her nurse, to be in the room before she attempts to use it. CM notified Roma Kirkpatrick APN, of patient's emotional state. Attempted to contact patient's daughter, Jenny Burns ([phone]), but VM was full and no answer. Patient is concerned about her home and car and has no one to check on it. CM will continue to follow. DCP- Discharge Planning Updated by [id number]: Kinsey Coley on 04/30/20 12:[address] Spoke to Claribel who states the insurance is out of network with her facilities. Spoke to Brittney who stated she will review the clinicals and get back with CM with determination. Kinsey STERLING,RN,CM DCP- Discharge Planning Updated by [id number]: Kinsey Coley on 04/30/20 10:[address] Cm called Jamari at [facility] for determination. Jamari states they are unable to accept covid positives, and they can not provide care with the patient's weight requirements. Kinsey STERLING,RN,CM DCP- Discharge Planning Updated by [id number]: Kinsey Coley on 04/29/20 12:[address] CM SPOKE WITH JAMARI FROM [phone] ABOUT REFERRAL AND FAXED CLINICALS. JAMARI STATED HE WOULD PROVIDE DETERMINIATION BY TOMORROW KINSEY COLEY DCP- Discharge Planning Updated by [id number]: Renee Scotty on 04/26/20 11:[address] 1200: CB from Jonas [facility], [facility], unable to accept today, will re-evaluate 04/29. CM contacted Jonas Calvillo, with [facility] SNF. Faxed required information and gave verbal report. Awaiting CB. DCP- Discharge Planning Updated by [id number]: Miladys Will on 04/24/20 6:[address] I received a call from Claribel with [facility] [employer]. Claribel states that patient's insurance is [employer] and they are not in network with any of their facilities. CM will continue to attempt to find a SNF in network. DCP- Discharge Planning Updated by [email or web address]: Miladys Dawkinszenaida on 04/23/20 1:[address] Patient Name: DON CARPENTER Admission Status: ER Accout number: [id number] Admission Date: 04-19-2020 : 1960 Admission Diagnosis:ADULT FAILURE TO THRIVE Attending: LUIS STANTON Current LOS: 4 Anticipated DC Date: Planned Disposition: Shelter Facility Primary Insurance: [employer] [facility] INS EXCHANGE Discharge Planning Comments: CM called patient (per Covid positive protocol) to discuss discharge needs. I informed her that I spoke with Geovanna in inpatient rehab ad she had completed the end of her inpatient rehab and suggests a skilled facility if needed. She states that she feels she does need a skilled facility at this time. States when she got home, she could not even get out of the car due to weakness. States she lives alone and would need to be able to care for herself. I discussed all the skilled facilities with her and she states she will go to which ever one will take a covid positive patient. I spoke with Brittney Aviles, liaison for [place], [facility] and [place] and she states that her facilities will not take a covid positive patient. The only one she has is [facility] . I spoke with Claribel and she states that [facility] in [place] will accept Covid positive patients. She will check with [facility]. I faxed her a face sheet so they can run insurance. CM will continue to follow and assist with discharge planning/needs. Ferryboat Helper: Miladys Will DCPIA - Discharge Planning Initial Assessment Updated by [email or web address]: Miladys Will on 04/23/20 2:32 pm * Is the patient Alert and Oriented? Yes * PCP Dr. Leal * Pharmacy [facility] * Preadmission Environment Home Alone * ADLs Partial Dependent * Partial ADLs (Assistance needed) Ambulation * Equipment Cane Glucometer Walker * List name and contact numbers for known caregivers / representatives who currently or will assist patient after discharge: Jennymaurice Carpenter - [phone] * Verbal permission to speak to the caregivers and representatives has been obtained from the patient. Yes * Community resources currently utilized Home Health * Please name any agencies selected above. Care 4 [facility] * Additional services required to return to the preadmission environment? Yes * Can the patient safely return to the preadmission environment? No * Has this patient been hospitalized within the prior 30 days at any hospital? Yes Last DP export: 05/17/20 12:30 p Patient Name: DON CARPENTER Page [id number] at 1338 All edits/amendments must be made on the electronic document DICTATION DATE: 05/17/201336 REPAIRER SWITCHGEAR: NIKOS 05/17/201336 RPT#: [id number] DC DATE: STATUS: ADM IN [facility] [address] [place] [address] END OF REPORT
[2020-05-17 13:48] LABS: BASOPHILS 0.1 % (0-2); EOSINOPHILS 1.1 % (0-7); HEMATOCRIT 37.5 % (36.0-48.0); HEMOGLOBIN 12.3 g/dL (12-16); IMMATURE GRANULOCYTES 0.3 % (0-5); LYMPHOCYTES 21.5 % (15-50); MCHC 32.8 g/dL (31.0-37.0); MCV 94.5 fL (80.0-100.0); MEAN PLATELET VOLUME 9.6 fL (7.4-10.4); MONOCYTES 9.1 % (2-11); NEUTROPHILS 67.9 % (40-80); PLATELET COUNT 220 10x3/uL (130-400); RBC 3.97 10x6/uL (4.00-5.40); RDW 13.3 % (11.5-14.5); WBC 7.4 10x3/uL (4.8-10.8)
[2020-05-17 14:10] LABS: ALBUMIN 2.5 g/dL (3.4-5.0); ALKALINE PHOSPHATASE 89 U/L (30-120); ALT (SGPT) 126 U/L (10-68); BILIRUBIN - TOTAL 0.08 mg/dL (0.2-1.3); CALC OSMOLALITY 282 mosm/kg (275-300); CALCIUM 8.4 mg/dL (8.5-10.1); CARBON DIOXIDE 30.1 mmol/L (21.0-32.0); CHLORIDE - SERUM 105 mmol/L (98-107); CREATININE - SERUM 0.5 mg/dL (0.6-1.3); GLUCOSE 160 mg/dL (74-106); PROTEIN - SERUM 6.8 g/dL (6.4-8.2); SODIUM 139 mmol/L (136-145); UREA NITROGEN 18 mg/dL (7-18); eGFR NON AFRICAN AMERICAN > 90 mL/min (90-120)
--- NOTE | 2020-05-17 14:31 | MORECARE ---
CASE MANAGEMENT DISCHARGE SUMMARY PATIENT: DON CARPENTER UNIT: [id number] ADM DATE: 04/19/20 AGE: 60 : 62 SEX: F ROOM/BED: D.9040 AUTHOR: LISA,DOC PHYSICIAN: REFERRING PHYSICIAN: LUIS PIERCE MD DATE OF SERVICE: 05/17/20 Discharge Plan Patient Name: DON CARPENTER Facility: [facility]:[place] : 1960 Planned Disposition: Longterm Facility Anticipated Discharge Date: Discharge Date: Expected LOS: Initial Reviewer: [id number] Initial Review Date: 04/23/2020 Generated: 05/17/20 3:30 pm Comments DCP- Discharge Planning Updated by [email or web address]: Kinsey Coley on 05/17/20 12:[address] Cm called [facility] and spoke with Jose who transferred to Ronnie who then transferred the call to Flori. Flori stated the auth is in front of the nurse for review, and should hear back today!!! UBALDO explained that the pt may loose her bed if it is late this afternoon. Stated we have waited over 2 weeks for an auth. Flori relooked at the request and stated the nurse who is taking care of those auth is out today. UBALDO stated that person has the request for over 24 hours and UBALDO would like to speak with someone who can authorize a patient to go to a SNF. UBALDO asked to speak with the supervisors bilingual branch manager. That bilingual branch manager or is in a meeting and would not take the call. Flori states she will route this to her bilingual branch manager. She took my name and number to have her international tax manager me back today. Stated if I have not heard anything by 1 pm I would call back. UBALDO received a call from Austen at [phone] who states she has just approved the admission into [facility]. Ubaldo called Beulah a [facility] SNF for bed status. Beulah states she does not have a bed available but will facilitate in assisting in fnding one. States [facility] as bed opening. UBALDO called Austen back to update the status of the bed. UBALDO attempted to facilitate on procedure for transferring auth. Austen states to have the referral sent by the facility attention to her. States as soon as she receives it she will begin to work on it CM called Jonas at [facility] with the referral. Kinsey Coley DCP- Discharge Planning Updated by [email or web address]: Kinsey Coley on 05/17/20 9:[address] UBALDO called Joyce at [facility] at [phone] to follow up about the pending authorization from insurance. Joyce states that she has not received anything from the insurance company yet. Joyce states they are filling up, and may not have a bed for much longer. UBALDO states she will speak with the insurance company again to see how to expedite the auth. Kinsey Coley DCP- Discharge Planning Updated by [id number]: Kinsey Coley on 05/16/20 11:[address] Patient Name: DON CARPENTER Encounter No: [id number] : 1960 Primary Insurance: Personal INS EXCHANGE Anticipated DC Date: Planned Disposition: Longterm Facility External Planned Provider: : DCP follow-up note: CM called Beulah Clinical liaison, for [facility]. stated that CM called [facility] to follow up with the auth. Flori from [employer] states that the auth has not been sent for the nurse to review. Stated the auth was sent for the nurse to review today. Hoping to get it expedited today. Beulah states they are holding her bed, and will admit when auth is provided. No changes to plan. Case management will follow and assist as needed. Kinsey Coley MSN,RN,CM DCP- Discharge Planning Updated by [id number]: Renee Fajardo on 05/15/20 3:[address] 1430: UBALDO contacted [employer] for progress on authorization and she states their business officer, Joyce is contacting the insurance company every day, in the afternoon. Verified with Trisha that she has the PASSAR information and she said she has it. UBALDO will continue to follow up. UBALDO left a message with insurance sales representative of [facility], regarding insurance authorization for admission. UBALDO left contact number. Await CB. DCP- Discharge Planning Updated by [id number]: Kinsey Coley on 05/14/20 1:[address] CM called Joyce at [facility] about authorization form ins. Joyce states she has not received confirmation yet. States she will call them to expedite results. CM will continue to assist in DC planning. Kinsey Coley DCP- Discharge Planning Updated by [id number]: Kinsey Coley on 05/14/20 10:[address] Patient Name: DON CARPENTER Admission Status: ER Accout number: [id number] Admission Date: 04-19-2020 : 1960 Admission Diagnosis:ADULT FAILURE TO THRIVE Attending: LUIS STANTON Current LOS: 25 Anticipated DC Date: Planned Disposition: Longterm Facility Primary Insurance: [employer] EXCHANGE Discharge Planning Comments: CM called Joyce at [facility] at [phone] to follow up about the pending authorization from insurance. Joyce states that she has not received anything from the insurance company yet. States CM can call back this afternoon. Cm will call back this afternoon to see if authorization has been approved. Kinsey Coley Cycling Instructor: Kinsey Coley DCP- Discharge Planning Updated by [id number]: Kinsey Coley on 05/13/20 1:[address] Patient Name: DON CARPENTER Admission Status: ER Accout number: [id number] Admission Date: 04-19-2020 : 1960 Admission Diagnosis:ADULT FAILURE TO THRIVE Attending: LUIS STANTON Current LOS: 24 Anticipated DC Date: Planned Disposition: Longterm Facility Primary Insurance: [employer] EXCHANGE Discharge Planning Comments: CM called Joyce at [facility] at [phone] about insurance authorization. Joyce states that she called the insurance company and the auth is still pending. States it should be finalized this afternoon or tomorrow. CM will continue to assist in dc planning/needs. Cycling Instructor: Kinsey Coley DCP- Discharge Planning Updated by [id number]: Miladys Will on 05/08/20 12:[address] Called Rashid schumacher and corrected mistake made on initial RASHID and refaxed. CM will continue to follow and assist with discharge planning/needs. DCP- Discharge Planning Updated by [email or web address]: Kinsey Coley on 05/07/20 8:[address] CM met with Beulah ([phone]) from [facility]. She states the facility will accept the patient and she has auth from insurance pending RASHID. States the facility will right off the deductible so that the patient will have access to rehab services. CM spoke with patient about accepting facilities. The patient wishes to be as close to [facility]. CM stated that the closest accepting facility is [facility]. The patient is tearful, but in agreement for the opportunity for rehab. The patient will need to be transported by ambulance with COVID isolation. Kinsey Coley DCP- Discharge Planning Updated by [id number]: Kinsey Coley on 05/07/20 7:[address] Cm called pt room and spoke with patient about DC plan. CM provided details about copay and prison [facility]NTHIA. Patient states she knows she can not go home. States her children will not help her. They live out of town and are not able to assist her at home. States she understands she may need to go into long-term care and is in agreement. CM will continue to assist as needed. Kinsey Coley DCP- Discharge Planning Updated by [id number]: Kinsey Coley on 05/06/20 7:[address] Patient Name: DON CARPENTER Encounter No: [id number] : 1960 Primary Insurance: [employer] INS EXCHANGE Anticipated DC Date: Planned Disposition: Longterm Facility External Planned Provider: : LATE ENTRY ASSESSMENT COMPLETED 05/03 DCP follow-up note: CM called COVID call center at [phone] for resources and left message for return phone call. Will await return call. Called Beulah at [facility] at [phone] that says she has 2 potential facilities that is taking covid patients with a large body habitus. She states she will call back with further information. Case management will follow and assist as needed. Kinsey Coley 05/06/20 Received call from Beulah stating the patients insurance will require a 2700 dollar copay, or she can attempt to apply for long-term Medicaid. CM attempted to call pt room several times but unable to get pt to answer the phone. Jonas from [facility] states he will come by the facility tomorrow with Beulah and assist in placement. DCP- Discharge Planning Updated by [id number]: Renee Fajardo on 05/02/20 3:[address] Per Brittney, none of her facilities can accept patient due to her weight and COVID diagnosis. CM will attempt to place again, tomorrow. DCP- Discharge Planning Updated by [email or web address]: Renee Fajardo on 05/01/20 1:[address] CM contacted Brittney and faxed required information for SNF placement [facility]. CM revisited patient via phone, she is tearful and worried about the possibility of cancer. She states she occasionally has vaginal bleeding and was to be scheduled for OP surgery, by Dr. Gage. Patient is in agreement for a SNF stay, followed by returning home with [facility]. CM encouraged patient to be OOB at least three times/day and walk in her room. Patent states she used a RW at home. CM requested a RW be brought to her room by PT. Instructed patient to wait on her nurse, to be in the room before she attempts to use it. CM notified Roma Kirkpatrick APN, of patient's emotional state. Attempted to contact patient's daughter, Jenny Burns ([phone]), but VM was full and no answer. Patient is concerned about her home and car and has no one to check on it. CM will continue to follow. DCP- Discharge Planning Updated by [id number]: Kinsey Coley on 04/30/20 12:[address] Spoke to Claribel who states the insurance is out of network with her facilities. Spoke to Brittney who stated she will review the clinicals and get back with CM with determination. Kinsey STERLING,RN,CM DCP- Discharge Planning Updated by [id number]: Kinsey Coley on 04/30/20 10:[address] Cm called Jamari at [facility] for determination. Jamari states they are unable to accept covid positives, and they can not provide care with the patient's weight requirements. Kinsey STERLING,RN,CM DCP- Discharge Planning Updated by [id number]: Kinsey Coley on 04/29/20 12:[address] CM SPOKE WITH JAMARI FROM [place] [phone] ABOUT REFERRAL AND FAXED CLINICALS. JAMARI STATED HE WOULD PROVIDE DETERMINIATION BY TOMORROW KINSEY COLEY DCP- Discharge Planning Updated by [id number]: Renee Scotty on 04/26/20 11:[address] 1200: CB from Jonas [facility], unable to accept today, will re-evaluate 04/29. CM contacted Jonas Calvillo, with [facility] SN[facility]. Faxed required information and gave verbal report. Awaiting CB. DCP- Discharge Planning Updated by [email or web address]: Miladys Will on 04/24/20 6:[address] I received a call from Claribel with [facility] and [email or web address]. Claribel states that patient's insurance is [employer] and they are not in network with any of their facilities. CM will continue to attempt to find a SNF in network. DCP- Discharge Planning Updated by [email or web address]: Miladys Dawkinszenaida on 04/23/20 1:[address] Patient Name: DON CARPENTER Admission Status: ER Accout number: [id number] Admission Date: 04-19-2020 : 1960 Admission Diagnosis:ADULT FAILURE TO THRIVE Attending: LUIS STANTON Current LOS: 4 Anticipated DC Date: Planned Disposition: Longterm Facility Primary Insurance: [employer] [facility] INS EXCHANGE Discharge Planning Comments: CM called patient (per Covid positive protocol) to discuss discharge needs. I informed her that I spoke with Geovanna in inpatient rehab ad she had completed the end of her inpatient rehab and suggests a skilled facility if needed. She states that she feels she does need a skilled facility at this time. States when she got home, she could not even get out of the car due to weakness. States she lives alone and would need to be able to care for herself. I discussed all the skilled facilities with her and she states she will go to which ever one will take a covid positive patient. I spoke with Brittney Aviles, liaison for [facility] and [facility] and she states that her facilities will not take a covid positive patient. The only one she has is [facility] . I spoke with Claribel and she states that [facility] in [place] will accept Covid positive patients. She will check with [facility]. I faxed her a face sheet so they can run insurance. CM will continue to follow and assist with discharge planning/needs. Cycling Instructor: Miladys Will DCPIA - Discharge Planning Initial Assessment Updated by [id number]: Miladys Will on 04/23/20 2:32 pm * Is the patient Alert and Oriented? Yes * PCP Dr. Leal * Pharmacy [facility] * Preadmission Environment Home Alone * ADLs Partial Dependent * Partial ADLs (Assistance needed) Ambulation * Equipment Cane Glucometer Walker * List name and contact numbers for known caregivers / representatives who currently or will assist patient after discharge: Jennymaurice Carpenter - [phone] * Verbal permission to speak to the caregivers and representatives has been obtained from the patient. Yes * Community resources currently utilized Home Health * Please name any agencies selected above. Care 4 [facility] * Additional services required to return to the preadmission environment? Yes * Can the patient safely return to the preadmission environment? No * Has this patient been hospitalized within the prior 30 days at any hospital? Yes Last DP export: 05/17/20 12:38 p Patient Name: DON CARPENTER Page [id number] at 1431 All edits/amendments must be made on the electronic document DICTATION DATE: 05/17/201429 FITTING ROOM INSPECTOR: NIKOS 05/17/201429 RPT#: [id number] DC DATE: STATUS: ADM IN [facility] [address] [place] [address] END OF REPORT
--- NOTE | 2020-05-17 15:23 | MORECARE ---
CASE MANAGEMENT DISCHARGE SUMMARY PATIENT: DON CARPENTER UNIT: [id number] ADM DATE: 04/19/20 AGE: 60 : 62 SEX: F ROOM/BED: D.3363 AUTHOR: LISA,DOC PHYSICIAN: REFERRING PHYSICIAN: LUIS PIERCE MD DATE OF SERVICE: 05/17/20 Discharge Plan Patient Name: DON CARPENTER Facility: [facility]:Ryan : 1960 Planned Disposition: [facility] Facility Anticipated Discharge Date: Discharge Date: Expected LOS: Initial Reviewer: [email or web address] Initial Review Date: 04/23/2020 Generated: 05/17/20 4:22 pm Comments DCP- Discharge Planning Updated by [id number]: Kinsey Coley on 05/17/20 12:[address] Cm called [facility] and spoke with Jose who transferred to Ronnie who then transferred the call to Flori. Flori stated the auth is in front of the nurse for review, and should hear back today!!! BUALDO explained that the pt may loose her bed if it is late this afternoon. Stated we have waited over 2 weeks for an auth. Flori relooked at the request and stated the nurse who is taking care of those auth is out today. UBALDO stated that person has the request for over 24 hours and UBALDO would like to speak with someone who can authorize a patient to go to a SNF. UBALDO asked to speak with the supervisors information technology audit manager. That information technology audit manager or is in a meeting and would not take the call. Flori states she will route this to her information technology audit manager. She took my name and number to have her senior project manager me back today. Stated if I have not heard anything by 1 pm I would call back. UBALDO received a call from Austen at [phone] who states she has just approved the admission into [facility]. Ubaldo called Beulah a [facility] SNF for bed status. Beulah states she does not have a bed available but will facilitate in assisting in fnding one. States [facility] as bed opening. UBALDO called Austen back to update the status of the bed. UBALDO attempted to facilitate on procedure for transferring auth. Austen states to have the referral sent by the facility attention to her. States as soon as she receives it she will begin to work on it CM called Jonas at [facility] with the referral. Kinsey Coley DCP- Discharge Planning Updated by [id number]: Kinsey Coley on 05/17/20 9:[address] UBALDO called Joyce at [facility] at [phone] to follow up about the pending authorization from insurance. Joyce states that she has not received anything from the insurance company yet. Joyce states they are filling up, and may not have a bed for much longer. UBALDO states she will speak with the insurance company again to see how to expedite the auth. Kinsey Coley DCP- Discharge Planning Updated by [id number]: Kinsey Coley on 05/16/20 11:[address] Patient Name: DON CARPENTER Encounter No: [id number] : 1960 Primary Insurance: [employer] INS EXCHANGE Anticipated DC Date: Planned Disposition: [facility] Facility External Planned Provider: : DCP follow-up note: CM called Beulah Clinical liaison, for [facility]. stated that CM called [facility] to follow up with the auth. Flori from [facility] states that the auth has not been sent for the nurse to review. Stated the auth was sent for the nurse to review today. Hoping to get it expedited today. Beulah states they are holding her bed, and will admit when auth is provided. No changes to plan. Case management will follow and assist as needed. Kinsey Coley MSN,RN,CM DCP- Discharge Planning Updated by [id number]: Renee Fajardo on 05/15/20 3:[address] 1430: UBALDO contacted [employer] [facility] for progress on authorization and she states their business officer, Joyce is contacting the insurance company every day, in the afternoon. Verified with Trisha that she has the PASSAR information and she said she has it. UBALDO will continue to follow up. UBALDO left a message with member service representative of [facility], regarding insurance authorization for admission. UBALDO left contact number. Await CB. DCP- Discharge Planning Updated by [id number]: Kinsey Coley on 05/14/20 1:[address] CM called Joyce at [facility] about authorization form ins. Joyce states she has not received confirmation yet. States she will call them to expedite results. CM will continue to assist in DC planning. Kinsey Coley DCP- Discharge Planning Updated by [id number]: Kinsey Coley on 05/14/20 10:[address] Patient Name: DON CARPENTER Admission Status: ER Accout number: [id number] Admission Date: 04-19-2020 : 1960 Admission Diagnosis:ADULT FAILURE TO THRIVE Attending: LUIS STANTON Current LOS: 25 Anticipated DC Date: Planned Disposition: [facility] Facility Primary Insurance: [employer] EXCHANGE Discharge Planning Comments: CM called Joyce at [facility] at [phone] to follow up about the pending authorization from insurance. Joyce states that she has not received anything from the insurance company yet. States CM can call back this afternoon. Cm will call back this afternoon to see if authorization has been approved. Kinsey Coley Distillery Laborer: Kinsey Coley DCP- Discharge Planning Updated by [id number]: Kinsey Coley on 05/13/20 1:[address] Patient Name: DON CARPENTER Admission Status: ER Accout number: [id number] Admission Date: 04-19-2020 : 1960 Admission Diagnosis:ADULT FAILURE TO THRIVE Attending: LUIS STANTON Current LOS: 24 Anticipated DC Date: Planned Disposition: [facility] Facility Primary Insurance: [employer] EXCHANGE Discharge Planning Comments: CM called Joyce at [facility] at [phone] about insurance authorization. Joyce states that she called the insurance company and the auth is still pending. States it should be finalized this afternoon or tomorrow. CM will continue to assist in dc planning/needs. Distillery Laborer: Kinsey Coley DCP- Discharge Planning Updated by [email or web address]: Miladys iWll on 05/08/20 12:[address] Called Rashid schumacher and corrected mistake made on initial RASHID and refaxed. CM will continue to follow and assist with discharge planning/needs. DCP- Discharge Planning Updated by [id number]: Kinsey Coley on 05/07/20 8:[address] CM met with Beulah ([phone]) from [facility]. She states the facility will accept the patient and she has auth from insurance pending RASHID. States the facility will right off the deductible so that the patient will have access to rehab services. CM spoke with patient about accepting facilities. The patient wishes to be as close to [facility]. CM stated that the closest accepting facility is [facility]. The patient is tearful, but in agreement for the opportunity for rehab. The patient will need to be transported by ambulance with COVID isolation. Kinsey Coley DCP- Discharge Planning Updated by [id number]: Kinsey Coley on 05/07/20 7:[address] Cm called pt room and spoke with patient about DC plan. CM provided details about copay and jail [place]. Patient states she knows she can not go home. States her children will not help her. They live out of town and are not able to assist her at home. States she understands she may need to go into long-term care and is in agreement. CM will continue to assist as needed. Kinsey Coley DCP- Discharge Planning Updated by [id number]: Kinsey Coley on 05/06/20 7:[address] Patient Name: DON CARPENTER Encounter No: [id number] : 1960 Primary Insurance: [employer] INS EXCHANGE Anticipated DC Date: Planned Disposition: [facility] Facility External Planned Provider: : LATE ENTRY ASSESSMENT COMPLETED 05/03 DCP follow-up note: CM called COVID call center at [phone] for resources and left message for return phone call. Will await return call. Called Beulah at [facility] at [phone] that says she has 2 potential facilities that is taking covid patients with a large body habitus. She states she will call back with further information. Case management will follow and assist as needed. Kinsey Coley 05/06/20 Received call from Beulah stating the patients insurance will require a 2700 dollar copay, or she can attempt to apply for long-term Medicaid. CM attempted to call pt room several times but unable to get pt to answer the phone. Jonas from [facility] states he will come by the facility tomorrow with Beulah and assist in placement. DCP- Discharge Planning Updated by [id number]: Renee Fajardo on 05/02/20 3:[address] Per Brittney, none of her facilities can accept patient due to her weight and COVID diagnosis. CM will attempt to place again, tomorrow. DCP- Discharge Planning Updated by [id number]: Renee Fajardo on 05/01/20 1:[address] CM contacted Brittney and faxed required information for SNF placement [facility]. CM revisited patient via phone, she is tearful and worried about the possibility of cancer. She states she occasionally has vaginal bleeding and was to be scheduled for OP surgery, by Dr. Gage. Patient is in agreement for a SNF stay, followed by returning home with [facility]. CM encouraged patient to be OOB at least three times/day and walk in her room. Patent states she used a RW at home. CM requested a RW be brought to her room by PT. Instructed patient to wait on her nurse, to be in the room before she attempts to use it. CM notified Roma Kirkpatrick APN, of patient's emotional state. Attempted to contact patient's daughter, Jenny Burns ([phone]), but VM was full and no answer. Patient is concerned about her home and car and has no one to check on it. CM will continue to follow. DCP- Discharge Planning Updated by [id number]: Kinsey Coley on 04/30/20 12:[address] Spoke to Claribel who states the insurance is out of network with her facilities. Spoke to Brittney who stated she will review the clinicals and get back with CM with determination. Kinsey STERLING,RN,CM DCP- Discharge Planning Updated by [id number]: Kinsey Coley on 04/30/20 10:[address] Cm called Jamari at [facility] for determination. Jamari states they are unable to accept covid positives, and they can not provide care with the patient's weight requirements. Kinsey STERLING,RN,CM DCP- Discharge Planning Updated by [id number]: Kinsey Coley on 04/29/20 12:[address] CM SPOKE WITH JAMARI FROM [facility] [phone] ABOUT REFERRAL AND FAXED CLINICALS. JAMARI STATED HE WOULD PROVIDE DETERMINIATION BY TOMORROW KINSEY COLEY DCP- Discharge Planning Updated by [id number]: Renee Scotty on 04/26/20 11:[address] 1200: CB from Jonas [facility], [facility], unable to accept today, will re-evaluate 04/29. CM contacted Jonas Calvillo, with [facility] SNF. Faxed required information and gave verbal report. Awaiting CB. DCP- Discharge Planning Updated by [id number]: Miladys Will on 04/24/20 6:[address] I received a call from Claribel with [facility]. Claribel states that patient's insurance is [employer] and they are not in network with any of their facilities. CM will continue to attempt to find a SNF in network. DCP- Discharge Planning Updated by [id number]: Miladys Dawkinszenaida on 04/23/20 1:[address] Patient Name: DON CARPENTER Admission Status: ER Accout number: [id number] Admission Date: 04-19-2020 : 1960 Admission Diagnosis:ADULT FAILURE TO THRIVE Attending: LUIS STANTON Current LOS: 4 Anticipated DC Date: Planned Disposition: [facility] Facility Primary Insurance: [employer] [facility] INS EXCHANGE Discharge Planning Comments: CM called patient (per Covid positive protocol) to discuss discharge needs. I informed her that I spoke with Geovanna in inpatient rehab ad she had completed the end of her inpatient rehab and suggests a skilled facility if needed. She states that she feels she does need a skilled facility at this time. States when she got home, she could not even get out of the car due to weakness. States she lives alone and would need to be able to care for herself. I discussed all the skilled facilities with her and she states she will go to which ever one will take a covid positive patient. I spoke with Brittney Aviles, liaison for [place], [facility] and [place] and she states that her facilities will not take a covid positive patient. The only one she has is [facility] in . I spoke with Claribel and she states that [facility] in [place] will accept Covid positive patients. She will check with [facility]. I faxed her a face sheet so they can run insurance. CM will continue to follow and assist with discharge planning/needs. Distillery Laborer: Miladys Will DCPIA - Discharge Planning Initial Assessment Updated by [id number]: Miladys Will on 04/23/20 2:32 pm * Is the patient Alert and Oriented? Yes * PCP Dr. Leal * Pharmacy [facility] * Preadmission Environment Home Alone * ADLs Partial Dependent * Partial ADLs (Assistance needed) Ambulation * Equipment Cane Glucometer Walker * List name and contact numbers for known caregivers / representatives who currently or will assist patient after discharge: Jennymaurice Carpenter - [phone] * Verbal permission to speak to the caregivers and representatives has been obtained from the patient. Yes * Community resources currently utilized Home Health * Please name any agencies selected above. [facility] * Additional services required to return to the preadmission environment? Yes * Can the patient safely return to the preadmission environment? No * Has this patient been hospitalized within the prior 30 days at any hospital? Yes Last DP export: 05/17/20 1:31 p Patient Name: DON CARPENTER Page [id number] at 1523 All edits/amendments must be made on the electronic document DICTATION DATE: 05/17/201521 FISHER SWORDFISH: NIKOS 05/17/201521 RPT#: [id number] DC DATE: STATUS: ADM IN [facility] [address] [place] [address] END OF REPORT
--- NOTE | 2020-05-17 17:49 | NUR ---
STAFF FROM [facility] VISITING WITH PT AND STATES THAT THEY WILL ACCEPT PT TONITE AND CAN TRANSFER BY AMBULANCE, CALL REPORT TO [facility]. CALL PLACED TO BRIGETTE CHAHAL REGARDING DISCHARGE ORDERS. STATES HE WILL LOOK INTO CHART AND GET BACK TO ME.
[2020-05-17] MEDS ORDERED: TESSALON PERLE100 MG PO (17:54)
[2020-05-17] MEDS ORDERED: MUCINEX600 MG PO (17:54)
[2020-05-17] MEDS ORDERED: Vitamin D PO (17:55)
[2020-05-17] MEDS ORDERED: ZINC-220220 MG PO (17:55)
[2020-05-17] MEDS ORDERED: MELATONIN 3 MG1 TAB PO (17:55)
[2020-05-17] MEDS ORDERED: VITAMIN C PO (17:55)
[2020-05-17] MEDS ORDERED: DEXAMETHASONE2 MG PO ×2 (18:14→18:16)
[2020-05-17 19:55] VITALS: BP 117/90
--- NOTE | 2020-05-17 20:05 | NUR ---
PT TRANSFERRED TO [facility] AT THIS TIME.
--- NOTE | 2020-05-17 20:05 | NUR ---
PT DISCHARGED TO [facility] AT THIS TIME.
--- NOTE | 2020-05-20 09:22 | MORECARE ---
CASE MANAGEMENT DISCHARGE SUMMARY PATIENT: DON CARPENTER UNIT: [id number] ADM DATE: 04/19/20 AGE: 60 : 62 SEX: F ROOM/BED: D.6850 AUTHOR: LISA,DOC PHYSICIAN: REFERRING PHYSICIAN: LUIS PIERCE MD DATE OF SERVICE: 05/20/20 Discharge Plan Patient Name: DON CARPENTER Facility: [facility]:[place] : 1960 Planned Disposition: Shelter Facility Anticipated Discharge Date: Discharge Date: 05/17/2020 Expected LOS: Initial Reviewer: [email or web address] Initial Review Date: 04/23/2020 Generated: 05/20/20 10:22 am Comments DCP- Discharge Planning Updated by [email or web address]: Kinsey Coley on 05/17/20 12:[address] Cm called [facility] and spoke with Jose who transferred to Ronnie who then transferred the call to Flori. Flori stated the auth is in front of the nurse for review, and should hear back today!!! UBALDO explained that the pt may loose her bed if it is late this afternoon. Stated we have waited over 2 weeks for an auth. Flori relooked at the request and stated the nurse who is taking care of those auth is out today. UBALDO stated that person has the request for over 24 hours and UBALDO would like to speak with someone who can authorize a patient to go to a SNF. UBALDO asked to speak with the supervisors senior accounting manager. That senior accounting manager or is in a meeting and would not take the call. Flori states she will route this to her senior accounting manager. She took my name and number to have her health club manager me back today. Stated if I have not heard anything by 1 pm I would call back. UBALDO received a call from Austen at [phone] who states she has just approved the admission into [facility]. Ubaldo called Beulah a [facility] SN[facility] for bed status. Beulah states she does not have a bed available but will facilitate in assisting in fnding one. States [facility] [place] [facility] bed opening. UBALDO called Austen back to update the status of the bed. UBALDO attempted to facilitate on procedure for transferring auth. Austen states to have the referral sent by the facility attention to her. States as soon as she receives it she will begin to work on it CM called Jonas at [facility] with the referral. Kinsey Coley DCP- Discharge Planning Updated by [id number]: iKnsey Coley on 05/17/20 9:[address] CM called Joyce at [facility] at [phone] to follow up about the pending authorization from insurance. Joyce states that she has not received anything from the insurance company yet. Joyce states they are filling up, and may not have a bed for much longer. UBALDO states she will speak with the insurance company again to see how to expedite the auth. Kinsey Coley DCP- Discharge Planning Updated by [id number]: Kinsey Coley on 05/16/20 11:[address] Patient Name: DON CARPENTER Encounter No: [id number] : 1960 Primary Insurance: [employer] INS EXCHANGE Anticipated DC Date: Planned Disposition: Shelter Facility External Planned Provider: : DCP follow-up note: CM called Beulah, Clinical liaison, for [facility]. stated that CM called Karlene to follow up with the auth. Flori from [facility] states that the auth has not been sent for the nurse to review. Stated the auth was sent for the nurse to review today. Hoping to get it expedited today. Beulah states they are holding her bed, and will admit when auth is provided. No changes to plan. Case management will follow and assist as needed. Kinsey Coley MSN,RN, DCP- Discharge Planning Updated by [email or web address]: Renee Fajardo on 05/15/20 3:[address] 1430: CM contacted [facility] for progress on authorization and she states their business officer, Joyce is contacting the insurance company every day, in the afternoon. Verified with Trisha that she has the PASSAR information and she said she has it. UBALDO will continue to follow up. UBALDO left a message with delivery representative of [facility], regarding insurance authorization for admission. UBALDO left contact number. Await CB. DCP- Discharge Planning Updated by [id number]: Kinsey Coley on 05/14/20 1:[address] CM called Joyce at [facility] about authorization form ins. Joyce states she has not received confirmation yet. States she will call them to expedite results. CM will continue to assist in DC planning. Kinsey Coley DCP- Discharge Planning Updated by [id number]: Kinsey Coley on 05/14/20 10:[address] Patient Name: DON CARPENTER Admission Status: ER Accout number: [id number] Admission Date: 04-19-2020 : 1960 Admission Diagnosis:ADULT FAILURE TO THRIVE Attending: LUIS STANTON Current LOS: 25 Anticipated DC Date: Planned Disposition: Shelter Facility Primary Insurance: [employer] EXCHANGE Discharge Planning Comments: CM called Joyce at [facility] at [phone] to follow up about the pending authorization from insurance. Joyce states that she has not received anything from the insurance company yet. States CM can call back this afternoon. Cm will call back this afternoon to see if authorization has been approved. Kinsey Coley Perfect Bind Machine Operator: Kinsey Coley DCP- Discharge Planning Updated by [id number]: Kinsey Coley on 05/13/20 1:[address] Patient Name: DON CARPENTER Admission Status: ER Accout number: [id number] Admission Date: 04-19-2020 : 1960 Admission Diagnosis:ADULT FAILURE TO THRIVE Attending: LUIS STANTON Current LOS: 24 Anticipated DC Date: Planned Disposition: Shelter Facility Primary Insurance: [employer] EXCHANGE Discharge Planning Comments: CM called Joyce at [facility] at [phone] about insurance authorization. Joyce states that she called the insurance company and the auth is still pending. States it should be finalized this afternoon or tomorrow. CM will continue to assist in dc planning/needs. Perfect Bind Machine Operator: Kinsey Coley DCP- Discharge Planning Updated by [id number]: Miladys Will on 05/08/20 12:[address] Called Rashid schumacher and corrected mistake made on initial RASHID and refaxed. CM will continue to follow and assist with discharge planning/needs. DCP- Discharge Planning Updated by [id number]: Kinsey Coley on 05/07/20 8:[address] UBALDO met with Beulah ([phone]) from [facility]. She states the facility will accept the patient and she has auth from insurance pending RASHID. States the facility will right off the deductible so that the patient will have access to rehab services. CM spoke with patient about accepting facilities. The patient wishes to be as close to [facility]. CM stated that the closest accepting facility is [facility]. The patient is tearful, but in agreement for the opportunity for rehab. The patient will need to be transported by ambulance with COVID isolation. Kinsey Coley DCP- Discharge Planning Updated by [id number]: Kinsey Coley on 05/07/20 7:[address] Cm called pt room and spoke with patient about DC plan. CM provided details about copay and prison CYNTHIA. Patient states she knows she can not go home. States her children will not help her. They live out of town and are not able to assist her at home. States she understands she may need to go into long-term care and is in agreement. CM will continue to assist as needed. Kinsey Coley DCP- Discharge Planning Updated by [id number]: Kinsey Coley on 05/06/20 7:[address] Patient Name: DON CARPENTER Encounter No: [id number] : 1960 Primary Insurance: [employer] INS EXCHANGE Anticipated DC Date: Planned Disposition: Shelter Facility External Planned Provider: : LATE ENTRY ASSESSMENT COMPLETED 05/03 DCP follow-up note: CM called COVID call center at [phone] for resources and left message for return phone call. Will await return call. Called Beulah at [facility] at [phone] that says she has 2 potential facilities that is taking covid patients with a large body habitus. She states she will call back with further information. Case management will follow and assist as needed. Kinsey Coley 05/06/20 Received call from Beulah stating the patients insurance will require a 2700 dollar copay, or she can attempt to apply for long-term Medicaid. CM attempted to call pt room several times but unable to get pt to answer the phone. Jonas from [facility] [place] states he will come by the facility tomorrow with Beulah and assist in placement. DCP- Discharge Planning Updated by [id number]: Renee Fajardo on 05/02/20 3:[address] Per Brittney, none of her facilities can accept patient due to her weight and COVID diagnosis. CM will attempt to place again, tomorrow. DCP- Discharge Planning Updated by [id number]: Renee Clementelroy on 05/01/20 1:[address] CM contacted Brittney and faxed required information for SNF placement [facility]. CM revisited patient via phone, she is tearful and worried about the possibility of cancer. She states she occasionally has vaginal bleeding and was to be scheduled for OP surgery, by Dr. Gage. Patient is in agreement for a SNF stay, followed by returning home with [facility]. CM encouraged patient to be OOB at least three times/day and walk in her room. Patent states she used a RW at home. CM requested a RW be brought to her room by PT. Instructed patient to wait on her nurse, to be in the room before she attempts to use it. CM notified Roma Kirkpatrick APN, of patient's emotional state. Attempted to contact patient's daughter, Jenny Burns ([phone]), but VM was full and no answer. Patient is concerned about her home and car and has no one to check on it. CM will continue to follow. DCP- Discharge Planning Updated by [id number]: Kinsey Coley on 04/30/20 12:[address] Spoke to Claribel who states the insurance is out of network with her facilities. Spoke to Brittney who stated she will review the clinicals and get back with CM with determination. Kinsey STERLING,RN,CM DCP- Discharge Planning Updated by [id number]: Kinsey Coley on 04/30/20 10:[address] Cm called Jamari at [facility] for determination. Jamari states they are unable to accept covid positives, and they can not provide care with the patient's weight requirements. Kinsey STERLING,RN,CM DCP- Discharge Planning Updated by [email or web address]: Kinsey Coley on 04/29/20 12:[address] CM SPOKE WITH JAMARI FROM [place] [phone] ABOUT REFERRAL AND FAXED CLINICALS. JAMARI STATED HE WOULD PROVIDE DETERMINIATION BY TOMORROW KINSEY COLEY DCP- Discharge Planning Updated by [email or web address]: Reneehali Fajardo on 04/26/20 11:[address] 1200: CB from [facility] [place] unable to accept today, will re-evaluate 04/29. CM contacted Jonas Calvillo, with [facility] [place] SNF. Faxed required information and gave verbal report. Awaiting CB. DCP- Discharge Planning Updated by [id number]: Miladys Will on 04/24/20 6:[address] I received a call from Claribel with [facility]. Claribel states that patient's insurance is [employer] and they are not in network with any of their facilities. CM will continue to attempt to find a SNF in network. DCP- Discharge Planning Updated by [id number]: Miladys Dawkinszenaida on 04/23/20 1:[address] Patient Name: DON CARPENTER Admission Status: ER Accout number: [id number] Admission Date: 04-19-2020 : 1960 Admission Diagnosis:ADULT FAILURE TO THRIVE Attending: LUIS STANTON Current LOS: 4 Anticipated DC Date: Planned Disposition: Shelter Facility Primary Insurance: [email or web address] [facility] INS EXCHANGE Discharge Planning Comments: CM called patient (per Covid positive protocol) to discuss discharge needs. I informed her that I spoke with Geovanna in inpatient rehab ad she had completed the end of her inpatient rehab and suggests a skilled facility if needed. She states that she feels she does need a skilled facility at this time. States when she got home, she could not even get out of the car due to weakness. States she lives alone and would need to be able to care for herself. I discussed all the skilled facilities with her and she states she will go to which ever one will take a covid positive patient. I spoke with Brittney Aviles, liaison for [facility] and [facility] and she states that her facilities will not take a covid positive patient. The only one she has is [facility] in . I spoke with Claribel and she states that [facility] in [place] will accept Covid positive patients. She will check with [facility]. I faxed her a face sheet so they can run insurance. CM will continue to follow and assist with discharge planning/needs. Perfect Bind Machine Operator: Miladys Suman DCPIA - Discharge Planning Initial Assessment Updated by [email or web address]: Miladys Suman on 04/23/20 2:32 pm * Is the patient Alert and Oriented? Yes * PCP Dr. Leal * Pharmacy [facility] * Preadmission Environment Home Alone * ADLs Partial Dependent * Partial ADLs (Assistance needed) Ambulation * Equipment Cane Glucometer Walker * List name and contact numbers for known caregivers / representatives who currently or will assist patient after discharge: Jenny Carpenter - [phone] * Verbal permission to speak to the caregivers and representatives has been obtained from the patient. Yes * Community resources currently utilized Home Health * Please name any agencies selected above. Care 4 [facility] * Additional services required to return to the preadmission environment? Yes * Can the patient safely return to the preadmission environment? No * Has this patient been hospitalized within the prior 30 days at any hospital? Yes Last DP export: 05/17/20 2:23 p Patient Name: DON CARPENTER Page [id number] at 0922 All edits/amendments must be made on the electronic document DICTATION DATE: 05/20/20921 MIDLEVEL PROVIDER: NIKOS 05/20/20921 RPT#: [id number] DC DATE:05/17/20 STATUS: DIS IN [facility] [address] [place] [address] END OF REPORT
--- NOTE | 2020-05-20 14:15 | MORECARE ---
CASE MANAGEMENT DISCHARGE SUMMARY PATIENT: DON CARPENTER UNIT: [id number] ADM DATE: 04/19/20 AGE: 60 : 62 SEX: F ROOM/BED: D.1170 AUTHOR: LISA,DOC PHYSICIAN: REFERRING PHYSICIAN: LUIS PIERCE MD DATE OF SERVICE: 05/20/20 Discharge Plan Patient Name: DON CARPENTER Facility: [facility]:[place] : 1960 Planned Disposition: Residential Facility Anticipated Discharge Date: Discharge Date: 05/17/2020 Expected LOS: Initial Reviewer: [id number] Initial Review Date: 04/23/2020 Generated: 05/20/20 3:14 pm Comments DCP- Discharge Planning Updated by [email or web address]: Kinsey Coley on 05/20/20 1:[address] Late entry assessment completed 05/18/20 @ 1800 Ubaldo received call from Jonas at [facility] regarding authorization from the insurance. Jonas states he received auth, and he just finished meeting with the patient to sign admitting paperwork. States the patient can be transported today into a Rehab bed, Transportation provider will be EMS. Kinsye Coley DCP- Discharge Planning Updated by [id number]: Kinsey Coley on 05/17/20 12:[address] Cm called [facility] and spoke with Jose who transferred to Ronnie who then transferred the call to Flori. Flori stated the auth is in front of the nurse for review, and should hear back today!!! UBALDO explained that the pt may loose her bed if it is late this afternoon. Stated we have waited over 2 weeks for an auth. Flori relooked at the request and stated the nurse who is taking care of those auth is out today. UBALDO stated that person has the request for over 24 hours and UBALDO would like to speak with someone who can authorize a patient to go to a SNF. UBALDO asked to speak with the supervisors manufacturing engineering manager. That manufacturing engineering manager or is in a meeting and would not take the call. Flori states she will route this to her manufacturing engineering manager. She took my name and number to have her senior mechanical project manager me back today. Stated if I have not heard anything by 1 pm I would call back. UBLADO received a call from Austen at [phone] who states she has just approved the admission into [facility]. Ubaldo called Beulah a [facility] SNF for bed status. Beulah states she does not have a bed available but will facilitate in assisting in fnding one. States [facility] as bed opening. CM called Austen back to update the status of the bed. CM attempted to facilitate on procedure for transferring auth. Austen states to have the referral sent by the facility attention to her. States as soon as she receives it she will begin to work on it CM called Jonas at [facility] with the referral. Kinsey Coley DCP- Discharge Planning Updated by [email or web address]: Kinsey Coley on 05/17/20 9:[address] CM called Joyce at [facility] at [phone] to follow up about the pending authorization from insurance. Joyce states that she has not received anything from the insurance company yet. Joyce states they are filling up, and may not have a bed for much longer. UBALDO states she will speak with the insurance company again to see how to expedite the auth. Kinsey Coley DCP- Discharge Planning Updated by [id number]: Kinsey Coley on 05/16/20 11:[address] Patient Name: DON CARPENTER Encounter No: [id number] : 1960 Primary Insurance: [employer] INS EXCHANGE Anticipated DC Date: Planned Disposition: Residential Facility External Planned Provider: : DCP follow-up note: UBALDO called Beulah Clinical liaison, for [facility]. stated that UBALDO called [facility] to follow up with the auth. Flori from [facility] states that the auth has not been sent for the nurse to review. Stated the auth was sent for the nurse to review today. Hoping to get it expedited today. Beulah states they are holding her bed, and will admit when auth is provided. No changes to plan. Case management will follow and assist as needed. Kinsey Coley MSN,RN,CM DCP- Discharge Planning Updated by [email or web address]: Renee Fajardo on 05/15/20 3:[address] 1430: UBALDO contacted [employer] for progress on authorization and she states their business officer, Joyce is contacting the insurance company every day, in the afternoon. Verified with Trisha that she has the PASSAR information and she said she has it. CM will continue to follow up. CM left a message with client account representative of [facility], regarding insurance authorization for admission. CM left contact number. Await CB. DCP- Discharge Planning Updated by [id number]: Kinsey Coley on 05/14/20 1:[address] CM called Joyce at [facility] about authorization form ins. Joyce states she has not received confirmation yet. States she will call them to expedite results. CM will continue to assist in DC planning. Kinsey Coley DCP- Discharge Planning Updated by [id number]: Kinsey Coley on 05/14/20 10:[address] Patient Name: DON CARPENTER Admission Status: ER Accout number: [id number] Admission Date: 04-19-2020 : 1960 Admission Diagnosis:ADULT FAILURE TO THRIVE Attending: LUIS STANTON Current LOS: 25 Anticipated DC Date: Planned Disposition: Residential Facility Primary Insurance: [employer] INS EXCHANGE Discharge Planning Comments: CM called Joyce at [facility] at [phone] to follow up about the pending authorization from insurance. Joyce states that she has not received anything from the insurance company yet. States CM can call back this afternoon. Cm will call back this afternoon to see if authorization has been approved. Kinsey Coley Frame Bander: Kinsey Coley DCP- Discharge Planning Updated by [email or web address]: Kinsey Coley on 05/13/20 1:[address] Patient Name: DON CARPENTER Admission Status: ER Accout number: [id number] Admission Date: 04-19-2020 : 1960 Admission Diagnosis:ADULT FAILURE TO THRIVE Attending: LUIS STANTON Current LOS: 24 Anticipated DC Date: Planned Disposition: Residential Facility Primary Insurance: [employer] EXCHANGE Discharge Planning Comments: CM called Joyce at [facility] at [phone] about insurance authorization. Joyce states that she called the insurance company and the auth is still pending. States it should be finalized this afternoon or tomorrow. CM will continue to assist in dc planning/needs. Frame Bander: Kinsey Coley DCP- Discharge Planning Updated by [id number]: Miladys Will on 05/08/20 12:[address] Called [facility] and corrected mistake made on initial [facility]ASHID and refaxed. CM will continue to follow and assist with discharge planning/needs. DCP- Discharge Planning Updated by [email or web address]: Kinsey Coley on 05/07/20 8:[address] CM met with Beulah ([phone]) from [facility]. She states the facility will accept the patient and she has auth from insurance pending RASHID. States the facility will right off the deductible so that the patient will have access to rehab services. CM spoke with patient about accepting facilities. The [facility] CM stated that the closest accepting facility is [place]. The patient is tearful, but in agreement for the opportunity for rehab. The patient will need to be transported by ambulance with [facility]. Kinsey Coley DCP- Discharge Planning Updated by [id number]: Kinsey Coley on 05/07/20 7:[address] Cm called pt room and spoke with patient about DC plan. CM provided details about copay and emt intermediate CYNTHIA. Patient states she knows she can not go home. States her children will not help her. They live out of town and are not able to assist her at home. States she understands she may need to go into long-term care and is in agreement. CM will continue to assist as needed. Kinsey Coley DCP- Discharge Planning Updated by [id number]: Kinsey Coley on 05/06/20 7:[address] Patient Name: DON CARPENTER Encounter No: [id number] : 1960 Primary Insurance: [employer] INS EXCHANGE Anticipated DC Date: Planned Disposition: Residential Facility External Planned Provider: : LATE ENTRY ASSESSMENT COMPLETED 05/03 DCP follow-up note: CM called [facility] at [phone] for resources and left message for return phone call. Will await return call. Called Beulah at [facility] at [phone] that says she has 2 potential facilities that is taking covid patients with a large body habitus. She states she will call back with further information. Case management will follow and assist as needed. Kinsey Coley 05/06/20 Received call from Beulah stating the patients insurance will require a 2700 dollar copay, or she can attempt to apply for long-term Medicaid. CM attempted to call pt room several times but unable to get pt to answer the phone. Jonas from [facility] states he will come by the facility tomorrow with Beulah and assist in placement. DCP- Discharge Planning Updated by [id number]: Reneehali Fajardo on 05/02/20 3:[address] Per Brittney, none of her facilities can accept patient due to her weight and COVID diagnosis. CM will attempt to place again, tomorrow. DCP- Discharge Planning Updated by [id number]: Renee Scotty on 05/01/20 1:[address] CM contacted Brittney and faxed required information for SNF placement [facility]. CM revisited patient via phone, she is tearful and worried about the possibility of cancer. She states she occasionally has vaginal bleeding and was to be scheduled for OP surgery, by Dr. Gage. Patient is in agreement for a SNF stay, followed by returning home with [facility]. CM encouraged patient to be OOB at least three times/day and walk in her room. Patent states she used a RW at home. CM requested a RW be brought to her room by PT. Instructed patient to wait on her nurse, to be in the room before she attempts to use it. CM notified Roma Kirkpatrick APN, of patient's emotional state. Attempted to contact patient's daughter, Jenny Burns ([phone]), but VM was full and no answer. Patient is concerned about her home and car and has no one to check on it. CM will continue to follow. DCP- Discharge Planning Updated by [id number]: Kinsey Coley on 04/30/20 12:[address] Spoke to Claribel who states the insurance is out of network with her facilities. Spoke to Brittney who stated she will review the clinicals and get back with CM with determination. Kinsey Coley MSN,RN,CM DCP- Discharge Planning Updated by [id number]: Kinsey Coley on 04/30/20 10:[address] Cm called Jamari at [facility] for determination. Jamari states they are unable to accept covid positives, and they can not provide care with the patient's weight requirements. Kinsey Coley MSN,RN,CM DCP- Discharge Planning Updated by [id number]: Kinsey Coley on 04/29/20 12:[address] CM SPOKE WITH JAMARI FROM [phone] ABOUT REFERRAL AND FAXED CLINICALS. JAMARI STATED HE WOULD PROVIDE DETERMINIATION BY TOMORROW KINSEY COLEY DCP- Discharge Planning Updated by [email or web address]: Renee Fajardo on 04/26/20 11:[address] 1200: [facility] unable to accept today, will re-evaluate 04/29. CM contacted Jonas Calvillo, with [facility] SN[facility]. Faxed required information and gave verbal report. Awaiting CB. DCP- Discharge Planning Updated by [id number]: Miladys Will on 04/24/20 6:[address] I received a call from Claribel with [facility]. Claribel states that patient's insurance is [employer] and they are not in network with any of their facilities. CM will continue to attempt to find a SNF in network. DCP- Discharge Planning Updated by [id number]: Miladys Will on 04/23/20 1:[address] Patient Name: DON CARPENTER Admission Status: ER Accout number: [id number] Admission Date: 04-19-2020 : 1960 Admission Diagnosis:ADULT FAILURE TO THRIVE Attending: LUIS STANTON Current LOS: 4 Anticipated DC Date: Planned Disposition: Residential Facility Primary Insurance: [employer] [facility] INS EXCHANGE Discharge Planning Comments: CM called patient (per Covid positive protocol) to discuss discharge needs. I informed her that I spoke with Geovanna in inpatient rehab ad she had completed the end of her inpatient rehab and suggests a skilled facility if needed. She states that she feels she does need a skilled facility at this time. States when she got home, she could not even get out of the car due to weakness. States she lives alone and would need to be able to care for herself. I discussed all the skilled facilities with her and she states she will go to which ever one will take a covid positive patient. I spoke with Brittney Aviles, liaison for [facility] and she states that her facilities will not take a covid positive patient. The only one she has is [facility] . I spoke with [facility] and she states that [facility] in [place] will accept Covid positive patients. She will check with [facility]. I faxed her a face sheet so they can run insurance. CM will continue to follow and assist with discharge planning/needs. Frame Bander: Miladys Will DCPIA - Discharge Planning Initial Assessment Updated by [email or web address]: Miladys Will on 04/23/20 2:32 pm * Is the patient Alert and Oriented? Yes * PCP Dr. Leal * Pharmacy [facility] * Preadmission Environment Home Alone * ADLs Partial Dependent * Partial ADLs (Assistance needed) Ambulation * Equipment Cane Glucometer Walker * List name and contact numbers for known caregivers / representatives who currently or will assist patient after discharge: Jenny Carpenter - [phone] * Verbal permission to speak to the caregivers and representatives has been obtained from the patient. Yes * Community resources currently utilized Home Health * Please name any agencies selected above. Care 4 [facility] * Additional services required to return to the preadmission environment? Yes * Can the patient safely return to the preadmission environment? No * Has this patient been hospitalized within the prior 30 days at any hospital? Yes Last DP export: 05/20/20 8:22 a Patient Name: DON CARPENTER Page [id number] at 1415 All edits/amendments must be made on the electronic document DICTATION DATE: 05/20/20 141 SEED TECHNICIAN: NIKOS 05/20/201413 RPT#: [id number] DC DATE:05/17/20 STATUS: DIS IN [facility] [address] [place] [address] END OF REPORT
== END 2020-05-17 20:05 | DRG 871 ==
LOC: D.ER 16:30 → D.M2 18:39
PROVIDERS: Emergency Medicine; Family Medicine; Internal Medicine Hematology & Oncology; Internal Medicine Pulmonary Disease; ADMIT Family Medicine; ATTEND Family Medicine
DX: A41.9 Sepsis, unspecified organism (principal); R53.2 Functional quadriplegia; U07.1 COVID-19; J12.89 Other viral pneumonia; Z68.43 Body mass index [BMI] 50.0-59.9, adult; I48.20 Chronic atrial fibrillation, unspecified; N39.0 Urinary tract infection, site not specified; R62.7 Adult failure to thrive; E66.01 Morbid (severe) obesity due to excess calories; G40.909 Epilepsy, unspecified, not intractable, without status epilepticus; E11.65 Type 2 diabetes mellitus with hyperglycemia; I10 Essential (primary) hypertension; Z79.01 Long term (current) use of anticoagulants; E03.9 Hypothyroidism, unspecified; E78.5 Hyperlipidemia, unspecified; D50.9 Iron deficiency anemia, unspecified; K21.9 Gastro-esophageal reflux disease without esophagitis; F41.8 Other specified anxiety disorders; D72.819 Decreased white blood cell count, unspecified; G72.9 Myopathy, unspecified